=== PATIENT | male | born 1970 | race Caucasian/White ===

== ENCOUNTER 2022-12-15 10:51 | Outpatient (OUT) | payer MEDICAID, SELFPAY ==
[2022-12-15 11:23] LABS: Basophils Percent Auto 0.3 % (0.2-2.0); Eosinophils Absolute Auto 0.1 10^3/uL (0.0-0.7); Hematocrit 36.8 % (42.0-54.0); Hemoglobin 12.7 g/dL (14.0-18.0); Immature Granulocytes Abs Auto 0.02 10^3/uL (0.00-0.03); Immature Granulocytes Pct Auto 0.3 % (0.0-0.5); Lymphocytes Absolute Auto 1.2 10^3/uL (1.2-3.8); Mean Corpuscular HGB Conc 34.5 g/dL (29.9-35.2); Mean Corpuscular Hemoglobin 30.2 pg (25.9-34.0); Mean Corpuscular Volume 87.4 fL (80.0-94.0); Mean Platelet Volume 10.1 fL (9.5-13.5); Monocytes Absolute Auto 0.7 10^3/uL (0.3-0.8); Monocytes Percent Auto 10.2 % (1.7-12.0); Neutrophils Absolute Auto 4.4 10^3/uL (1.4-6.5); Neutrophils Percent Auto 69.2 % (43.0-75.0); Platelet Count 179 10^3/uL (150-450); Red Blood Count 4.21 10^6/uL (4.70-6.10); Red Cell Distribution Width 12.4 % (11.0-15.0); White Blood Count 6.4 10^3/uL (4.0-11.0)
== END 2022-12-15 10:52 | disposition home or self-care (01) ==
PROVIDERS: PCP Internal Medicine; Visit Provider Internal Medicine
DX: D64.9 Anemia, unspecified (principal)
CPT/HCPCS: 36415; 82607; 82728; 82746; 83550; 85025

== ENCOUNTER 2023-02-26 07:30 | Outpatient (OUT) | payer MEDICAID, SELFPAY ==
[2023-02-26 07:47] LABS: Basophils Percent Auto 0.8 % (0.2-2.0); Eosinophils Absolute Auto 0.1 10^3/uL (0.0-0.7); Eosinophils Percent Auto 1.6 % (0.9-7.0); Hematocrit 41.1 % (42.0-54.0); Hemoglobin 13.9 g/dL (14.0-18.0); Immature Granulocytes Abs Auto 0.01 10^3/uL (0.00-0.03); Immature Granulocytes Pct Auto 0.2 % (0.0-0.5); Lymphocytes Absolute Auto 1.2 10^3/uL (1.2-3.8); Mean Corpuscular HGB Conc 33.8 g/dL (29.9-35.2); Mean Corpuscular Hemoglobin 29.8 pg (25.9-34.0); Mean Corpuscular Volume 88.2 fL (80.0-94.0); Mean Platelet Volume 10.9 fL (9.5-13.5); Monocytes Absolute Auto 0.5 10^3/uL (0.3-0.8); Monocytes Percent Auto 9.6 % (1.7-12.0); Neutrophils Absolute Auto 3.1 10^3/uL (1.4-6.5); Neutrophils Percent Auto 62.8 % (43.0-75.0); Platelet Count 129 10^3/uL (150-450); Red Blood Count 4.66 10^6/uL (4.70-6.10); Red Cell Distribution Width 12.1 % (11.0-15.0); White Blood Count 4.9 10^3/uL (4.0-11.0)
== END 2023-02-26 07:31 | disposition home or self-care (01) ==
LOC: LAB 07:31
PROVIDERS: PCP Internal Medicine; Visit Provider Internal Medicine
DX: D64.9 Anemia, unspecified (principal)
CPT/HCPCS: 36415; 85025

== ENCOUNTER 2023-03-03 08:52 | Outpatient (OUT) | payer MEDICAID, SELFPAY ==
[2023-03-03 11:33] LABS: Bilirubin Urine NEGATIVE (NEGATIVE); Blood Urine TRACE-I (NEGATIVE); Clarity Urine CLEAR (CLEAR); Color Urine YELLOW (YELLOW); Glucose Urine UA NEGATIVE (NEGATIVE); Ketones Urine NEGATIVE (NEGATIVE); Leukocyte Esterase Urine NEGATIVE (NEGATIVE); Nitrite Urine NEGATIVE (NEGATIVE); Protein Urine NEGATIVE (NEG/TRACE); Specific Gravity Urine 1.025 (1.005-1.025); Urobilinogen Urine 0.2 EU/dL (0.2-1.0); pH Urine 5.5 (5.0-9.0)
[2023-03-03 11:56] LABS: Crystals Seen? Seen #/HPF (None Seen); Mucus Urine NONE SEEN (NONE SEEN); Squamous Epithelial Cell Urine RARE #/LPF (NONE/RARE); WBC Urine 0-2 #/HPF (NONE SEEN)
[2023-03-03 11:57] LABS: Calcium Oxalate Crystals Urine MODERATE; Cast Seen? SEEN #/LPF (NONE SEEN); Hyaline Casts Urine RARE
[2023-03-03 11:58] LABS: Bacteria Urine TRACE #/HPF (NONE SEEN)
== END 2023-03-03 08:53 | disposition home or self-care (01) ==
LOC: LAB 08:52
PROVIDERS: PCP Internal Medicine; Visit Provider Internal Medicine
DX: N28.1 Cyst of kidney, acquired (principal)
CPT/HCPCS: 81001

== ENCOUNTER 2023-08-27 06:59 | Outpatient (OUT) | payer MEDICAID, SELFPAY ==
--- OUTSIDE RECORDS SUMMARY | 2023-08-27 07:03 | XMS_ITS | CCD ---
Author Organization [facility] Care Team Providers Care Deputy Register Of Deeds Name Role Phone DO Yaya Olivo Primary Care Provider Al MD Kobe Lay Admit Provider MD Emma Allen Attending Provider [phone] MD Denis Jung Other Provider [phone] Doretha Valentino Unavailable Unavailable Unavailable DO Yaya Olivo Primary Care Provider CATHERINE Valentino Attending Provider [phone] Yaya Olivo E Unavailable DO Yaya Olivo Primary Care Provider CATHERINE Valentino Attending Provider [phone] Yaya Olivo Unavailable DO Yaya Olivo Primary Care Provider CATHERINE Valentino Attending Provider MD Josesito Timmons Attending Provider [phone] Lakesha Hatch Attending Unavailable YAYA OLIVO Referring Unavailable TOREY, DR JAVIER Primary Care Unavailable ES GAMA Admitting Unavailable ES GAMA Attending Unavailable NENA .ASAF Consulting UnavailLeland Torres Consulting Unavailable ES GAMA Consulting Unavailable TOREY, DR JAVIER Admitting Unavailable TOREY, DR JAVIER Attending Unavailable TOREY, DR JAVIER Primary Care Unavailable TOREY, DR JAVIER Consulting Unavailable TALBOT, DR ARNULFO Dale Admitting Unavailable TALBOT, DR ARNULFO Dale Attending Unavailable TOREY, DR JAVIER Primary Care Unavailable TALBOT, DR ARNULFO Dale Consulting Unavailable BALL, DR JAVIER Admitting Unavailable BALL, DR JAVIER Attending Unavailable BALL, DR JAVIER Referring Unavailable BALL, DR JAVIER Primary Care Unavailable BALL, DR JAVIER Consulting Unavailable BALL, DR JAVIER Admitting Unavailable BALL, DR JAVIER Attending Unavailable BALL, DR JAVIER Primary Care Unavailable BALL, DR JAVIER Consulting Unavailable BALL, DR JAVIER Admitting Unavailable BALL, DR JAVIER Attending Unavailable BALL, DR JAVIER Primary Care Unavailable BALL, DR JAVIER Consulting Unavailable Zieber, Abdirahman Consulting Unavailable VIKTOR, DR DENIS Acevedo Admitting Unavailabl e VIKTOR, DR DENIS Acevedo Attending Unavailabl e BALL, DR JAVIER Primary Care Unavailable VIKTOR, DR DENIS Acevedo Consulting Unavailabl e Viktor, Dr. Denis Nieto Referring Unava ilable Torey, Dr. Yaya Michelle Primary Care Jovany Fernandez, Dr. Denis Nieto Attending Unava ilable Viktor, Dr. Denis Nieto Referring Unava ilable Ball, Dr. Yaya Michelle Primary Care Jovany Fernandez, Dr. eDnis Nieto Attending Unava ilable Torey, DO Javier Primary Care Provider CATHERINE Valentino Attending Provider Gallo, CHIEF GROWTH OFFICER-C Joanne Fairchild Attending Provider [phone] Aleksandra Caal Unavailable DO Yaya Olivo Primary Care Provider CATHERINE Valentino Attending Provider Yaya Olivo DO Primary Care Provider Denis Fernandez DO Unavailable DENIS FERNANDEZ Attending Unavailable YAYA OLIVO Primary Care Unavailable Torey, DO Javier Primary Care Provider CATHERINE Valentino Attending Provider MD Gary East Attending Provider DO Garrett Fernandez Other Provider Doretha Valentino Attending Unavailable Doretha Valentino R Admitting Unavailable Torey, Yaya Primary Care Unavailable Gallo, Joanne A Attending Unavailable Gallo, Joanne A Admitting Unavailable Doretha Valentino R Attending Unavailable Doretha Valentino R Admitting Unavailable Torey, Yaya Primary Care Unavailable Doretha Valentino R Attending Unavailable Chicho, Doretha R Admitting Unavailable Ball, Yaya Primary Care Unavailable [facility] Primary Care Unavailable Gary East Attending Unavailable Gary East Admitting Unavailable Gary East Admitting Unavailable Torey, Yaya Primary Care Unavailable Garrett Fernandez Consulting Unavailable Gary East Attending Unavailable Allergies Allergy Classification Reported Allergen(s) Allergy Type Date of Onset Reaction(s) Facility (5 sources) patient allergy list reviewed by nurse or physicia Propensity to adverse reactions 6 Comment:Done [facility] Other (5 sources) Allergies Reconciled Propensity to adverse reactions Unknown [employer] [facility] Other Medications Current Medications Medication Drug Class(es) Dates Sig (Normalized) Sig (Original) aspirin 81 mg delayed release oral tablet (20 sources) Platelet Aggregation Inhibitor, Nonsteroidal Anti-inflammatory Drug Start: 10-13-2021 take 81 mg by mouth once daily Aspirin Active 81 MG PO Daily 90 October 13, 2021 12:00am aspirin 81 mg ch ewable tablet Chew 1 tablet (81 mg) 1 time. Active Aspirin 81 MG Or al Tablet Chewable TAKE 1 TABLET Quantity: 90 Refills: 3 Ordered: 22-Nov-2022 Denis Fernandez DO Active atorvastatin 40 mg oral tablet (20 sources) HMG-CoA Reductase Inhibitor Start: 10-13-2021 take 40 mg by mouth once daily in the evening Atorvastatin Active 40 MG PO Every evening 30 October 13, 2021 12:00am busPIRone hydrochloride 10 mg oral tablet (20 sources) Start: 11-11-2021 take 1 tablet by mouth twice daily as needed for anxiety busPIRone HCl 10 MG 1 tablet Orally Twice a day as needed for anxiety for 15 days Oct, Active Start: 11-11-2021 take 1 tablet by indy th twice daily as needed for anxiety busPIRone HCl 7.5 MG 1 tablet Orally Twice a day as needed for anxiety for 15 days Oct, Active take 2 tablets by mo [facility] twice daily busPIRone (Buspar) 7.5 mg tablet Take 2 tablets (15 mg) by mouth 2 times a day. Active take 1 tablet by indy th twice daily busPIRone HCl 15 MG TAKE 1 TABLET BY MOUTH TWICE A DAY for 90 Active take 1 tablet by mouth once odessa y busPIRone HCl - 15 MG Oral Tablet TAKE 1 TABLET EVERY 12 HOURS DAILY. Quantity: 0 Refills: 0 Ordered: 22-Nov-2022 DO Active fluocinolone acetonide 0.1 mg/ml topical oil (8 sources) Corticosteroid [place]-Smoothe/FS Body 0.01 % 1 application Externally PRN for 30 days Active [place]-Smoothe/FS Body 0.01 % External for 30 Days Active metoprolol tartrate 25 mg oral tablet (20 sources) beta-Adrenergic Amee Start: 04-04-2023 take 0.5 tablet by mouth twice daily metoprolol tartrate (Lopressor) 25 mg tablet Indications: Hypertension, benign Take 0.5 tablets (12.5 mg) by mouth 2 times a day. 180 tablet 3 04/04/2023 Active Start: 04-06-2022 End: 08-08-2023 take 0.5 tablet by mouth once daily metoprolol tartrate (Lopressor) 25 mg tablet Take 0.5 tablets (12.5 mg) by mouth once daily. 04/06/2022 08/08/2023 Discontinued (Duplicate order) Start: 10-13-2021 take 25 mg by mouth twice odessa y Metoprolol Tartrate Active 25 MG PO Twice daily 60 30 October 13, 2021 12:00am Metoprolol Tartr ate 25 MG one half Orally daily Active 24 hr nicotine 0.292 mg/hr transdermal system (11 sources) Cholinergic Nicotinic Agonist Start: 12-14-2021 apply 1 dose transdermal route once daily Nicotine 7 MG/24HR 1 patch to skin Transdermal Once a day for 14 days STARTS 12/29/21 Nov, Active Start: 12-14-2021 apply 1 dose transde rmal route once daily Nicotine 7 MG/24HR 1 patch to skin Transdermal Once a day for 14 days STARTS 12/29/21 Nov, Active Start: 12-14-2021 apply 1 dose transde rmal route once daily Nicotine 7 MG/24HR 1 patch to skin Transdermal Once a day for 14 days Nov, Active Nicotine Mini 2 MG as directed Mouth/Throat Active Nicotine Step 2 14 MG/24HR (3 sources) Start: 11-23-2021 Nicotine Step 2 14 MG/24HR 1 patch to skin Transdermal Once a day for 14 days Nov, Active nitroglycerin 0.4 mg sublingual tablet (20 sources) Nitrate Vasodilator Start: 10-13-2021 Nitroglyce rin Active 0.4 MG SUBLINGUAL Q5M 25 30 October 13, 2021 12:00am Nitroglycerin 0. [address] 1 TABLET UNDER TONGUE EVERY 5 MINS, UP TO 3 DOSES NEEDED FOR CHEST PAIN Active Nitroglycerin 0. 4 MG as directed Sublingual Once a day Active predniSONE 10 mg oral tablet (14 sources) Start: 03-02-2023 predniSONE 10 MG 1 tablet Orally tid w/ food x 5 days then bid w/ food x 5 days then qd w/ food x 5 days for 15 days Feb, Active Start: 10-12-2022 predniSONE 20 MG 1 tablet Orally tid w/ fooc x 3 days then bid w/ food x 3 days then qd w/ food x 3 days for 9 days Oct, Not-Taking ticagrelor 90 mg oral tablet (20 sources) Start: 10-13-2021 take 1 tablet by mouth twice daily Ticagrelor (Brilinta) 90 mg Tablet Active 90 MG PO Twice daily 180 90 October 13, 2021 12:00am Completed/Discontinued Medications Medication Drug Class(es) Dates Sig (Normalized) Sig (Original) wcias-[id number] e enzyme 150 unt oral tablet (1 source) Beano TABS USE DIRECTED. Quantity: 0 Refills: 0 Ordered: 22-Nov-2021 DO Active 12 hr buPROPion hydrochloride 150 mg extended release oral tablet (5 sources) Aminoketone take 1 tablet by mouth twice daily buPROPion HCl ER (SR) 150 MG one tablet Orally Twice a day for 30 day(s) Not-Taking cephalexin 500 mg oral tablet (9 sources) Cephalosporin Antibacterial Start: 10-12-2022 take 1 tablet by mouth three times daily Cephalexin 500 MG 1 tablet Orally three times daily for 14 days Sep, Not-Taking ciprofloxacin 3 mg/ml ophthalmic solution (2 sources) Quinolone Antimicrobial Start: 05-27-2023 take 1 drop(s) into the eye(s) every four hours as needed Ciloxan 0.3 % 1 drop each eye every 4 hrs for 5 day(s) May, Not-Taking/PRN Problems Active Problems Problem Classification Problem Date Documented Date Episodic/Chronic Acute and unspecified renal failure (9 sources) Injury of kidney; Translations: [Acute kidney failure, unspecified] 10-14-2021 Episodic Acute myocardial infarction (20 sources) Myocardial infarction; Translations: [Non-ST elevation (NSTEMI) myocardial infarction] Onset: 10-20-2021 Resolved: 11-23-2021 10-12-2021 Chronic Administrative/social admission (1 source) Persons encountering health services in other specified circumstances Episodic Anxiety disorders (20 sources) Anxiety; Translations: [Anxiety disorder, unspecified] Onset: 11-09-2021 Resolved: 11-23-2021 Chronic Coronary atherosclerosis and other heart disease (20 sources) Coronary arteriosclerosis; Translations: [Coronary atherosclerosis of unspecified type of vessel, rosebud or graft] Onset: 04-01-2022 Chronic Coronary atherosclerosis and other heart disease (2 sources) Coronary angioplasty status; Translations: [Coronary angioplasty status] Onset: 04-04-2023 Episodic Deficiency and other anemia (4 sources) Anemia of chronic disease; Translations: [Anemia in other chronic diseases classified elsewhere] Chronic Deficiency and other anemia (1 source) Anemia in other chronic diseases classified elsewhere Chronic Deficiency and other anemia (2 sources) Anemia, unspecified Episodic Disorders of lipid metabolism (20 sources) Hyperlipidemia; Translations: [Other and unspecified hyperlipidemia] Onset: 12-15-2021 Chronic Essential hypertension (20 sources) Hypertensive disorder; Translations: [Essential (primary) hypertension] Onset: 10-14-2021 10-12-2021 Chronic Inflammation; infection of eye (except that caused by tuberculosis or sexually transmitteddisease) (1 source) Unspecified conjunctivitis Episodic Nonspecific chest pain (3 sources) Atypical chest pain; Translations: [Other chest pain] Episodic Other diseases of kidney and ureters (20 sources) Renal mass; Translations: [Other specified disorders of kidney and ureter] Chronic Other diseases of kidney and ureters (7 sources) Other specified disorders of kidney and ureter; Translations: [OTHER SPEC DISORDERS KIDNEY URETER] Onset: 06-15-2022 Chronic Other diseases of kidney and ureters (4 sources) Cyst of kidney, acquired; Translations: [Cyst of kidney, acquired] Onset: 08-14-2023 Episodic Other liver diseases (9 sources) Elevated liver enzymes level; Translations: [Abnormal levels of other serum enzymes] 10-14-2021 Episodic Other lower respiratory disease (20 sources) Nodule of lung; Translations: [Solitary pulmonary nodule] Episodic Other lower respiratory disease (7 sources) Solitary pulmonary nodule; Translations: [Solitary pulmonary nodule] Onset: 06-11-2023 Episodic Other nutritional; endocrine; and metabolic disorders (1 source) Obesity; Translations: [Obesity, unspecified] Chronic Other nutritional; endocrine; and metabolic disorders (6 sources) Abnormal weight loss Episodic Other nutritional; endocrine; and metabolic disorders (2 sources) Overweight in adulthood with body mass index of 25 or more but less than 30; Translations: [Body mass index (BMI) 25.0-25.9, adult] Onset: 08-08-2023 08-08-2023 Episodic Other nutritional; endocrine; and metabolic disorders (2 sources) Body mass index (BMI) 25.0-25.9, adult; Translations: [Body mass index (BMI) 25.0-25.9, adult] Onset: 08-08-2023 Episodic Other screening for suspected conditions (not mental disorders or infectious disease) (3 sources) Encounter for screening for malignant neoplasm of colon; Translations: [Encounter for screening for malignant neoplasm of prostate] Onset: 09-03-2022 Episodic Residual codes; unclassified (3 sources) Body mass index 20-24 - normal; Translations: [Body Mass Index between 19-24, adult] Episodic Screening and history of mental health and substance abuse codes (8 sources) Ex-smoker; Translations: [Personal history of tobacco use] Onset: 08-08-2023 08-08-2023 Episodic Comment on above: Quit October 2021; Substance-related disorders (20 sources) Tobacco user; Translations: [Nicotine dependence, cigarettes, uncomplicated] Onset: 10-14-2021 Resolved: 12-28-2021 Chronic Unclassified (1 source) CONTACT W/AND (SUSP) EXPOS COVID-19; Translations: [CONTACT W/AND (SUSP) EXPOS COVID-19] Onset: 10-14-2021 Unclassified (1 source) Cyst of kidney, acquired; Translations: [Cyst of kidney, acquired] Onset: 02-07-2023 Past or Other Problems Problem Classification Problem Date Documented Da te Episodic/Chronic Allergic reactions (4 sources) Allergic contact dermatitis due to plants, except food; Translations: [Other specified dermatitis] Onset: 12-05-2022 Episodic Results Test Name Value Interpretation Reference Range Facility Cholesterol [Mass/volume] in Serum or PlasmaOrdered By: Garrett Fernandez on 08-14-2023 Cholesterol [Mass/Vol] 87 mg/dL 140-200 [facility] Comment on above: Chol less than 200 m g/dl low riskChol 201-239 mg/dl borderline riskChol 240 mg/dl and greater high risk Cholesterol in LDL Calc [Mas s/Vol]Ordered By: Garrett Fernandez on 08-14-2023 Cholesterol in LDL [Mass/Vol] 38 mg/dL 0-100 [facility] Comment on above: LDL ATP III CLASSIFI CATIONLDL less than 100 mg/dL OptimalLDL 100-129 mg/dL Near or above optimalLDL 130-159 mg/dL Borderline highLDL 160-189 mg/dL HighLDL greater than 189 mg/dL Very high Cholesterol in VLDL Calc [Ma ss/Vol]Ordered By: Garrett Fernandez on 08-14-2023 Cholesterol in VLDL [Mass/Vol] 8 mg/dL [facility] Lipid Panelon 08-14-2023 Cholesterol [Mass/Vol] 87 mg/dL Low 140-200 [facility] Comment on above: Result Comment: Chol less than 200 mg/dl low risk Chol 201-239 mg/dl borderline risk Chol 240 mg/dl and greater high risk Performed By: #### L IPID #### [facility] [address] Cholesterol in HDL [Mass/Vol] 41 mg/dL Normal 23-92 [facility] Comment on above: Result Comment: HDL CHOL ATP-III CLASSIFICATION Cardiovascular Risk HDL > or equal to 60 mg/dL LOW HDL < 40 mg/dL HIGH Performed By: #### L IPID #### [facility] [address] Cholesterol.total/Cho lesterol in HDL [Mass ratio] 2.1 {ratio} Normal <5.0 [facility] Comment on above: Result Comment: PERF ORMED BY: [place] [address] PATHOLOGIST CAGE SHIFT MANAGER JACK PATEL M.D. Performed By: #### L IPID #### [facility] [address] [place] [id number] [facility] LDL Cholesterol,Calculate d 38 mg/dL Normal 0-100 [facility] Comment on above: Result Comment: LDL ATP III CLASSIFICATION LDL less than 100 mg/dL Optimal LDL 100-129 mg/dL Near or above optimal LDL 130-159 mg/dL Borderline high LDL 160-189 mg/dL High LDL greater than 189 mg/dL Very high Performed By: #### L IPID #### [facility] [place] [address] Triglyceride w/Reflex 41 mg/dL Normal 0-149 [facility] Comment on above: Result Comment: TRIG ATP III CLASSIFICATION TRIG less than 150 mg/dL Normal TRIG 150-199 mg/dL Borderline high TRIG 200-500 mg/dL High TRIG greater than 500 mg/dL Very high Standard traceable to the Center for Disease Conrtrol and Prevention (CDC) test method. Performed By: #### L IPID #### [facility] [address] [place] [address] VLDL CHOLESTEROL 8 mg/dL Normal [facility] Comment on above: Performed By: #### L IPID #### [address] MR abdomen wo/w conon 2023 MR abdomen wo/w con [facility] [place] [address] MRI Report Signed Patient: Pj Sabillon MR#: [id number] 255 : 1970 Acct:[id number] Age/Sex: 53 / M ADM Date: 08/14/23 Loc: Room: Type: [facility] Attending Dr: Gary East MD Copies to: Gary East MD Ordering Provider: Gary East MD Date of Service: 08/14/23 MR/MR abdomen wo/w con: N28.1 MRI the abdomen with and without contrast Routine technique with 14 cc of ProHance administered. HISTORY: Annual monitoring of the left the kidney suggesting hemorrhagic/proteinac eous cyst. Comparison examination dated 02/08/2023 There is a continued involution of the round low signal lesion in the upper lateral portion of the left kidney. This measures up to 7 mm. The prior measurement 15 mm. No solid lesions identified. No hydronephrosis. No obvious stone. Potential small left inferior parapelvic renal cysts. Unremarkable liver, spleen pancreas and adrenal glands. Unremarkable gallbladder. No ascites. No adenopathy. MR/MR abdomen wo/w con IMPRESSION: Findings consistent with continued interval involution of left hemorrhagic cyst with residual hemosiderin ring. No solid lesions. No new findings. Impression dictated by: Jarrett Chauhan M.D.08/14/2023 3:49 PM Dictation Location: [id number]-14 Transcribed By: [facility] 08/14/23 154 Dictated By: Jarrett Chauhan DO 08/14/23 154 Signed By: 08/14/23 1549 Normal [facility] PSA Diagnostic (Total Free)o n 08-14-2023 Prostate Spec Ag, Free 0.190 ng/mL Normal [facility] Comment on above: Performed By: #### P SATF #### [address] PSA Total (Not a Screen) 0.370 ng/mL Normal 0.000-4.000 [facility] Comment on above: Result Comment: Seri al tumor marker results determined by assays using different manufacturers or methods may not be comparable. [facility] draw bench operator and method: Meetyl DXI, CHEMILUMINESCENT IMMUNOASSAY. Performed By: #### P SATF #### [address] PSA,FREE% 51.3 % Normal [facility] Comment on above: Result Comment: Base d on the work of Tito et al.CORIE. 279(19):1542:47.1998 the percent free PSA may be used to determine the relative risk of prostate cancer in individual men.The percent probability of prostate cancer by patient age for men with non-suspicious LAUREN results and total PSa between 4 and 10 ng/ml is as follows: % Free PSA 50 - 64 yrs. 65 - 75 yrs. 0 - 10 56% 55% 10 - 15 24% 35% 15 - 20 17% 23% 20 - 25 10% 20% >25 5% 9% PERFORMED BY: [place] [address] PATHOLOGIST CAGE SHIFT MANAGER JACK PATEL M.D. Performed By: #### P [facility] #### [facility] [address] Prostate Specific Ag Free [M ass/volume] in Serum or PlasmaOrdered By: Gary East on 08-14-2023 Free PSA [Mass/Vol] 0.190 ng/mL [facility] Prostate specific Ag [Mass/v olume] in Serum or PlasmaOrdered By: Gary East on 08-14-2023 Prostate specific Ag [Mass/Vol] 0.370 ng/mL 0.000-4.000 [facility] Comment on above: Serial tumor marker results determined by assays using different manufacturers or methods may not be comparable.[facility] draw bench operator and method:Pump AudioI, CHEMILUMINESCENT IMMUNOASSAY. Serum or plasma free prostat e specific antigen (PSA)/total PSA ratioOrdered By: Gary East on 08-14-2023 Free PSA/Total PSA [Mass fraction] 51.3 % [facility] Comment on above: Based on the work of Tito et al.CORIE. 279(19):1542:47.1998 the percent free PSA may be used to determine the relative risk of prostate cancer in individual men.The percent probability of prostate cancer by patient age for men with non-suspicious LAUREN results and total PSa between 4 and 10 ng/ml is as follows:% Free PSA 50 - 64 yrs. 65 - 75 yrs. 0 - 10 56% 55% 10 - 15 24% 35% 15 - 20 17% 23% 20 - 25 10% 20% >25 5% 9% Serum or plasma high density lipoprotein (HDL) cholesterol measurementOrdered By: Garrett Fernandez on 08-14-2023 Cholesterol in HDL [Mass/Vol] 41 mg/dL [facility] Comment on above: HDL CHOL ATP-III CLA SSIFICATION Cardiovascular RiskHDL > or equal to 60 mg/dL LOWHDL < 40 mg/dL HIGH Serum or plasma total choles terol/high density lipoprotein (HDL) cholesterol mass ratOrdered By: Garrett Fernandez on 08-14-2023 Cholesterol.total/Cho lesterol in HDL [Mass ratio] 2.1 {ratio} <5.0 [facility] Triglyceride [Mass/volume] i n Serum or PlasmaOrdered By: Garrett Fernandez on 08-14-2023 Triglyceride [Mass/Vol] 41 mg/dL 0-149 [facility] Comment on above: TRIG ATP III CLASSIF ICATIONTRIG less than 150 mg/dL NormalTRIG 150-199 mg/dL Borderline highTRIG 200-500 mg/dL High TRIG greater than 500 mg/dL Very highStandard traceable to the Center for Disease Conrtrol and Prevention (CDC) test method. CT chest w conon 06-12-2023 CT chest w con [facility] [place] [address] [place] [address] CT Scan Report Signed Patient: Pj Sabillon MR#: [id number] 255 : 1970 Acct:[id number] Age/Sex: 52 / M ADM Date: 06/11/23 Loc: CT Room: Type: [facility] Attending Dr: Doretha Valentino APRN Copies to: Doretha Valentino APRN Ordering Provider: Doretha Valentino APRN Date of Service: 06/11/23 CT/CT chest w con: Pulmonary nodule CT Chest with contrast TECHNIQUE: Axial imaging with 2-D reconstruction. 90 cc of Isovue-300The CT exam was performed using one or more the following dose reduction techniques: Automated exposure control, adjustment of the MA and/or Kv according to patient size, or use of the iterative reconstruction technique. History: Assessment for pulmonary nodule. Former smoker. COMPARISON: 05/31/2022 THYROID: Unremarkable TRACHEA AND BRONCHI: Patent ESOPHAGUS: Unremarkable. HEART: Within normal limits PERICARDIAL EFFUSION: None CORONARY ARTERY CALCIFICATION: None MEDIASTINUM: No adenopathy. No pneumoperitoneum. No mediastinal hematoma. PULMONARY JOAN: Right hilar calcified lymph nodes redemonstrated. THORACIC AORTA Unremarkable LUNG NODULE no noncalcified soft tissue nodule present. stable calcified right middle lobe granulomas present. LUNGS: Lungs are clear PLEURAL EFFUSION: None PNEUMOTHORAX: No pneumothorax seen. CHEST WALL: No abnormality AXILLA:Unremarkable BONY STRUCTURES Intact UPPER ABDOMEN: Images of the upper abdomen are noncontributory. CT/CT chest w con IMPRESSION: Stable chest. Remote granulomatous changes. No new lung nodule. Impression dictated by: Jarrett Chauhan M.D.06/12/2023 9:41 AM Dictation Location: [place] [address] Transcribed By: [facility] 06/12/2341 Dictated By: Jarrett Chauhan DO 06/12/2336 Signed By: 06/12/23940 Normal [facility] ISTAT XRay CREon 02-07-2023 Creatinine [Mass/Vol] 1.2 mg/dL Normal 0.6-1.3 [facility] Comment on above: Result Comment: ER/E SD physician is notified/shown all ISTAT results. Critical values may be confirmed by laboratory testing if deemed necessary by ER attending doctor. Performed By: #### I SCRE #### [address] ISTAT GFR > 60.0 Normal [facility] Comment on above: Result Comment: PERF ORMED BY: [place] [address] PATHOLOGIST CAGE SHIFT MANAGER JACK PATEL M.D. Performed By: #### I SCRE #### [address] MR abdomen wo/w conon 2022 MR abdomen wo/w con [facility] [place] [address] MRI Report Signed Patient: Pj Sabillon MR#: [id number] 255 : 1970 Acct:[id number] Age/Sex: 52 / M ADM Date: 02/07/23 Loc: Room: Type: [facility] Attending Dr: Gary East MD Copies to: Gary East MD Ordering Provider: Gary East MD Date of Service: 02/07/23 MR/MR abdomen wo/w con: N28.1 MRI the abdomen with and without contrast TECHNIQUE: 14 cc of ProHance. COMPARISON: 07/20/2022 HISTORY: Annual monitoring of left renal lesion. There is a 14.6 mm round predominantly low signal, lesion in the upper lateral portion of the left kidney with central region of increased signal. This likely represents an involuting hemorrhagic cyst with hemosiderin. There are no solid lesions identified. No hydronephrosis. No findings to suggest stone. Potential small left inferior parapelvic renal cyst. Unremarkable liver, spleen, pancreas and adrenal glands. Unremarkable gallbladder. No ascites. No adenopathy. MR/MR abdomen wo/w con IMPRESSION: Findings consistent with interval involution of left hemorrhagic cyst with residual cyst with a hemosiderin ring. No solid renal lesion. Impression dictated by: Jarrett Chauhan M.D.02/07/2023 12:38 PM Dictation Location: [place] [address] Transcribed By: [facility] 02/07/23 1238 Dictated By: Jarrett Chauhan DO 02/07/23 1229 Signed By: 02/07/23 1238 Normal [facility] Superficial Wound Cultureon 12-05-2022 Superficial Wound Culture ORGANISM: Staphylococcus aureus (O:STAAUR) Quantity of Growth Moderate Growth Aerobic OPHELIA Charge (PCMIC38) ---- SUSCEPTIBILITY --- ORGANISM: O:STAAUR ANTIBIOTIC INTERPRETATION OPHELIA Azithromycin R >4 Ceftaroline S <0.5 Ciprofloxacin S <1 Clindamycin S 0.5 Daptomycin S <0.5 Levofloxacin S <1 Linezolid S 4 Oxacillin S <0.25 Penicillin S <0.03 Tetracycline S <4 Trimethoprim/Sulfamet hoxazole S <0.5 Vancomycin S 1 S = SUSCEPTIBLE I = INTERMEDIATE R = RESISTANT BLANK = DATA NOT AVAILABLE, OR DRUG NOT ADVISABLE OR TESTED R* = RESISTANCE DUE TO EXTENDED SPECTRUM BETA-LACTAMASES ESBL = EXTENDED SPECTRUM BETA-LACTAMASE TFG = THYMIDINE-DEPENDENT STRAIN FRIDA = BETA-LACTAMASE POSITIVE IB = INDUCIBLE BETA-LACTAMASE. APPEARS IN PLACE OF 'S' WITH SPECIES KNOWN TO POSSESS INDUCIBLE BETA-LACTAMASES. POTENTIALLY THEY MAY BECOME RESISTANT TO ALL B-LACTAM DRUGS. PERFORMED BY: [place] [address] PATHOLOGIST [employer] SHIFT MANAGER JACK PATEL M.D. Normal [facility] Comment on above: Performed By: #### C USUP #### [address] Office Visit (Cardiology)on 11-22-2022 Follow-up visit Diagnoses/Problems Assessed CAD (coronary artery disease) (414.00) (I25.10) History of CO (myocardial infarction) (412) (I25.2) History of PTCA (V45.82) (Z98.61) Hyperlipidemia (272.4) (E78.5) Body mass index (BMI) of 23.0 to 23.9 in adult (V85.1) (Z68.23) HTN (hypertension) (401.9) (I10) Atypical chest pain (786.59) (R07.89) Orders CAD (coronary artery disease), History of PTCA, Hyperlipidemia Renew: Aspirin 81 MG Oral Tablet Chewable; TAKE 1 TABLET Hyperlipidemia Renew: Atorvastatin Calcium 40 MG Oral Tablet; TAKE 1 TABLET AT BEDTIME Patient Instructions Please bring all medicines, vitamins, and herbal supplements with you when you come to the office. Prescriptions will not be filled unless you are compliant with your follow up appointments or have a follow up appointment scheduled as per instruction of your physician. Refills should be requested at the time of your visit. Follow up in 8 months Chief Complaint PJ SABILLON is being seen for a 6 month follow-up of. Patient is a 52-year-old gentleman returns for follow-up and is doing extremely well. Last year in September 2021 he underwent PCI's in the circumflex obtuse marginal branch x3 drug-eluting stents with Dr. Velarde for an acute myocardial infarction. He does describe atypical right-sided musculoskeletal chest discomfort with work that is somewhat reproducible on today's exam. He has dropped a total of 85 pounds over the past 1 year impressively with dietary discretion. No longer smokes. Recommendations: Follow-up in 8 months on same therapy Surgical History Problems History of Cardiac catheterization with stent placement Denied: History of Complete colonoscopy History of Lithotripsy Current Meds Medication NameInstruction Aspirin 81 MG Oral Tablet ChewableTAKE 1 TABLET Atorvastatin Calcium 40 MG Oral TabletTAKE 1 TABLET AT BEDTIME. busPIRone HCl - 15 MG Oral TabletTAKE 1 TABLET EVERY 12 HOURS DAILY. Metoprolol Tartrate 25 MG Oral TabletTAKE 0.5 TABLET once daily Nitroglycerin 0.4 MG Sublingual Tablet SublingualPLACE 1 TABLET UNDER THE TONGUE EVERY 5 MINUTES UP TO 3 DOSES NEEDED FOR CHEST PAIN. Patient did not bring medication list or bottles. Updated verbally with patient Allergies NoKnown No Known Allergies Recorded By: Ramya Denis; 11/10/2021 3:28:18 PM Social History Problems Daily caffeine consumption 1-2 cans of pop daily Former smoker (V15.82) (Z87.891) Quit October 2021 No alcohol use No illicit drug use Review of Systems Constitutional: not feeling tired. Cardiovascular: no intermittent leg claudication and as noted in HPI. Respiratory: no cough and no shortness of breath. Gastrointestinal: no change in bowel habits and no blood in stools. Integumentary: no skin rashes. Neurological: no seizures and no frequent falls. All other systems have been reviewed and are negative for complaint. Vitals Vital Signs Recorded: 22Nov2022 10:27AM Heart Rate58, L Radial Rtyxfavh198, LUE, Sitting Wazcqnbyz34, LUE, Sitting Height5 ft 8 in Gfqxgg685 lb BMI Ujylsspdvi29.42 kg/m2 BSA Calculated1.83 Tobacco Useb) No Physical Exam Constitutional: alert and in no acute distress. Neck: neck is supple, symmetric, trachea midline, no masses and no thyromegaly . Pulmonary: no increased work of breathing or signs of respiratory distress and lungs clear to auscultation. Cardiovascular: carotid pulses 2+ bilaterally with no bruit , JVP was normal, no thrills , regular rhythm, normal S1 and S2, no murmurs , pedal pulses 2+ bilaterally and no edema . Abdomen: abdomen non-tender, no masses and no hepatomegaly . Skin: skin warm and dry, normal skin turgor . Psychiatric judgment and insight is normal and oriented to person, place and time . Signatures Electronically signed by : Denis Fernandez DO; Nov 23 2022 1:38PM EST (Author) Normal [facility] Tobacco Screening.on 023 Tobacco use status [facility] b) No -[facility] 250 DO Work Phone: CBC AUTO DIFFon 09-01-2022 BASO # 0.0 103/ul Normal 0.0-0.1 [facility] Comment on above: Performed By: #### C BC #### [facility] [address] [place] [address] [address] Kelly Jones Basophils/100 WBC (Bld) 0.8 % Normal 0.2-2.0 [facility] Comment on above: Performed By: #### C BC #### [facility] [address] [place] [address] Dr. Kelly Jones EO # 0.1 103/ul Normal 0.0-0.7 [facility] Comment on above: Performed By: #### C BC #### [facility] [address] [place] [address] Dr. Kelly Jones Eosinophils/100 WBC (Bld) 1.6 % Normal 0.9-7.0 [facility] Comment on above: Performed By: #### C BC #### [facility] [address] [place] [address] Dr. Kelly Jones Erythrocyte distribution width (RBC) [Ratio] 12.3 % Normal 11.0-15.0 [facility] Comment on above: Performed By: #### C BC #### [facility] [address] [place] [address] Dr. Kelly Jones Hematocrit (Bld) [Volume fraction] 38.5 % Critically low 42.0-54.0 [facility] Comment on above: Performed By: #### C BC #### [facility] [address] [place] [address] Dr. Kelly Jones Hemoglobin (Bld) [Mass/Vol] 13.5 g/dL Critically low 14.0-18.0 [facility] Comment on above: Performed By: #### C BC #### [facility] [address] [place] [address] Dr. Kelly Jones IG # 0.01 10e3/ul Normal 0.00-0.03 [facility] Comment on above: Performed By: #### C BC #### [facility] [address] [place] [address] Dr. Kelly Jones IG % 0.2 % Normal 0.0-0.5 [facility] Comment on above: Performed By: #### C BC #### [facility] [address] [place] [address] Dr. Kelly Jones LYMPH # 1.4 103/ul Normal 1.2-3.8 [facility] Comment on above: Performed By: #### C BC #### [facility] [address] [place] [address] Dr. Kelly Jones Lymphocytes/100 WBC (Bld) 28.1 % Normal 20.5-60.0 [facility] Comment on above: Performed By: #### C BC #### [facility] [address] [place] [address] Dr. Kelly Jones MANUAL DIFF REQ NO Normal [facility] Comment on above: Performed By: #### C BC #### [facility] [address] [place] [address] Dr. Kelly Jones MCH (RBC) [Entitic mass] 30.0 pg Normal 25.9-34.0 [facility] Comment on above: Performed By: #### C BC #### [facility] [address] [place] [address] Dr. Kelly Jones MCHC (RBC) [Mass/Vol] 35.1 g/dL Normal 29.9-35.2 [facility] Comment on above: Performed By: #### C BC #### [facility] [address] [place] [address] Dr. Kelly Jones MCV (RBC) [Entitic vol] 85.6 fL Normal 80.0-94.0 [facility] Comment on above: Performed By: #### C BC #### [facility] [address] [place] [address] Dr. Kelly Jones MONO # 0.5 103/ul Normal 0.3-0.8 [facility] Comment on above: Performed By: #### C BC #### [facility] [address] [place] [address] Dr. Kelly Jones Monocytes/100 WBC (Bld) 9.4 % Normal 1.7-12.0 [facility] Comment on above: Performed By: #### C BC #### [facility] [address] [place] [address] Dr. Kelly Jones NEUT # 3.0 103/ul Normal 1.4-6.5 [facility] Comment on above: Performed By: #### C BC #### [facility] [address] [place] [address] [address] Kelly Jones Neutrophils/100 WBC (Bld) 59.9 % Normal 43.0-75.0 [facility] Comment on above: Performed By: #### C BC #### [facility] [address] [place] [address] [address] Kelly Jones Platelet mean volume (Bld) [Entitic vol] 10.5 fL Normal 9.5-13.5 [facility] Comment on above: Performed By: #### C BC #### [facility] [address] [place] [address] [address] Kelly Jones PLT 131 103/ul Critically low 150-450 [facility] Comment on above: Performed By: #### C BC #### [facility] [address] [place] [address] [address] Kelly Jones RBC 4.50 106/ul Critically low 4.70-6.10 [facility] Comment on above: Performed By: #### C BC #### [facility] [address] [place] [address] [address] Kelly Jones WBC 5.1 103/ul Normal 4.0-11.0 [facility] Comment on above: Performed By: #### C BC #### [facility] [address] [place] [address] Dr. Kelly Jones LIPID PROFILEon 09-01-2022 CHOL-HDL RATIO NORM SEE BELOW Normal [facility] Comment on above: Result Comment: 3.3 - 4.4 LOW RISK 4.4 - 7.1 AVERAGE RISK 7.1 - 11.0 MODERATE RISK >11.0 HIGH RISK Performed By: #### L IPID, CMP #### [facility] [address] [place] [address] [address] Kelly Jones Cholesterol [Mass/Vol] 92 mg/dL Normal <=200 [facility] Comment on above: Performed By: #### L IPID, CMP #### [facility] [address] [place] [address] [address] Kelly Jones Cholesterol in HDL [Mass/Vol] 47 mg/dL Normal 40-60 [facility] Comment on above: Performed By: #### L IPID, CMP #### [facility] [address] [address] [address] Kelly Jones Cholesterol in LDL [Mass/Vol] 35.8 mg/dL Normal [facility] Comment on above: Performed By: #### L IPID, CMP #### [facility] [address] [place] [address] [address] Kelly Jones Cholesterol.total/Cho lesterol in HDL [Mass ratio] 2.0 {ratio} Normal [facility] Comment on above: Performed By: #### L IPID, CMP #### [facility] [address] [place] [address] [address] Kelly Jones HDL NORMAL > or = 60 mg/dl - LO W CARDIOVASCULAR RISK <40 mg/dl - HIGH CARDIOVASCULAR RISK Normal [facility] Comment on above: Performed By: #### L IPID, CMP #### [facility] [address] [place] [address] Dr. Kelly Jones LDL CALC NORMAL SEE BELOW Normal [facility] Comment on above: Result Comment: <100 mg/dl OPTIMAL 100 - 129 mg/dl NEAR OR ABOVE OPTIMAL 130 - 159 mg/dl BORDERLINE HIGH 160 - 189 mg/dl HIGH >190 mg/dl VERY HIGH Performed By: #### L IPID, CMP #### [facility] [address] [address] [address] Kelly Jones Triglyceride [Mass/Vol] 46 mg/dL Normal <=150 [facility] Comment on above: Performed By: #### L IPID, CMP #### [facility] [address] [place] [address] [address] Kelly Jones VLDL CALC 9.2 mg/dL Normal [facility] Comment on above: Performed By: #### L IPID, CMP #### [facility] [address] [address] [address] Kelly Jones PROF 14(COMP METB)on 023 Albumin [Mass/Vol] 3.6 g/dL Normal 3.4-5.0 [facility] Comment on above: Performed By: #### L IPID, CMP #### [facility] [address] [place] [address] [address] Kelly Jones Albumin/Globulin [Mass ratio] 1.2 {ratio} Normal [facility] Comment on above: Performed By: #### L IPID, CMP #### [facility] [address] [place] [address] [address] Kelly Jones ALP [Catalytic activity/Vol] 83 U/L Normal 46-116 [facility] Comment on above: Performed By: #### L IPID, CMP #### [facility] [address] [place] [address] [address] Kelly Jones ALT [Catalytic activity/Vol] 52 U/L Normal 16-63 [facility] Comment on above: Performed By: #### L IPID, CMP #### [facility] [address] [address] [address] Kelly Jones Anion gap [Moles/Vol] 11.5 mmol/L Normal [facility] Comment on above: Performed By: #### L IPID, CMP #### [facility] [address] [address] [address] Kelly Jones AST [Catalytic activity/Vol] 20 U/L Normal 15-37 [facility] Comment on above: Performed By: #### L IPID, CMP #### [facility] [address] [address] [address] Kelly Jones Bilirubin [Mass/Vol] 0.6 mg/dL Normal 0.2-1.0 [facility] Comment on above: Performed By: #### L IPID, CMP #### [facility] [address] [address] [address] Kelly Jones Calcium [Mass/Vol] 8.9 mg/dL Normal 8.5-10.1 [facility] Comment on above: Performed By: #### L IPID, CMP #### [facility] [address] [address] [address] Kelly Jones Chloride [Moles/Vol] 109 mmol/L Critically high 98-107 [facility] Comment on above: Performed By: #### L IPID, CMP #### [facility] [address] [address] [address] Kelly Jones CO2 [Moles/Vol] 28.7 mmol/L Normal 21.0-32.0 [facility] Comment on above: Performed By: #### L IPID, CMP #### [facility] [address] [address] [address] Kelly Jones Creatinine [Mass/Vol] 1.09 mg/dL Normal 0.70-1.30 [facility] Comment on above: Performed By: #### L IPID, CMP #### [facility] [address] [place] [address] Dr. Kelly Jones EGFR-AF TAIWANESE >60 Normal >=60 [facility] Comment on above: Performed By: #### L IPID, CMP #### [facility] [address] [place] [address] Dr. Kelly Jones EGFR-NON AF TAIWANESE >60 Normal >=60 [facility] Comment on above: Performed By: #### L IPID, CMP #### [facility] [address] [place] [address] Dr. Kelly Jones Globulin (S) [Mass/Vol] 3.1 g/dL Normal [facility] Comment on above: Performed By: #### L IPID, CMP #### [facility] [address] [address] [address] Kelly Jones Glucose [Mass/Vol] 86 mg/dL Normal 74-106 [facility] Comment on above: Performed By: #### L IPID, CMP #### [facility] [address] [address] [address] Kelly Jones Potassium [Moles/Vol] 4.2 mmol/L Normal 3.5-5.1 [facility] Comment on above: Performed By: #### L IPID, CMP #### [facility] [address] [place] [address] Dr. Kelly Jones Protein [Mass/Vol] 6.7 g/dL Normal 6.4-8.2 [facility] Comment on above: Performed By: #### L IPID, CMP #### [facility] [address] [address] [address] Kelly Jones Sodium [Moles/Vol] 145 mmol/L Normal 136-145 [facility] Comment on above: Performed By: #### L IPID, CMP #### [facility] [address] [place] [address] Dr. Kelly Jones Urea nitrogen [Mass/Vol] 15.0 mg/dL Normal 7.0-18.0 [facility] Comment on above: Performed By: #### L IPID, CMP #### [facility] [address] [place] [address] Dr. Kelly Jones Urea nitrogen/Creatinine [Mass ratio] 13.8 mg/mg Normal [facility] Comment on above: Performed By: #### L IPID, CMP #### [facility] [address] [place] [address] Dr. Kelly Jones Office Visit (Cardiology)on 06-20-2022 Follow-up visit Diagnoses/Problems Assessed CAD (coronary artery disease) (414.00) (I25.10) History of PTCA (V45.82) (Z98.61) History of CO (myocardial infarction) (412) (I25.2) Hyperlipidemia (272.4) (E78.5) Hypertension, benign (401.1) (I10) Overweight with body mass index (BMI) of 25 to 25.9 in adult (278.02,V85.21) (E66.3,Z68.25) Orders CAD (coronary artery disease), History of PTCA, Hyperlipidemia Renew: Aspirin 81 MG Oral Tablet Chewable; TAKE 1 TABLET Patient Instructions Please bring all medicines, vitamins, and herbal supplements with you when you come to the office. Prescriptions will not be filled unless you are compliant with your follow up appointments or have a follow up appointment scheduled as per instruction of your physician. Refills should be requested at the time of your visit. Stop Brilinta at end of September 2022 Follow up in 6 months Chief Complaint PJ SABILLON is being seen for a 6 month follow-up of. 51-year-old gentleman returns for follow-up and is doing well he has no cardiovascular complaints. 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 He remains on appropriate therapies including DAPT. He sustained non-ST elevation CO in September 2021 with revascularization of the circumflex and obtuse marginal branch x3 drug-eluting stents performed by Dr. Myles Betancur, with normal left ventricular function. Blood work from March 2022 is reviewed however does not include lipid panel. We will order a lipid panel, patient can follow-up in 6 months, will discontinue Brilinta at the end of September 2022 Current Meds Medication NameInstruction Aspirin 81 MG Oral Tablet ChewableTAKE 1 TABLET Atorvastatin Calcium 40 MG Oral TabletTAKE 1 TABLET AT BEDTIME. Brilinta 90 MG Oral TabletTAKE 1 TABLET TWICE DAILY. BuSpar 10 MG TABSTake 1 tablet twice daily Metoprolol Tartrate 25 MG Oral TabletTAKE 0.5 TABLET once daily Nitroglycerin 0.4 MG Sublingual Tablet SublingualPLACE 1 TABLET UNDER THE TONGUE EVERY 5 MINUTES UP TO 3 DOSES NEEDED FOR CHEST PAIN. Patient did not bring medication list or bottles. Updated verbally with patient Allergies NoKnown No Known Allergies Recorded By: Ramya Denis; 11/10/2021 3:28:18 PM Social History Problems Daily caffeine consumption 1-2 cans of pop daily Former smoker (V15.82) (Z87.891) Quit October 2021 No alcohol use No illicit drug use Review of Systems Constitutional: not feeling tired. Cardiovascular: no intermittent leg claudication and as noted in HPI. Respiratory: no cough and no shortness of breath. Gastrointestinal: no change in bowel habits and no blood in stools. Integumentary: no skin rashes. Neurological: no seizures and no frequent falls. All other systems have been reviewed and are negative for complaint. Vitals Vital Signs Recorded: [id number] 02:18PM Heart Rate60, L Radial Mcsoqwsz547, LUE, Sitting Oaehxxnpq50, LUE, Sitting Height5 ft 8 in Jlrkzo318 lb BMI Ymubcmrgkx72.09 kg/m2 BSA Calculated1.88 Tobacco Useb) No PHQ-2 #1. Over the last 2 weeks have you felt down, depressed or hopeless? (If yes, answer PHQ-9 below)No PHQ-2 #2. Over the last 2 weeks have you felt little interest or pleasure in doing things? (If yes, answer PHQ-9 below)No Physical Exam Constitutional: alert and in no acute distress. Neck: neck is supple, symmetric, trachea midline, no masses and no thyromegaly . Pulmonary: no increased work of breathing or signs of respiratory distress and lungs clear to auscultation. Cardiovascular: carotid pulses 2+ bilaterally with no bruit , JVP was normal, no thrills , regular rhythm, normal S1 and S2, no murmurs , pedal pulses 2+ bilaterally and no edema . Abdomen: abdomen non-tender, no masses and no hepatomegaly . Skin: skin warm and dry, normal skin turgor . Psychiatric judgment and insight is normal and oriented to person, place and time . Signatures Electronically signed by : Denis Fernandez DO; Jun 20 2022 5:18PM EST (Author) Normal [employer] CT ABD/PELV WO W CONon 06-15 CT ABD/PELV WO W CON EXAMINATION: CT ABD/PELV WO W CON HISTORY: Disorder of kidney and/or ureter ; left renal mass COMPARISON: No relevant comparison available. TECHNIQUE: Axial, Coronal, and Sagittal images were obtained without and/or with IV contrast as indicated by examination type. Dose reduction techniques were achieved by using automated exposure control and/or adjustment of mA and/or kV according to patient size and/or use of iterative reconstruction technique. FINDINGS: LUNG BASES: No visible pulmonary or pleural disease. LIVER: No enlargement, atrophy, suspicious density, or significant focal lesion. BILIARY: No dilatation or calcification. PANCREAS: No lesion, fluid collection, or abnormal duct dilatation. SPLEEN: No enlargement or focal lesion. ADRENALS: No mass or enlargement. KIDNEYS: 4.7 cm round fluid density thin-walled structure arising from anterior lateral inferior pole of left kidney with suspected soft tissue components along the renal margin with minimal enhancement. A few small cyst within left kidney. Several tiny nonobstructing stones within kidneys bilaterally. BOWEL/MESENTERY: No visible mass, obstruction, or bowel wall thickening. AORTA/VASCULAR: No aneurysm or dissection. RETROPERITONEUM: No mass or adenopathy. LYMPH NODES: No adenopathy. URINARY BLADDER: No visible focal wall thickening, lesion, or calculus. PELVIC ORGANS: No visible mass. Pelvic organs appropriate for patient age. ABDOMINAL WALL: No mass or hernia. BONES: No bony lesion or fracture. OTHER: Negative. IMPRESSION: 1.Partially cystic mass 4.7 cm in size and suspicious for neoplasm arising from left kidney. This could also represent a complex cyst, but neoplasm needs to be excluded. 2.Nonobstructing bilateral nephrolithiasis. Electronically authenticated by: ABDIRAHMAN YOU Date: 2022-06-15 17:[address] [facility] [address] chest w conon 05-31-2022 CT chest w con [facility] [employer] Other CT chest w con [facility] [employer] Other CT chest w con [address] [place] [address] [employer] [place] [address] No [facility] [employer] Other CT chest w con CT Scan Report [place] [employer] Other CT chest w con Signed [employer] Other CT chest w con Patient: Pj Sabillon MR#: [id number] [place] [employer] Other CT chest w con [address] [employer] [address] chest w con : 1970 Acct:[id number] [employer] Other CT chest w con Age/Sex: 51 / M ADM Date: 05/31/[address] [employer] [address] chest w con Loc: CT Room: Type: [facility] [employer] Other CT chest w con Attending Dr: Cathy Valentino [facility] [employer] Other CT chest w con Copies to: Doretha Valentino [facility] [employer] Other CT chest w con Ordering Provider: Doretha Valentino APRN [employer] Other CT chest w con Date of Service: 05/31/22 [employer] [employer] Other CT chest w con CT/CT chest w con: Lung nodule [employer] Other CT chest w con CT CHEST WITH INTRAVENOUS CONTRAST: [employer] Other CT chest w con CLINICAL HISTORY: Follow-up lung nodules. [employer] Other CT chest w con COMPARISON: 01/11/[address] [employer] [address] chest w con TECHNIQUE: Spiral images were obtained through the chest following intravenous administration of [address] [employer] [address] chest w con mL of Isovue-300. Images were reviewed using both narrow and wide window settings. This CT exam [employer] Other CT chest w con was performed using one or more following dose reduction techniques: Automated exposure control, [employer] Other CT chest w con adjustment of the mA and/or kV according to patient size, or use of iterative reconstruction [employer] Other CT chest w con technique. [employer] Other CT chest w con FINDINGS: The heart is not enlarged. There is no pericardial effusion. Coronary artery [employer] Other CT chest w con calcification and/or stents are present. No aortic aneurysm or dissection is seen. There are [employer] Other CT chest w con stable calcified and noncalcified mediastinal and hilar lymph nodes. There is subtle [employer] Other CT chest w con dextroscoliotic curvature and small endplate spurs. [employer] Other CT chest w con There is no consolidation, pleural effusion or pneumothorax. No soft tissue nodularity is seen. [employer] Other CT chest w con There are calcified right middle lobe granulomas measuring up to 7 - 8 mm in size. [employer] Other CT chest w con Limited cuts through the upper abdomen show a partially imaged, enlarging left renal hypodensity [employer] Other CT chest w con measuring at least 4.7 cm in size. This is not a simple cyst. [employer] Other CT chest w con CT/CT chest w con [employer] Other CT chest w con IMPRESSION: [employer] Other CT chest w con GRANULOMATOUS CHANGES. [employer] Other CT chest w con NO SOFT TISSUE PULMONARY NODULARITY. [employer] Other CT chest w con NO ACUTE INTRATHORACIC FINDINGS. [employer] Other CT chest w con PARTIALLY IMAGED LEF T RENAL NODULARITY. THIS IS NOT A DEFINITE SIMPLE CYST. FOLLOW-UP WITH [employer] Other CT chest w con Impression dictated by: Lyly Weiss M.D.05/31/2022 4:21 PM [employer] Other CT chest w con Dictation Location: [place] [id number] [employer] Other CT chest w con Transcribed By: [facility] 05/31/22 [facility] [employer] Other CT chest w con Dictated By: Lyly Weiss MD 05/31/22 [facility]2 [employer] Other CT chest w con Signed By: [employer] Other CT chest w con 05/31/22 [facility] [employer] Other CBC AUTO DIFFon 03-28-2022 BASO # 0.0 103/ul Normal 0.0-0.1 [facility] Comment on above: Performed By: #### C BC #### [facility] [address] [place] [address] Dr. Kelly Jones Basophils/100 WBC (Bld) 0.3 % Normal 0.2-2.0 [facility] Comment on above: Performed By: #### C BC #### [facility] [address] [place] [address] Dr. Kelly Jones EO # 0.1 103/ul Normal 0.0-0.7 [facility] Comment on above: Performed By: #### C BC #### [facility] [address] [place] [address] Dr. Kelly Jones Eosinophils/100 WBC (Bld) 1.5 % Normal 0.9-7.0 [facility] Comment on above: Performed By: #### C BC #### [facility] [address] [place] [address] Dr. Kelly Jones Erythrocyte distribution width (RBC) [Ratio] 13.2 % Normal 11.0-15.0 [facility] Comment on above: Performed By: #### C BC #### [facility] [address] [place] [address] Dr. Kelly Jones Hematocrit (Bld) [Volume fraction] 39.6 % Critically low 42.0-54.0 [facility] Comment on above: Performed By: #### C BC #### [facility] [address] [place] [address] Dr. Kelly Jones Hemoglobin (Bld) [Mass/Vol] 13.7 g/dL Critically low 14.0-18.0 [facility] Comment on above: Performed By: #### C BC #### [facility] [address] [place] [address] Dr. Kelly Jones IG # 0.02 10e3/ul Normal 0.00-0.03 [facility] Comment on above: Performed By: #### C BC #### [facility] [address] [place] [address] Dr. Kelly Jones IG % 0.3 % Normal 0.0-0.5 [facility] Comment on above: Performed By: #### C BC #### [facility] [address] [place] [address] Dr. Kelly Jones LYMPH # 1.4 103/ul Normal 1.2-3.8 [facility] Comment on above: Performed By: #### C BC #### [facility] [address] [place] [address] Dr. Kelly Jones Lymphocytes/100 WBC (Bld) 23.0 % Normal 20.5-60.0 [facility] Comment on above: Performed By: #### C BC #### [facility] [address] [place] [address] Dr. Kelly Jones MANUAL DIFF REQ NO Normal [facility] Comment on above: Performed By: #### C BC #### [facility] [address] [place] [address] Dr. Kelly Jones MCH (RBC) [Entitic mass] 29.9 pg Normal 25.9-34.0 [facility] Comment on above: Performed By: #### C BC #### [facility] [address] [place] [address] Dr. Kelly Jones MCHC (RBC) [Mass/Vol] 34.6 g/dL Normal 29.9-35.2 [facility] Comment on above: Performed By: #### C BC #### [facility] [address] [place] [address] Dr. Kelly Jones MCV (RBC) [Entitic vol] 86.5 fL Normal 80.0-94.0 [facility] Comment on above: Performed By: #### C BC #### [facility] [address] [place] [address] Dr. Kelly Jones MONO # 0.5 103/ul Normal 0.3-0.8 [facility] Comment on above: Performed By: #### C BC #### [facility] [address] [place] [address] Dr. Kelly Jones Monocytes/100 WBC (Bld) 8.8 % Normal 1.7-12.0 [facility] Comment on above: Performed By: #### C BC #### [facility] [address] [place] [address] Dr. Kelly Jones NEUT # 4.0 103/ul Normal 1.4-6.5 [facility] Comment on above: Performed By: #### C BC #### [facility] [address] [address] [address] Kelly Jones Neutrophils/100 WBC (Bld) 66.1 % Normal 43.0-75.0 [facility] Comment on above: Performed By: #### C BC #### [facility] [address] [address] [address] Kelly Jones Platelet mean volume (Bld) [Entitic vol] 10.7 fL Normal 9.5-13.5 [facility] Comment on above: Performed By: #### C BC #### [facility] [address] [place] [address] Dr. Kelly Jones PLT 145 103/ul Critically low 150-450 [facility] Comment on above: Performed By: #### C BC #### [facility] [address] [place] [address] Dr. Kelly Jones RBC 4.58 106/ul Critically low 4.70-6.10 [facility] Comment on above: Performed By: #### C BC #### [facility] [address] [place] [address] Dr. Kelly Jones WBC 6.1 103/ul Normal 4.0-11.0 [facility] Comment on above: Performed By: #### C BC #### [facility] [address] [place] [address] Dr. Kelly Jones PROF CHEM 8 (BAS METB)on Anion gap [Moles/Vol] 8.0 mmol/L Normal [facility] Comment on above: Performed By: #### B MP #### [facility] [address] [place] [address] Dr. Kelly Jones Calcium [Mass/Vol] 9.3 mg/dL Normal 8.5-10.1 [facility] Comment on above: Performed By: #### B MP #### [facility] [address] [place] [address] Dr. Kelly Jones Chloride [Moles/Vol] 105 mmol/L Normal 98-107 [facility] Comment on above: Performed By: #### B MP #### [facility] [address] [address] [address] Kelly Jones CO2 [Moles/Vol] 31.0 mmol/L Normal 21.0-32.0 [facility] Comment on above: Performed By: #### B MP #### [facility] [address] [address] [address] Kelly Jones Creatinine [Mass/Vol] 0.96 mg/dL Normal 0.70-1.30 [facility] Comment on above: Performed By: #### B MP #### [facility] [address] [address] [address] Kelly Jones EGFR-AF TAIWANESE >60 Normal >=60 [facility] Comment on above: Performed By: #### B MP #### [facility] [address] [address] [address] Kelly Jones EGFR-NON AF TAIWANESE >60 Normal >=60 [facility] Comment on above: Performed By: #### B MP #### [facility] [address] [address] [address] Kelly Jones Glucose [Mass/Vol] 95 mg/dL Normal 74-106 [facility] Comment on above: Performed By: #### B MP #### [facility] [address] [address] [address] Kelly Jones Potassium [Moles/Vol] 4.0 mmol/L Normal 3.5-5.1 [facility] Comment on above: Performed By: #### B MP #### [facility] [address] [address] [address] Kelly Jones Sodium [Moles/Vol] 140 mmol/L Normal 136-145 [facility] Comment on above: Performed By: #### B MP #### [facility] [address] [address] [address] Kelly Jones Urea nitrogen [Mass/Vol] 10.0 mg/dL Normal 7.0-18.0 [facility] Comment on above: Performed By: #### B MP #### [facility] [address] [address] [address] Kelly Jones Urea nitrogen/Creatinine [Mass ratio] 10.4 mg/mg Normal [facility] Comment on above: Performed By: #### B MP #### [facility] [address] [id number] Kelly Jones LIPID PROFILEon 12-15-2021 CHOL-HDL RATIO NORM SEE BELOW Normal [facility] Comment on above: Result Comment: 3.3 - 4.4 LOW RISK 4.4 - 7.1 AVERAGE RISK 7.1 - 11.0 MODERATE RISK >11.0 HIGH RISK Performed By: #### C BC #### [facility] [address] [address] [address] Kelly Jones Cholesterol [Mass/Vol] 83 mg/dL Normal <=200 [facility] Comment on above: Performed By: #### C BC #### [facility] [address] [address] [address] Kelly Jones Cholesterol in HDL [Mass/Vol] 29 mg/dL Critically low 40-60 [facility] Comment on above: Performed By: #### C BC #### [facility] [address] [address] [address] Kelly Jones Cholesterol in LDL [Mass/Vol] 39.2 mg/dL Normal [facility] Comment on above: Performed By: #### C BC #### [facility] [address] [address] [address] Kelly Jones Cholesterol.total/Cho lesterol in HDL [Mass ratio] 2.9 {ratio} Normal [facility] Comment on above: Performed By: #### C BC #### [facility] [id number] Kelly Jones HDL NORMAL > or = 60 mg/dl - LO W CARDIOVASCULAR RISK <40 mg/dl - HIGH CARDIOVASCULAR RISK Normal [facility] Comment on above: Performed By: #### C BC #### [facility] [address] [address] [address] Kelly Jones LDL CALC NORMAL SEE BELOW Normal [facility] Comment on above: Result Comment: <100 mg/dl OPTIMAL 100 - 129 mg/dl NEAR OR ABOVE OPTIMAL 130 - 159 mg/dl BORDERLINE HIGH 160 - 189 mg/dl HIGH >190 mg/dl VERY HIGH Performed By: #### C BC #### [facility] [address] [place] [address] Dr. Kelly Jones Triglyceride [Mass/Vol] 74 mg/dL Normal <=150 [facility] Comment on above: Performed By: #### C BC #### [facility] [address] [address] [address] Kelly Jones VLDL CALC 14.8 mg/dL Normal [facility] Comment on above: Performed By: #### C BC #### [facility] [address] [place] [address] Dr. Kelly Jones PROF CHEM 8 (BAS METB)on Anion gap [Moles/Vol] 15.3 mmol/L Normal [facility] Comment on above: Performed By: #### B MP #### [facility] [address] [place] [address] Dr. Kelly Jones Calcium [Mass/Vol] 8.8 mg/dL Normal 8.5-10.1 [facility] Comment on above: Performed By: #### B MP #### [facility] [address] [place] [address] Dr. Kelly Jones Chloride [Moles/Vol] 100 mmol/L Normal 98-107 [facility] Comment on above: Performed By: #### B MP #### [facility] [address] [place] [address] Dr. Kelly Jones CO2 [Moles/Vol] 22.6 mmol/L Normal 21.0-32.0 [facility] Comment on above: Performed By: #### B MP #### [facility] [address] [place] [address] Dr. Kelly Jones Creatinine [Mass/Vol] 1.30 mg/dL Normal 0.70-1.30 [facility] Comment on above: Performed By: #### B MP #### [facility] [address] [place] [address] Dr. Kelly Jones EGFR-AF TAIWANESE >60 Normal >=60 [facility] Comment on above: Performed By: #### B MP #### [facility] [address] [address] [address] Kelly Jones EGFR-NON AF TAIWANESE 58 mL/min/1.73m2 Critically low >=60 [facility] Comment on above: Performed By: #### B MP #### [facility] [address] [address] [address] Kelly Jones Glucose [Mass/Vol] 114 mg/dL Critically high 74-106 [facility] Comment on above: Performed By: #### B MP #### [facility] [address] [address] [address] Kelly Jones Potassium [Moles/Vol] 3.9 mmol/L Normal 3.5-5.1 [facility] Comment on above: Performed By: #### B MP #### [facility] [address] [address] [address] Kelly Jones Sodium [Moles/Vol] 134 mmol/L Critically low 136-145 [facility] Comment on above: Performed By: #### B MP #### [facility] [address] [address] [address] Kelly Jones Urea nitrogen [Mass/Vol] 13.0 mg/dL Normal 7.0-18.0 [facility] Comment on above: Performed By: #### B MP #### [facility] [address] [address] [address] Kelly Jones Urea nitrogen/Creatinine [Mass ratio] 10.0 mg/mg Normal [facility] Comment on above: Performed By: #### B MP #### [facility] [address] [address] [address] Kelly Jones Activated partial thrombopla stin time (aPTT) in platelet poor plasma by coagulation aOrdered By: Dewayne Pettit on 10-14-2021 aPTT Coag (PPP) [Time] 29.8 s 25.1-36.5 [facility] Albumin [Mass/volume] in Ser um or PlasmaOrdered By: Myles Velarde on 10-14-2021 Albumin [Mass/Vol] 3.1 g/dL 3.2-5.5 [facility] Basophils Auto (Bld) [#/Vol] Ordered By: Myles Velarde on 10-14-2021 Basophils (Bld) [#/Vol] 0.1 10*3/uL 0.0-0.2 [facility] Basophils/100 WBC Auto (Bld) Ordered By: Myles Velarde on 10-14-2021 Basophils/100 WBC (Bld) 0.5 % [facility] Blood hemoglobin measurement (mass/volume)Ordered By: Myles Velarde on 10-14-2021 Hemoglobin (Bld) [Mass/Vol] 15.1 g/dL 13.0-17.0 [facility] Blood leukocytes automated c ount (number/volume)Ordered By: Myles Velarde on 10-14-2021 WBC (Bld) [#/Vol] 17.9 10*3/uL 4.5-11.0 [facility] Creatinine and Glomerular fi ltration rate.predicted panel (S/P/Bld)Ordered By: Myles Velarde on 10-14-2021 Creatinine [Mass/Vol] 1.70 mg/dL 0.64-1.27 [facility] Comment on above: Delta: 1.18 on 10/13 Eosinophils Auto (Bld) [#/Vo l]Ordered By: Myles Velarde on 10-14-2021 Eosinophils (Bld) [#/Vol] 0.1 10*3/uL 0.0-0.45 [facility] Eosinophils/100 WBC Auto (Bl d)Ordered By: Myles Velarde on 10-14-2021 Eosinophils/100 WBC (Bld) 0.3 % [facility] Erythrocyte distribution wid th Auto (RBC) [Ratio]Ordered By: Myles Velarde on 10-14-2021 Erythrocyte distribution width (RBC) [Ratio] 12.8 % 12.0-14.8 [facility] Estimated glomerular filtrat ion rate (GFR) non- AmericanOrdered By: Myles Velarde on 10-14-2021 GFR/1.73 sq M.predicted among non-blacks MDRD (S/P/Bld) [Vol rate/Area] 43 mL/Min [facility] Globulin Calc (S) [Mass/Vol] Ordered By: Myles Velarde on 10-14-2021 Globulin (S) [Mass/Vol] 2.9 g/dL [facility] Hematocrit Auto (Bld) [Volum e fraction]Ordered By: Myles Velarde on 10-14-2021 Hematocrit (Bld) [Volume fraction] 44.1 % 38.8-50.0 [facility] - CoagulationOrde red By: Dewayne Pettit on 10-14-2021 PT Coag (PPP) [Time] 13.7 s 9.0-12.9 [facility] - Hematology and Cell countsOrdered By: Myles Velarde on 10-14-2021 Nucleated RBC/100 WBC (Bld) [Ratio] 0.0 % 0-0.5 [facility] Lymphocytes Auto (Bld) [#/Vo l]Ordered By: Myles Velarde on 10-14-2021 Lymphocytes (Bld) [#/Vol] 1.4 10*3/uL 1.00-4.8 [facility] Lymphocytes/100 WBC Auto (Bl d)Ordered By: Myles Velarde on 10-14-2021 Lymphocytes/100 WBC (Bld) 8.0 % [facility] MCH Auto (RBC) [Entitic mass ]Ordered By: Myles Velarde on 10-14-2021 MCH (RBC) [Entitic mass] 29.3 pg 27.5-35.2 [facility] MCHC Auto (RBC) [Mass/Vol]Or dered By: Myles Velarde on 10-14-2021 MCHC (RBC) [Mass/Vol] 34.3 g/dL 32.5-35.6 [facility] MCV Auto (RBC) [Entitic vol] Ordered By: Myles Velarde on 10-14-2021 MCV (RBC) [Entitic vol] 85.3 fL 83.5-101 [facility] Monocytes Auto (Bld) [#/Vol] Ordered By: Myles Velarde on 10-14-2021 Monocytes (Bld) [#/Vol] 2.1 10*3/uL 0.0-0.8 [facility] Monocytes/100 WBC Auto (Bld) Ordered By: Myles Velarde on 10-14-2021 Monocytes/100 WBC (Bld) 11.5 % [facility] Neutrophils Auto (Bld) [#/Vo l]Ordered By: Myles Velarde on 10-14-2021 Neutrophils (Bld) [#/Vol] 14.3 10*3/uL 1.8-7.7 [facility] Neutrophils/100 WBC Auto (Bl d)Ordered By: Myles Velarde on 10-14-2021 Neutrophils/100 WBC (Bld) 79.7 % [facility] No Panel InformationOrdered By: Myles Velarde on 10-14-2021 Estimated GFR () 52 mL/Min [facility] Comment on above: GFR estimated refere nce range: According to KDOQI guidelines, <60 ml/min/1.73m2 is sufficient to diagnose a patient with chronic kidney disease. Pharmacy Creatinine Clearance (Chem 62.13 [facility] Platelet mean volume Auto (B ld) [Entitic vol]Ordered By: Myles Velarde on 10-14-2021 Platelet mean volume (Bld) [Entitic vol] 9.1 fL 6.6-10.1 [facility] Platelet poor plasma interna tional normalized ratio (INR) by coagulation assay (relatOrdered By: Dewayne Pettit on 10-14-2021 INR Coag (PPP) [Relative time] 1.2 {INR} [facility] Comment on above: INR Therapeutic Rang e A) Pre- and Peroperative OAT started two weeks before surgery. NOT HIP SURGERY: 1.5 - 2.5 HIP SURGERY: 2 - 3 B) Primary and secondary prevention of venous THROMBOSIS: 2 - 3 C) Active venous thrombosis, pulmonary embolism and prevention of recurrent venous thrombosis: 2 - 3 D) Prevention of arterial thromboembolism including patients with mechanical heart valves: 3 - 4.5 Platelets Auto (Bld) [#/Vol] Ordered By: Myles Velarde on 10-14-2021 Platelets (Bld) [#/Vol] 175 10*3/uL 150-450 [facility] Comment on above: Delta: 230 on -0451 Protein [Mass/volume] in Ser um or PlasmaOrdered By: Myles Velarde on 10-14-2021 Protein [Mass/Vol] 6.0 g/dL 6.1-7.9 [facility] RBC Auto (Bld) [#/Vol]Ordere d By: Myles Velarde on 10-14-2021 RBC (Bld) [#/Vol] 5.17 10*6/uL 3.90-5.60 [facility] Serum or plasma alanine yeager otransferase measurement without P-5'-P (enzymatic activiOrdered By: Myles Velarde on 10-14-2021 ALT No additional P-5'-P [Catalytic activity/Vol] 61 U/L 10-60 [facility] Serum or plasma albumin/glob ulin mass ratioOrdered By: Myles Velarde on 10-14-2021 Albumin/Globulin [Mass ratio] 1.1 {ratio} [facility] Serum or plasma alkaline rdoger sphatase measurement (enzymatic activity/volume)Ordered By: Myles Velarde on 10-14-2021 ALP [Catalytic activity/Vol] 80 U/L 32-92 [facility] Serum or plasma aspartate am inotransferase measurement (enzymatic activity/volume)Ordered By: Myles Velarde on 10-14-2021 AST [Catalytic activity/Vol] 119 U/L 10-42 [facility] Serum or plasma calcium yuriy urement (mass/volume)Ordered By: Myles Velarde on 10-14-2021 Calcium [Mass/Vol] 8.8 mg/dL 8.2-10.2 [facility] Serum or plasma chloride barbara surement (moles/volume)Ordered By: Myles Velarde on 10-14-2021 Chloride [Moles/Vol] 99 mmol/L 95-114 [facility] Serum or plasma glucose yuriy urement (mass/volume)Ordered By: Myles Velarde on 10-14-2021 Glucose [Mass/Vol] 102 mg/dL 70-100 [facility] Comment on above: ADA recommended refe rence range Random Glucose Reference Range is dependent on time and content of last meal. Glucose of more than 200 mg/dL in a nonstressed, ambulatory subject supports the diagnosis of Diabetes Mellitus. Serum or plasma potassium me asurement (moles/volume)Ordered By: Myles Velarde on 10-14-2021 Potassium [Moles/Vol] 4.4 mmol/L 3.5-5.1 [facility] Serum or plasma sodium measu rement (moles/volume)Ordered By: Myles Velarde on 10-14-2021 Sodium [Moles/Vol] 135 mmol/L 136-146 [facility] Serum or plasma total biliru bin measurement (mass/volume)Ordered By: Myles Velarde on 10-14-2021 Bilirubin [Mass/Vol] 2.2 mg/dL 0.3-1.2 [facility] Comment on above: Samples from patient s who have taken Naproxen have shown spurious elevation in Total Bilirubin levels. A metabolite of Naproxen, O-desmethylnaproxen, has been shown to interfere with the Lesly method for measuring Total Bilirubin. Serum or plasma total carbon dioxide measurement (moles/volume)Ordered By: Myles Velarde on 10-14-2021 CO2 [Moles/Vol] 25.2 mmol/L 22.0-30.0 [facility] Serum or plasma urea nitroge n measurement (mass/volume)Ordered By: Myles Velarde on 10-14-2021 Urea nitrogen [Mass/Vol] 21 mg/dL 01-13 [facility] Cholesterol [Mass/volume] in Serum or PlasmaOrdered By: Dewayne Pettit on 10-13-2021 Cholesterol [Mass/Vol] 184 mg/dL 140-200 [facility] Comment on above: Chol less than 200 m g/dl low risk Chol 201-239 mg/dl borderline risk Chol 240 mg/dl and greater high risk Cholesterol in LDL Calc [Mas s/Vol]Ordered By: Dewayne Pettit on 10-13-2021 Cholesterol in LDL [Mass/Vol] 128 mg/dL 0-100 [facility] Comment on above: LDL ATP III CLASSIFI CATION LDL less than 100 mg/dL Optimal LDL 100-129 mg/dL Near or above optimal LDL 130-159 mg/dL Borderline high LDL 160-189 mg/dL High LDL greater than 189 mg/dL Very high Cholesterol in VLDL Calc [Ma ss/Vol]Ordered By: Dewayne Pettit on 10-13-2021 Cholesterol in VLDL [Mass/Vol] 19 mg/dL [facility] Glucose Glucometer (BldC) [M ass/Vol]Ordered By: Emma Allen on 10-13-2021 Glucose [Mass/Vol] 108 mg/dL [facility] Comment on above: Random Glucose Refer ence Range is dependent on time and content of last meal. Glucose of more than 200 mg/dL in a nonstressed, ambulatory subject supports the diagnosis of Diabetes Mellitus. Glucose mean value [Mass/vol ume] in Blood Estimated from glycated hemoglobinOrdered By: Dewayne Pettit on 10-13-2021 Average glucose Estimated from glycated hemoglobin (Bld) [Mass/Vol] 108 mg/dL [facility] Hemoglobin A1c percentageOrd ered By: Dewayne Pettit on 10-13-2021 HbA1c (Bld) [Mass fraction] 5.4 % 4.3-5.6 [facility] Comment on above: Increased risk for d iabetes: 5.7 - 6.4 diabetes: >6.4 glycemic control for adults with diabetes: <7.0 Laboratory - Chemistry and C hemistry - challengeOrdered By: Dewayne Pettit on 10-13-2021 Magnesium [Mass/Vol] 2.1 mg/dL 1.6-2.6 [facility] No Panel InformationOrdered By: Emma Allen on 10-13-2021 Bedside Glucose Comment Glu2: cleaned meter [facility] No Panel InformationOrdered By: Dewayne Pettit on 10-13-2021 Platelet Estimate Normal Normal [facility] Platelet Morphology Comment Normal Normal [facility] Phosphate [Mass/volume] in S prateek or PlasmaOrdered By: Dewayne Pettit on 10-13-2021 Phosphate [Mass/Vol] 4.1 mg/dL 2.5-4.6 [facility] RBC morphologyOrdered By: Lizz Pettit on 10-13-2021 RBC morphology finding Nom (Bld) Normal [facility] Serum or plasma high density lipoprotein (HDL) cholesterol measurementOrdered By: Dewayne Pettit on 10-13-2021 Cholesterol in HDL [Mass/Vol] 36 mg/dL 29-71 [facility] Comment on above: HDL CHOL ATP-III CLA SSIFICATION Cardiovascular Risk HDL > or equal to 60 mg/dL LOW HDL < 40 mg/dL HIGH Serum or plasma total choles terol/high density lipoprotein (HDL) cholesterol mass ratOrdered By: Dewayne Pettit on 10-13-2021 Cholesterol.total/Cho lesterol in HDL [Mass ratio] 5.1 {ratio} [facility] Triglyceride [Mass/volume] i n Serum or PlasmaOrdered By: Dewayne Pettit on 10-13-2021 Triglyceride [Mass/Vol] 99 mg/dL 35-149 [facility] Comment on above: TRIG ATP III CLASSIF ICATION TRIG less than 150 mg/dL Normal TRIG 150-199 mg/dL Borderline high TRIG 200-500 mg/dL High TRIG greater than 500 mg/dL Very high Standard traceable to the Center for Disease Conrtrol and Prevention (CDC) test method. Troponin I.cardiac [Mass/vol ume] in Serum or Plasma by High sensitivity methodOrdered By: Dewayne Pettit on 10-13-2021 Troponin I.cardiac High sensitivity method [Mass/Vol] 84797 pg/mL 0-20 [facility] Comment on above: Results called at 0930 on 10/13/21 BNPon 10-12-2021 Natriuretic peptide B (Bld) [Mass/Vol] 381.0 pg/mL Normal <=900.0 [facility] Comment on above: Performed By: #### C BC #### [facility] [address] [place] [address] Dr. Kelly Jones CARDIAC SOFY 3-6on 2 CK [Catalytic activity/Vol] 979 U/L Critically high 39-308 [facility] Comment on above: Result Comment: Test Repeated. Critical Value Verified Performed By: #### C BC #### [facility] [address] [address] [address] Kelly Jones CK.MB [Mass/Vol] 172.66 ng/mL Critically high <=3.60 [facility] Comment on above: Result Comment: Test Repeated. Critical Value Verified Performed By: #### C BC #### [facility] [address] [place] [address] Dr. Kelly Jones HSTROP 6728.0 pg/mL Critically high 4.0-76.1 [facility] Comment on above: Result Comment: CUT- OFF POINTS HAVE BEEN ESTABLISHED BASED ON THE FOURTH UNIVERSAL DEFINITIONS OF MYOCARDIAL INFARCTION. THE UPPER REFERENCE LIMIT (URL) OF TROPONIN, DEFINED THE 99TH PERCENTILE OF cTnI DISTRIBUTION IN A REFERENCE POPULATION, HAS BEEN CONFIRMED THE DECISION THRESHOLD FOR CO DIAGNOSIS. Test Repeated. Critical Value Verified Performed By: #### C BC #### [facility] [address] [place] [address] Dr. Kelly Jones CBC AUTO DIFFon 10-12-2021 BASO # 0.1 103/ul Normal 0.0-0.1 [facility] Comment on above: Performed By: #### C BC #### [facility] [address] [place] [address] Dr. Kelly Jones Basophils/100 WBC (Bld) 0.4 % Normal 0.2-2.0 [facility] Comment on above: Performed By: #### C BC #### [facility] [address] [place] [address] Dr. Kelly Jones EO # 0.1 103/ul Normal 0.0-0.7 [facility] Comment on above: Performed By: #### C BC #### [facility] [address] [place] [address] Dr. Kelly Jones Eosinophils/100 WBC (Bld) 0.4 % Critically low 0.9-7.0 [facility] Comment on above: Performed By: #### C BC #### [facility] [address] [place] [address] Dr. Kelly Jones Erythrocyte distribution width (RBC) [Ratio] 11.9 % Normal 11.0-15.0 [facility] Comment on above: Performed By: #### C BC #### [facility] [address] [place] [address] Dr. Kelly Jones Hematocrit (Bld) [Volume fraction] 49.7 % Normal 42.0-54.0 [facility] Comment on above: Performed By: #### C BC #### [facility] [address] [place] [address] Dr. Kelly Jones Hemoglobin (Bld) [Mass/Vol] 17.4 g/dL Normal 14.0-18.0 [facility] Comment on above: Performed By: #### C BC #### [facility] [address] [place] [address] Dr. Kelly Jones IG # 0.10 10e3/ul Critically high 0.00-0.03 [facility] Comment on above: Performed By: #### C BC #### [facility] [address] [place] [address] Dr. Kelly Jones IG % 0.7 % Critically high 0.0-0.5 [facility] Comment on above: Performed By: #### C BC #### [facility] [address] [place] [address] Dr. Kelly Jones LYMPH # 2.0 103/ul Normal 1.2-3.8 [facility] Comment on above: Performed By: #### C BC #### [facility] [address] [place] [address] Dr. Kelly Jones Lymphocytes/100 WBC (Bld) 13.4 % Critically low 20.5-60.0 [facility] Comment on above: Performed By: #### C BC #### [facility] [address] [place] [address] Dr. Kelly Jones MANUAL DIFF REQ NO Normal [facility] Comment on above: Performed By: #### C BC #### [facility] [address] [place] [address] Dr. Kelly Jones MCH (RBC) [Entitic mass] 29.1 pg Normal 25.9-34.0 [facility] Comment on above: Performed By: #### C BC #### [facility] [address] [place] [address] Dr. Kelly Jones MCHC (RBC) [Mass/Vol] 35.0 g/dL Normal 29.9-35.2 [facility] Comment on above: Performed By: #### C BC #### [facility] [address] [place] [address] Dr. Kelly Jones MCV (RBC) [Entitic vol] 83.1 fL Normal 80.0-94.0 [facility] Comment on above: Performed By: #### C BC #### [facility] [address] [address] [address] Kelly Jones MONO # 1.2 103/ul Critically high 0.3-0.8 [facility] Comment on above: Performed By: #### C BC #### [facility] [address] [address] [address] Kelly Jones Monocytes/100 WBC (Bld) 7.8 % Normal 1.7-12.0 [facility] Comment on above: Performed By: #### C BC #### [facility] [address] [place] [address] Dr. Kelly Jones NEUT # 11.5 103/ul Critically high 1.4-6.5 [facility] Comment on above: Performed By: #### C BC #### [facility] [address] [place] [address] Dr. Kelly Jones Neutrophils/100 WBC (Bld) 77.3 % Critically high 43.0-75.0 [facility] Comment on above: Performed By: #### C BC #### [facility] [address] [place] [address] Dr. Kelly Jones Platelet mean volume (Bld) [Entitic vol] 9.9 fL Normal 9.5-13.5 [facility] Comment on above: Performed By: #### C BC #### [facility] [address] [place] [address] Dr. Kelly Jones PLT 254 103/ul Normal 150-450 [facility] Comment on above: Performed By: #### C BC #### [facility] [address] [place] [address] Dr. Kelly Jones RBC 5.98 106/ul Normal 4.70-6.10 [facility] Comment on above: Performed By: #### C BC #### [facility] [address] [place] [address] Dr. Kelly Jones WBC 14.9 103/ul Critically high 4.0-11.0 [facility] Comment on above: Performed By: #### C BC #### [facility] [address] [place], [place] [address] Dr. Kelly Jones Covid-19 PCR ([facility])on 09-22 SARS-CoV-2 (COVID-19) RNA SON+probe Ql (Unsp spec) Not detected Normal NOT DETECTED [facility] Comment on above: Result Comment: When diagnostic testing is negative, the possibility of a false negative should be considered in the context of a patient's recent exposures and the presence of clinical signs and symptoms consistent with SARS-CoV-2. This test is not yet approved or cleared by the [place] FDA. When there are no FDA-approved or cleared tests available, and other criteria are met, FDA can make tests available under an emergency access mechanism called an Emergency Use Authorization (EUA). The EUA for this test is supported by the [employer] of Health and Human Service's declaration that circumstances exist to justify the emergency use of in vitro diagnostics for the detection and/or diagnosis of the virus that causes COVID-19. This EUA will remain in effect for the duration of the COVID-19 declaration justifying emergency of IVDs, unless it is terminated or revoked by the FDA (after which the test may no longer be used). Performed By: #### C VDTB #### [facility] [address] [place] [address] [id number] [address] Kelly Jones Laboratory - Chemistry and C hemistry - challengeOrdered By: Dewayne Pettit on 10-12-2021 Natriuretic peptide B (Bld) [Mass/Vol] 107.0 pg/mL 5-100 [facility] PROF 14(COMP METB)on 022 Albumin [Mass/Vol] 4.0 g/dL Normal 3.4-5.0 [facility] Comment on above: Performed By: #### C BC #### [facility] [address] [place] [address] [address] [address] Kelly Jones Albumin/Globulin [Mass ratio] 1.1 {ratio} Normal [facility] Comment on above: Performed By: #### C BC #### [facility] [address] [place] [address] Dr. Kelly Jones ALP [Catalytic activity/Vol] 144 U/L Critically high 46-116 [facility] Comment on above: Performed By: #### C BC #### [facility] [address] [place] [address] Dr. Kelly Jones ALT [Catalytic activity/Vol] 39 U/L Normal 16-63 [facility] Comment on above: Performed By: #### C BC #### [facility] [address] [place] [address] Dr. Kelly Jones Anion gap [Moles/Vol] 13.2 mmol/L Normal [facility] Comment on above: Performed By: #### C BC #### [facility] [address] [place] [address] Dr. Kelly Jones AST [Catalytic activity/Vol] 25 U/L Normal 15-37 [facility] Comment on above: Performed By: #### C BC #### [facility] [address] [place] [address] Dr. Kelly Jones Bilirubin [Mass/Vol] 0.4 mg/dL Normal 0.2-1.0 [facility] Comment on above: Performed By: #### C BC #### [facility] [address] [place] [address] Dr. Kelly Jones Calcium [Mass/Vol] 10.7 mg/dL Critically high 8.5-10.1 [facility] Comment on above: Performed By: #### C BC #### [facility] [address] [place] [address] Dr. Kelly Jones Chloride [Moles/Vol] 102 mmol/L Normal 98-107 [facility] Comment on above: Performed By: #### C BC #### [facility] [address] [place] [address] Dr. Kelly Jones CO2 [Moles/Vol] 27.5 mmol/L Normal 21.0-32.0 [facility] Comment on above: Performed By: #### C BC #### [facility] [address] [place] [address] Dr. Kelly Jones Creatinine [Mass/Vol] 1.34 mg/dL Critically high 0.70-1.30 [facility] Comment on above: Performed By: #### C BC #### [facility] [address] [address] [address] Kelly Jones EGFR-AF TAIWANESE >60 Normal >=60 [facility] Comment on above: Performed By: #### C BC #### [facility] [address] [address] [address] Kelly Jones EGFR-NON AF TAIWANESE 56 mL/min/1.73m2 Critically low >=60 [facility] Comment on above: Performed By: #### C BC #### [facility] [address] [place] [address] Dr. Kelly Jones Globulin (S) [Mass/Vol] 3.8 g/dL Normal [facility] Comment on above: Performed By: #### C BC #### [facility] [address] [place] [address] Dr. Kelly Jones Glucose [Mass/Vol] 110 mg/dL Critically high 74-106 [facility] Comment on above: Performed By: #### C BC #### [facility] [address] [place] [address] Dr. Kelly Jones Potassium [Moles/Vol] 3.7 mmol/L Normal 3.5-5.1 [facility] Comment on above: Performed By: #### C BC #### [facility] [address] [place] [address] Dr. Kelly Jones Protein [Mass/Vol] 7.8 g/dL Normal 6.4-8.2 [facility] Comment on above: Performed By: #### C BC #### [facility] [address] [address] [address] Kelly Jones Sodium [Moles/Vol] 139 mmol/L Normal 136-145 [facility] Comment on above: Performed By: #### C BC #### [facility] [address] [place] [address] Dr. Kelly Jones Urea nitrogen [Mass/Vol] 11.0 mg/dL Normal 7.0-18.0 [facility] Comment on above: Performed By: #### C BC #### [facility] [address] [place] [address] Dr. Kelly Jones Urea nitrogen/Creatinine [Mass ratio] 8.2 mg/mg Normal [facility] Comment on above: Performed By: #### C BC #### [facility] [address] [place] [address] Dr. Kelly Jones PROTIMEon 10-12-2021 INR Coag (PPP) [Relative time] 0.95 {INR} Normal [facility] Comment on above: Performed By: #### P T, PTT #### [facility] [address] [place] [address] Dr. Kelly Jones INR GUIDELINES SEE BELOW Normal [facility] Comment on above: Result Comment: CATHIE RED INR: 2.0 - 3.0 CONDITIONS NOT LISTED BELOW 2.5 - 3.5 FOR PROSTHETIC HEART VALVE REPLACEMENT 2.5 - 3.5 RECURRENT THROMBOSIS Performed By: #### P T, PTT #### [facility] [address] [place] [address] Dr. Kelly Jones PT Coag (PPP) [Time] 10.3 s Normal 9.0-11.6 [facility] Comment on above: Performed By: #### P T, PTT #### [facility] [address] [place] [address] Dr. Kelly Jones PTTon 10-12-2021 aPTT Coag (Bld) [Time] 27.9 s Normal 22.3-36.2 [facility] Comment on above: Performed By: #### P T, PTT #### [facility] [address] [place] [address] Dr. Kelly Jones TROPONIN, HIGH SENSITIVITYon 10-12-2021 HSTROP 1288.2 pg/mL Critically high 4.0-76.1 [facility] Comment on above: Result Comment: CUT- OFF POINTS HAVE BEEN ESTABLISHED BASED ON THE FOURTH UNIVERSAL DEFINITIONS OF MYOCARDIAL INFARCTION. THE UPPER REFERENCE LIMIT (URL) OF TROPONIN, DEFINED THE 99TH PERCENTILE OF cTnI DISTRIBUTION IN A REFERENCE POPULATION, HAS BEEN CONFIRMED THE DECISION THRESHOLD FOR CO DIAGNOSIS. Performed By: #### C BC #### [facility] [address] [address] [address] Kelly Jones TSH DL <= 0.005 mIU/L QnOrde red By: Dewayne Pettit on 10-12-2021 TSH Qn 2.35 m[IU]/L 0.45-5.33 [facility] XR CHEST 1 Von 10-12-2021 XR CHEST 1 V EXAM: XR CHEST 1 V COMPARISON: None available. CLINICAL INDICATION: Chest pain. FINDINGS: Evaluation limited by patient body habitus. Borderline enlarged cardiac silhouette. Questionable hazy prominence of the right greater than left perihilar lower lung interstitium, could suggest pulmonary vascular congestion or atelectasis, unlikely infiltrate. No dense focal consolidation, pleural effusion, or pneumothorax. No evidence of acute osseous abnormality. IMPRESSION: 1. No definite acute findings. 2. Borderline enlarged cardiac silhouette. 3. Questionable hazy prominence of the right greater than left perihilar lower lung interstitium, could suggest pulmonary vascular congestion or atelectasis, unlikely infiltrate. Electronically authenticated by: LELAND HARRIS Date: 2021-10-12 18:34 Normal [facility] Vital Signs Date Time Vital Sign Value Performing Clinician Facility 08-08-2023 10: Body height 172.7 cm Denis Fernandez DO Work Phone: [facility] 08-08-2023 10:040 Body mass index (BMI) [Ratio] 25.24 kg/m2 Denis Fernandez DO Work Phone: [facility] 08-08-2023 10: Body weight 75.3 kg Denis Fernandez DO Work Phone: [facility] 08-08-2023 10:040 Diastolic blood pressure 72 mm[Hg] Denis Fernandez DO Work Phone: [facility] 08-08-2023 10:040 Heart rate 74 /min Denis Fernandez DO Work Phone: [facility] 08-08-2023 10:0400 Systolic blood pressure 112 mm[Hg] Denis Fernandez DO Work Phone: [facility] 06-04-2023 08:30-0500 Body height 172.72 cm Doretha Missler Other [employer] Other 06-04-2023 08:30-0500 Body mass index (BMI) [Ratio] 23.9 kg/m2 Doretha Missler Other [facility] [employer] [facility] Other 06-04-2023 08:30-0500 Body weight 71.31 kg Doretha Missler Other [facility] [employer] [facility] Other 06-04-2023 08:30-0500 Diastolic blood pressure 69 mm[Hg] Doretha Missler Other [employer] [employer] [facility] Other 06-04-2023 08:30-0500 Respiratory rate 16 /min Doretha Missler Other [employer] Other 06-04-2023 08:30-0500 SaO2% (BldA) [Mass fraction] 100 % Doretha Missler Other [employer] Other 06-04-2023 08:30-0500 Systolic blood pressure 109 mm[Hg] Doretha Missler Other [employer] Other 05-27-2023 10:50-0500 Body height 172.72 cm Aleksandra Caal Other [facility] 05-27-2023 10:50-0500 Body mass index (BMI) [Ratio] 24.42 kg/m2 Aleksandra Caal Other [employer] Other 05-27-2023 10:50-0500 Body temperature 98 [degF] Aleksandra Caal Other [employer] Other 05-27-2023 10:50-0500 Body weight 72.85 kg Aleksandra Caal Other [employer] Other 05-27-2023 10:50-0500 Body weight 72.84 kg DO Yaya Ball Work Phone: [facility] 05-27-2023 10:50-0500 Diastolic blood pressure 87 mm[Hg] Aleksandra Caal Other [facility] 05-27-2023 10:50-0500 Respiratory rate 16 /min Aleksandra Orellanamond Other [facility] [employer] Other 05-27-2023 10:50-0500 SaO2% (BldA) [Mass fraction] 99 % Aleksandra Caal Other [facility] [employer] Other 05-27-2023 10:50-0500 Systolic blood pressure 136 mm[Hg] Aleksandra Caal Other [facility] 03-02-2023 14:30-0500 Body height 172.72 cm Yaya Ball Other [employer] Other 03-02-2023 14:30-0500 Body mass index (BMI) [Ratio] 22.9 kg/m2 Yaya Ball Other [employer] Other 03-02-2023 14:30-0500 Body weight 68.31 kg Yaya Ball Other [employer] Other 03-02-2023 14:30-0500 Diastolic blood pressure 68 mm[Hg] Yaya Ball Other [facility] [employer] [facility] Other 03-02-2023 14:30-0500 Respiratory rate 12 /min Yaya Ball Other [facility] [employer] [facility] Other 03-02-2023 14:30-0500 Systolic blood pressure 110 mm[Hg] Yaya Ball Other [employer] Other 02-19-2023 09:00-0400 Body height 172.72 cm Doretha Missler Other [employer] Other 02-19-2023 09:00-0400 Body mass index (BMI) [Ratio] 23.57 kg/m2 Doretha Missler Other [employer] Other 02-19-2023 09:00-0400 Body weight 70.31 kg Doretha Missler Other [employer] Other 02-19-2023 09:00-0400 Diastolic blood pressure 68 mm[Hg] Doretha Missler Other [employer] Other 02-19-2023 09:00-0400 Respiratory rate 16 /min Doretha Missler Other [employer] Other 02-19-2023 09:00-0400 SaO2% (BldA) [Mass fraction] 100 % Doretha Missler Other [employer] Other 02-19-2023 09:00-0400 Systolic blood pressure 108 mm[Hg] Doretha Missler Other [facility] Other 12-18-2022 09:00-0400 Body height 172.72 cm Doretha Missler Other [employer] Other 12-18-2022 09:00-0400 Body mass index (BMI) [Ratio] 23.38 kg/m2 Doretha Missler Other [employer] Other 12-18-2022 09:00-0400 Body weight 69.76 kg Doretha Missler Other [employer] Other 12-18-2022 09:00-0400 Diastolic blood pressure 65 mm[Hg] Doretha Missler Other [employer] Other 12-18-2022 09:00-0400 Respiratory rate 16 /min Doretha Missler Other [employer] Other 12-18-2022 09:00-0400 SaO2% (BldA) [Mass fraction] 99 % Doretha Missler Other [employer] Other 12-18-2022 09:00-0400 Systolic blood pressure 103 mm[Hg] Doretha Missler Other [employer] Other 11-22-2022 10:27-0400 Body height 172.72 cm Yaya [employer] Work Phone: [employer] DO Work Phone: 11-22-2022 10:27-0400 Body mass index (BMI) [Ratio] 23.42 kg/m2 Yaya [employer] Work Phone: [employer] Work Phone: 11-22-2022 10:27-0400 Body surface area Derived from formula 1.83 m2 Yaya [employer] Work Phone: [employer] Work Phone: 11-22-2022 10:27-0400 Body weight 69.85 kg Yaya [employer] Work Phone: [facility] [employer] DO Work Phone: 11-22-2022 10:27-0400 Diastolic blood pressure 64 mm[Hg] Yaya E Ball Work Phone: [facility] [employer] DO Work Phone: 11-22-2022 10:27-0400 Heart rate 58 /min Yaya E Ball Work Phone: [facility] [employer] DO Work Phone: 11-22-2022 10:27-0400 Systolic blood pressure 110 mm[Hg] Yaya E Ball Work Phone: [facility] [employer] DO Work Phone: 10-25-2022 11:00-0400 Body height 172.72 cm Dorethaher Diegoler Other [employer] Other 10-25-2022 11:00-0400 Body mass index (BMI) [Ratio] 23.14 kg/m2 Doretha Missler Other [employer] Other 10-25-2022 11:00-0400 Body weight 69.04 kg Doretha Missler Other [employer] Other 10-25-2022 11:00-0400 Diastolic blood pressure 69 mm[Hg] Doretha Missler Other [employer] Other 10-25-2022 11:00-0400 Respiratory rate 16 /min Doretha Missler Other [employer] Other 10-25-2022 11:00-0400 SaO2% (BldA) [Mass fraction] 100 % Doretha Missler Other [employer] Other 10-25-2022 11:00-0400 Systolic blood pressure 110 mm[Hg] Doretha Missler Other [employer] Other 10-12-2022 14:00-0400 Body height 172.72 cm Yaya Ball Other [employer] Other 10-12-2022 14:00-0400 Body mass index (BMI) [Ratio] 23.75 kg/m2 Yaya Ball Other [employer] Other 10-12-2022 14:00-0400 Body weight 70.85 kg Yaya Ball Other [employer] Other 10-12-2022 14:00-0400 Diastolic blood pressure 68 mm[Hg] Yaya Ball Other [employer] Other 10-12-2022 14:00-0400 Respiratory rate 12 /min Yaya Ball Other [employer] Other 10-12-2022 14:00-0400 Systolic blood pressure 106 mm[Hg] Yaya Ball Other [employer] Other 08-30-2022 16:00-0400 Body height 172.72 cm Yaya Ball Other [employer] Other 08-30-2022 16:00-0400 Body mass index (BMI) [Ratio] 23.99 kg/m2 Yaya Ball Other [employer] Other 08-30-2022 16:00-0400 Body weight 71.58 kg Yaya Ball Other [employer] Other 08-30-2022 16:00-0400 Diastolic blood pressure 65 mm[Hg] Yaya Ball Other [employer] Other 08-30-2022 16:00-0400 Respiratory rate 12 /min Yaya Ball Other [employer] Other 08-30-2022 16:00-0400 Systolic blood pressure 108 mm[Hg] Yaya Ball Other [employer] Other 06-14-2022 10:30-0500 Body height 172.72 cm Doretha Missler Other [employer] Other 06-14-2022 10:30-0500 Body mass index (BMI) [Ratio] 24.8 kg/m2 Doretha Missler Other [employer] Other 06-14-2022 10:30-0500 Body weight 73.98 kg Doretha Missler Other [employer] Other 06-14-2022 10:30-0500 Diastolic blood pressure 69 mm[Hg] Doretha Missler Other [employer] Other 06-14-2022 10:30-0500 Respiratory rate 16 /min Doretha Missler Other [employer] Other 06-14-2022 10:30-0500 SaO2% (BldA) [Mass fraction] 100 % Doretha Missler Other [employer] Other 06-14-2022 10:30-0500 Systolic blood pressure 118 mm[Hg] Doretha Missler Other [employer] Other 05-30-2022 16:00-0500 Body height 172.72 cm Yaya Ball Other [employer] Other 05-30-2022 16:00-0500 Body mass index (BMI) [Ratio] 25.33 kg/m2 Yaya Ball Other [employer] Other 05-30-2022 16:00-0500 Body weight 75.57 kg Yaya Ball Other [employer] Other 05-30-2022 16:00-0500 Diastolic blood pressure 78 mm[Hg] Yaya Ball Other [employer] Other 05-30-2022 16:00-0500 Respiratory rate 12 /min Yaya Ball Other [employer] Other 05-30-2022 16:00-0500 Systolic blood pressure 102 mm[Hg] Yaya Ball Other [employer] Other 05-03-2022 11:30-0500 Body height 172.72 cm Doretha Missler Other [employer] Other 05-03-2022 11:30-0500 Body mass index (BMI) [Ratio] 25.66 kg/m2 Doretha Missler Other [employer] Other 05-03-2022 11:30-0500 Body weight 76.57 kg Doretha Missler Other [employer] Other 05-03-2022 11:30-0500 Diastolic blood pressure 73 mm[Hg] Doretha Missler Other [employer] Other 05-03-2022 11:30-0500 Respiratory rate 18 /min Doretha Missler Other [employer] Other 05-03-2022 11:30-0500 SaO2% (BldA) [Mass fraction] 100 % Doretha Missler Other [employer] Other 05-03-2022 11:30-0500 Systolic blood pressure 120 mm[Hg] Doretha Missler Other [employer] Other 03-27-2022 12:30-0500 Body height 172.72 cm Doretha Missler Other [employer] Other 03-27-2022 12:30-0500 Body mass index (BMI) [Ratio] 26.51 kg/m2 Doretha Missler Other [employer] Other 03-27-2022 12:30-0500 Body weight 79.11 kg Doretha Missler Other [employer] Other 03-27-2022 12:30-0500 Diastolic blood pressure 74 mm[Hg] Doretha Missler Other [employer] Other 03-27-2022 12:30-0500 Respiratory rate 18 /min Doretha Missler Other [employer] Other 03-27-2022 12:30-0500 SaO2% (BldA) [Mass fraction] 100 % Doretha Missler Other [employer] Other 03-27-2022 12:30-0500 Systolic blood pressure 115 mm[Hg] Doretha Missler Other [employer] Other 02-15-2022 14:30-0400 Body height 172.72 cm Doretha Missler Other [employer] Other 02-15-2022 14:30-0400 Body mass index (BMI) [Ratio] 27.99 kg/m2 Doretha Missler Other [employer] Other 02-15-2022 14:30-0400 Body weight 83.51 kg Doretha Missler Other [employer] Other 02-15-2022 14:30-0400 Diastolic blood pressure 66 mm[Hg] Doretha Missler Other [employer] Other 02-15-2022 14:30-0400 Respiratory rate 18 /min Doretha Missler Other [employer] Other 02-15-2022 14:30-0400 SaO2% (BldA) [Mass fraction] 99 % Doretha Missler Other [employer] Other 02-15-2022 14:30-0400 Systolic blood pressure 112 mm[Hg] Doretha Missler Other [employer] Other 01-23-2022 13:45-0400 Body height 172.72 cm Doretha Missler Other [employer] Other 01-23-2022 13:45-0400 Body mass index (BMI) [Ratio] 30 kg/m2 Doretha Missler Other [employer] Other 01-23-2022 13:45-0400 Body weight 89.5 kg Doretha Missler Other [employer] Other 01-23-2022 13:45-0400 Diastolic blood pressure 74 mm[Hg] Doretha Missler Other [employer] Other 01-23-2022 13:45-0400 Respiratory rate 18 /min Doretha Missler Other [employer] Other 01-23-2022 13:45-0400 SaO2% (BldA) [Mass fraction] 100 % Doretha Missler Other [employer] Other 01-23-2022 13:45-0400 Systolic blood pressure 123 mm[Hg] Doretha Missler Other [employer] Other 12-28-2021 16:15-0400 Body height 172.72 cm Doretha Missler Other [employer] Other 12-28-2021 16:15-0400 Body mass index (BMI) [Ratio] 31.39 kg/m2 Doretha Missler Other [employer] Other 12-28-2021 16:15-0400 Body weight 93.67 kg Doretha Missler Other [employer] Other 12-28-2021 16:15-0400 Diastolic blood pressure 75 mm[Hg] Doretha Missler Other [employer] Other 12-28-2021 16:15-0400 Respiratory rate 18 /min Doretha Missler Other [employer] Other 12-28-2021 16:15-0400 SaO2% (BldA) [Mass fraction] 100 % Doretha Missler Other [employer] Other 12-28-2021 16:15-0400 Systolic blood pressure 123 mm[Hg] Doretha Missler Other [employer] Other 12-14-2021 16:15-0400 Body height 172.72 cm Doretha Missler Other [employer] Other 12-14-2021 16:15-0400 Body mass index (BMI) [Ratio] 33.05 kg/m2 Doretha Missler Other [employer] Other 12-14-2021 16:15-0400 Body weight 98.61 kg Doretha Missler Other [employer] Other 12-14-2021 16:15-0400 Diastolic blood pressure 63 mm[Hg] Doretha Missler Other [employer] Other 12-14-2021 16:15-0400 Respiratory rate 18 /min Doretha Missler Other [employer] Other 12-14-2021 16:15-0400 SaO2% (BldA) [Mass fraction] 98 % Doretha Missler Other [employer] Other 12-14-2021 16:15-0400 Systolic blood pressure 108 mm[Hg] Doretha Missler Other [employer] Other 11-23-2021 15:45-0400 Body height 172.72 cm Doretha Missler Other [employer] Other 11-23-2021 15:45-0400 Body mass index (BMI) [Ratio] 34.59 kg/m2 Doretha Missler Other [employer] Other 11-23-2021 15:45-0400 Body weight 103.19 kg Doretha Missler Other [employer] Other 11-23-2021 15:45-0400 Diastolic blood pressure 76 mm[Hg] Doretha Missler Other [employer] Other 11-23-2021 15:45-0400 Respiratory rate 18 /min Doretha Missler Other [employer] Other 11-23-2021 15:45-0400 SaO2% (BldA) [Mass fraction] 99 % Doretha Missler Other [employer] Other 11-23-2021 15:45-0400 Systolic blood pressure 125 mm[Hg] Doretha Missler Other [employer] Other 11-09-2021 11:00-0400 Body height 172.72 cm Doretha Missler Other [employer] Other 11-09-2021 11:00-0400 Body mass index (BMI) [Ratio] 35.17 kg/m2 Doretha Missler Other [employer] Other 11-09-2021 11:00-0400 Body weight 104.92 kg Doretha Missler Other [employer] Other 11-09-2021 11:00-0400 Diastolic blood pressure 86 mm[Hg] Doretha Missler Other [employer] Other 11-09-2021 11:00-0400 Respiratory rate 18 /min Doretha Missler Other [employer] Other 11-09-2021 11:00-0400 SaO2% (BldA) [Mass fraction] 98 % Doretha Missler Other [employer] Other 11-09-2021 11:00-0400 Systolic blood pressure 143 mm[Hg] Doretha Missler Other [employer] Other 10-19-2021 12:00-0400 Body height 172.72 cm Doretha Missler Other [employer] Other 10-19-2021 12:00-0400 Body mass index (BMI) [Ratio] 36.34 kg/m2 Doretha Missler Other [employer] Other 10-19-2021 12:00-0400 Body temperature 99.1 [degF] Doretha Missler Other [employer] Other 10-19-2021 12:00-0400 Body weight 108.41 kg Doretha Missler Other [employer] Other 10-19-2021 12:00-0400 Diastolic blood pressure 79 mm[Hg] Doretha Missler Other [employer] Other 10-19-2021 12:00-0400 Respiratory rate 24 /min Doretha Missler Other [employer] Other 10-19-2021 12:00-0400 SaO2% (BldA) [Mass fraction] 99 % Doretha Missler Other [employer] Other 10-19-2021 12:00-0400 Systolic blood pressure 116 mm[Hg] Doretha Missler Other [employer] Other 10-14-2021 06:36-0400 Body temperature 98.9 [degF] DO Yaya Ball Work Phone: [facility] 10-14-2021 06:36-0400 Diastolic blood pressure 51 mm[Hg] DO Yaya Ball Work Phone: [facility] 10-14-2021 06:36-0400 Heart rate 88 /min DO Yaya Ball Work Phone: [facility] 10-14-2021 06:36-0400 Respiratory rate 18 /min DO Yaya Ball Work Phone: [facility] 10-14-2021 06:36-0400 SaO2% (BldA) [Mass fraction] 95 % DO Yaya Ball Work Phone: [facility] 10-14-2021 06:36-0400 Systolic blood pressure 103 mm[Hg] DO Yaya Ball Work Phone: [facility] 10-14-2021 06:00-0400 Body weight 110 kg DO Yaya Ball Work Phone: [facility] 10-14-2021 00:00-0400 Inhaled oxygen flow rate 3 L/min DO Yaya Ball Work Phone: [facility] 10-13-2021 16:16-0400 65 1 Denis Fernandez DO Work Phone: [facility] 250 DO Work Phone: Comment on above: [id number] 10-13-2021 14:18-0400 Body height 172.72 cm DO Yaya Ball Work Phone: [facility] 10-13-2021 00:00-0400 Inhaled oxygen concentration 98 % DO Yaya Ball Work Phone: [facility] 10-12-2021 22:43-0400 Body mass index (BMI) [Ratio] 37.2 kg/m2 DO Yaya Ball Work Phone: [facility] Encounters Encounter Date Encounter Type Care Provider Facility Start: 08-14-2023 End: 08-14-2023 ambulatory Gary Cruzito Facility:[facility] Start: 08-14-2023 End: 08-14-2023 ambulatory DO Yaya Ball Work Phone: [facility] Work Phone: Start: 08-14-2023 End: 08-14-2023 Patient encounter procedure DO Yaya Olivo Work Phone: [facility] Work Phone: Start: 08-08-2023 End: 08-08-2023 ambulatory [facility] Start: 08-08-2023 End: 08-08-2023 Office outpatient visit 15 minutes Denis Roydon DO Work Phone: [facility] Comment on above: 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; History of PTCA; Mixed hyperlipidemia; Hypertension, benign; Subsequent non-ST elevation (NSTEMI) myocardial infarction (Multi); BMI 25.0-25.9,adult; Former smoker Start: 06-11-2023 End: 06-11-2023 ambulatory Doretha Valentino Facility:[facility] Start: 06-11-2023 End: 06-11-2023 ambulatory DO Yaya Olivo Work Phone: [facility] Work Phone: Start: 06-11-2023 End: 06-11-2023 Patient encounter procedure DO Yaya Olivo Work Phone: [facility] Work Phone: Start: 06-04-2023 (Smoking fu) Smoking cess fu [facility]ly [facility] Start: 06-04-2023 End: 06-05-2023 ambulatory DO Yaya Olivo Work Phone: [employer] Other Start: 06-04-2023 End: 06-04-2023 Discharged Recurring DO Yaya Ball Work Phone: [facility] Work Phone: Start: 06-04-2023 Registered Recurring DO Roman in [place] Work Phone: [facility] Work Phone: Start: 06-04-2023 End: 06-04-2023 Patient encounter procedure DO Yaya Olivo Work Phone: [facility]- Start: 05-27-2023 End: 05-27-2023 ambulatory Aleksandra Caal Other [employer] Other Start: 05-27-2023 Office outpatient vi sit 15 minutes Aleksandra Caal [facility] Start: 05-27-2023 End: 05-27-2023 Patient encounter procedure DO Yaya Olivo Work Phone: [facility]- Start: 03-06-2023 End: 03-06-2023 ambulatory Yaya Olivo Other [employer] Other Start: 03-06-2023 Telephone encounter Yaya Olivo [facility] Start: 03-02-2023 End: 03-02-2023 ambulatory Yaya Olivo Other [employer] Other Start: 03-02-2023 Office outpatient vi sit 25 minutes Yaya Olivo [facility] Start: 03-02-2023 End: 03-02-2023 Patient encounter procedure [facility] Work Phone: Start: 02-22-2023 End: 02-22-2023 ambulatory Yaya Olivo Other [employer] Other Start: 02-22-2023 Telephone encounter Yaya [facility]ivo [facility] Start: 02-19-2023 (Smoking fu) Smoking cess fu [facility] Start: 02-19-2023 End: 02-20-2023 ambulatory [facility] Other Start: 02-07-2023 End: 02-07-2023 ambulatory Yaya Olivo Facility:[facility] Start: 12-18-2022 (Smoking fu) Smoking cess fu [facility]ly [facility] Start: 12-18-2022 End: 12-18-2022 ambulatory Doretha Valentino Other [employer] Other Start: 12-18-2022 Telephone encounter Yaya LAY [facility] Start: 12-13-2022 End: 12-13-2022 ambulatory Yaya Olivo Other [employer] Other Start: 12-13-2022 Telephone encounter Yaya LAY [facility] Start: 12-05-2022 End: 12-05-2022 ambulatory Joanne Holder Facility:[facility] Start: 12-05-2022 End: 12-05-2022 ambulatory DO Yaya Olivo Work Phone: [facility] Work Phone: Start: 12-05-2022 End: 12-05-2022 Departed Referred DO Yaya Olivo Work Phone: [facility] Work Phone: Start: 11-22-2022 Office outpatient vi sit 15 minutes Yaya Chito Ball Work Phone: [facility] 250 DO Work Phone: Start: 11-22-2022 Patient encounter procedure Yaya Dale Ball Work Phone: [facility] 250 DO Work Phone: Start: 11-22-[address] Denis Fernandez Facility: Start: 11-06-2022 End: 11-06-2022 ambulatory Yaya Olivo Other [employer] Other Start: 11-06-2022 Telephone encounter Yaya LAY [facility] Start: 10-30-2022 End: 10-30-2022 ambulatory Yaya Olivo Other [employer] Other Start: 10-30-2022 Telephone encounter Yaya LAY [facility] Start: 10-25-2022 (Smoking fu) Smoking cess fu Doretha Valentino [facility] Start: 10-25-2022 End: 10-25-2022 ambulatory Doretha Valentino Other [employer] Other Start: 10-25-2022 Registered Recurring DO Jaffe in [employer] Work Phone: [facility] Work Phone: Start: 10-16-2022 End: 10-16-2022 ambulatory Yaya Olivo Other [employer] Other Start: 10-16-2022 Telephone encounter Yaya LAY [facility] Start: 10-12-2022 End: 10-12-2022 ambulatory Yaya Olivo Other [employer] Other Start: 10-12-2022 Office outpatient vi sit 15 minutes Yaya Olivo [facility] Start: 10-12-2022 Telephone encounter Yaya LAY [facility] Start: 09-03-2022 Encounter for genera l adult medical examination without abnormal findings [facility] Start: 09-01-2022 Telephone encounter Yaya LAY [facility] Start: 09-01-2022 End: 09-02-[address] YAYA OLIVO [facility] Other Start: 09-01-2022 End: 09-02-2022 Encounter for general adult medical examination without abnormal findings DR YAYA OLIVO Facility:[facility] Start: 08-30-2022 End: 08-30-2022 ambulatory Yaya Olivo Other [employer] Other Start: 08-30-2022 Encounter for genera l adult medical examination without abnormal findings Yaya Olivo [facility] Start: 08-30-2022 Periodic preventive med est patient 40-64yrs Yaya Olivo [facility] Start: 08-09-2022 ambulatory Lakesha Hatch Facility:[facility] Start: 07-31-2022 End: 07-31-2022 ambulatory Yaya Olivo Other [employer] Other Start: 07-31-2022 Telephone encounter Yaya LAY [facility] Start: 07-20-2022 End: 07-20-2022 ambulatory DO Yaya [place] Work Phone: [facility] Work Phone: Start: 07-20-2022 End: 07-20-2022 Patient encounter procedure DO Yaya Olivo Work Phone: [facility] Work Phone: Start: 06-21-2022 End: 06-21-2022 ambulatory Yaya Olivo Other [employer] Other Start: 06-21-2022 Telephone encounter Yaya LAY [facility] Start: 06-20-2022 End: 06-20-[address] Denis Fernandez [employer] Other Start: 06-20-2022 Telephone encounter Yaya LAY [facility] Start: 06-16-2022 End: 06-16-2022 ambulatory Yaya Olivo Other [employer] Other Start: 06-16-2022 Telephone encounter Yaya LAY [facility] Start: 06-15-2022 End: 06-16-[address] YAYA OLIVO Facility:[facility] Start: 06-14-2022 (Smoking fu) Smoking cess fu [facility] Start: 06-14-2022 End: 06-14-2022 ambulatory Doretha Valentino Other [employer] Other Start: 06-14-2022 Registered Recurring DO Roman in [place] Work Phone: [facility] Work Phone: Start: 06-05-2022 End: 06-05-2022 ambulatory Yaya Olivo Other [employer] Other Start: 06-05-2022 Telephone encounter Yaya LAY [facility] Start: 05-31-2022 End: 05-31-2022 ambulatory DO Yaya Olivo Work Phone: [facility] Work Phone: Start: 05-31-2022 End: 05-31-2022 Patient encounter procedure DO Yaya Olivo Work Phone: [facility] Work Phone: Start: 05-30-2022 End: 05-30-2022 ambulatory Yaya Olivo Other [employer] Other Start: 05-30-2022 Office outpatient vi sit 25 minutes Yaya Olivo JUNE [facility] Start: 05-17-2022 End: 05-17-2022 ambulatory Doretha Valentino Other [employer] Other Start: 05-17-2022 Telephone encounter [facility] Start: 05-15-2022 End: 05-15-2022 [facility] Other [employer] Other Start: 05-15-2022 Telephone encounter [facility] Start: 05-11-2022 End: 05-11-2022 ambulatory Yaya Olivo Other [employer] Other Start: 05-11-2022 Telephone encounter Yaya Olivo [facility] Start: 05-03-2022 Registered Recurring DO Roman in [place] Work Phone: [facility] Work Phone: Start: 05-03-2022 (Smoking fu) Smoking cess fu [facility] Start: 05-03-2022 End: 05-03-2022 ambulatory [facility] Other [employer] Other Start: 04-27-2022 End: 04-27-2022 ambulatory Yaya Olivo Other [employer] Other Start: 04-27-2022 Telephone encounter Yaya Olivo [facility] Start: 04-06-2022 Patient encounter procedure Yaya Dale [place] Work Phone: [facility] 250 DO Work Phone: Start: 03-30-2022 End: 03-30-2022 ambulatory Doretha Valentino Other [employer] Other Start: 03-30-2022 Telephone encounter [facility] Start: 03-28-2022 End: 03-29-[address] YAYA OLIVO Facility: Start: 03-27-2022 (Smoking fu) Smoking cess fu [facility] Start: 03-27-2022 End: 03-27-2022 ambulatory [facility] Other [employer] Other Start: 02-15-2022 (Smoking fu) Smoking cess fu [facility] Start: 02-15-2022 End: 02-15-2022 ambulatory [facility]oretha [facility] Other [employer] Other Start: 02-15-2022 Registered Recurring DO Jaffe in [place] [facility] Start: 01-23-2022 (Smoking fu) Smoking cess fu [facility] Start: 01-23-2022 End: 01-23-2022 ambulatory [facility] Other [employer] Other Start: 12-28-2021 (Smoking fu) Smoking cess fu [facility] Start: 12-28-2021 End: 12-28-2021 ambulatory [facility] Other [employer] Other Start: 12-19-2021 End: 03-07-[address] DENIS FERNANDEZ Facility:[facility] Start: 12-15-2021 End: 12-16-[address] YAYA OLIVO Facility:[facility] Start: 12-14-2021 (Smoking fu) Smoking cess fu [facility] Start: 12-14-2021 End: 12-14-2021 ambulatory Doretha Missler Other [employer] Other Start: 11-24-2021 End: 11-24-2021 ambulatory Doretha Missler Other [employer] Other Start: 11-24-2021 Telephone encounter [facility] Start: 11-23-2021 (Smoking fu) Smoking cess fu [facility] Start: 11-23-2021 End: 11-23-2021 ambulatory Doretha Missler Other [employer] Other Start: 11-09-2021 (Smoking fu) Smoking cess fu [facility] Start: 11-09-2021 End: 11-09-2021 ambulatory Doretha Missler Other [employer] Other Start: 11-07-2021 Rx Renewal Denis Escudero n DO Work Phone: [facility] 250 DO Work Phone: Start: 11-02-2021 End: 11-02-2021 ambulatory Doretha Missler Other [employer] Other Start: 11-02-2021 Telephone encounter [facility] Start: 10-25-2021 End: 10-25-2021 ambulatory Doretha Missler Other [employer] Other Start: 10-25-2021 Telephone encounter [facility] Start: 10-20-2021 End: 10-21-[address] ARNULFO TALBOT Facility:[facility] Start: 10-19-2021 (Smoke Cess) Smoking Cessation Doretha Valentino [facility] Start: 10-19-2021 End: 10-19-2021 ambulatory Doretha Valentino Other [facility] [employer] Other Start: 10-12-2021 End: 10-14-2021 Evaluation and management of inpatient DO Yaya Olivo Work Phone: [facility] Start: 10-12-2021 End: 10-12-[address] YAYA OLIVO Facility:[facility] Procedures Date Procedure Procedure Detail Performing Clinician Start: 08-14-2023 MRI of abdomen with contrast DO Yaya Olivo Work Phone: Start: 06-11-2023 CT of thorax with contrast DO Yaya Olivo Work Phone: Start: 04-04-2023 History of percutane ous transluminal coronary angioplasty History of PTCA Denis Fernandez DO Work Phone: Start: 09-01-[address] JAFFE IN [employer] Comment on above: Performed By: #### P [facility] #### [facility] [address] [place] [address] Dr. Kelly Jones Start: 05-31-2022 CT of thorax with contrast DO Yaya Olivo Work Phone: Start: 10-14-2021 Ultrasonography of liver DO Yaya Olivo Work Phone: Start: 10-13-2021 CL Coronary Thrombol ysis IC DO Yaya Olivo Work Phone: Start: 10-13-2021 CL LHC & COR Angio DO B enjamin [employer] Work Phone: Start: 10-13-2021 CL Stent 1st Vessel CX VENICE DO Yaya Olivo Work Phone: Start: 10-13-2021 CL Stent Ea Add CX VENICE DO Yaya Olivo Work Phone: Start: 10-13-2021 DO Benjami n [place] Work Phone: Start: 10-12-2021 Plain chest X-ray DO Be njamin [place] Work Phone: Cardiac catheterization Benj shobha Olivo Work Phone: History of percutane ous transluminal coronary angioplasty History of PTCA Yaya Olivo Work Phone: History of percutane ous transluminal coronary angioplasty History of PTCA Denis Fernandez DO Work Phone: Lithotripsy Yaya Olivo Work Phone: NEGATED: Highlighted row has not occurred! Total colonoscopy Yaya Olivo Work Phone: Plan of Treatment Date Care Activity Detail Author Start: 2030 RSV patient s and/or patients aged 60+ years (1 - 1-dose 60+ series) RSV patients and/or patients aged 60+ years (1 - 1-dose 60+ series) [facility] Start: 08-05-2024 End: 08-05-2024 Patient encounter procedure 08/05/2024 9:10 AM EDT Office Visit [facility] [address] [place] [address] Denis Fernandez, [address] [place] [address] [facility] [facility] Start: 12-23-2023 Influenza vaccination Influenz a Vaccine (Season Ended) [facility] Start: 08-08-2023 End: 08-07-2024 Lipid 1996 panel - Serum or Plasma Lipid Panel Lab Routine Mixed hyperlipidemia Expected: 08/08/2023 (Approximate), Expires: 08/07/2024 [facility] Service Area Work Phone: Comment on above: Expected: 08/08/2023 (Approximate), Expires: 08/07/2024 Start: 08-08-2023 FUV, Provider: Denis Fernandez, Status: Pen, Time: 10:10 AM FUV, Provider: Denis Fernandez, Status: Pen, Time: 10:10 AM [facility] DO Work Phone: Start: 06-11-2023 CT of thorax with contrast CT chest w con [facility] Start: 12-22-2022 COVID-19 Vaccine ( season) COVID-19 Vaccine ( season) [facility] Start: 12-05-2022 Superficial Wound Culture Superficial Wound Culture [facility] Start: 07-20-2022 MR Abdomen WO and W contrast IV [facility] Start: 07-20-2022 MRI of abdomen with contrast MR abdomen wo/w con [facility] Start: 05-31-2022 FUV, Provider: Denis Fernandez, Status: Pen, Time: 9:40 AM FUV, Provider: Denis Fernandez, Status: Pen, Time: 9:40 AM [facility] DO Work Phone: Start: 11-22-2021 FUVHOSP, Provider: Denis Fernandez, Status: Pen, Time: 10:20 AM [facility], Provider: Denis Fernandez, Status: Pen, Time: 10:20 AM [facility] DO Work Phone: Start: 2020 Zoster Vaccines (1 o f 2) Zoster Vaccines (1 of 2) [facility] Start: 1992 DTaP/Tdap/Td Vaccine s (1 - Tdap) DTaP/Tdap/Td Vaccines (1 - Tdap) [facility] Start: 1989 Hepatitis B Vaccines (1 of 3 - 19+ 3-dose series) Hepatitis B Vaccines (1 of 3 - 19+ 3-dose series) [facility] Start: 1988 Diabetes mellitus screening Diabetes Screening [facility] Start: 1988 Hepatitis C screening Hepatitis C [facility] Start: 1976 Pneumococcal Vaccine : Pediatrics (0 to 5 Years) and At-Risk Patients (6 to 64 Years) (1 of 2 - PCV) Pneumococcal Vaccine: Pediatrics (0 to 5 Years) and At-Risk Patients (6 to 64 Years) (1 of 2 - PCV) [facility] Start: 08-13-1971 MMR Vaccines (1 of 1 - Standard series) MMR Vaccines (1 of 1 - Standard series) [facility] Start: 1970 HIV screening HIV Screening [facility] Start: 1970 Lipid panel Lipid Panel [facility] Start: 1970 Screening for malign ant neoplasm of colon [facility] Start: 1970 Yearly Adult Physical Yearly Adult P hysical [facility] Patient Education Coronary Angio plasty (DC) Coronary Stenting (DC) Angina (DC) Chest Pain (DC) Drug Eluting Stents [facility] Work Phone: Patient referral [facility] Work Phone: Immunizations Immunization Date Immunization Notes Care Provider Fa [facility] 08-18-2021 COVID-19 mRNA, Comir david (Pfizer) DO [employer] Work Phone: [facility] 08-18-2020 Pfizer-BioNTech COVI D-19 Vacc 30 MCG/0.3ML Intramuscular Suspension Yaya Olivo Work Phone: [facility] 07-28-2020 COVID-19 mRNA, Comir david (Pfizer) DO [employer] Work Phone: [facility] Payers Date Payer Category Payer Medicaid [employer] [id number] 2022-Present [address] [address] [place] [address] [id number] 2021 Self-pay [id number] 1970 Unknown [id number] 1970 Unknown [id number] 2..[id number] 1970 Unknown [id number] 2..840.1.641344.3.579.2.5 93 1970 Unknown [id number] 2.16.840.1.978758.3.579.2.5 93 1970 Unknown [id number] 2.16.840.1.862290.3.579.2.5 93 1970 Unknown [id number] 2.16.840.1.640597.3.579.2.5 93 1970 Unknown [id number] 2.16.840.1.921280.3.579.2.5 93 1970 Unknown [id number] 2.840.1.433929.3.579.2.5 93 1970 Unknown [id number] 2.840.1.325644.3.579.2.5 93 1970 Unknown [id number] 2.840.1.176734.3.579.2.3 56 1970 Unknown [id number] 2.840.1.583882.3.579.2.3 56 1970 Unknown [id number] 2.840.1.549655.3.579.2.1 244 1959 Medicaid [id number] [id number] Private Health Insurance [facility] 87c [id number] Unknown Unknown [id number] [id number] 31 Unknown [id number] 2.16840.1.133386.3.579.2.5 31 Unknown [id number] 2.16.840.1.890014.3.579.2.5 31 Unknown [id number] 2.16840.1.374455.3.579.2.5 31 Unknown [id number] [id number] 31 Unknown [id number] 2.840.1.162651.3.579.2.5 31 Social History Date Type Detail Facility Start: 10-13-2021 End: 10-13-2021 Tobacco smoking status NHIS Smoker (finding) [facility] Start: 1970 Sex Assigned At Male F [facility] Start: 04-04-2023 Sex Assigned At N [facility] Other Start: 04-04-2023 Daily caffeine consumption Daily caffeine consumption [facility] 250 DO Work Phone: Comment on above: 1-2 cans of pop odessa y; Quit October 2021; Start: 08-08-2023 Tobacco smoking stat us VAIS Ex-smoker [facility] End: 04-23-2021 History of tobacco use Cigarette Smoker [facility] Work Phone: Start: 08-08-2023 Alcoholic beverage intake Lifetime non-drinker (finding) [facility] Work Phone: Start: 1970 Sex assigned at Not on file [facility] Work Phone: Start: 07-29-2023 End: 08-08-2023 Exposure to SARS-CoV-2 (event) Not sure [facility] Medical Equipment Procedure Code Equipment Code Equipment Origin al Text Equipment Identifier Dates CL STENT AUGUSTO 2. 25 X 18 FDA Start: 10-13-2021 Drug-eluting coronary artery stent, [id number] lymer-coated ()[id number] FDA Start: 10-13-2021 Drug-eluting coronary artery stent, [id number] lymer-coated ()[id number] FDA Start: 10-13-2021 CL STENT AUGUSTO 2. 25 X 18 FDA Start: 10-13-2021 CL STENT AUGUSTO 2. 25 X 18 FDA Start: 10-13-2021 CL STENT AUGUSTO 2. 25 X 18 FDA Start: 10-13-2021 CL STENT AUGUSTO 2. 25 X 18 FDA Start: 10-13-2021 CL STENT AUGUSTO 2. 25 X 18 FDA Start: 10-13-2021 CL STENT AUGUSTO 2. 25 X 18 FDA Start: 10-13-2021 CL STENT AUGUSTO 2. 25 X 18 FDA Start: 10-13-2021 CL STENT AUGUSTO 2. 25 X 18 FDA Start: 10-13-2021 Goals Date Patient Goal Desired Activity /State Functional Status Date Assessment Result Facility 10-14-2021 Functional status Patient at [facility] Work Phone: Mental Status Date Assessment Result Facility 10-14-2021 Cognitive function Cognitive Sta tus Patient at Baseline [facility] Work Phone: Clinical Notes 10-13-2021 to 08-08-2023 Denis Fernandez, DO - 08/08/2023 10:10 AM EDTPatient Instructions Note Date & Type Note Facility 08-08-2023 History of Present illness Narrative Subjective Pj Sabillon is a 52 y.o. male Chief Complaint Follow-up 52-year-old gentleman returns for 8-month follow-up he is doing well he denies any events, chest pain or nitrate usage or hospitalizations. 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 He is no longer smoking. He is hemodynamically stable, no longer obese at 166 pounds having lost nearly 100 pounds last year September 2021 he underwent PCI's in the circumflex obtuse marginal branch x3 drug-eluting stents with Dr. Velarde for an acute myocardial infarction. He is due for his annual wellness visit with labs, will obtain lipid panel from his primary care physician, continue excellent lifestyle and choices and follow-up in 1 year Review of Systems All other systems reviewed and are negative. Vitals: 08/08/23 1026 BP: 112/72 BP Location: Right arm Patient Position: Sitting Pulse: 74 Weight: 75.3 kg (166 lb) Height: 1.727 m (5' 8 ) Objective Physical Exam Constitutional: Appearance: Normal appearance. HENT: Nose: Nose normal. Neck: Vascular: No carotid bruit. Cardiovascular: Rate and Rhythm: Normal rate. Pulses: Normal pulses. Heart sounds: Normal heart sounds. Pulmonary: Effort: Pulmonary effort is normal. Abdominal: General: Bowel sounds are normal. Palpations: Abdomen is soft. Musculoskeletal: General: Normal range of motion. Cervical back: Normal range of motion. Right lower leg: No edema. Left lower leg: No edema. Skin: General: Skin is warm and dry. Neurological: General: No focal deficit present. Mental Status: He is alert. Psychiatric: Mood and Affect: Mood normal. Behavior: Behavior normal. Thought Content: Thought content normal. Judgment: Judgment normal. Allergies Patient has no known allergies. Current Medications Current Outpatient Medications: aspirin 81 mg chewable tablet, Chew 1 tablet (81 mg) 1 time., Disp: , Rfl: atorvastatin (Lipitor) 40 mg tablet, Take 1 tablet (40 mg) by mouth once daily at bedtime., Disp: , Rfl: busPIRone (Buspar) 7.5 mg tablet, Take 2 tablets (15 mg) by mouth 2 times a day., Disp: , Rfl: metoprolol tartrate (Lopressor) 25 mg tablet, Take 0.5 tablets (12.5 mg) by mouth 2 times a day., Disp: 180 tablet, Rfl: 3 nitroglycerin (Nitrostat) 0.4 mg SL tablet, Place 1 tablet (0.4 mg) under the tongue every 5 minutes if needed., Disp: , Rfl: Assessment/Plan 1. Coronary artery disease involving rosebud coronary artery of rosebud heart without angina pectoris 2. History of PTCA 3. Mixed hyperlipidemia 4. Hypertension, benign 5. Subsequent non-ST elevation (NSTEMI) myocardial infarction (Multi) 6. BMI 25.0-25.9,adult Scribe Attestation By signing my name below, I, Rich Escobar LPN attest that this documentation has been prepared under the direction and in the presence of Denis Fernandez DO. Provider Attestation - Scribe documentation All medical record entries made by the Scribe were at my direction and personally dictated by me. I have reviewed the chart and agree that the record accurately reflects my personal performance of the history, physical exam, discussion and plan. documented in this encounter [facility] Work Phone: 08-08-2023 Instructions Calista Saavedra LPN - 08/08/2023 10:10 AM EDT Please bring all medicines, vitamins, and herbal supplements with you when you come to the office. Prescriptions will not be filled unless you are compliant with your follow up appointments or have a follow up appointment scheduled as per instruction of your physician. Refills should be requested at the time of your visit. BMI was above normal measurement. Current weight: 75.3 kg (166 lb) Weight change since last visit (-) denotes wt loss 12 lbs Weight loss needed to achieve BMI 25: 1.9 Lbs Weight loss needed to achieve BMI 30: -30.9 Lbs Provided instructions on dietary changes Provided instructions on exercise Advised to Increase physical activity. documented in this encounter [facility] Work Phone: 06-04-2023 Evaluation note Encounter Date Diagnosis Assessment Notes May, Nicotine dependence (ICD-10 - F17.200) Patient continues to do very well overall being free of cigarette dependence since October 2021. Today was a 4-month check-in to assess his nicotine lozenge usage and motivation to change. Unfortunately he is still using 6-8 2 mg lozenges daily and does not seem motivated to change this. We have been talking about switching to mints or gum that taste better and does not have nicotine in it but are also constantly reassessing risk and benefit. With his recent coworker also stopping smoking and switching to minutes maybe this will be helpful and motivating for him. Strongly encouraged him to try several different mints at substitutes and he may be surprised that the other nonnicotine mints taste better and do not have the potential addictive effects of nicotine. Gave patient the option of calling office as needed if additional assistance is preferred or he could schedule a follow-up in 4 to 6 months. He desires to follow-up in 4 months May, CO (myocardial infarction) (ICD-10 - I21.3) May, Weight loss (ICD-10 - R63.4) His weight seems to have stabilized over the last several visits without significant increase or decrease in weight. He had a significant weight loss last year and his smoking cessation attempts and overall health shift after his CO. Reinforced healthy lifestyle with good quality calories, adequate exercise and good protein all to help support overall health and wellness and increase his activity tolerance to feel he lost some muscle mass in this weight loss. May, Kidney cyst, acquired (ICD-10 - N28.1) May, Encounter for weight management (ICD-10 - Z76.89) May, Lung nodule (ICD-10 - R91.1) May, Pulmonary nodule (ICD-10 - R91.1) Patient has history of pulmonary nodule identified in 2017. He did have a CT of the chest with contrast in May 2022 and recommendations of yearly follow-up to monitor. We discussed that I will go ahead and order the CT scan with contrast to [facility], instructed him that central scheduling would call to schedule as they did in the past and would call with results. He is to call if he has not heard from us in a week after he has the scan. Further scans and follow-up will be deferred to his PCP. He denies is any signs or symptoms of lung cancer at this time [employer] Other 02-04-2024 Evaluation note* Encounter Date Diagnosis Assessment Notes Treatment Notes Treatment Clinical Notes May, Conjunctivitis of both eyes, unspecified conjunctivitis type (ICD-10 - H10.9) Conjunctivitis home care material was printed Drink plenty fluids, get plenty of rest. Use the eyedrops as prescribed. Continue your home medications as prescribed. 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 Off work tomorrow. Wash your pillowcase every day for the next few days [employer] Other 11-10-2023 Evaluation note* Encounter Date Diagnosis Assessment Notes Treatment Notes Treatment Clinical Notes Feb, Elevated cholesterol (ICD-10 - E78.00) Instructed on diet and exercise with continued statin therapy.Discussed the beneficial effects of lowering cholesterol in reducing the risk for cerebrovascular and cardiovascular disease. Feb, ASHD (arteriosclerotic heart disease) (ICD-10 - I25.10) This patient is stable without activity related CP, dyspnea or lightheadedness. They are instructed to continue exercise and AHA diet plan. Continue secondary prevention measures. Feb, LEONID (generalized anxiety disorder) (ICD-10 - F41.1) Healthy diet and keep active. No change in medical treatment Feb, Pulmonary nodule (ICD-10 - R91.1) Former smoker. Continue LDCT every year x 15 years. Feb, Cigarette nicotine dependence in remission (ICD-10 - F17.211) Continue abstinence They are aware of the hazards associated with tobacco use, including but not limited to respiratory infections, vascular disease and cancers. Feb, Renal cyst, left (ICD-10 - N28.1) Decreased in size from 4 to 1.5cm. Hemorrhagic cyst. repeating MRI/CT in 6mo. Feb, Pruritic dermatitis (ICD-10 - L30.8) Unknown dermatitis, evaluated by Derm and treated w/ Steroids and Antibiotics. Prednisone Rx sent to pharmacy but accidentally under ASHD Feb, Anemia in other chronic diseases classified elsewhere (ICD-10 - D63.8) Healthy diet No s/s GIB Questionable bleed, checking UA Fe, FA, B12 normal [facility] Other 11-02-2023 Evaluation note* Encounter Date Diagnosis Assessment Notes Treatment Notes Treatment Clinical Notes Feb, Anemia, unspecified type (ICD-10 - D64.9) [employer] Other 10-30-2023 Evaluation note* Encounter Date Diagnosis Assessment Notes Treatment Notes Treatment Clinical Notes Jan, Nicotine dependence (ICD-10 - F17.200) Patient continues to use six 2 mg nicotine lozenges daily. He has attempted to cut down in a few different ways as discussed in office by switching to TicTac's or mints or gum as well as trialing nicotine pouches but it was not the same. He did not use the nicotine patches feeling that it would be helpful since he is not really addicted to the nicotine itself. He recognizes it would be best to be off of these but also makes comments such as each person has their vice. We did reinforce all the positive benefits of being free of cigarettes for over a year, in addition to the weight loss which has substantially decrease his overall cardiovascular risk and stroke and heart attack. Low-dose CT for lung cancer screening due at the end of April 2023 Can call to schedule follow-up or follow-up shortly after low-dose CT screening to review. If he decides encouraged to try the 7 mg patch for 2 weeks and to remove the lozenges from the home. Encouraged no sugar replacement such as sugar-free candies gums or mints Jan, Anxiety (ICD-10 - F41.9) Jan, CO (myocardial infarction) (ICD-10 - I21.3) Jan, Weight loss (ICD-10 - R63.4) His weight has finally stabilized and or he is 1 pound greater today than our last visit 2 months ago. Reinforced healthy meals with a forward focus of protein. Jan, Kidney cyst, acquired (ICD-10 - N28.1) Kidney cyst identified on low-dose CT scan of the lungs which is undergoing further evaluation by his PCP. We will follow [employer] [facility] Other 08-28-2023 Evaluation note* Encounter Date Diagnosis Assessment Notes Treatment Notes Treatment Clinical Notes Nov, Nicotine dependence (ICD-10 - F17.200) Patient continues to be dependent upon nicotine lozenges currently consuming six 2 mg lozenges daily. We had previously discussed repeating patches with another quit date for the nicotine lozenges itself however he states that the patches did not really help previously. This further reinforces that he is more addicted to the habitual nature of putting a lozenge in his mouth versus actually being addicted to the nicotine itself. We again revisited and reinforced the positive behavior change he has made and surpassing the 1 year anniversary without cigarette smoking itself. He is avoiding all of the other chemicals and carcinogens associated with burning tobacco and a cigarette. Right now the patient's biggest barrier to eliminating nicotine lozenges is lack of motivation to stop. Encouraged to different options 1 to either dive deep into his motivating factors and attempt another quit date with or without patches. Option 2 would be to follow-up in 3 to 6 months and reevaluate at that time. He does have the patches available to him at home although I agree it is more of a habitual habit than a actual addiction to any substance. Patient desires to follow-up in 2 months Low-dose CT scan will be due in April 2023. Nov, Anxiety (ICD-10 - F41.9) Nov, CO (myocardial infarction) (ICD-10 - I21.3) Nov, Weight loss (ICD-10 - R63.4) Patient's weight is finally stable for the first visit. Reinforced the need to increase protein in his diet to avoid or halt further muscle wasting with his significant weight loss. Encouraged meat products which would help in both iron supplementation and protein. Reinforced well-balanced healthy diet to build health [employer] [facility] Other 08-23-2023 Evaluation note* Encounter Date Diagnosis Assessment Notes Treatment Notes Treatment Clinical Notes Nov, Anemia, unspecified type (ICD-10 - D64.9) [employer] [facility] Other 07-10-2023 Evaluation note* Encounter Date Diagnosis Assessment Notes Treatment Notes Treatment Clinical Notes Oct, Allergic contact dermatitis due to plants, except food (ICD-10 - L23.7) [employer] [facility] Other 07-05-2023 Evaluation note* Encounter Date Diagnosis Assessment Notes Treatment Notes Treatment Clinical Notes Oct, Nicotine dependence (ICD-10 - F17.200) Praised patient for his 1 year anniversary being without cigarettes. We did discuss the health benefits including the significant decreased risk of cardiovascular disease elevated Hiti 1 year anniversary. He is also omitted thousands of different chemicals that he has been inhaling for the last 30 years previous. He is however still reliant on the nicotine lozenges. As discussed previously he does recognize that it is more of a habit than the addition of nicotine itself. His motivation to quit the lozenges is only at a 5 out of 10 at this time. He recognizes he does need to take action to wean off of these as well. Gave patient choice of either weaning off or even setting another quit date in the next couple weeks utilizing the patches again in a different way. He was resent to pharmacy and was instructed to start these the day of his quit day and get all of the lozenges out of the house. He recognizes this has worked for him in the past and is willing to give another attempt. Oct, Anxiety (ICD-10 - F41.9) Oct, CO (myocardial infarction) (ICD-10 - I21.3) Oct, Weight loss (ICD-10 - R63.4) Patient continues to lose some weight although not as much as previous visits. Advised that with his comment regarding feeling weaker at work it is likely related to some muscle wasting due to excessive weight loss. Encouraged to incorporate more protein into his diet for meals and snacks. Continue to work on well-rounded meals [employer] [facility] Other 06-22-2023 Evaluation note* Encounter Date Diagnosis Assessment Notes Treatment Notes Treatment Clinical Notes Sep, Allergic contact dermatitis due to plants, except food (ICD-10 - L23.7) Cool compresses, avoid harsh soaps. No improvement, refer to Dermatology [employer] [facility] Other 05-10-2023 Evaluation note* Encounter Date Diagnosis Assessment Notes Treatment Notes Treatment Clinical Notes August, Wellness examination (ICD-10 - Z00.00) Healthy diet and exercise. Reviewed age-appropriate preventive testing recommended. August, ASHD (arteriosclerotic heart disease) (ICD-10 - I25.10) This patient is stable without activity related CP, dyspnea or lightheadedness. They are instructed to continue exercise and AHA diet plan. August, Elevated cholesterol (ICD-10 - E78.00) Instructed on diet and exercise with continued statin therapy.Discussed the beneficial effects of lowering cholesterol in reducing the risk for cerebrovascular and cardiovascular disease. August, Pulmonary nodule (ICD-10 - R91.1) Continue surveillance scans w/ [facility] Denies cough, wheezing or sputum. Continues w/ smoking cessation. August, Left kidney mass (ICD-10 - N28.89) MRI: benign cyst - 06/2022 Benign cyst but scheduled to f/u w/ MRI in Jan, 2023 August, Screening for colon cancer (ICD-10 - Z12.11) Denies change in appetite, bowel habits or weight. He denies N/V,heartburn, dysphagia, melena or hematochezia August, LEONID (generalized anxiety disorder) (ICD-10 - F41.1) Healthy diet, exercise and keep active [employer] [facility] Other 04-10-2023 Evaluation note* Encounter Date Diagnosis Assessment Notes Treatment Notes Treatment Clinical Notes Jul, Left kidney mass (ICD-10 - N28.89) MRI: benign cyst - 06/2022 [employer] Other 02-22-2023 Evaluation note* Encounter Date Diagnosis Assessment Notes Treatment Notes Treatment Clinical Notes May, Nicotine dependence (ICD-10 - F17.200) Praised patient for his continued success of remaining tobacco free. We discussed the nicotine lozenges at length today. He is to continue to work on incorporating alternatives such as sugar-free candy, mints, gum etc. in place of the nicotine lozenges themselves. Not only for cost but also I do not feel again strongly that he is addicted to the nicotine itself but rather the habit of using the lozenges. He has expressed previously that he is afraid of candy due to increased weight gain. Reinforced again that in the big scheme of things being tobacco free from the 1 and half packs of cigarettes daily he was smoking down to 8 mg of nicotine a day is still a huge improvement. There are still some health effects from nicotine being in his system. Patient verbalizes understanding. May, Anxiety (ICD-10 - F41.9) May, CO (myocardial infarction) (ICD-10 - I21.3) May, Weight loss (ICD-10 - R63.4) Patient continues to lose weight with a total weight loss of 76 pounds over the last 7 months. He now has a BMI that is technically underweight and a body fat analysis showed a body fat of 20.1% in office today. Did this to reinforce that if he is truly not eating due to concern of weight gain and health reasons he is now on the extreme end of an unhealthy habit of not eating enough. Encouraged to have open discussion with his PCP consider visiting with dietitian again. Information regarding our dietitians guidance via [employer] was given in office today as a second option as well. This will help guide him on some healthy tips as well as recipes. [employer] Other 02-13-2023 Evaluation note* Encounter Date Diagnosis Assessment Notes Treatment Notes Treatment Clinical Notes May, Left kidney mass (ICD-10 - N28.89) [employer] Other 02-08-2023 NoteULTRASOUND IS SUGGESTED FOR MORE COMPLETE EVALUATION.[employer] Other 02-07-2023 Evaluation note* Encounter Date Diagnosis Assessment Notes Treatment Notes Treatment Clinical Notes May, ASHD (arteriosclerotic heart disease) (ICD-10 - I25.10) This patient is stable without activity related CP, dyspnea or lightheadedness. They are instructed to continue exercise and AHA diet plan. May, Elevated cholesterol (ICD-10 - E78.00) Diet and exercise with continued statin therapy. May, Pulmonary nodule (ICD-10 - R91.1) Chronic nodules w/o exchange consultant the past 5 years May, Cigarette nicotine dependence in remission (ICD-10 - F17.211) Encouraged to continue abstinence. Weaning off nicotine replacement [employer] Other 01-23-2023 Evaluation note* Encounter Date Diagnosis Assessment Notes Treatment Notes Treatment Clinical Notes Apr, Lung nodule (ICD-10 - R91.1) Low-dose CT scanning for lung cancer screening was denied as patient had positive nodule found on a previous CT scan in 2017. After speaking with Nicole King with the screening program and conferring with Dr. Silverman radiologist it was recommended that this test to be followed up with a contrast CT of chest. We will follow/inform PCP of results. [employer] Other 01-19-2023 Evaluation note* Encounter Date Diagnosis Assessment Notes Treatment Notes Treatment Clinical Notes Apr, Nicotine dependence (ICD-10 - F17.200) Apr, LEONID (generalized anxiety disorder) (ICD-10 - F41.1) [employer] Other 01-11-2023 Evaluation note* Encounter Date Diagnosis Assessment Notes Treatment Notes Treatment Clinical Notes Apr, Nicotine dependence (ICD-10 - F17.200) Patient has reached 6-month milestone of being nicotine free. Praised patient for his willpower and strength to accomplish this task. Praised him for his removal of the situation when tempted by a cigarette. We discussed how this is going to be a lifelong acknowledgment and effort to remain free of cigarettes and nicotine dependence. He needs to prepare himself for situations and have resolutions available to him. As far as the nicotine lozenges while we discussed in the big scheme of things a couple of 2 mg nicotine lozenges are not bad compared to his pack and a half or more of cigarettes a daily. Would be ideal to stop these completely and I informed him that there is no studies on long-term use of nicotine lozenge use that I could support him with. Encourage patient to continue trying other mints, gums, hard candy. Patient is open to low-dose lung cancer screening CT. Paperwork was filled out today and will be faxed. Patient was informed that they will contact him after his approved by insurance and will be set up. Apr, Anxiety (ICD-10 - F41.9) Apr, CO (myocardial infarction) (ICD-10 - I21.3) Patient denied any changes in his overall cardiac health. His blood pressure had to be decreased due to weight loss and low blood pressure in addition to lower heart rate. Apr, Weight loss (ICD-10 - R63.4) While weight loss has been intentional with omission of his pop habit and trying to eat healthier there is concern for can much weight loss over short period of time. Patient is down over 71 pounds since starting with us in October. He is working with his PCP and dietitian on this. Reinforced healthy habits and regular meals with healthy snacks. [employer] Other 12-05-2022 Evaluation note* Encounter Date Diagnosis Assessment Notes Treatment Notes Treatment Clinical Notes Mar, Nicotine dependence (ICD-10 - F17.200) Patient is continuing to do wonderful and completely abstinent of cigarette smoking for several months. He is still using 5 mg total of the lozenges nicotine replacement however I do not feel strongly that these are abating any withdrawal symptoms at this point. Encouraged patient to decrease lozenges and incorporate gum or mints as needed without nicotine. Continue to reinforce healthy habits and focus on healthy lifestyle. Advised that smoking abstinence is going to be a lifelong commitment and he will have temptations here and there. He is open to backing up his follow-up appointment to a month or so out at this point. Strongly encouraged pt to take advantage of low dose CT screening for lung cancer as he is a candidate. Educated on program. Mar, Anxiety (ICD-10 - F41.9) Anxiety is now being managed by PCP and patient is taking buspirone twice daily. He does still seem a little nervous in office today however he denies any significant changes in his anxiety. Mar, CO (myocardial infarction) (ICD-10 - I21.3) He has since graduated from cardiac rehab last month. We reinforced cardiovascular benefits of stopping smoking and congratulated him on his success. [employer] Other 10-26-2022 Evaluation note* Encounter Date Diagnosis Assessment Notes Treatment Notes Treatment Clinical Notes Jan, Nicotine dependence (ICD-10 - F17.200) Patient continues doing amazing job of remaining free of cigarettes. Praised patient for his success over the last couple months. We reinforced the health effects of quitting smoking and the benefits over time. Advised that while being on couple lozenges per day of nicotine it would be ideal to get him completely off of this. We discussed plan of decreasing by 1 lozenge a day each week and trial replacing with either gum or mints etc. Jan, Anxiety (ICD-10 - F41.9) Patient mildly anxious in office today with frequent poor eye contact and fidgeting of the hands. He does continue to take buspirone as prescribed by his PCP. He has admitted anxiousness about being overweight and leaving an unhealthy lifestyle only started this program for smoking cessation. There has been concerns about his significant amount of weight loss in a short amount of time. He is meeting with a dietitian to work through this. He denies any food insecurities or complete omission of meals. Jan, CO (myocardial infarction) (ICD-10 - I21.3) Patient is doing well and his cardiac rehab and is feeling better than he has in a long time. He is returning to his normal activities including getting back to work. Encourage patient to reinforce his positive behavior by reminding himself of the cardiovascular benefits of remaining smoke-free. [employer] Other 10-03-2022 Evaluation note* Encounter Date Diagnosis Assessment Notes Treatment Notes Treatment Clinical Notes Jan, Nicotine dependence (ICD-10 - F17.200) Patient remains free of cigarette or tobacco products for several months now. He is at the end of the 7 mg patch prescription and after discussion with patient he feels he may be ready to wean off the patches. He does express some anxiety and doing this. He can continue with the lozenges and slowly wean those down over the next several days to weeks. If patient truly does struggle we may be able to extend the patches for another couple weeks but patient decides to try without. Encouraged to keep up the good work and praised patient for the significant progress he has made. Follow-up in 2 to 4 weeks Jan, Anxiety (ICD-10 - F41.9) Patient still struggles with some anxiety although buspirone twice daily from PCP help significantly. He initially noticed increased anxiety when he first went down to 7 mg patches several weeks ago however this is leveled off. He was appropriate in office today although he had some nervous movements such as rubbing palms or scratching palms throughout the visit. Jan, CO (myocardial infarction) (ICD-10 - I21.3) Patient is recovering nicely from his CO likely related to previous tobacco use. Reinforced the positive effects and cardiovascular benefits of not smoking. [employer] Other 09-07-2022 Evaluation note* Encounter Date Diagnosis Assessment Notes Treatment Notes Treatment Clinical Notes Dec, Nicotine dependence (ICD-10 - F17.200) Patient continues to do exceedingly well with complete abstinence from nicotine since October 31, 2021. He has finally removed all cigarettes and ashtrays out of the house. He is to finish out his 14 mg patch today and start 7 mg patches tomorrow. Advised to continue with his current lozenges and after a few days decrease down to half. If patient experiences significant withdrawal symptoms which is not anticipated he is to call provider and we will extend the 14 mg patch for an additional 2 weeks. Patient has 7 mg patches at home. Praised patient again for all of his progress and he does feel that it is getting easier although it still difficult. Follow-up 2 weeks [employer] Other 08-24-2022 Evaluation note* Encounter Date Diagnosis Assessment Notes Treatment Notes Treatment Clinical Notes Nov, Nicotine dependence (ICD-10 - F17.200) Patient is doing an amazing job remaining abstinent from tobacco for nearly 6 weeks now. He continues to use nicotine patch on a daily basis and anticipate weaning down to 14 mg in the next week or 2. He does have these at his disposal but request that the 7 mg patches to be sent in so that he has those available. His insurance seems to knock off some of the cost at the pharmacy versus paying for it [id number]. Patient asks about amount of lozenges he is okay using per day gave guidance that he can continue to use them as needed every 1-2 hours especially as he transitions to the 7 mg patch and then try to slowly wean them down over the days following that. He has lost weight over the last couple months since we have been working with him. He states he is doing it in a healthy fashion and he is just making better choices for himself. He overall looks very good and states that he feels well overall. His mood seems to be in good spirits and he appreciates speaking with the provider as it seemed to help him get through the smoking cessation journey.He denies any adverse effects of nicotine. He has sleeping well now that he removes the patch at night and puts a new 1 on in the morning. Patient to call with any issues in the interim otherwise follow-up in 2 to 4 weeks. 15 minutes was spent with the patient/ review of documentation pertaining to the visit today. Surinder Valentino [facility] [employer] Other 08-03-2022 Evaluation note* Encounter Date Diagnosis Assessment Notes Treatment Notes Treatment Clinical Notes Nov, Nicotine dependence (ICD-10 - F17.200) Praised patient for continued success. He has been able to remain free of cigarettes since 10/29/2021. He is still struggling with agitation especially in the morning. Advised to keep distracting self and continue to do something first thing in the morning to curtail this craving. Patient has about 2 weeks left of the 21 mg patches and is using them appropriately. He has switched to his chest versus his arm due to some irritation and has been wiping his skin with alcohol for better adhesion. We will send in 14 mg patches to [facility] pharmacy to see if his newly awarded Medicaid insurance will cover. If not he may have to get from the quit line versus [id number]. Reinforced that this is still cheaper than a pack of cigarettes per day. Patient verbalizes understanding. 30 minutes was spent with the patient/ review of documentation pertaining to the visit today. JERO Fraser Nov, CO (myocardial infarction) (ICD-10 - I21.3) Patient continues to be motivated by smoking cessation due to recent CO. Patient was recently seen by cardiology and released back to work when he is ready from a cardiology standpoint. He is taking his blood thinners as prescribed and his blood pressure has been well controlled. His weight has decreased by over 10 pounds and patient seems motivated to adopt a healthier lifestyle.Encourag ed exercise as directed by batch mixer and has tolerated to not only improve cardiac function but to also serve as a healthy distraction from smoking. Nov, Anxiety (ICD-10 - F41.9) His anxiety continues to be a barrier to his smoking cessation efforts however this is much improved with the newly started buspirone. Advised that patient is welcome to take 2 tabs daily as needed for anxiety as he gets over the hump of smoking cessation in the early days. Advised that if he feels this benefits him on a longer-term basis he could follow with his PCP in the future. [employer] Other 07-20-2022 Evaluation note* Encounter Date Diagnosis Assessment Notes Treatment Notes Treatment Clinical Notes Oct, Nicotine dependence (ICD-10 - F17.200) Praised patient for his huge success and remaining free of cigarettes for the last 9 days. Discussed that he is going through the most difficult time and that things will get easier as time passes. Encouraged to continue with the quit line support as well as leaning on friends and family. Continue nicotine patches 21 mg for a total of 6 weeks and work with the quit line to back down to 40 mg patches then. Continue use lozenges as needed up to 10 to 20/day. Discussed possibly adding clonidine to help with jitters and anxiety during the acute phase of withdrawal. After discussion patient and provider agreed to run this by his batch mixer due to his recent CO and cardiac stenting. (On a side note encourage patient to be proactive in getting refill of Brilinta as he is at high risk in the first couple months after stent placement. Encouraged to call pharmacy in addition to calling back physicians office as he should not run out of this medication.) Awaiting callback for further instruction. May consider buspirone for anxiety if clonidine is not appropriate per batch mixer. [employer] Other 07-20-2022 Evaluation note* Encounter Date Diagnosis Assessment Notes Treatment Notes Treatment Clinical Notes Oct, Nicotine dependence (ICD-10 - F17.200) Praised patient for his huge success and remaining free of cigarettes for the last 9 days. Discussed that he is going through the most difficult time and that things will get easier as time passes. Encouraged to continue with the quit line support as well as leaning on friends and family. Continue nicotine patches 21 mg for a total of 6 weeks and work with the quit line to back down to 40 mg patches then. Continue use lozenges as needed up to 10 to 20/day. Discussed possibly adding clonidine to help with jitters and anxiety during the acute phase of withdrawal. After discussion patient and provider agreed to run this by his batch mixer due to his recent CO and cardiac stenting. (On a side note encourage patient to be proactive in getting refill of Brilinta as he is at high risk in the first couple months after stent placement. Encouraged to call pharmacy in addition to calling back physicians office as he should not run out of this medication.) Awaiting callback for further instruction. May consider buspirone for anxiety if clonidine is not appropriate per batch mixer. Oct, Anxiety (ICD-10 - F41.9) Call was returned from cardiology office stating that smoking cessation medications are not contraindicated in this patient. Did not directly discuss clonidine. After further consideration will trial buspirone as needed and small doses to help with withdrawal symptoms. Sent to pharmacy [employer] Other 06-29-2022 Evaluation note* Encounter Date Diagnosis Assessment Notes Treatment Notes Treatment Clinical Notes Sep, Nicotine dependence (ICD-10 - F17.200) Sep, Cigarette nicotine dependence (ICD-10 - F17.210) Sep, Other Discussed the physical, mental, and social aspects of nicotine addiction. Discussed the health risks of smoking as well as the short-term and long-term benefits of cessation. Patient is aware that success is dependent upon motivation and effort put forth in making lifestyle changes in addition to counseling and NRT/pharmaceutical intervention. Encouraged to inform family and friends that they desire to stop smoking and ask for their support. Smoking cessation packet given to patient and appropriate pages reviewed today. Patient is currently in the Preparation (has set a date and is making preparations) phase. He is motivated by recent health event. Plan1. Quit-Now ( ) placed via fax. Patient informed that this is a free service for counseling and they will also provide NRT in the form of patches at no cost to the patient every 2 weeks via [facility]2. Patient is to use smoking log to help identify when and where they smoke in addition to their mood to help identify patterns and bring with them for their follow-up visit.3. Patient is to prepare for a quit day by delaying urge to smoke, shower in the morning instead of in the evening, decrease 1 or 2 cigarettes/day. Patient has already decreased cigarette use significantly but this is likely contributing to his current symptoms. Patient is also to prepare by having a plan in place for distractions. Patient is also to start gathering items to help deal with cravings including water bottle with a straw, mint, gum, toothpicks, cinnamon sticks, suckers. 4. Discussed signs and symptoms of nicotine withdrawal including insomnia, irritability, headaches, cough, dry mouth, hunger, etc. 5. After discussion of smoking cessation aids patient desires to use patches, gum, open to trial of Wellbutrin. Informed of the mechanism of action and how to correctly use. Reinforced the need for counseling in addition to help improve outcome. Patient verbalizes understanding and agrees with plan of care. Follow-up in 2 weeks. Patient is self-pay without insurance. 6. Pt is currently a candidate for low-dose CT scan for lung malignancy at this time. Will discuss at future visit. This note was completed with the assistance of voice recognition software for dictation purposes. Please excuse any grammatical errors that were not corrected during the review process. 45 minutes was spent with the patient today and greater than 50% of counseling and education was performed by myself JERO Fraser [employer] Other 06-24-2022 Hospital Discharge instructions Additional Instructions DISCHARGE INSTRUCTIONS FOR ANGIOPLASTY/CORONARY/PERIPHERAL/STENT IMPLANT FOR ADULT ANTICOAGULATION -Since the greatest risk of a blood clot forming with the stent occurs in the first 2-3 weeks after implantation, you will need to take anticoagulants for at least 12-18 months. ANTICOAGULATION MEDICATION Aspirin 81mg once a day, Ticagrelor (Brilinta) 90mg twice a day STATIN MEDICATION Atorvastatin (Lipitor) 40 mg Drug-Eluting Stent (VENICE) DO NOT discontinue Brilinta/Aspirin during the first few months regardless of what you are advised by your family doctor or pharmacist, without first calling the batch mixer who implanted the stent. If you require pain relief during this time, please take only ACETAMINOPHEN (TYLENOL)- NO additional aspirin or ibuprofen. DISCHARGE ACTIVITIES ARE FOLLOWS: First week after discharge: -Take it easy at home, no strenuous activity. -Do not lift or pull objects over 10-15 pounds, including children, and groceries for four weeks. If puncture site is at wrist do NOT lift more than three pounds for three days. - May walk up stairs. -May shower. -No excessive scrubbing of the affected site (groin). -May ride in car. -May resume sexual intercourse after 1-2 weeks. -No MRI for 12 days. -May drive in 4-7 days. -If puncture site is at the wrist do not manipulate the wrist for 24 hours, and no soaking wrist for three days. Second Week: -May take a bath -May start walking 3 times a week for 15-20 minutes at a leisurely pace. You should be able to carry on a conversation comfortably without feeling winded. -No strenuous activity as in jogging, running, weight lifting, stair steppers, etc. until the batch mixer approves these activities. Check with the batch mixer on your first follow-up visit. CALL YOUR PHYSICIAN at [phone]: -If bleeding should occur from the catheter insertion site- apply pressure to the site then immediately call us. -Report any fever, redness, drainage, increased swelling, or firmness at the catheter insertion site. Some bruising or slight swelling may be present at the time of discharge. -Should arm or leg become cold, numb, white, or blue, contact the batch mixer immediately. -IF you should experience episodes of angina, e.g. chest discomfort, heaviness, tightness, pressure burning with or without radiation to the neck, jaw, arms or back- use 1 Nitrostat tablet under your tongue every 5-10 minutes and up to three tablets. IF NO RELIEF, CALL 911 or GO TO THE NEAREST EMERGENCY ROOM. -Please notify our office if you have recurrent angina. -[Cardiac Rehab Education Provided. Participation in the Cardiopulmonary Rehabilitation program is recommended. Please call Central Scheduling at [phone] to schedule your appointment.] The attending batch mixer or [facility] nurse clinician should provide you with specific instructions regarding activity, diet, medications, and further follow up for you. Follow the medication instructions provided on your discharge. If the dosages and instructions on this sheet differ from the dosage and instructions on the bottle, follow the instructions on the bottle. [facility] is not responsible for incorrect prescription information provided by the patient during their visit. Do not stop your medications without consulting your health care provider. Please take the list with you to your next doctor's appointment. Diovan on hold until renal function improves.[facility] Work Phone: [phone] Progress note Author Myles Velarde [facility] October 14, 2021 9:52am Note Date/Time October 14, 2021 9:[address] [facility] [address] [place] [address] Cardiology Progress Note Signed Patient: Pj Sabillon MR#: [id number] : 1970 Acct:[id number] Age/Sex: 51 / M Adm Date: 2 Loc: Room: [address] [place] [address] Type : ADM IN Attending Dr: Emma Allen MD Copies to: ~ Date of Service: 10/14/2021 Subjective Principal diagnosis: NSTEMI status post primary PCI to left circumflex/OM Interval history: Pj is doing well this morning. He has had no recurrent chest pain or other anginal symptoms overnight since primary PCI done yesterday. He is having no problems at his right radial access site. His breathing feels good. He is ambulated without angina. Vital signs are stable with blood pressure actually onthe low side. No clinical orthostasis. Laboratory evaluation this morning doesshow a bump in serum creatinine from a baseline of 1.18 to 1.7, indicative of mild contrast-induced nephropathy. No other active complaints or issues. Exam Physical Exam Vital Signs: Temp Pulse Resp BP Pulse Ox 98.9 F 88 18 103/51 L 95 10/14/21 06:36 10/14/21 06:36 10/14/21 06:36 10/14/21 06:36 10/14/21 06:36 Const General: cooperative, comfortable and no acute distress Nutritional Appearance: obese Orientation: alert, awake and oriented x3 HEENT Head: normocephalic and atraumatic Mouth: oral mucosae normal and moist mucous membranes Teeth and gingiva: fair dentition Eyes Conjunctivae: conjunctivae normal Sclera: sclerae normal Pupils: PERRL and normal by confrontation EOM: EOM intact bilaterally Neck Neck: no lymphadenopathy and supple Neck mass: No Thyroid: thyroid normal Carotids: normal carotid upstroke Lymphatic: no lymphadenopathy noted Chest Chest palpation & inspection: normal inspection of the chest Resp Effort & Inspection: normal respiratory effort, able to speak in complete sentences and symmetric chest movement Auscultation: clear to auscultation bilaterally Cardio Jugular venous pressure: no JVD Palpation: normal PMI Rate: regular rate Rhythm: regular rhythm Heart Sounds: S1 normal, S2 normal and gallop S4 gallop Pulses: radial pulses present, popliteal pulses present and posterior tibial pulses present Other: Right radial access site without bleeding or hematoma. 2+ right radial pulse. GI Inspection: normal to inspection and obesity Palpation: soft and no hepatosplenomegaly Auscultation: normal bowel sounds Skin General: no rashes or lesions noted Trauma: no lacerations or abrasions Wounds: no wounds Neuro General: patient alert, patient awake, patient oriented x3, moves all extremities and no focal motor deficits Cranial Nerves: CN's II-XII intact bilaterally Motor: muscle tone normal throughout Sensory Exam: no sensory deficits noted Extrem General: full ROM and no clubbing, cyanosis or edema Psych Mood: anxious mood Affect: normal affect Attitude: cooperative Thought Process: normal Thought Content: normal Insight: insight good Judgment: judgment good Objective Labs CBC & Chem 7: 10/14/21 05:01 10/14/21 05:01 Labs: Laboratory Results - last 24 hr 10/13/21 10/13/21 10/14/21 15:02 23:20 05:01 Corrected WBC 17.9 H Uncorrected WBC Count 17.9 H RBC 5.17 Hgb 15.1 Hct 44.1 MCV 85.3 MCH 29.3 MCHC 34.3 RDW 12.8 Plt Count 175 D MPV 9.1 Neut % (Auto) 79.7 Lymph % (Auto) 8.0 [place] % (Auto) 11.5 Eos % (Auto) 0.3 Baso % (Auto) 0.5 Neut # (Auto) 14.3 H Lymph # (Auto) 1.4 [place] # (Auto) 2.1 H Eos # (Auto) 0.1 Baso # (Auto) 0.1 Nucleated RBC % (auto) 0.0 PT INR APTT 57.5 H PHA Creatinine Clear Sodium Potassium Chloride Carbon Dioxide BUN Creatinine Est GFR ( Amer) Est GFR (Non-Af Amer) Glucose POC Glucose 108 POC Glucose Comment Glu2: cleaned meter Calcium Total Bilirubin AST ALT Alkaline Phosphatase Total Protein Albumin Globulin Albumin/Globulin Ratio 10/14/21 10/14/21 05:01 05:01 Corrected WBC Uncorrected WBC Count RBC Hgb Hct MCV MCH MCHC RDW Plt Count MPV Neut % (Auto) Lymph % (Auto) [place] % (Auto) Eos % (Auto) Baso % (Auto) Neut # (Auto) Lymph # (Auto) [place] # (Auto) Eos # (Auto) Baso # (Auto) Nucleated RBC % (auto) PT 13.7 H INR 1.2 APTT 29.8 PHA Creatinine Clear 62.13 Sodium 135 L Potassium 4.4 Chloride 99 Carbon Dioxide 25.2 BUN 21 Creatinine 1.70 H D Est GFR ( Amer) 52 Est GFR (Non-Af Amer) 43 Glucose 102 H POC Glucose POC Glucose Comment Calcium 8.8 Total Bilirubin 2.2 H AST 119 H ALT 61 H Alkaline Phosphatase 80 Total Protein 6.0 L Albumin 3.1 L Globulin 2.9 Albumin/Globulin Ratio 1.1 A&P - Cardiology (1) NSTEMI (non-ST elevated myocardial infarction): Assessment/Problem Details: Doing well on postprocedure day 1 status post primary PCI to the left circumflex/OM with implantation of 3 resolute Augusto drug-eluting stent in a bifurcation configuration. Serum troponins have peaked and are now decreasing. The patient is angina free. Laboratory evaluation consistent with subclinical mild contrast- induced nephropathy. Code(s): I21.4 - Non-ST elevation (NSTEMI) myocardial infarction Status: Acute Plan: Patient is ready for discharge to home today. Plan Recommend the following at time of discharge: 1. Dual antiplatelet therapy with aspirin 81 mg daily and Brilinta 90 mg p.o. twice daily 2. Atorvastatin 40 mg daily 3. Metoprolol succinate 50 mg nightly 4. We will hold off on ARB for now given evidence of subclinical contrast- induced nephropathy. We will plan on starting ARB in the clinic setting at outpatient follow-up. 5. Recommend checking basic metabolic panel in 1 week to monitor renal function. 6. Complete smoking cessation is strongly recommended. 7. Please make sure the patient is scheduled to be [facility] 10 days of discharge. From the first clinic visit enrollment in phase 2 monitored cardiac rehabilitation in [place] is strongly recommended. Time spent with patient Time Spent With Patient (min): 30 Documented By: Myles Velarde MD 10/14/21 0945 Signed By: <Electronically signed by Myles Velarde MD> 10/14/21 0952 [facility] Work Phone: [phone]) 685-865706-23-2022 Progress note Author Emma Allen [facility] October 13, 2021 2:25pm Note Date/Time October 13, 2021 2:[address] [facility] [address] [place] [address] Hospitalist Progress Note Signed Patient: Pj Sabillon MR#: [id number] : 1970 Acct:[id number] Age/Sex: 51 / M Adm Date: 2 Loc: Room: [address] [place] [address] Type : ADM IN Attending Dr: Emma Allen MD Copies to: ~ Date of Service: 10/13/2021 Subjective Subjective Narrative: Patient examined in the ICU after cardiac catheterization which showed 100% thrombotic occlusion of nondominant distal left circumflex artery for which she underwent PCI. Also noted to have EF of 40-45 per. Patient denies prior history of coronary artery disease or family history of heart disease. Exam Physical Exam Vital Signs: Temp Pulse Resp BP Pulse Ox 98.6 F 58 L 14 118/56 L 93 L 10/13/21 13:00 10/13/21 13:30 10/13/21 13:30 10/13/21 13:30 10/13/21 13:30 Const General: cooperative Orientation: alert, awake and oriented x3 Resp Effort & Inspection: normal respiratory effort and able to speak in complete sentences Auscultation: no rales, no rhonchi and no wheezes Cardio Rate: regular rate Rhythm: regular rhythm Heart Sounds: S1 normal and S2 normal GI Palpation: soft, not firm, no guarding and nontender Auscultation: normal bowel sounds Neuro General: patient alert, patient awake, patient oriented x3, moves all extremities and no focal motor deficits Extrem General: no clubbing, cyanosis or edema and no calf tenderness Objective Lab Results CBC & Chem 7: 10/13/21 04:51 10/13/21 04:51 Meds Allergies and Active Meds Allergies No Known Allergies Allergy (Verified 01/11/17 11:02) Active Meds: Active Medications Generic Name Dose Route Start Last Admin Trade Name Freq PRN Reason Stop Dose Admin Acetaminophen 1,000 mg 10/12/21 22:44 Acetaminophen 500 Mg Tablet PO 10/12/22 22:43 Q6H PRN Mild Pain Al Hydrox/Mg Hydrox/Simethicone 30 ml 10/12/21 22:44 10/12/21 23:57 Mag Hydrox/Al Hydrox/Simeth 30 Ml Udc PO 10/12/22 22:43 30 ml Q4H PRN Administration Epigastric distress (Non-Card) Aspirin 81 mg 10/13/21 09:00 10/13/21 09:17 Aspirin 81 Mg Tablet. PO 10/13/22 08:59 81 mg DAILY FREIDA Administration Atorvastatin Calcium 40 mg 10/13/21 21:00 Atorvastatin 40 Mg Tablet PO 10/13/22 20:59 QPM FREIDA Atropine Sulfate 1 mg 10/13/21 11:55 Atropine Sulfate 1 Mg/10 Ml Syringe IV-PUSH ONCE PRN Symptomatic Bradycardia Docusate Sodium 100 mg 10/12/21 22:44 Docusate 100 Mg Capsule PO 10/12/22 22:43 QHS PRN Constipation Nitroglycerin/Dextrose 50 mg in 250 mls @ 1.5 mls/hr 10/12/21 23:15 10/12/21 23:45 Nitroglycerin 50 Mg-*D5w* IV 10/12/22 23:14 5 mcg/min .Q24H FREIDA 1.5 mls/hr Administration Protocol 5 MCG/MIN Dextrose/Sodium Chloride 1,000 mls @ 100 mls/hr 10/13/21 09:15 10/13/21 09:47 5 % Dextrose-0.45 % Nacl IV 10/13/22 09:14 100 mls/hr .Q10H FREIDA Administration Sodium Chloride 250 mls @ 999 mls/hr 10/13/21 11:55 0.9% Sodium Chloride 250 Ml IV 10/13/22 11:54 PRN PRN Hypotension Bivalirudin 250 mg/ Sodium 50 mls @ 5.55 mls/hr 10/13/21 12:00 10/13/21 14:07 Chloride IV 10/13/21 15:59 0.25 mg/kg/hr .Q9H1M FREIDA 5.6 mls/hr Administration 0.25 MG/KG/HR Sodium Chloride 1,000 mls @ 80 mls/hr 10/13/21 12:00 0.9% Sodium Chloride 1,000 Ml IV 10/13/21 23:59 .[id number] FREIDA Lidocaine HCl 10 ml 10/13/21 11:55 Lidocaine 2% Mdv 50 Ml Vial SUBCUT 10/13/21 23:55 ONCE PRN Sheath Removal Meperidine HCl 25 mg 10/13/21 11:55 Meperidine Pf 25 Mg/Ml Vial IV-PUSH 10/13/21 23:55 ONCE PRN Sheath Removal Metoprolol Tartrate 25 mg 10/13/21 09:00 10/13/21 09:17 Metoprolol Tartrate 25 Mg Tablet PO 10/13/22 08:59 25 mg BID FREIDA Administration Morphine Sulfate 4 mg 10/12/21 22:44 10/13/21 00:30 Morphine Sulfate 4 Mg/Ml Cartridge IV-PUSH 4 mg Q20M PRN Administration Chest Pain Nitroglycerin 0.4 mg 10/12/21 22:44 Nitroglycerin 0.4 Mg Tab.Subl SUBLINGUAL 10/12/22 22:43 Q5M PRN Chest Pain Ondansetron HCl 4 mg 10/12/21 22:44 10/13/21 00:29 Ondansetron 4 Mg/2 Ml Vial IV-PUSH 10/12/22 22:43 4 mg Q6H PRN Administration Nausea And Vomiting Potassium Chloride 40 meq 10/13/21 09:07 Potassium Chloride Er 20 Meq Tab.Er.Prt PO STAT PRN Hypokalemia Promethazine HCl 12.5 mg 10/13/21 11:55 Promethazine 25 Mg/Ml Vial IV-PUSH 10/13/21 23:55 ONCE PRN Sheath Removal Sodium Chloride 0 ml 10/13/21 09:07 Sodium Chloride 0.9 % 10 Ml Syringe IV-PUSH 10/13/22 09:06 PRN PRN Flush Ticagrelor 90 mg 10/13/21 21:00 Ticagrelor 90 Mg Tablet PO 10/13/22 20:59 BID FREIDA Tramadol HCl 50 mg 10/12/21 22:44 Tramadol 50 Mg Tablet PO 04/10/22 22:43 Q6H PRN Moderate Pain Triamcinolone Acetonide 1 applic 10/12/21 22:44 Triamcinolone 0.1% Cream 15 Gm Tube TOPICAL 10/12/22 22:43 QID PRN Irritation Valsartan 80 mg 10/13/21 21:00 Valsartan 80 Mg Tablet PO 10/13/22 20:59 BID [facility] A&P - Hospitalist Assessment/Plan (1) NSTEMI (non-ST elevated myocardial infarction): (2) Hypertension: Plan Patient underwent cardiac catheterization and found to have 100% thrombotic occlusion of distal left circumflex artery which was stented and thought to be the culprit lesion. Also noted to have ischemic cardiomyopathy with EF 40 to 45%. On examination patient denies having chest pain. He has been started on dual antiplatelets with statin, beta-amee and valsartan. He is off heparin drip and will add Lovenox for DVT prophylaxis. Documented By: Emma Allen MD 10/13/21 1419 Signed By: <Electronically signed by Emma Allen MD> 10/13/21 1425 [facility] Work Phone: [phone] 711-243206-23-2022 Consult note Author Myles Velarde [facility] October 13, 2021 1:20pm Note Date/Time October 13, 2021 1:[address] [facility] [address] [place] [address] Cardiology Consult Note Signed Patient: Pj Sabillon MR#: [id number] : 1970 Acct:[id number] Age/Sex: 51 / M Adm Date: 2 Loc: Room: 0E5895-3 Type : ADM IN Attending Dr: Emma Allen MD Copies to: DO Emma Kaba MD Stephen M Tann, MD~ Cardiology HPI History of Present Illness Consult Date: 10/13/21 Reason for Consult: Chest pain, abnormal ECG, elevated TpI HPI: Mr. Sabillon is a 51 year old male with no known prior coronary heart disease but multiple cardiac risk factors including longstanding untreated hypertension and longstanding smoking/tobacco abuse who presented to the [place] emergency department yesterday evening complaining of heartburn. The patient states that his symptoms started 3 to 4 hours prior to presenting to [place] emergency[facility]artment. He describes his symptoms as a burning type sensation in the mid chest with associated nausea. There was no associated dyspnea, diaphoresis, norradiation of the pain. In the emergency department at [place] and ECG was taken which showed mild ST segment elevation in the inferior leads II and III. There was ST depression noted anteriorly. I was sent the ECG by text message. At the time the patient was hemodynamically stable with stable vital signs. His ECG changes were subtleand did not meet strict STEMI criteria. Per our direction the patient was treated with medical therapy including anticoagulation with IV unfractionated heparin, administration of antiplatelet agent Brilinta 180 mg, as well as the use of IV nitrates and beta-blockers for angina control. This brought the patient to a pain-free state within approximately 20 minutes. Repeat EKG at that time showed resolution of ST segment abnormalities. Initial troponin was drawn and found to be mildly elevated at 1200. At this point given the time course of the patient's coronary syndrome (greater than 4 hours) and the fact that he was pain-free with resolved ST segment abnormalities on surface electrocardiogram, the patient per my recommendation was brought from [place] to [facility] and admitted to the ICU. He was maintained on full medical therapy including anticoagulation with IV heparin. This morning EKG showed recurrent ST segment elevation only inlead III. Patient had been clinically remaining chest pain-free and hemodynamically stable. His troponins did trend upward. I am now consulted forfurther cardiac evaluation and management as we are making plans for trip to thecardiac catheterization suite for urgent diagnostic left heart catheterization and possible primary percutaneous coronary intervention. Review of Systems Review of Systems All other systems reviewed & are negative unless noted below or in HPI PMFSH Vaccinated for COVID-19?: Unknown Medical History Hypertension Family History Mother Hypertension Mother Uterine cancer Social History Smoking Status: Current every day smoker Tobacco Type: cigarettes Substance Use Type: None Meds Medications and Allergies Allergies No Known Allergies Allergy (Verified 01/11/17 11:02) Exam Physical Exam Vital Signs: Temp Pulse Resp BP Pulse Ox 98.6 F 63 22 118/56 L 93 L 10/13/21 12:45 10/13/21 12:45 10/13/21 12:45 10/13/21 12:45 10/13/21 12:45 Const General: cooperative, comfortable and no acute distress Nutritional Appearance: obese Orientation: alert, awake and oriented x3 HEENT Head: normocephalic and atraumatic Mouth: oral mucosae normal and moist mucous membranes Teeth and gingiva: fair dentition Eyes Conjunctivae: conjunctivae normal Sclera: sclerae normal Pupils: PERRL and normal by confrontation EOM: EOM intact bilaterally Neck Neck: no lymphadenopathy and supple Neck mass: No Thyroid: thyroid normal Carotids: normal carotid upstroke Lymphatic: no lymphadenopathy noted Chest Chest palpation & inspection: normal inspection of the chest Resp Effort & Inspection: normal respiratory effort, able to speak in complete sentences and symmetric chest movement Auscultation: clear to auscultation bilaterally Cardio Jugular venous pressure: no JVD Palpation: normal PMI Rate: regular rate Rhythm: regular rhythm Heart Sounds: S1 normal, S2 normal and gallop S4 gallop Pulses: radial pulses present, popliteal pulses present and posterior tibial pulses present GI Inspection: normal to inspection and obesity Palpation: soft and no hepatosplenomegaly Auscultation: normal bowel sounds Skin General: no rashes or lesions noted Trauma: no lacerations or abrasions Wounds: no wounds Neuro General: patient alert, patient awake, patient oriented x3, moves all extremities and no focal motor deficits Cranial Nerves: CN's II-XII intact bilaterally Motor: muscle tone normal throughout Sensory Exam: no sensory deficits noted Extrem General: full ROM and no clubbing, cyanosis or edema Psych Mood: anxious mood Affect: normal affect Attitude: cooperative Thought Process: normal Thought Content: normal Insight: insight good Judgment: judgment good TIFFANY Risk Score TIFFANY Risk Score Predictor Historical: 3 or more Risk Factors: FHx,HTN,elevated cholesterol,DM,active smoker and ASA use in Past 7 Days Presentation: Recent (>/=24hr) Angina, Increased Cardiac Marker and ST Deviation>/=0.05mV Score Risk Score (0-7): 5 Results Labs CBC & CMP: 10/13/21 04:51 10/13/21 04:51 Lab results: Cardiac Enzymes 10/12/21 10/12/21 10/13/21 Range/Units 23:04 23:04 04:51 AST 99 H 150 H (10-42) U/L B-Natriuretic Peptide 107.0 H (5-100) pg/mL Lipids 10/13/21 Range/Units 04:51 Triglycerides 99 (35-149) mg/dL Cholesterol 184 (140-200) mg/dL HDL Cholesterol 36 (29-71) mg/dL Cholesterol/HDL Ratio 5.1 (<5.0) CBC 10/12/21 10/13/21 Range/Units 23:04 04:51 RBC 5.88 H 5.55 (3.90-5.60) x10E6/uL Hgb 17.0 16.2 (13.0-17.0) g/dL Hct 49.6 47.0 (38.8-50.0) % Plt Count 225 230 (150-450) x10E3/uL Neut # (Auto) 15.4 H 13.0 H (1.8-7.7) x10E3/uL Lymph # (Auto) 1.5 1.6 (1.00-4.8) x10E3/uL [place] # (Auto) 1.3 H 1.6 H (0.0-0.8) x10E3/uL Eos # (Auto) 0.1 0.0 (0.0-0.45) x10E3/uL Baso # (Auto) 0.1 0.1 (0.0-0.2) x10E3/uL Comprehensive Metabolic Panel 10/12/21 10/13/21 Range/Units 23:04 04:51 Sodium 139 137 (136-146) mmol/L Potassium 4.2 4.5 (3.5-5.1) mmol/L Chloride 101 104 (95-114) mmol/L Carbon Dioxide 26.4 24.7 (22.0-30.0) mmol/L BUN 9 11 (9-23) mg/dL Creatinine 1.23 1.18 (0.64-1.27) mg/dL Glucose 117 H 139 H (70-100) mg/dL Calcium 10.2 9.5 (8.2-10.2) mg/dL AST 99 H 150 H (10-42) U/L ALT 44 55 (10-60) U/L Alkaline Phosphatase 109 H 99 H (32-92) U/L Total Protein 6.8 6.5 (6.1-7.9) gm/dL Albumin 3.9 3.5 (3.2-5.5) gm/dL Intake and Output 10/12/21 10/13/21 10/13/21 23:59 07:59 15:59 Output Total 675 / 675 Balance -675 / -675 Output: Urine 675 / 675 Other: # Unmeasured Voids 2 Weight 111 kg 111 kg Patient Weight 10/13/21 23:59 Weight 111 kg Lab 10/13/21 04:51 PT 12.2 INR 1.1 APTT 31.6 EKG Interpretations EKG Attestation EKG: I reviewed this ECG and interpreted as documented below: Dysrhythmias Sinus rhythms and dysrhythmias: sinus rhythm Blocks, axis, hypertrophy, ST abn Chamber hypertrophy or enlargement: left ventricular hypertrophy or enlargement (LVE) Repolarization changes or abnormalities: nonspecific abnormality, ST segment, and/or T wave and ST suggestive of injury A&P - Cardiology (1) NSTEMI (non-ST elevated myocardial infarction): Assessment/Problem Details: Subacute presentation, high risk non-STEMI. Chest pain resolved with full medical therapy. ECG changes initially improved with medical therapy but now recurrent, without meeting strict criteria for STEMI. Upward troponin trend. No clinical evidence of cardiogenic shock. TIFFANY risk score of 5. Plan: We will proceed with urgent diagnostic left heart catheterization and possible primary percutaneous coronary mention in the treatment of a high risk non-STEMI. Further diagnostic and therapeutic maneuvers will be forthcoming based on the results of the patient's urgent cardiac catheterization. Code(s): I21.4 - Non-ST elevation (NSTEMI) myocardial infarction Plan Plan as above. Documented By: Myles Velarde MD 10/13/21 1310 Signed By: <Electronically signed by Myles Velarde MD> 10/13/21 1320 [facility] Work Phone: [phone]) [phone] [facility] History and physical note Author Kobe Mandujano [facility] October 13, 2021 4:08am Note Date/Time October 12, 2021 11:[address] [facility] [address] [place] [address] Hospitalist H&P Signed Patient: Pj Sabillon MR#: [id number] : 1970 Acct:[id number] Age/Sex: 51 / M Adm Date: 2 Loc: Room: [address] [place] [address] Type : ADM IN Attending Dr: Emma Allen MD Copies to: DO Kobe Kaba MD Mazhar Rahman, MD Sohail Merchant, MD, RES~ HPI DATE OF EXAMINATION: 10/12/21 CHIEF COMPLAINT: NSTEMI HISTORY OF PRESENT ILLNESS: 51-year-old male PMHx of HTN (medication noncompliance for approximately 2 years), with chief complaint of atypical chest pain and generalized malaise after leaving work earlier specifically endorsing dizziness,nausea, diaphoresis, and 7/10, constant, epigastric and substernal chest pain that worsened with exertion (that he suspected was heartburn), and that had somemild radiation down proximal left arm. States he took his blood pressure at homeshortly after feeling this way and noted 190/130 bp. Upon coming home, he was convinced by his sister to go to [facility]. Of note, he states he had previoushistory of rib fractures in associated area that have caused him chronic soreness in the left upper chest and states that the soreness he felt today was significantly more than usual. Upon arrival at [facility] his initial vitals were blood pressure of 176/125, temperature of 98.3 ?F, pulse 122 bpm, respiratory respirations 22, oxygen saturation 98% on room air. EKG was done that showed sinus tachycardia and ST depression. Patient was given nitro and lisinopril and was found to have a troponin of 1288. In addition he was given aspirin, put on heparin drip, given 0.5 mg of Ativan, metoprolol IV, nitro tab, Zofran, Phenergan, Brilinta, and wastolerating a nitro drip of 1.5 mL. EKG was then repeated and was in sinus rhythm. Chest x-ray was negative. Vitals done at 2030 were blood pressure 145/92, heart rate of 95, 97% oxygen saturation on 2 L nasal cannula. Of note, COVID PCR was negative. CBC showed an elevated white count at 14.9, neutrophil percentage is 77.3, but no anemia or thrombocytopenia CMP was significant for anelevated glucose at 110, creatinine 1.34 with a BUN of 11.0 (mild AUNG), GFR of 56, calcium elevated at 10.7, alkaline phosphatase of 144. Blood coags were within normal limits for PT of 10.3, INR 0.95, PTT of 27.9. Patient was then transferred to [facility], after discussing case with Dr. Velarde (triage registered nurse) who requested patient to be placed on heparin dripand nitro drip, with plans for cardiac cath on 10/13/21. At my encounter, patient states that he has stopped his blood pressure medication approximately 2 years ago. Smokes 1 pack/day, but does not drink often. He states that earlier today he was working in the sun and could have been very dehydrated at the same time. ROS is negative for vomiting, fever, night sweats, chills, shortness of breath, dysuria, constipation. ROS is positive for chest pain, anxiousness, dizziness, nausea. PHYSICAL EXAM General: AAO x 3 (person, place, time), well appearing, no acute distress, laying in bed HEENT: normocephalic, atraumatic, PERRLA, moist mucosa Neck: Trachea midline Respiratory: normal chest wall expansion, CTA B/L, no r/r/w Cardiovascular: RRR, no m/r/g, Normal S1 and S2 Abdomen: Soft, non-tender, non-distended, normal bowel sounds in all quadrants +TTP in epigastric area Musculoskeletal: normal ROM in upper and lower extremities Integumentary: warm, dry, and pink, with no rash, purpura, or petechia Neurological: Cranial Nerves II-XII grossly intact, normal sensation to pressureand light touch; Strength is 5/5 throughout. Muscle tone and bulk are normal Biceps, Brachialis, and knee reflexes are brisk on both sides. Psychiatric: cooperative with normal mood, affect, and cognition NSTEMI Consult cardiology, awaiting recommendation N.p.o. after midnight, sips of water with meds Telemetry Trend troponin Chest x-ray EKG Transthoracic echo TSH, BNP, CBC, CMP, magnesium, Phos, lipid panel, PT/PTT/INR Aspirin 81 mg p.o. daily (start 10/13/2021) Cardiac PRNs Heparin drip Nitro drip Lopressor 50 mg p.o. twice daily (started 10/13/2021) Received Lopressor 5 mg IV on 10/12/21 evening Morphine sulfate 4 mg IV push q. 20 minutes as needed for chest pain Zofran for nausea Atorvastatin 80 mg daily (start 10/12/2021) DVT prophylaxis-SCDs Review of Systems Review of Systems All other systems reviewed & are negative unless noted below or in HPI PMFSH Vaccinated for COVID-19?: Unknown Medical History (Updated 10/12/21 @ 23:24 by Dewayne Pettit MD, RES) Hypertension Family History (Updated 10/12/21 @ 22:40 by Mari Jacobson RN) Mother Hypertension Mother Uterine cancer Social History Smoking Status: Current every day smoker Tobacco Type: cigarettes Substance Use Type: None Meds Medications and Allergies Allergies No Known Allergies Allergy (Verified 01/11/17 11:02) Exam Physical Exam Vital Signs: Temp Pulse Resp BP Pulse Ox 98.8 F 92 H 18 150/89 H 98 10/12/21 22:43 10/12/21 22:43 10/12/21 22:43 10/12/21 22:43 10/12/21 22:43 TIFFANY Risk Score TIFFANY Risk Score Predictor Historical: 3 or more Risk Factors: FHx,HTN,elevated cholesterol,DM,active smoker Presentation: Recent (>/=24hr) Angina and Increased Cardiac Marker Score Risk Score (0-7): 3 Results Lab Results Labs: Laboratory Last Values Corrected WBC 18.4 X10E3/uL (4.1-10.5) H 10/12/21 23:04 Uncorrected WBC Count 18.4 x10E3/uL (4.5-11.0) H 10/12/21 23:04 RBC 5.88 x10E6/uL (3.90-5.60) H 10/12/21 23:04 Hgb 17.0 g/dL (13.0-17.0) 10/12/21 23:04 Hct 49.6 % (38.8-50.0) 10/12/21 23:04 MCV 84.4 fl (83.5-101) 10/12/21 23:04 MCH 28.9 pg (27.5-35.2) 10/12/21 23:04 MCHC 34.2 g/dL (32.5-35.6) 10/12/21 23:04 RDW 13.1 % (12.0-14.8) 10/12/21 23:04 Plt Count 225 x10E3/uL (150-450) 10/12/21 23:04 MPV 8.4 fl (6.6-10.1) 10/12/21 23:04 Neut % (Auto) 83.6 % (.) 10/12/21 23:04 Lymph % (Auto) 8.2 % (.) 10/12/21 23:04 [place] % (Auto) 7.1 % (.) 10/12/21 23:04 Eos % (Auto) 0.4 % (.) 10/12/21 23:04 Baso % (Auto) 0.7 % (.) 10/12/21 23:04 Neut # (Auto) 15.4 x10E3/uL (1.8-7.7) H 10/12/21 23:04 Lymph # (Auto) 1.5 x10E3/uL (1.00-4.8) 10/12/21 23:04 [place] # (Auto) 1.3 x10E3/uL (0.0-0.8) H 10/12/21 23:04 Eos # (Auto) 0.1 x10E3/uL (0.0-0.45) 10/12/21 23:04 Baso # (Auto) 0.1 x10E3/uL (0.0-0.2) 10/12/21 23:04 Nucleated RBC % (auto) 0.1 % (0-0.5) 10/12/21 23:04 A&P - Hospitalist Assessment/Plan (1) NSTEMI (non-ST elevated myocardial infarction): (2) Hypertension: Attending Provider Attestation Attending Physician Attestation: I personally saw this patient on the day of the encounter, reviewed the history,performed the otto elements of the exam, formulated the plan of care and confirmed the resident's/employee communications intern/medical student's dictation/written note. Patient is a 51-year-old male with history of obesity/tobacco abuse/hypertensionhyperlipidemia as well as noncompliance with medications who presented to an outside facility due to nausea/vomiting and exertional epigastric/midsternal chest pain that started today, over the other hospital the patient had a an EKG that was concerning for an inferior leads abnormalities and his troponin came back severely elevated and the patient was found to be in NSTEMI for which her batch mixer was contacted and they recommended for the patient to be on heparindrip/nitro drip and to transfer him here for a left heart catheterization in themorning, on my encounter the patient was in bed seems to be in moderate distressdue to continuous abdominal discomfort, the patient was on nitro drip however hewas given morphine for better control of the pain, troponins continue to trend up. Will check his A1c/lipid panel, will start patient on aspirin/metoprolol/atorvastatin and will continue with heparin and nitro drip, will get an echo in the morning, cardiology was consulted for left heart cath inthe morning. Documented By: Dewayne Pettit MD, RES 10/12/21 2321 Signed By: <Electronically signed by MD UZLAY Pettit> 10/12/21 2343 <Electronically signed by Kobe Sanchez MD> 10/13/21 0408 [facility] Work Phone: Evaluation note* Diagnosis Onset Date Resolution Status Hypertension acute NSTEMI (non-ST elevated myocardial infarction) acute [facility] Work Phone: Evaluation noteNo InformationNort Med[employer] Other Evaluation noteNo assessment information available [facility] [place] Work Phone: Evaluation note* Diagnosis Coronary artery disease involving rosebud coronary artery of rosebud heart without angina pectoris History of PTCA Postsurgical percutaneous transluminal coronary angioplasty status Mixed hyperlipidemia Hypertension, benign Essential hypertension, benign Subsequent non-ST elevation (NSTEMI) myocardial infarction (Multi) BMI 25.0-25.9,adult Former smoker Personal history of tobacco use, presenting hazards to health documented in this encounter [facility] Work Phone: Hisdpev general Narrative - Reported* Type Description Date Medical History H/O CO WITH CARDIAC STENTING X3 Medical History HYPERLIPIDEMIA Medical History CAD Medical History HYPERTENSION Surgical History CARDIAC STENTING X3 2021 Surgical History LITHOTRIPSY KIDNEY STONES 1989 Surgical History RIGHT FOREARM TENDON REPAIR 199 3 Hospitalization History 1) CO WITH CARDIAC STENT ING 09/2021 [employer] Other Hiswqvx general Narrative - Reported* Type Description Date Medical History H/O CO WITH CARDIAC STENTING X3 Medical History HYPERLIPIDEMIA Medical History CAD Medical History HYPERTENSION Medical History Cyst on kidney Surgical History CARDIAC STENTING X3 2021 Surgical History LITHOTRIPSY KIDNEY STONES 1989 Surgical History RIGHT FOREARM TENDON REPAIR 199 3 Hospitalization History 1) CO WITH CARDIAC STENT ING 09/2021 [employer] Other Hiskimn general Narrative - Reported* Type Description Date Medical History H/O CO WITH CARDIAC STENTING X3 Medical History HYPERLIPIDEMIA Medical History CAD Medical History HYPERTENSION Medical History Cyst on kidney Medical History psoriasis Surgical History CARDIAC STENTING X2021 Surgical History LITHOTRIPSY KIDNEY STONES 1989 Surgical History RIGHT FOREARM TENDON REPAIR 199 3 Hospitalization History 1) CO WITH CARDIAC STENT ING 09/2021 [employer] Other Hisptep general Narrative - Reported* Type Description Date Medical History H/O CO WITH CARDIAC STENTING X3 Medical History HYPERLIPIDEMIA Medical History CAD Medical History HYPERTENSION Medical History Cyst on kidney, (hemorrhagic cys t) Medical History psoriasis Surgical History CARDIAC STENTING X2021 Surgical History LITHOTRIPSY KIDNEY STONES 1989 Surgical History RIGHT FOREARM TENDON REPAIR 199 3 Hospitalization History 1) CO WITH CARDIAC STENT ING 09/2021 [employer] Other Hisjkam general Narrative - Reported* Type Description Date Medical History H/O CO WITH CARDIAC STENTING X3 Medical History HYPERLIPIDEMIA Medical History CAD Medical History HYPERTENSION Medical History Cyst on kidney, (hemorrhagic cys t) Medical History psoriasis Medical History [facility] Surgical History CARDIAC STENTING X3 2021 Surgical History LITHOTRIPSY KIDNEY STONES 1989 Surgical History RIGHT FOREARM TENDON REPAIR 199 3 Hospitalization History 1) CO WITH CARDIAC STENT ING 09/2021 [employer] Other Reason for referral (narrative)* Consultation (Routine) - Authorized Specialty Diagnoses / Procedures Referred By Contac tiki Referred To Contact Cardiology Diagnoses Coronary artery disease involving rosebud coronary artery of rosebud heart without angina pectoris Procedures Follow Up In Cardiology Denis Fernandez DO [address] [facility] [address], [address] [place] [id number] Denis Fernandez DO [address] [place] [address] 2, [facility] [address] [place] [address] Referral ID Status Reason Start Date Expiration Date V isits Requested Visits Authorized [id number] Authorized 08/08/2023 08/07/2024 1 1 T [facility] Work Phone: Chief Complaint and Reason for Visit Chief Complaint Non Stemi Reason for Visit Hypertension NSTEMI (non-ST elevated myocardial infarction) Chief Complaint smoking cessation Chief Complaint smoking cessation r91.1 Chief Complaint r91.1 smoking cessation n28.89 Chief Complaint 6 Month Follow Up Chief Complaint Poss [facility] Smoking F/U Nicotine Abuse R91.1 Chief Complaint Poss [facility] Smoking F/U Nicotine Abuse R91.1 n28.1 Family History No Family History Records Found Relationship Condition Age at Onset Recorded Date/T bianca Not Specified Hypertension Unknown Not Specified Malignant neoplasm of uterus Unknown Unknown Family Member Name Dates Details Family history of malignant neoplasm of uterus: Mother(V16.49, Z80.49) Status:Active Unknown Family Member Name Dates Details Family history of malignant neoplasm of uterus: Mother(V16.49, Z80.49) Status:Active Unknown Family Member Name Dates Details Family history of malignant neoplasm of uterus: Mother(V16.49, Z80.49) Status:Active Unknown Family Member Name Dates Details Family history of malignant neoplasm of uterus: Mother(V16.49, Z80.49) Status:Active Relationship Condition Age at Onset Recorded Date/T bianca Not Specified Hypertension Unknown Not Specified Malignant neoplasm of uterus Unknown Malignant neoplasm Unknown sister Schizophrenia Unknown Family history of mental disorder Unknown Advance Directives No Advanced Directives Records Found Advance Directive Response Recorded Date/ Time Advance Directives No December 9:48am Advance Directive Response Recorded Date/ Time Advance Directives No December 8:48am Reason for Referral Reason 07/03/22 Patient b eing referred for a left renal mass Diagnosis 1 Left kidney mass (N2 8.89) Referral Organization [facility] Referring Provider First Name Yaya Referring Provider Last Name Torey Referring Provider Specialty Internal Me dicine Referred Organization Unknown Facility Referred Provider Josesito Timmons Referred Provider Specialty Urology Referral Priority Routine Referral Appointment Date 2022-07-03 General Notes Patient being referr ed for a left renal mass. This was discovered incidentally while imaging the chest for lung cancer screening. Referral for further testing for definitive diagnosis Amy Parra 06/20/2022 11:32:23 AM >received today, attachments made, referral faxed Amy Parra 06/21/2022 04:00:37 PM >referral now faxed to Amy Hermosillo 06/26/2022 12:58:50 PM >faxed first attempt letter to Dr. Juarez office to see when patient can be scheduled. Left another vm with [facility] Amy Parra 06/27/2022 10:14:29 AM >received letter back that pt is scheduled with Dr. Juarez office Amy Parra 07/05/2022 02:46:05 PM >FAXED FIRST REQUEST FOR NOTES Clinical Notes He denies back pain, polyuria, dysuria or hematuria. Summary Purpose Chief Complaint PJ SABILLON is being seen for a 6 month follow-up of.* PJ SABILLON is being seen for a 6 month follow-up of. * Patient is a 52-year-old gentleman returns for follow-up and is doing extremely well. Last year in September 2021 he underwent PCI's in the circumflex obtuse marginal branch x3 drug-eluting stents with Dr. Velarde for an acute myocardial infarction. He does describe atypical right-sided musculoskeletal chest discomfort with work that is somewhat reproducible on today's exam. * He has dropped a total of 85 pounds over the past 1 year impressively with dietary discretion. No longer smokes. * Recommendations: Follow-up in 8 months on same therapy * PJ SABILLON is being seen for a 6 month follow-up of. * Patient is a 52-year-old gentleman returns for follow-up and is doing extremely well. Last year in September 2021 he underwent PCI's in the circumflex obtuse marginal branch x3 drug-eluting stents with Dr. Velarde for an acute myocardial infarction. He does describe atypical right-sided musculoskeletal chest discomfort with work that is somewhat reproducible on today's exam. * He has dropped a total of 85 pounds over the past 1 year impressively with dietary discretion. No longer smokes. * Recommendations: Follow-up in 8 months on same therapy Additional Source Comments Care Teams (unrecognized sec tion and content) Team Status: Active Member Role Status Adonay Olivo DO Primary Care Provider Active Team Status: Inactive Member Role Status Adonay Olivo DO Primary Care Provider Active Doretha Valentino APRN Attending Provider Active Team Status: Inactive Member Role Status Adonay Olivo DO Primary Care Provider Active Josesito Timmons MD Attending Provider Active Team Status: Active Member Role Status Adonay Olivo DO Primary Care Provider Active Doretha Valentino APRN Attending Provider Active Team Status: Inactive Member Role Status Adonay Olivo DO Primary Care Provider Active Kobe Sanchez MD Admit Provider Active Emma Allen MD Attending Provider Active Denis Jung MD Other Provider Active Team Status: Inactive Member Role Status Dates NORMA Miller Attending Provider Active Team Status: Inactive Member Role Status Adonay Olivo DO Attending Provider Active Sta rt: March 02, 2023 End: March 02, 2023 Team Status: Inactive Member Role Status Dates NORMA Lantigua Attending Provider Active S tart: May 27, 2023 End: May 27, 2023 Team Status: Inactive Member Role Status Dates Doretha Valentino APRN Attending Provider Active Start: June 04, 2023 End: June 04, 2023 Team Status: Active Member Role Status Adonay Olivo DO Primary Care Provider Active Start: June 04, 2023 Doretha Valentino APRN Attending Provider Active Start: June 04, 2023 Team Status: Inactive Member Role Status Adonay Olivo DO Primary Care Provider Active Start: June 11, 2023 End: June 11, 2023 Doretha Valentino APRN Attending Provider Active Start: June 11, 2023 End: June 11, 2023 Team Status: Inactive Member Role Status Dates Yaya Olivo DO Primary Care Provider Active Start: June 04, 2023 End: June 04, 2023 Doretha Valentino APRN Attending Provider Active Start: June 04, 2023 End: June 04, 2023 Deputy Register Of Deeds Relationship Specialty Start Date End Date Yaya Olivo DO [address] [place] [address] [address] [place] [address] PCP - General Internal Medicine 08/08/23 Denis Fernandez DO [address] [facility] [address], [address] [place] [address] Consulting Physician Cardiology 08/08/23 Team Status: Inactive Member Role Status Dates Yaya Olivo DO Primary Care Provider Active Start: August 14, 2023 End: August 14, 2023 Gary East MD Attending Provider Active Start: August 14, 2023 End: August 14, 2023 Garrett Fernandez DO Other Provider Active Start : August 14, 2023 End: August 14, 2023 REASON FOR VISIT (unrecogniz ed section and content) Reason Comments Follow-up 8 month Goals (unrecognized section and content) Goals may be documented in a n alternate section (unrecognized sect ion and content) No Status Records FoundNo Status Records FoundNo Status Records FoundNo Status Records FoundNo Status Records FoundNo Status Records Found INFORMATION SOURCE (unrecogn ized section and content) DATE CREATED AUTHOR 08/07/2022 [facility] DATE CREATED AUTHOR AUTHOR'S ORGANIZ ATION 09/04/2022 [facility] DATE CREATED AUTHOR AUTHOR'S ORGANIZ ATION 11/23/2022 [facility] DATE CREATED AUTHOR AUTHOR'S ORGANIZ ATION 11/24/2022 [employer] DATE CREATED AUTHOR AUTHOR'S ORGANIZ ATION 08/09/2023 [facility] DATE CREATED AUTHOR AUTHOR'S ORGANIZ ATION 08/21/2023 [facility] FOR RECORDS PERTAINING TO PATIENTS WHO ARE OR HAVE BEEN ENROLLED IN A CHEMICAL DEPENDENCY/SUBSTANCEABUSE PROGRAM, SOME INFORMATION MAY BE OMITTED. This clinical summary was aggregated from multiple sources. Caution should be exercised in using it in the provision of clinical care. This summary normalizes information from multiple sources, and as a consequence, information in this document may materially change the coding, format and clinical context of patient data. In addition, data may be omitted in some cases. CLINICAL DECISIONS SHOULD BE BASED ON THE PRIMARY CLINICAL RECORDS. [facility] [employer] [facility]. provides no warranty or guarantee of the accuracy or completeness of information in this document.
[2023-08-27 07:46] LABS: Basophils Percent Auto 0.5 % (0.2-2.0); Eosinophils Absolute Auto 0.1 10^3/uL (0.0-0.7); Eosinophils Percent Auto 1.6 % (0.9-7.0); Hematocrit 41.5 % (42.0-54.0); Hemoglobin 14.2 g/dL (14.0-18.0); Immature Granulocytes Abs Auto 0.02 10^3/uL (0.00-0.03); Immature Granulocytes Pct Auto 0.4 % (0.0-0.5); Lymphocytes Absolute Auto 1.2 10^3/uL (1.2-3.8); Mean Corpuscular HGB Conc 34.2 g/dL (29.9-35.2); Mean Corpuscular Hemoglobin 29.6 pg (25.9-34.0); Mean Corpuscular Volume 86.5 fL (80.0-94.0); Mean Platelet Volume 10.1 fL (9.5-13.5); Monocytes Absolute Auto 0.5 10^3/uL (0.3-0.8); Monocytes Percent Auto 9.3 % (1.7-12.0); Neutrophils Absolute Auto 3.7 10^3/uL (1.4-6.5); Neutrophils Percent Auto 67.2 % (43.0-75.0); Platelet Count 140 10^3/uL (150-450); Red Cell Distribution Width 11.5 % (11.0-15.0); White Blood Count 5.5 10^3/uL (4.0-11.0)
[2023-08-27 09:45] LABS: Alanine Aminotransferase 45 U/L (16-63); Albumin Globulin Ratio 1.2; Albumin Level 3.5 g/dL (3.4-5.0); Alkaline Phosphatase 105 U/L (46-116); Anion Gap 11.9; Aspartate Amino Transferase 21 U/L (15-37); BUN Creatinine Ratio 22.9; Bilirubin Total 0.8 mg/dL (0.2-1.0); Carbon Dioxide 27.2 mmol/L (21.0-32.0); Chloride 107 mmol/L (98-107); Chol HDL Ratio 2.1; Cholesterol 99 mg/dL (<=200); Estimated GFR (African America >60 (>=60); Estimated GFR (Non-African Ame >60 (>=60); Glucose 86 mg/dL (74-106); HDL Cholesterol 48 mg/dL (40-60); LDL Cholesterol Calculated 42.4 mg/dL; Potassium 4.1 mmol/L (3.5-5.1); Sodium 142 mmol/L (136-145); Total Protein 6.5 g/dL (6.4-8.2); Triglycerides 43 mg/dL (<=150); VLDL CHOLESTEROL 8.6 mg/dL
== END 2023-08-27 07:00 | disposition home or self-care (01) ==
LOC: LAB 07:00
PROVIDERS: PCP Internal Medicine; Visit Provider Internal Medicine
DX: Z00.00 Encounter for general adult medical examination without abnormal findings (principal)
CPT/HCPCS: 36415; 80053; 80061; 85025

== ENCOUNTER 2023-09-29 09:41 | Outpatient (OUT) | payer MEDICAID, SELFPAY ==
--- OUTSIDE RECORDS SUMMARY | 2023-09-29 09:44 | XMS_ITS ---
Patient Summarization (C-CDA 2.1 CCD) Created on: September 29, 2023 Pj Sabillon : 1970 Sex: Male Author Organization Sample organization Care Team Providers Care Battery Test Engineer Name Role Phone DO Yaya Olivo Primary Care Provider Al Jazmyne Sanchez MD Hani Admit Provider MD Emma Allen Attending Provider MD Denis Jung Other Provider Doretha Valentino Unavailable Unavailable Unavailable DO Yaya Olivo Primary Care Provider CATHERINE Valentino Attending Provider Yaya Olivo E Unavailable DO Yaya Olivo Primary Care Provider CATHERINE Valentino Attending Provider Yaya Olivo Unavailable DO Yaya Olivo Primary Care Provider CATHERINE Valentino Attending Provider MD Josesito Timmons Attending Provider [phone] Lakesha Hatch Attending Unavailable YAYA OLIVO Referring Unavailable BALL, DR JAVIER Primary Care Unavailable IAN ., ES Admitting Unavailable IAN ., ES Attending Unavailable NENA .ASAF Consulting UnavailLeland Torres Consulting Unavailable IAN ., ES Consulting Unavailable TOREY, DR JAVIER Admitting Unavailable BALL, DR JAVIER Attending Unavailable BALL, DR JAVIER Primary Care Unavailable BALL, DR JAVIER Consulting Unavailable TALBOT, DR ARNULFO Dale Admitting Unavailable TALBOT, DR ARNULFO Dale Attending Unavailable BALL, DR JAVIER Primary Care Unavailable TALBOT, DR ARNULFO Dale Consulting Unavailable TOREY, DR JAVIER Admitting Unavailable BALL, DR JAVIER [...] VIKTOR, DR DENIS Acevedo Consulting Unavailabl e Ivktor, Dr. Denis Nieto Referring Unava ilable Ball, Dr. Yaya Michelle Primary Care Sarinai destin Fernandez, Dr. Denis Nieto Attending Unava ilable Viktor, Dr. Denis Nieto Referring Unava ilable Ball, Dr. Yaya Michelle Primary [facility] Sarinai destin Fernandez, Dr. Denis Nieto Attending Unava ilable Torey, DO Javier Primary Care Provider CATHERINE Valentino Attending Provider [phone] NORMA Holder Attending Provider [phone] Aleksandra Caal Unavailable Torey, DO Javier Primary Care Provider [phone] CATHERINE Valentino Attending Provider [phone] Yaya Olivo DO Primary Care Provider Denis Fernandez DO Unavailable DENIS FERNANDEZ Attending Unavailable YAYA OLIVO E Primary Care Unavailable Torey, DO Javier Primary Care Provider [phone] CATHERINE Valentino Attending Provider [phone] MD Gary East Attending Provider DO Garrett Fernandez Other Provider Doretha Valentino R Attending Unavailable Doretha Valentino R Admitting Unavailable Torey, Yaya Primary Care Unavailable Joanne Holder Attending Unavailable Gallo, Joanne Fairchild Admitting Unavailable Doretha Valentino R Attending Unavailable Doretha Valentino R Admitting Unavailable Torey, Yaya Primary Care Unavailable Doretha Valentino R Attending Unavailable Doretha Valentino R Admitting Unavailable Torey, Yaya Primary Care Unavailable Ball, Yaya Primary Care Unavailable Cruzito, Gary Attending Unavailable Cruzito, Gary Admitting Unavailable Cruzito, Gary Admitting Unavailable Yaya Olivo Primary Care Unavailable Garrett Fernandez Consulting Unavailable Cruzito, Gary Attending Unavailable DO Yaya Olivo Primary Care Provider [phone] CATHERINE Valentino Attending Provider DO Yaya Olivo Primary Care Provider Allergies Allergy Classification Reported Allergen(s) Allergy Type Date of Onset Reaction(s) Facility (5 sources) patient allergy list reviewed by nurse or physicia Propensity to adverse reactions Comment:Done [facility] Other (5 sources) Allergies Reconciled Propensity to adverse reactions Unknown [facility] Other Encounters Encounter Date Encounter Type Care Provider Facility Start: 09-28-2023 End: 09-28-2023 ambulatory DO Yaya Olivo Work Phone: [facility] Work Phone: Start: 09-28-2023 End: 09-28-2023 Patient encounter procedure DO Yaya Olivo Work Phone: [facility] Work Phone: Start: 09-03-2023 End: 09-03-2023 ambulatory DO Yaya Olivo Work Phone: [facility] Work Phone: Start: 09-03-2023 End: 09-03-2023 Encounter for general adult medical examination without abnormal findings DO Yaya Olivo Work Phone: [facility] Start: 09-03-2023 End: 09-03-2023 Patient encounter procedure DO Yaya Olivo Work Phone: [facility] Work Phone: Start: 08-27-2023 Non-patient / Non-visit DO Dimitri Olivo Work Phone: [facility] [employer] Work Phone: Start: 08-14-2023 End: 08-14-2023 ambulatory Gary Cruzito Facility:[facility] Start: 08-14-2023 End: 08-14-2023 ambulatory DO Yaya Olivo Work Phone: [facility] Work Phone: Start: 08-14-2023 End: 08-14-2023 Patient encounter procedure DO Yaya Ball Work Phone: [facility] [place] Work Phone: Start: 08-08-2023 End: 08-08-2023 ambulatory [facility] Ambulatory Start: 08-08-2023 End: 08-08-2023 Office outpatient visit 15 minutes Denis Roydon DO Work Phone: [facility] Comment on above: Coronary artery dise ase involving [place] coronary artery of [place] heart without angina pectoris; History of PTCA; Mixed hyperlipidemia; Hypertension, benign; Subsequent non-ST elevation (NSTEMI) myocardial infarction (Multi); BMI 25.0-25.9,adult; Former smoker Start: 06-11-2023 End: 06-11-2023 ambulatory Doretha Valentino Facility:[facility] Start: 06-11-2023 End: 06-11-2023 ambulatory DO Yaya Olivo Work Phone: [facility] Work Phone: Start: 06-11-2023 End: 06-11-2023 Patient encounter procedure DO Yaya Olivo Work Phone: [facility]CT [facility] [place] Work Phone: Start: 06-04-2023 (Smoking fu) Smoking cess fu [facility] Start: 06-04-2023 End: 06-05-2023 ambulatory DO Yaya Ball Work Phone: [facility] Other Start: 06-04-2023 End: 06-04-2023 Discharged Recurring DO Yaya Ball Work Phone: [facility] Work Phone: Start: 06-04-2023 Registered Recurring DO Roman in [employer] Work Phone: [facility] Work Phone: Start: 06-04-2023 End: 06-04-2023 Patient encounter procedure DO Yaya Olivo Work Phone: [facility]- Start: 05-27-2023 End: 05-27-2023 ambulatory Aleksandra Caal Other [facility] Other Start: 05-27-2023 Office outpatient vi sit 15 minutes Aleksandra Afua [facility] Start: 05-27-2023 End: 05-27-2023 Patient encounter procedure DO Yaya Olivo Work Phone: [facility] Start: 03-06-2023 End: 03-06-2023 ambulatory Yaya Olivo Other [facility] Other Start: 03-06-2023 Telephone encounter Yaya Olivo ROSANNE [facility] Start: 03-02-2023 End: 03-02-2023 ambulatory Yaya Olivo Other [facility] Other Start: 03-02-2023 Office outpatient vi sit 25 minutes Yaya Olivo [facility] Start: 03-02-2023 End: 03-02-2023 Patient encounter procedure [facility] Work Phone: Start: 02-22-2023 End: 02-22-2023 ambulatory Yaya Olivo Other [facility] Other Start: 02-22-2023 Telephone encounter Yaya Olivo [facility] Start: 02-19-2023 (Smoking fu) Smoking cess fu [facility] Start: 02-19-2023 End: 02-20-2023 ambulatory [facility] [employer] Other Start: 02-07-2023 End: 02-07-2023 ambulatory Yaya Olivo Facility:[facility] Start: 12-18-2022 (Smoking fu) Smoking cess fu Doretha Valentino [facility] Start: 12-18-2022 End: 12-18-2022 ambulatory Doretha Valentino Other [facility] Other Start: 12-18-2022 Telephone encounter Yaya Mcfarland [facility] Start: 12-13-2022 End: 12-13-2022 ambulatory Yaya Olivo Other [facility] Other Start: 12-13-2022 Telephone encounter Yaya Mcfarland [facility] Start: 12-05-2022 End: 12-05-2022 ambulatory Joanne Holder Facility:[facility] Start: 12-05-2022 End: 12-05-2022 ambulatory DO Yaya Olivo Work Phone: [facility] Work Phone: Start: 12-05-2022 End: 12-05-2022 Departed Referred DO Yaya Olivo Work Phone: [facility] [place] Work Phone: Start: 11-22-2022 Office outpatient vi sit 15 minutes Yaya Olivo Work Phone: [facility] [facility] DO Work Phone: Start: 11-22-2022 Patient encounter procedure Yaya Dale Ball Work Phone: [facility] [facility] DO Work Phone: Start: 11-22-[address] eDnis Fernandez Facility: Start: 11-06-2022 End: 11-06-2022 ambulatory Yaya Olivo Other [facility] Other Start: 11-06-2022 Telephone encounter [facility] Start: 10-30-2022 End: 10-30-2022 ambulatory Yaya Olivo Other [facility] Other Start: 10-30-2022 Telephone encounter Yaya Olivo [facility] Start: 10-25-2022 (Smoking fu) Smoking cess fu Doretha Valentino [facility] Start: 10-25-2022 End: 10-25-2022 ambulatory Doretha Valentino Other [facility] Other Start: 10-25-2022 Registered Recurring DO Roman in [employer] Work Phone: [facility] Work Phone: Start: 10-16-2022 End: 10-16-2022 ambulatory Yaya Olivo Other [facility] Other Start: 10-16-2022 Telephone encounter Yaya [facility]ivo [facility] Start: 10-12-2022 End: 10-12-2022 ambulatory Yaya Olivo Other [facility] Other Start: 10-12-2022 Office outpatient vi sit 15 minutes Yaya Olivo [facility] Start: 10-12-2022 Telephone encounter Yaya LAY [facility] Start: 09-03-2022 Encounter for genera l adult medical examination without abnormal findings DR YAYA OLIVO [facility] Start: 09-01-2022 Telephone encounter Yaya LAY [facility] Start: 09-01-2022 End: 09-02-[address] YAYA OLIVO [facility] [employer] Other Start: 09-01-2022 End: 09-02-2022 Encounter for general adult medical examination without abnormal findings DR YAYA OLIVO Facility:[facility] Start: 08-30-2022 End: 08-30-2022 ambulatory Yaya Olivo Other [facility] Other Start: 08-30-2022 Encounter for genera l adult medical examination without abnormal findings Yaya Olivo [facility] Start: 08-30-2022 Periodic preventive med est patient 40-64yrs Yaya Olivo [facility] Start: 08-09-2022 ambulatory Lakesha Hatch Facility:[facility] Start: 07-31-2022 End: 07-31-2022 ambulatory Yaya Olivo Other [facility] Other Start: 07-31-2022 Telephone encounter Yaya LAY [facility] Start: 07-20-2022 End: 07-20-2022 ambulatory DO Yaya Torey Work Phone: [facility] Work Phone: Start: 07-20-2022 End: 07-20-2022 Patient encounter procedure DO Yaya Olivo Work Phone: [facility] [place] Work Phone: Start: 06-21-2022 End: 06-21-2022 ambulatory Yaya Olivo Other [facility] Other Start: 06-21-2022 Telephone encounter Yaya LAY [facility] Start: 06-20-2022 End: 06-20-[address] Denis Fernandez [facility] Other Start: 06-20-2022 Telephone encounter Yaya LAY [facility] Start: 06-16-2022 End: 06-16-2022 ambulatory Yaya Olivo Other [facility] Other Start: 06-16-2022 Telephone encounter Yaya LAY [facility] Start: 06-15-2022 End: 06-16-[address] YAYA OLIVO Facility:[facility] Start: 06-14-2022 (Smoking fu) Smoking cess fu [facility] Start: 06-14-2022 End: 06-14-2022 ambulatory [facility] Other [facility] Other Start: 06-14-2022 Registered Recurring DO Roman in [place] Work Phone: [facility] Work Phone: Start: 06-05-2022 End: 06-05-2022 ambulatory Yaya Olivo Other [facility] Other Start: 06-05-2022 Telephone encounter Yaya LAY [facility] Start: 05-31-2022 End: 05-31-2022 ambulatory DO Yaya Olivo Work Phone: [facility] Work Phone: Start: 05-31-2022 End: 05-31-2022 Patient encounter procedure DO Yaya Olivo Work Phone: [facility] [place] Work Phone: Start: 05-30-2022 End: 05-30-2022 ambulatory Yaya Olivo Other [facility] Other Start: 05-30-2022 Office outpatient vi sit 25 minutes Yaya Torey [facility] Start: 05-17-2022 End: 05-17-2022 ambulatory Dorethaher Valentino Other [facility] Other Start: 05-17-2022 Telephone encounter [facility] Start: 05-15-2022 End: 05-15-2022 ambulatory Dorethaher Diegoler Other [facility] Other Start: 05-15-2022 Telephone encounter [facility]thaher Valentino [facility] Start: 05-11-2022 End: 05-11-2022 ambulatory Yaya Olivo Other [facility] Other Start: 05-11-2022 Telephone encounter Yaya LAY [facility] Start: 05-03-2022 Registered Recurring DO Roman in [place] Work Phone: [facility] Work Phone: Start: 05-03-2022 (Smoking fu) Smoking cess fu [facility] Start: 05-03-2022 End: 05-03-2022 ambulatory Dorethaher Diegoler Other [facility] Other Start: 04-27-2022 End: 04-27-2022 ambulatory Yaya Olivo Other [facility] Other Start: 04-27-2022 Telephone encounter [facility] Start: 04-06-2022 Patient encounter procedure Yaya Olivo Work Phone: [facility] [facility] DO Work Phone: Start: 03-30-2022 End: 03-30-2022 ambulatory [facility] Other [facility] Other Start: 03-30-2022 Telephone encounter [facility] Start: 03-28-2022 End: 03-29-[address] YAYA OLIVO Facility: Start: 03-27-2022 (Smoking fu) Smoking cess fu [facility] Start: 03-27-2022 End: 03-27-2022 [facility] Other [facility] Other Start: 02-15-2022 (Smoking fu) Smoking cess fu [facility] Start: 02-15-2022 End: 02-15-2022 [facility] Other [facility] Other Start: 02-15-2022 Registered Recurring DO Roman in [place] Work Phone: [facility] Start: 01-23-2022 (Smoking fu) Smoking cess fu [facility] Start: 01-23-2022 End: 01-23-2022 ambulatory [facility] Other [facility] Other Start: 12-28-2021 (Smoking fu) Smoking cess fu [facility] Start: 12-28-2021 End: 12-28-2021 ambulatory Doretha Missler Other [facility] Other Start: 12-19-2021 End: 03-07-[address] DENIS FERNANDEZ Facility:[facility] Start: 12-15-2021 End: 12-16-[address] YAYA OLIVO Facility:[facility] Start: 12-14-2021 (Smoking fu) Smoking cess fu [facility] Start: 12-14-2021 End: 12-14-2021 ambulatory Doretha Missler Other [facility] Other Start: 11-24-2021 End: 11-24-2021 ambulatory Doretha Missler Other [facility] Other Start: 11-24-2021 Telephone encounter [facility] Start: 11-23-2021 (Smoking fu) Smoking cess fu [facility] Start: 11-23-2021 End: 11-23-2021 ambulatory Doretha Missler Other [facility] Other Start: 11-09-2021 (Smoking fu) Smoking cess fu [facility] Start: 11-09-2021 End: 11-09-2021 ambulatory Doretha Missler Other [facility] Other Start: 11-07-2021 Rx Renewal Dneis Escudero n DO Work Phone: [facility] [facility] DO Work Phone: Start: 11-02-2021 End: 11-02-2021 ambulatory Doretha Missler Other [facility] Other Start: 11-02-2021 Telephone encounter [facility] Start: 10-25-2021 End: 10-25-2021 ambulatory Doretha Missler Other [facility] Other Start: 10-25-2021 [facility] Start: 10-20-2021 End: 10-21-[address] ARNULFO TLABOT Facility:[facility] Start: 10-19-2021 (Smoke Cess) Smoking Cessation [facility] Start: 10-19-2021 End: 10-19-2021 ambulatory Doretha Valentino Other [facility] Other Start: 10-12-2021 End: 10-14-2021 Evaluation and management of inpatient DO Yaya Olivo Work Phone: [facility] Start: 10-12-2021 End: 10-12-[address] YAYA OLIVO Facility:[facility] Medical Equipment Procedure Code Equipment Code Equipment Origin al Text Equipment Identifier Dates CL STENT ANGLE 2. 25 X 18 FDA Start: 10-13-2021 Drug-eluting coronary artery stent, [id number] lymer-coated [id number] FDA Start: 10-13-2021 Drug-eluting coronary artery stent, [id number] lymer-coated ()[id number] [id number] FDA Start: 10-13-2021 CL STENT ANGLE 2. 25 X 18 FDA Start: 10-13-2021 CL STENT ANGLE 2. 25 X 18 FDA Start: 10-13-2021 CL STENT ANGLE 2. 25 X 18 FDA Start: 10-13-2021 CL STENT ANGLE 2. 25 X 18 FDA Start: 10-13-2021 CL STENT ANGLE 2. 25 X 18 FDA Start: 10-13-2021 CL STENT ANGLE 2. 25 X 18 FDA Start: 10-13-2021 CL STENT ANGLE 2. 25 X 18 FDA Start: 10-13-2021 CL STENT ANLGE 2. 25 X 18 FDA Start: 10-13-2021 CL STENT ANGLE 2. 25 X 18 FDA Start: 10-13-2021 CL STENT ANGLE 2. 25 X 18 FDA Start: 10-13-2021 Goals Date Patient Goal Desired Activity /State Immunizations Immunization Date Immunization Notes Care Provider Nilson yang 08-18-2021 COVID-19 mRNA Comir david (Pfizer) DO Yaya Olivo Work Phone: [facility] 08-18-2020 Pfizer-BioNTech COVI D-19 Vacc 30 MCG/0.3ML Intramuscular Suspension Yaya Olivo Work Phone: [facility] 07-28-2020 COVID-19 mRNA Comir david (Pfizer) DO Yaya Olivo Work Phone: [facility] Medications Current Medications Medication Drug Class(es) Dates Sig (Normalized) Sig (Original) aspirin 81 mg delayed release oral tablet (20 sources) Platelet Aggregation Inhibitor, Nonsteroidal Anti-inflammatory Drug Start: 10-13-2021 take 81 mg by mouth once daily Aspirin Active 81 MG PO Daily 90 90 October 13, 2021 12:00am aspirin 81 [...] 30 October 13, 2021 12:00am busPIRone hydrochloride 15 mg oral tablet (20 sources) Start: 09-03-2023 take 15 mg by mouth twice daily Buspirone Active 15 MG PO Twice daily September 03, 2023 12:00am Start: 11-11-2021 take 1 tablet by indy twice daily as needed for anxiety busPIRone HCl 10 MG 1 tablet Orally Twice a day as needed for anxiety for 15 days Oct, Active Start: 11-11-2021 take 1 tablet by indy twice daily as needed for anxiety busPIRone HCl 7.5 MG 1 tablet Orally Twice a day as needed for anxiety for 15 days Oct, Active take 2 tablets by mo [facility] twice daily busPIRone (Buspar) 7.5 mg tablet Take 2 tablets (15 mg) by mouth 2 times a day. Active take 1 tablet by indy twice daily busPIRone HCl 15 MG TAKE 1 TABLET BY MOUTH TWICE A DAY for 90 Active take 1 tablet by mouth once odessa y busPIRone HCl - 15 MG Oral Tablet TAKE 1 TABLET EVERY 12 HOURS DAILY. Quantity: 0 Refills: 0 Ordered: 22-Nov-2022 DO Active fluocinolone acetonide 0.1 mg/ml topical oil (8 sources) Corticosteroid Mcpherson-Smoothe/FS Body 0.01 % 1 application Externally PRN for 30 days Active Mcpherson-Smoothe/FS Body 0.01 % External for 30 Days [...] Active 25 MG PO Twice daily 60 October 13, 2021 12:00am Metoprolol Tartr ate [...] Nitroglyce rin Active 0.4 MG SUBLINGUAL Q5M October 13, 2021 12:00am Nitroglycerin 0. 4 [...] 3 days for 9 days Oct, Not-Taking tamsulosin hydrochloride 0.4 mg oral capsule (1 source) alpha-Adrenergic Amee Start: 09-28-2023 take 0.4 mg by mouth once daily at bedtime Tamsulosin Active 0.4 MG PO Daily at bedtime September 28, 2023 12:00am Completed/Discontinued Medications Medication Drug Class(es) Dates Sig (Normalized) Sig (Original) maslv-c-jjrhqheeevm se enzyme 150 unt oral tablet (1 source) Beano TABS USE A S DIRECTED. Quantity: 0 Refills: 0 Ordered: 22-Nov-2021 [...] 4 hrs for 5 day(s) May, Not-Taking/PRN ticagrelor 90 mg oral tablet (20 sources) Start: 10-13-2021 End: 09-03-2023 take 1 tablet by mouth twice daily Ticagrelor (Brilinta) 90 mg Tablet Discontinued 90 MG PO Twice daily 180 90 October 13, 2021 12:00am September 03, 2023 3:53pm Payers Date Payer Category Payer Medicaid [employer] [id number] 2022-Present [address] [address] [place] [address] [id number] 2021 Self-pay [id number] 1970 Unknown [id number] [id number] 1970 Unknown [id number] 2.16.840.1.585795.3.579.2.7 1970 Unknown [id number] 2.16.840.1.748532.3.579.2.5 1970 Unknown [id number] 2.16.840.1.073714.3.579.2.5 1970 Unknown [id number] 2.16.840.1.885357.3.579.2.5 1970 Unknown [id number] 2.16.840.1.770605.3.579.2.5 1970 Unknown [id number] 2.16.840.1.255229.3.579.2.5 1970 Unknown [id number] 2.16.840.1.707832.3.579.2.5 1970 Unknown [id number] 2.16.840.1.196733.3.579.2.5 1970 Unknown [id number] 2.16.840.1.590438.3.579.2.3 56 1970 Unknown [id number] 2.16.840.1.404006.3.579.2.3 56 1970 Unknown [id number] 2.16.840.1.104134.3.579.2.1 244 1959 Medicaid [id number] [id number] Private Health Insurance [address] [id number] Unknown Unknown [id number] 2.16.840.1.698192.3.579.2.5 31 Unknown [id number] 2.16.840.1.990823.3.579.2.5 31 Unknown [id number] 2.16.840.1.606929.3.579.2.5 31 Unknown [id number] 2.16.840.1.421304.3.579.2.5 31 Unknown [id number] 2.16.840.1.307884.3.579.2.5 31 Unknown [id number] 2.16.840.1.251580.3.579.2.5 31 Plan of Treatment Date Care Activity Detail Author Start: 2030 RSV patient s and/or patients aged 60+ years (1 - 1-dose 60+ series) RSV patients and/or patients aged 60+ years (1 - 1-dose 60+ series) [facility] Start: 08-05-2024 End: 08-05-2024 Patient encounter procedure 08/05/2024 9:10 AM EDT Office Visit [facility] [address] [facility] [address] [place] [address] Denis Fernandez DO [address] [facility] [address] [place] [address] [facility] Start: 12-23-2023 Influenza vaccination Influenz a Vaccine (Season Ended) [facility] Start: 08-08-2023 End: 08-07-2024 Lipid 1996 panel - Serum or Plasma Lipid Panel Lab Routine Mixed hyperlipidemia Expected: 08/08/2023 (Approximate), Expires: 08/07/2024 [facility] Service Area Work Phone: Comment on above: Expected: 08/08/2023 (Approximate), Expires: 08/07/2024 Start: 08-08-2023 FUV, Provider: Denis Fernandez, Status: Pen, Time: 10:10 AM FUV, Provider: Denis Fernandez, Status: Pen, Time: 10:10 AM [facility] [facility] DO Work Phone: Start: 06-11-2023 CT of thorax with contrast CT chest w [facility] Start: 12-22-2022 COVID-19 Vaccine ( season) COVID-19 Vaccine ( season) [facility] Start: 12-05-2022 Superficial Wound Culture Superficial Wound Culture [facility] Start: 07-20-2022 MR Abdomen WO and W contrast IV [facility] Start: 07-20-2022 MRI of abdomen with contrast MR abdomen wo/w con [facility] Start: 05-31-2022 FUV, Provider: Denis Fernandez, Status: Pen, Time: 9:40 AM FUV, Provider: Denis Fernandez, Status: Pen, Time: 9:40 AM [facility] [facility] DO Work Phone: Start: 11-22-2021 FUVHOSP, Provider: Denis Fernandez, Status: Pen, Time: 10:20 AM FUVHOSP, Provider: Denis Fernandez, Status: Pen, Time: 10:20 AM [facility] [facility] DO Work Phone: Start: 2020 Zoster Vaccines (1 o f 2) Zoster Vaccines (1 of 2) [facility] Start: 1992 DTaP/Tdap/Td Vaccine s (1 - Tdap) DTaP/Tdap/Td Vaccines (1 - Tdap) [facility] Start: 1989 Hepatitis B Vaccines (1 of 3 - 19+ 3-dose series) Hepatitis B Vaccines (1 of 3 - 19+ 3-dose series) [facility] Start: 1988 Diabetes mellitus screening Diabetes Screening [facility] Start: 1988 Hepatitis C screening Hepatitis C Sc patricia [facility] Start: 1976 Pneumococcal Vaccine : Pediatrics (0 to 5 Years) and At-Risk Patients (6 to 64 Years) (1 of 2 - PCV) Pneumococcal Vaccine: Pediatrics (0 to 5 Years) and At-Risk Patients (6 to 64 Years) (1 of 2 - PCV) [facility] Start: 08-13-1971 MMR Vaccines (1 of 1 - Standard series) MMR Vaccines (1 of 1 - Standard series) [facility] Start: 1970 HIV screening HIV Screening [facility] Start: 1970 Lipid panel Lipid Panel [facility] Start: 1970 Screening for malign ant neoplasm of colon [facility] Start: 1970 Yearly Adult Physical Yearly Adult P hysical [facility] Patient Education Coronary Angio plasty (DC) Coronary Stenting (DC) Angina (DC) Chest Pain (DC) Drug Eluting Stents [facility] Work Phone: Patient referral [facility] Work Phone: Problems Active Problems Problem Classification Problem Date Documented Date Episodic/Chronic Acute and unspecified renal failure (11 sources) Injury of kidney; Translations: [Acute kidney [...] [Coronary atherosclerosis of unspecified type of vessel, [place] or graft] Onset: 04-01-2022 Chronic Coronary atherosclerosis [...] Chronic Other diseases of kidney and ureters (6 sources) Cyst of kidney, acquired; Translations: [Cyst of kidney, acquired] Onset: 08-14-2023 Episodic Other diseases of kidney and ureters (2 sources) Acquired renal cystic disease; Translations: [Cyst of kidney, acquired] 09-01-2023 Episodic Other liver diseases (11 sources) Elevated liver enzymes level; Translations: [Abnormal levels of other serum enzymes] 10-14-2021 Episodic Other lower respiratory disease (20 sources) Nodule of lung; Translations: [Solitary pulmonary nodule] 09-01-2023 Episodic Other lower respiratory disease (8 sources) Solitary pulmonary nodule; Translations: [Solitary pulmonary [...] (BMI) 25.0-25.9, adult] Onset: 08-08-2023 Episodic Other nutritional; endocrine; and metabolic disorders (1 source) Weight loss; Translations: [Abnormal weight loss] 09-14-2023 Episodic Other screening for suspected conditions (not [...] Translations: [Other specified dermatitis] Onset: 12-05-2022 Episodic Procedures Date Procedure Procedure Detail Performing Clinician Start: 08-14-2023 MRI of abdomen with contrast DO [employer] Work Phone: Start: 06-11-2023 CT of thorax with contrast DO [employer] Phone: Start: 04-04-2023 History of percutane ous transluminal coronary angioplasty History of PTCA Denis Fernandez DO Work Phone: Start: 09-01-[address] JAFFE IN [employer] Comment on above: Performed By: #### P [facility] #### [facility] [address] [place] [address] Dr. Kelly Jones Start: 05-31-2022 CT of thorax with contrast DO [employer] Work Phone: Start: 10-14-2021 Ultrasonography of liver DO Yaya [employer] Work Phone: Start: 10-13-2021 CL Coronary Thrombol ysis IC DO Yaya [employer] Work Phone: Start: 10-13-2021 CL LHC & COR Angio DO B enjamin [employer] Work Phone: Start: 10-13-2021 CL Stent 1st Vessel CX VENICE DO Yaya [employer] Work Phone: Start: 10-13-2021 CL Stent Ea Add CX VENICE DO Yaya [employer] Work Phone: Start: 10-13-2021 DO Benjami n [employer] Work Phone: Start: 10-12-2021 Plain chest X-ray DO Be njamin [employer] Work Phone: Cardiac catheterization Benj shobha Dale [employer] Work Phone: History of percutane ous transluminal coronary angioplasty History of PTCA Yaya E [employer] Work Phone: History of percutane ous transluminal coronary angioplasty History of PTCA Denis Fernandez DO Work Phone: Lithotripsy Yaya E [employer] Work Phone: NEGATED: Highlighted row has not occurred! Total colonoscopy Yaya E [employer] Work Phone: Results Test Name Value Interpretation Reference Range Facility Basophils Auto (Bld) [#/Vol] on 08-27-2023 Basophils (Bld) [#/Vol] 0.0 10 3/uL 0.0-0.1 [facility] Basophils/100 WBC Auto (Bld) on 08-27-2023 Basophils/100 WBC (Bld) 0.5 % 0.2-2.0 [facility] Cholesterol in LDL Calc [Mas s/Vol]on 08-27-2023 Cholesterol in LDL [Mass/Vol] 42.4 mg/dL [facility] Comment on above: <100 mg/dl [id number] 0-129 mg/dl NEAR OR ABOVE [id number] mg/dl BORDERLINE [id number] mg/dl HIGH>190 mg/dl VERY HIGH Cholesterol in VLDL Calc [Ma ss/Vol]on 08-27-2023 Cholesterol in VLDL [Mass/Vol] 8.6 mg/dL [facility] Eosinophils/100 WBC Auto (Bl d)on 08-27-2023 Eosinophils/100 WBC (Bld) 1.6 % 0.9-7.0 [facility] Erythrocyte distribution wid th Auto (RBC) [Ratio]on 08-27-2023 Erythrocyte distribution width (RBC) [Ratio] 11.5 % 11.0-15.0 [facility] Estimated glomerular filtrat ion rate (GFR) non- Americanon 08-27-2023 GFR/1.73 sq M.predicted among non-blacks MDRD (S/P/Bld) [Vol rate/Area] mL/min/{1.73_m2} >=60 [facility] Globulin Calc (S) [Mass/Vol] on 08-27-2023 Globulin (S) [Mass/Vol] 3.0 g/dL [facility] Hematocrit Auto (Bld) [Volum e fraction]on 08-27-2023 Hematocrit (Bld) [Volume fraction] 41.5 % 42.0-54.0 [facility] Hemoglobin [Mass/volume] in Bloodon 08-27-2023 Hemoglobin (Bld) [Mass/Vol] 14.2 g/dL 14.0-18.0 [facility] Laboratory - Chemistry and C hemistry - challengeon 08-27-2023 Albumin [Mass/Vol] 3.5 g/dL 3.4-5.0 [facility] ALP [Catalytic activity/Vol] 105 U/L 46-116 [facility] ALT [Catalytic activity/Vol] 45 U/L 16-63 [facility] AST [Catalytic activity/Vol] 21 U/L 15-37 [facility] Bilirubin [Mass/Vol] 0.8 mg/dL 0.2-1.0 [facility] Calcium [Mass/Vol] 9.0 mg/dL 8.5-10.1 [facility] Chloride [Moles/Vol] 107 mmol/L 98-107 [facility] Cholesterol [Mass/Vol] 99 mg/dL <=200 [facility] Cholesterol in HDL [Mass/Vol] 48 mg/dL 40-60 [facility] Comment on above: > or =60 mg/dl - LOW CARDIOVASCULAR RISK<40 mg/dl - HIGH CARDIOVASCULAR RISK CO2 [Moles/Vol] 27.2 mmol/L 21.0-32.0 [facility] Creatinine [Mass/Vol] 1.05 mg/dL 0.70-1.30 [facility] [place] GFR/1.73 sq M.predicted MDRD (S/P/Bld) [Vol rate/Area] mL/min/{1.73_m2} >=60 [facility] Glucose [Mass/Vol] 86 mg/dL 74-106 [facility] Potassium [Moles/Vol] 4.1 mmol/L 3.5-5.1 [facility] [place] Protein [Mass/Vol] 6.5 g/dL 6.4-8.2 [facility] Sodium [Moles/Vol] 142 mmol/L 136-145 [facility] Triglyceride [Mass/Vol] 43 mg/dL <=150 [facility] Urea nitrogen [Mass/Vol] 24.0 mg/dL 7.0-18.0 [facility] Urea nitrogen/Creatinine [Mass ratio] 22.9 mg/mg [facility] Laboratory - Hematology and Cell countson 08-27-2023 Immature granulocytes/100 WBC (Bld) 0.4 % 0.0-0.5 [facility] Leukocytes [#/volume] correc grazyna for nucleated erythrocytes in Blood by Automated counon 08-27-2023 WBC corrected for nucl RBC Auto (Bld) [#/Vol] 5.5 10 3/uL 4.0-11.0 [facility] Lymphocytes Auto (Bld) [#/Vo l]on 08-27-2023 Lymphocytes (Bld) [#/Vol] 1.2 10 3/uL 1.2-3.8 [facility] Lymphocytes/100 WBC Auto (Bl d)on 08-27-2023 Lymphocytes/100 WBC (Bld) 21.0 % 20.5-60.0 [facility] MCH Auto (RBC) [Entitic mass ]on 08-27-2023 MCH (RBC) [Entitic mass] 29.6 pg 25.9-34.0 [facility] MCHC Auto (RBC) [Mass/Vol]on 08-27-2023 MCHC (RBC) [Mass/Vol] 34.2 g/dL 29.9-35.2 [facility] [place] MCV Auto (RBC) [Entitic vol] on 08-27-2023 MCV (RBC) [Entitic vol] 86.5 fL 80.0-94.0 [facility] Monocytes Auto (Bld) [#/Vol] on 08-27-2023 Monocytes (Bld) [#/Vol] 0.5 10 3/uL 0.3-0.8 [facility] Monocytes/100 WBC Auto (Bld) on 08-27-2023 Monocytes/100 WBC (Bld) 9.3 % 1.7-12.0 [facility] Neutrophils Auto (Bld) [#/Vo l]on 08-27-2023 Neutrophils (Bld) [#/Vol] 3.7 10 3/uL 1.4-6.5 [facility] Neutrophils/100 WBC Auto (Bl d)on 08-27-2023 Neutrophils/100 WBC (Bld) 67.2 % 43.0-75.0 [facility] No Panel Informationon 08-26 Eosinophils # (Auto) 0.1 10 3/uL 0.0-0.7 [facility] [place] Immature Granulocyte # (Auto) 0.02 10 3/uL 0.00-0.03 [facility] Platelet mean volume Auto (B ld) [Entitic vol]on 08-27-2023 Platelet mean volume (Bld) [Entitic vol] 10.1 fL 9.5-13.5 [facility] Platelets Auto (Bld) [#/Vol] on 08-27-2023 Platelets (Bld) [#/Vol] 140 10 3/uL 150-450 [facility] RBC Auto (Bld) [#/Vol]on RBC (Bld) [#/Vol] 4.80 10 6/uL 4.70-6.10 [facility] Serum or plasma albumin/glob ulin mass ratioon 08-27-2023 Albumin/Globulin [Mass ratio] 1.2 {ratio} [facility] Serum or plasma anion gap de terminationon 08-27-2023 Anion gap [Moles/Vol] 11.9 mmol/[facility] Serum or plasma total choles terol/high density lipoprotein (HDL) cholesterol mass norma 08-27-2023 Cholesterol.total/Cho lesterol in HDL [Mass ratio] 2.1 {ratio} [facility] Comment on above: 3.3 - 4.4 LOW RISK4. 4 - 7.1 AVERAGE RISK7.1 - 11.0 MODERATE RISK>11.0 HIGH RISK Cholesterol [Mass/volume] in Serum or PlasmaOrdered By: Garrett Fernandez on 08-14-2023 Cholesterol [Mass/Vol] 87 mg/dL 140-200 [facility] Comment on above: Chol less than 200 m g/dl low riskChol 201-239 mg/dl borderline riskChol 240 mg/dl and greater high risk Cholesterol in LDL Calc [Mas s/Vol]Ordered By: Garrett Fernandez on 08-14-2023 Cholesterol in LDL [Mass/Vol] 38 mg/dL 0-100 [facility] Comment on above: LDL ATP III CLASSIFI CATIONLDL less than 100 mg/dL OptimalLDL 100-129 mg/dL Near or above optimalLDL 130-159 mg/dL Borderline highLDL 160-189 mg/dL HighLDL greater than 189 mg/dL Very high Cholesterol in VLDL Calc [Ma ss/Vol]Ordered By: Garrett Fernandez on 08-14-2023 Cholesterol in VLDL [Mass/Vol] 8 mg/dL [facility] Lipid Panelon 08-14-2023 Cholesterol [Mass/Vol] 87 mg/dL Low 140-200 [facility] Comment on above: Result Comment: Chol less than 200 mg/dl low risk Chol 201-239 mg/dl borderline risk Chol 240 mg/dl and greater high risk Performed By: #### L IPID #### [facility] [address] Cholesterol in HDL [Mass/Vol] 41 mg/dL Normal 23-92 [facility] Comment on above: Result Comment: HDL CHOL ATP-III CLASSIFICATION Cardiovascular Risk HDL > or equal to 60 mg/dL LOW HDL < 40 mg/dL HIGH Performed By: #### L IPID #### [facility] [address] Cholesterol.total/Cho lesterol in HDL [Mass ratio] 2.1 {ratio} Normal <5.0 [facility] Comment on above: Result Comment: PERF ORMED BY: [place] [address] PATHOLOGIST [employer]CHANIC JACK PATEL M.D. Performed By: #### L IPID #### [address] LDL Cholesterol,Calculate d 38 mg/dL Normal 0-100 [facility] Comment on above: Result Comment: LDL ATP III CLASSIFICATION LDL less than 100 mg/dL Optimal LDL 100-129 mg/dL Near or above optimal LDL 130-159 mg/dL Borderline high LDL 160-189 mg/dL High LDL greater than 189 mg/dL Very high Performed By: #### L IPID #### [address] Triglyceride w/Reflex 41 mg/dL Normal 0-149 [facility] Comment on above: Result Comment: TRIG ATP III CLASSIFICATION TRIG less than 150 mg/dL Normal TRIG 150-199 mg/dL Borderline high TRIG 200-500 mg/dL High TRIG greater than 500 mg/dL Very high Standard traceable to the Center for Disease Conrtrol and Prevention (CDC) test method. Performed By: #### L IPID #### [address] VLDL CHOLESTEROL 8 mg/dL Normal [facility] Comment on above: Performed By: #### L IPID #### [address] MR abdomen wo/w conon 2023 MR abdomen wo/w con [facility] [place] [address] MRI Report Signed Patient: Pj Sabillon MR#: [id number] 255 : 1970 Acct:[id number] Age/Sex: 53 / M ADM Date: 08/14/23 Loc: MR Room: Type: [facility] Attending Dr: Gary East MD Copies to: [...] Jarrett Chauhan M.D.08/14/2023 3:49 PM Dictation Location: [place] [address] Transcribed By: [facility] 08/14/23 1549 Dictated By: Jarrett Chauhan DO 08/14/23 1544 Signed By: 08/14/23 1549 Normal [facility] PSA Diagnostic (Total Free)o n 08-14-2023 Prostate Spec Ag, Free 0.190 ng/mL Normal [facility] Comment on above: Performed By: #### P SATF #### [address] PSA Total (Not a Screen) 0.370 ng/mL Normal 0.000-4.000 [facility] Comment on above: Result Comment: Seri al tumor marker results determined by assays using different manufacturers or methods may not be comparable. [facility] barrel polisher inside and method: [place] DXI, CHEMILUMINESCENT IMMUNOASSAY. Performed By: #### P SATF #### [facility] [address] PSA,FREE% 51.3 % Normal [facility] Comment on above: Result Comment: Base d on the work of Tito aguirre al.CORIE. 279(19):1542:47.1998 the percent free PSA may [...] 10% 20% >25 5% 9% PERFORMED BY: [place] [address] PATHOLOGIST [employer] MECHANIC JACK PATEL M.D. Performed By: #### P SATF #### [address] Prostate Specific Ag Free [M ass/volume] in Serum or PlasmaOrdered By: Gary East on 08-14-2023 Free PSA [Mass/Vol] 0.190 ng/mL [facility] Prostate specific Ag [Mass/v olume] in Serum or PlasmaOrdered By: Gary East on 08-14-2023 Prostate specific Ag [Mass/Vol] 0.370 ng/mL 0.000-4.000 [facility] Comment on above: Serial tumor marker results determined by assays using different manufacturers or methods may not be comparable.[facility] barrel polisher inside and method:CHARY [employer] DXI, CHEMILUMINESCENT IMMUNOASSAY. Serum or plasma free prostat e specific antigen (PSA)/total PSA ratioOrdered By: Gary East on 08-14-2023 Free PSA/Total PSA [Mass fraction] 51.3 % [facility] Comment on above: Based on the work of Tito aguirre al.CORIE. 279(19):1542:47.1998 the percent free PSA may [...] 08-14-2023 Cholesterol in HDL [Mass/Vol] 41 mg/dL 23-92 [facility] Comment on above: HDL CHOL ATP-III CLA SSIFICATION Cardiovascular RiskHDL > or equal to 60 mg/dL LOWHDL < 40 mg/dL HIGH Serum or plasma total choles terol/high density lipoprotein (HDL) cholesterol mass ratOrdered By: Garrett Fernandez on 08-14-2023 Cholesterol.total/Cho lesterol in HDL [Mass ratio] 2.1 {ratio} <5.0 [facility] Triglyceride [Mass/volume] i n Serum or PlasmaOrdered By: Garrett Fernandez on 08-14-2023 Triglyceride [Mass/Vol] 41 mg/dL 0-149 [facility] Comment on above: TRIG ATP III CLASSIF ICATIONTRIG less than 150 mg/dL NormalTRIG 150-199 mg/dL Borderline highTRIG 200-500 mg/dL High TRIG greater than 500 mg/dL Very highStandard traceable to the Center for Disease Conrtrol and Prevention (CDC) test method. CT chest w conon 06-12-2023 CT chest w [facility] [place] [address] CT Scan Report Signed Patient: Pj Sabillon MR#: [id number] 255 : 1970 Acct:[id number] Age/Sex: 52 / M ADM Date: 06/11/23 Loc: CT Room: Type: [facility] Attending Dr: Doretha Valentino APRN Copies to: [...] Jarrett Chauhan M.D.06/12/2023 9:41 AM Dictation Location: [place] [address] Transcribed By: [facility] 06/12/23 0941 Dictated By: Jarrett Chauhan DO 06/12/23 0936 Signed By: 06/12/23 0941 Normal [facility] ISTAT XRay CREon 02-07-2023 Creatinine [Mass/Vol] 1.2 mg/dL Normal 0.6-1.3 [facility] Comment on above: Result Comment: ER/E SD physician is notified/shown all ISTAT results. Critical values may be confirmed by laboratory testing if deemed necessary by ER attending doctor. Performed By: #### I SCRE #### [address] ISTAT GFR > 60.0 Normal [facility] Comment on above: Result Comment: PERF ORMED BY: [place] [address] PATHOLOGIST [employer]MENT MECHANIC JACK PATEL M.D. Performed By: #### I SCRE #### [address] MR abdomen wo/w conon 2022 MR abdomen wo/w con [facility] [place] [address] [place] [address] MRI Report Signed Patient: Pj Sabillon MR#: [id number] 255 : 1970 Acct:[id number] Age/Sex: 52 / M ADM Date: 02/07/23 Loc: Room: Type: [facility] Attending Dr: Gary East MD Copies to: [...] Jarrett Chauhan M.D.02/07/2023 12:38 PM Dictation Location: [place] [address] Transcribed By: [facility] 02/07/23 1238 Dictated By: Jarrett Chauhan DO 02/07/23 1229 Signed By: 02/07/23 1238 [place] [facility] Superficial Wound Cultureon 12-05-2022 [...] RESISTANT TO ALL B-LACTAM DRUGS. PERFORMED BY: [place] [address] PATHOLOGIST [employer] EQUIPMENT MECHANIC JACK PATEL M.D. Normal [facility] Comment on above: Performed By: #### C USUP #### [address] Office Visit (Cardiology)on 11-22-2022 Follow-up visit Diagnoses/Problems Assessed CAD (coronary artery disease) (414.00) (I25.10) History of VA (myocardial infarction) (412) (I25.2) History of PTCA [...] up in 8 months Chief Complaint PJ SABILLNO is being seen for a 6 month [...] Recorded: 22Nov2022 10:27AM Heart Rate58, L Radial Dabxtpdu720, LUE, Sitting Tacdvyuoz35, LUE, Sitting Height5 ft 8 in Jqjjnn193 lb BMI Rrxpoqfivt35.42 kg/m2 BSA Calculated1.83 Tobacco Useb) No Physical [...] Nov 23 2022 1:38PM EST (Author) Normal [employer] Tobacco Screening.on 023 Tobacco use status CPHS b) No -[facility] 250 DO Work Phone: CBC AUTO DIFFon 09-01-2022 BASO # 0.0 103/ul Normal 0.0-0.1 [facility] Comment on above: Performed By: #### C BC #### [facility] [address] [place] [address] Dr. Kelly Jones Basophils/100 WBC (Bld) 0.8 % Normal 0.2-2.0 [facility] Comment on above: Performed By: #### C BC #### [facility] [address] [place] [address] Dr. Kelly Jones EO # 0.1 103/ul Normal 0.0-0.7 [facility] Comment on above: Performed By: #### C BC #### [facility] [address] [place] [address] Dr. Kelly Jones Eosinophils/100 WBC (Bld) 1.6 % Normal 0.9-7.0 [facility] Comment on above: Performed By: #### C BC #### [facility] [address] [place] [address] Dr. Kelly Jones Erythrocyte distribution width (RBC) [Ratio] 12.3 % Normal 11.0-15.0 [facility] Comment on above: Performed By: #### C BC #### [facility] [address] [place] [address] Dr. Kelly Jones Hematocrit (Bld) [Volume fraction] 38.5 % Critically low 42.0-54.0 [facility] Comment on above: Performed By: #### C BC #### [facility] [address] [place] [address] Dr. Kelly Jones Hemoglobin (Bld) [Mass/Vol] 13.5 g/dL Critically low 14.0-18.0 [facility] Comment on above: Performed By: #### C BC #### [facility] [address] [place] [address] Dr. Kelly Jones IG # 0.01 10e3/ul Normal 0.00-0.03 [facility] Comment on above: Performed By: #### C BC #### [facility] [address] [place] [address] Dr. Kelly Jones IG % 0.2 % Normal 0.0-0.5 [facility] Comment on above: Performed By: #### C BC #### [facility] [address] [place] [address] Dr. Kelly Jones LYMPH # 1.4 103/ul Normal 1.2-3.8 [facility] Comment on above: Performed By: #### C BC #### [facility] [address] [place] [address] Dr. Kelly Jones Lymphocytes/100 WBC (Bld) 28.1 % Normal 20.5-60.0 [facility] Comment on above: Performed By: #### C BC #### [facility] [address] [place] [address] Dr. Kelly Jones MANUAL DIFF REQ NO Normal [facility] Comment on above: Performed By: #### C BC #### [facility] [address] [place] [address] Dr. Kelly Jones MCH (RBC) [Entitic mass] 30.0 pg Normal 25.9-34.0 [facility] Comment on above: Performed By: #### C BC #### [facility] [address] [place] [address] Dr. Kelly Jones MCHC (RBC) [Mass/Vol] 35.1 g/dL Normal 29.9-35.2 [facility] Comment on above: Performed By: #### C BC #### [facility] [address] [place] [address] Dr. Kelly Jones MCV (RBC) [Entitic vol] 85.6 fL Normal 80.0-94.0 [facility] Comment on above: Performed By: #### C BC #### [facility] [address] [place] [address] [address] Kelly Jones MONO # 0.5 103/ul Normal 0.3-0.8 [facility] Comment on above: Performed By: #### C BC #### [facility] [address] [place] [address] [address] Kelly Jones Monocytes/100 WBC (Bld) 9.4 % Normal 1.7-12.0 [facility] Comment on above: Performed By: #### C BC #### [facility] [address] [place] [address] Dr. Kelly Jones NEUT # 3.0 103/ul Normal 1.4-6.5 [facility] Comment on above: Performed By: #### C BC #### [facility] [address] [place] [address] Dr. Kelly Jones Neutrophils/100 WBC (Bld) 59.9 % Normal 43.0-75.0 [facility] Comment on above: Performed By: #### C BC #### [facility] [address] [place] [address] Dr. Kelly Jones Platelet mean volume (Bld) [Entitic vol] 10.5 fL Normal 9.5-13.5 [facility] Comment on above: Performed By: #### C BC #### [facility] [address] [place] [address] Dr. Kelly Jones PLT 131 103/ul Critically low 150-450 [facility] Comment on above: Performed By: #### C BC #### [facility] [address] [place] [address] Dr. Kelly Jones RBC 4.50 106/ul Critically low 4.70-6.10 [facility] Comment on above: Performed By: #### C BC #### [facility] [address] [place] [address] Dr. Kelly Jones WBC 5.1 103/ul Normal 4.0-11.0 [facility] Comment on above: Performed By: #### C BC #### [facility] [address] [place], [place] [address] Dr. Kelly Jones LIPID PROFILEon 09-01-2022 CHOL-HDL RATIO NORM SEE BELOW Normal [facility] [place] [facility] Comment on above: Result Comment: 3.3 - 4.4 LOW RISK 4.4 - 7.1 AVERAGE RISK 7.1 - 11.0 MODERATE RISK >11.0 HIGH RISK Performed By: #### L IPID, CMP #### [facility] [address] [place], [place] [address] Dr. Kelly Jones Cholesterol [Mass/Vol] 92 mg/dL Normal <=200 [facility] Comment on above: Performed By: #### L IPID, CMP #### [facility] [address] [place] [address] [address] Kelly Jones Cholesterol in HDL [Mass/Vol] 47 mg/dL Normal 40-60 [facility] Comment on above: Performed By: #### L IPID, CMP #### [facility] [address] [place] [address] [address] Kelly Jones Cholesterol in LDL [Mass/Vol] 35.8 mg/dL Normal [facility] Comment on above: Performed By: #### L IPID, CMP #### [facility] [address] [place] [address] [address] Kelly Jones Cholesterol.total/Cho lesterol in HDL [Mass ratio] 2.0 {ratio} Normal [facility] Comment on above: Performed By: #### L IPID, CMP #### [facility] [address] [place] [id number] Kelly Jones HDL NORMAL > or = 60 mg/dl - LO W CARDIOVASCULAR RISK <40 mg/dl - HIGH CARDIOVASCULAR RISK Normal [facility] [facility] Comment on above: Performed By: #### L IPID, CMP #### [facility] [address] [address] [address] Kelly Jones LDL CALC NORMAL SEE BELOW Normal [facility] Comment on above: Result Comment: <100 mg/dl OPTIMAL 100 - 129 mg/dl NEAR OR ABOVE OPTIMAL 130 - 159 mg/dl BORDERLINE HIGH 160 - 189 mg/dl HIGH >190 mg/dl VERY HIGH Performed By: #### L IPID, CMP #### [facility] [address] [place] [address] Dr. Kelly Jones Triglyceride [Mass/Vol] 46 mg/dL Normal <=150 [facility] Comment on above: Performed By: #### L IPID, CMP #### [facility] [address] [place] [address] Dr. Kelly Jones VLDL CALC 9.2 mg/dL Normal [facility] Comment on above: Performed By: #### L IPID, CMP #### [facility] [address] [place] [address] Dr. Kelly Jones PROF 14(COMP METB)on 023 Albumin [Mass/Vol] 3.6 g/dL Normal 3.4-5.0 [facility] Comment on above: Performed By: #### L IPID, CMP #### [facility] [address] [place] [address] Dr. Kelly oJnes Albumin/Globulin [Mass ratio] 1.2 {ratio} Normal [facility] Comment on above: Performed By: #### L IPID, CMP #### [facility] [address] [place] [address] Dr. Kelly Jones ALP [Catalytic activity/Vol] 83 U/L Normal 46-116 [facility] Comment on above: Performed By: #### L IPID, CMP #### [facility] [address] [place] [address] Dr. Kelly Jones ALT [Catalytic activity/Vol] 52 U/L Normal 16-63 [facility] Comment on above: Performed By: #### L IPID, CMP #### [facility] [address] [place] [address] Dr. Kelly Jones Anion gap [Moles/Vol] 11.5 mmol/L Normal [facility] Comment on above: Performed By: #### L IPID, CMP #### [facility] [address] [place] [address] Dr. Kelly Jones AST [Catalytic activity/Vol] 20 U/L Normal 15-37 [facility] Comment on above: Performed By: #### L IPID, CMP #### [facility] [address] [place] [address] Dr. Kelly Jones Bilirubin [Mass/Vol] 0.6 mg/dL Normal 0.2-1.0 [facility] Comment on above: Performed By: #### L IPID, CMP #### [facility] [address] [place] [address] Dr. Kelly Jones Calcium [Mass/Vol] 8.9 mg/dL Normal 8.5-10.1 [facility] Comment on above: Performed By: #### L IPID, CMP #### [facility] [address] [place] [address] Dr. Kelly Jones Chloride [Moles/Vol] 109 mmol/L Critically high 98-107 [facility] Comment on above: Performed By: #### L IPID, CMP #### [facility] [address] [place] [address] Dr. Kelly Jones CO2 [Moles/Vol] 28.7 mmol/L Normal 21.0-32.[address] [facility] Comment on above: Performed By: #### L IPID, CMP #### [facility] [address] [place] [address] Dr. Kelly Jones Creatinine [Mass/Vol] 1.09 mg/dL Normal 0.70-1.30 [facility] Comment on above: Performed By: #### L IPID, CMP #### [facility] [address] [place] [address] Dr. Kelly Jones EGFR-AF IRANIAN >60 Normal >=60 [facility] Comment on above: Performed By: #### L IPID, CMP #### [facility] [address] [place] [address] Dr. Kelly Jones EGFR-NON AF IRANIAN >60 Normal >=60 [facility] Comment on above: Performed By: #### L IPID, CMP #### [facility] [address] [place] [address] Dr. Kelly Jones Globulin (S) [Mass/Vol] 3.1 g/dL Normal [facility] Comment on above: Performed By: #### L IPID, CMP #### [facility] [address] [place] [address] Dr. Kelly Jones Glucose [Mass/Vol] 86 mg/dL Normal 74-106 [facility] Comment on above: Performed By: #### L IPID, CMP #### [facility] [address] [place] [address] Dr. Kelly Jones Potassium [Moles/Vol] 4.2 mmol/L Normal 3.5-5.1 [facility] Comment on above: Performed By: #### L IPID, CMP #### [facility] [address] [place] [address] Dr. Kelly Jones Protein [Mass/Vol] 6.7 g/dL Normal 6.4-8.2 [facility] Comment on above: Performed By: #### L IPID, CMP #### [facility] [address] [place] [address] Dr. Kelly Jones Sodium [Moles/Vol] 145 mmol/L Normal 136-145 [facility] Comment on above: Performed By: #### L IPID, CMP #### [facility] [address] [place] [address] Dr. Kelly Jones Urea nitrogen [Mass/Vol] 15.0 mg/dL Normal 7.0-18.0 [facility] Comment on above: Performed By: #### L IPID, CMP #### [facility] [address] [place] [address] Dr. Kelly Jones Urea nitrogen/Creatinine [Mass ratio] 13.8 mg/mg Normal [facility] Comment on above: Performed By: #### L IPID, CMP #### [facility] [address] [place] [address] Dr. Kelly Jones Office Visit (Cardiology)on 06-20-2022 Follow-up visit Diagnoses/Problems Assessed CAD (coronary artery disease) (414.00) (I25.10) History of PTCA (V45.82) (Z98.61) History of VA (myocardial infarction) (412) (I25.2) Hyperlipidemia (272.4) (E78.5) [...] therapies including DAPT. He sustained non-ST elevation VA in September 2021 with revascularization of the [...] negative for complaint. Vitals Vital Signs Recorded: [id number] 02:18PM Heart Rate60, L Radial Hzmcqxvo016, LUE, Sitting Wcrurnrpi61, LUE, Sitting Height5 ft 8 in Kyyvpr848 lb BMI Knfntsevuh22.09 kg/m2 BSA Calculated1.88 Tobacco Useb) No PHQ-2 [...] by: ABDIRAHMAN YOU Date: 2022-06-15 17:35 Normal [facility] CT chest w conon 05-31-2022 CT chest w con [facility] [employer] Other CT chest w con [facility] [employer] Other CT chest w con [address] [place] [address] [place] [address] [facility] chest w con CT Scan Report [place] [employer] Other CT chest w con Signed [employer] Other CT chest w con Patient: Pj Sabillon MR#: [id number] [place] [employer] Other CT chest w con [address] [employer] [address] chest w con : 1970 Acct:[id number] [employer] Other CT chest w con Age/Sex: 51 / M ADM Date: 05/31/[address] chest w con Loc: CT Room: Type: [facility] [employer] Other CT chest w con Attending Dr: Cathy Valentino [facility] [employer] Other CT chest w con Copies to: Doretha Valentino [facility] [employer] Other CT chest w con Ordering Provider: Doretha Valentino [employer] Other CT chest w con Date of Service: 05/31/[address] chest w con CT/CT chest w con: Lung nodule [employer] Other CT chest w con CT CHEST WITH INTRAVENOUS CONTRAST: [employer] Other CT chest w con CLINICAL HISTORY: Follow-up lung nodules. [facility] Other CT chest w con COMPARISON: 01/11/[address] [address] chest w con TECHNIQUE: Spiral images were obtained through the chest following intravenous administration of [address] chest w con mL of Isovue-300. Images were reviewed using both narrow and wide window settings. This CT exam [employer] Other CT chest w con was performed using one or more following dose reduction techniques: Automated exposure control, [employer] Other CT chest w con adjustment of the mA and/or kV according to patient size, or use of iterative reconstruction [employer] Other CT chest w con technique. [employer] Other CT chest w con FINDINGS: The heart is not enlarged. There is no pericardial effusion. Coronary artery [employer] Other CT chest w con calcification and/or stents are present. No aortic aneurysm or dissection is seen. There are [employer] Other CT chest w con stable calcified and noncalcified mediastinal and hilar lymph nodes. There is subtle [employer] Other CT chest w con dextroscoliotic curvature and small endplate spurs. [employer] Other CT chest w con There is no consolidation, pleural effusion or pneumothorax. No soft tissue nodularity is seen. [employer] Other CT chest w con There are calcified right middle lobe granulomas measuring up to 7 - 8 mm in size. [employer] Other CT chest w con Limited cuts through the upper abdomen show a partially imaged, enlarging left renal hypodensity [employer] Other CT chest w con measuring at least 4.7 cm in size. This is not a simple cyst. [employer] Other CT chest w con CT/CT chest w con [facility] Other CT chest w con IMPRESSION: [employer] [facility] [employer] Other CT chest w con GRANULOMATOUS CHANGES. [employer] Other CT chest w con NO SOFT TISSUE PULMONARY NODULARITY. [employer] Other CT chest w con NO ACUTE INTRATHORACIC FINDINGS. [employer] Other CT chest w con PARTIALLY IMAGED LEF T RENAL NODULARITY. THIS IS NOT A DEFINITE SIMPLE CYST. FOLLOW-UP WITH [employer] Other CT chest w con Impression dictated by: Lyly Weiss M.D.05/31/2022 4:[address] [address] chest w con Dictation Location: RADIO-PC-[address] [address] chest w con Transcribed By: PWS 05/31/[address] chest w con Dictated By: Lyly Weiss MD 05/31/[address] [address] chest w con Signed By: [employer] Other CT chest w con 05/31/22 1621 [employer] Other CBC AUTO DIFFon 03-28-2022 BASO # 0.0 103/ul Normal 0.0-0.1 [facility] Comment on above: Performed By: #### C BC #### [facility] [address] [place] [address] Dr. Kelly Jones Basophils/100 WBC (Bld) 0.3 % Normal 0.2-2.0 [facility] Comment on above: Performed By: #### C BC #### [facility] [address] [place] [address] Dr. Kelly Jones EO # 0.1 103/ul Normal 0.0-0.7 [facility] Comment on above: Performed By: #### C BC #### [facility] [address] [place] [address] Dr. Kelly Jones Eosinophils/100 WBC (Bld) 1.5 % Normal 0.9-7.0 [facility] Comment on above: Performed By: #### C BC #### [facility] [address] [place] [address] Dr. Kelly Jones Erythrocyte distribution width (RBC) [Ratio] 13.2 % Normal 11.0-15.0 [facility] Comment on above: Performed By: #### C BC #### [facility] [address] [place] [address] Dr. Kelly Jones Hematocrit (Bld) [Volume fraction] 39.6 % Critically low 42.0-54.0 [facility] Comment on above: Performed By: #### C BC #### [facility] [address] [place] [address] Dr. Kelly Jones Hemoglobin (Bld) [Mass/Vol] 13.7 g/dL Critically low 14.0-18.0 [facility] Comment on above: Performed By: #### C BC #### [facility] [address] [place] [address] Dr. Kelly Jones IG # 0.02 10e3/ul Normal 0.00-0.03 [facility] Comment on above: Performed By: #### C BC #### [facility] [address] [place] [address] Dr. Kelly Jones IG % 0.3 % Normal 0.0-0.5 [facility] Comment on above: Performed By: #### C BC #### [facility] [address] [place] [address] Dr. Kelly Jones LYMPH # 1.4 103/ul Normal 1.2-3.8 [facility] Comment on above: Performed By: #### C BC #### [facility] [address] [place] [address] Dr. Kelly Jones Lymphocytes/100 WBC (Bld) 23.0 % Normal 20.5-60.0 [facility] Comment on above: Performed By: #### C BC #### [facility] [address] [place] [address] Dr. Kelly Jones MANUAL DIFF REQ NO Normal [facility] Comment on above: Performed By: #### C BC #### [facility] [address] [place] [address] Dr. Kelly Jones MCH (RBC) [Entitic mass] 29.9 pg Normal 25.9-34.0 [facility] Comment on above: Performed By: #### C BC #### [facility] [address] [place] [address] Dr. Kelly Jones MCHC (RBC) [Mass/Vol] 34.6 g/dL Normal 29.9-35.2 [facility] Comment on above: Performed By: #### C BC #### [facility] [address] [address] [address] Kelly Jones MCV (RBC) [Entitic vol] 86.5 fL Normal 80.0-94.0 [facility] Comment on above: Performed By: #### C BC #### [facility] [address] [place] [address] Dr. Kelly Jones MONO # 0.5 103/ul Normal 0.3-0.8 [facility] Comment on above: Performed By: #### C BC #### [facility] [address] [place] [address] Dr. Kelly Jones Monocytes/100 WBC (Bld) 8.8 % Normal 1.7-12.0 [facility] Comment on above: Performed By: #### C BC #### [facility] [address] [place] [address] Dr. Kelly Jones NEUT # 4.0 103/ul Normal 1.4-6.5 [facility] Comment on above: Performed By: #### C BC #### [facility] [address] [place] [address] Dr. Kelly Jones Neutrophils/100 WBC (Bld) 66.1 % Normal 43.0-75.0 [facility] Comment on above: Performed By: #### C BC #### [facility] [address] [place] [address] Dr. Kelly Jones Platelet mean volume (Bld) [Entitic vol] 10.7 fL Normal 9.5-13.5 [facility] Comment on above: Performed By: #### C BC #### [facility] [address] [place] [address] Dr. Kelly Jones PLT 145 103/ul Critically low 150-450 [facility] Comment on above: Performed By: #### C BC #### [facility] [address] [place], [place] [id number] Dr. Kelly Jones RBC 4.58 106/ul Critically low 4.70-6.10 [facility] Comment on above: Performed By: #### C BC #### [facility] [address] [place] [address] Dr. Kelly Jones WBC 6.1 103/ul Normal 4.0-11.0 [facility] Comment on above: Performed By: #### C BC #### [facility] [address] [place] [address] Dr. Kelly Jones PROF CHEM 8 (BAS METB)on Anion gap [Moles/Vol] 8.0 mmol/L Normal [facility] Comment on above: Performed By: #### B MP #### [facility] [address] [place] [address] Dr. Kelly Jones Calcium [Mass/Vol] 9.3 mg/dL Normal 8.5-10.1 [facility] Comment on above: Performed By: #### B MP #### [facility] [address] [place] [address] Dr. Kelly Jones Chloride [Moles/Vol] 105 mmol/L Normal 98-107 [facility] Comment on above: Performed By: #### B MP #### [facility] [address] [place] [address] Dr. Kelly Jones CO2 [Moles/Vol] 31.0 mmol/L Normal 21.0-32.0 [facility] Comment on above: Performed By: #### B MP #### [facility] [address] [place] [address] Dr. Klely Jones Creatinine [Mass/Vol] 0.96 mg/dL Normal 0.70-1.30 [facility] Comment on above: Performed By: #### B MP #### [facility] [address] [place] [address] Dr. Kelly Jones EGFR-AF IRANIAN >60 Normal >=60 [facility] Comment on above: Performed By: #### B MP #### [facility] [address] [place] [address] Dr. Kelly Jones EGFR-NON AF IRANIAN >60 Normal >=60 [facility] Comment on above: Performed By: #### B MP #### [facility] [address] [place] [address] Dr. Kelly Jones Glucose [Mass/Vol] 95 mg/dL Normal 74-106 [facility] Comment on above: Performed By: #### B MP #### [facility] [address] [address] [address] Kelly Jones Potassium [Moles/Vol] 4.0 mmol/L Normal 3.5-5.1 [facility] Comment on above: Performed By: #### B MP #### [facility] [address] [address] [address] Kelly Jones Sodium [Moles/Vol] 140 mmol/L Normal 136-145 [facility] Comment on above: Performed By: #### B MP #### [facility] [address] [address] [address] Kelly Jones Urea nitrogen [Mass/Vol] 10.0 mg/dL Normal 7.0-18.0 [facility] Comment on above: Performed By: #### B MP #### [facility] [address] [place] [address] Dr. Kelly Jones Urea nitrogen/Creatinine [Mass ratio] 10.4 mg/mg Normal [facility] Comment on above: Performed By: #### B MP #### [facility] [address] [address] [address] Kelly Jones LIPID PROFILEon 12-15-2021 CHOL-HDL RATIO NORM SEE BELOW Normal [facility] Comment on above: Result Comment: 3.3 - 4.4 LOW RISK 4.4 - 7.1 AVERAGE RISK 7.1 - 11.0 MODERATE RISK >11.0 HIGH RISK Performed By: #### C BC #### [facility] [address] [place] [address] Dr. Kelly Jones Cholesterol [Mass/Vol] 83 mg/dL Normal <=200 [facility] Comment on above: Performed By: #### C BC #### [facility] [address] [address] [address] Kelly Jones Cholesterol in HDL [Mass/Vol] 29 mg/dL Critically low 40-60 [facility] Comment on above: Performed By: #### C BC #### [facility] [address] [address] [address] Kelly Jones Cholesterol in LDL [Mass/Vol] 39.2 mg/dL Normal [facility] Comment on above: Performed By: #### C BC #### [facility] [address] [address] [address] Kelly Jones Cholesterol.total/Cho lesterol in HDL [Mass ratio] 2.9 {ratio} Normal [facility] Comment on above: Performed By: #### C BC #### [facility] [address] [address] [address] Kelly Jones HDL NORMAL > or = 60 mg/dl - LO W CARDIOVASCULAR RISK <40 mg/dl - HIGH CARDIOVASCULAR RISK Normal [facility] Comment on above: Performed By: #### C BC #### [facility] [address] [place] [address] Dr. Kelly Jones LDL CALC NORMAL SEE BELOW Normal [facility] Comment on above: Result Comment: <100 mg/dl OPTIMAL 100 - 129 mg/dl NEAR OR ABOVE OPTIMAL 130 - 159 mg/dl BORDERLINE HIGH 160 - 189 mg/dl HIGH >190 mg/dl VERY HIGH Performed By: #### C BC #### [facility] [address] [address] [address] Kelly Jones Triglyceride [Mass/Vol] 74 mg/dL Normal <=150 [facility] Comment on above: Performed By: #### C BC #### [facility] [address] [place] [address] Dr. Kelly Jones VLDL CALC 14.8 mg/dL Normal [facility] Comment on above: Performed By: #### C BC #### [facility] [address] [place] [address] Dr. Kelly Jones PROF CHEM 8 (BAS METB)on Anion gap [Moles/Vol] 15.3 mmol/L Normal [facility] Comment on above: Performed By: #### B MP #### [facility] [address] [address] [address] Kelly Jones Calcium [Mass/Vol] 8.8 mg/dL Normal 8.5-10.1 [facility] Comment on above: Performed By: #### B MP #### [facility] [address] [address] [address] Kelly Jones Chloride [Moles/Vol] 100 mmol/L Normal 98-107 [facility] Comment on above: Performed By: #### B MP #### [facility] [address] [address] [address] Kelly Jones CO2 [Moles/Vol] 22.6 mmol/L Normal 21.0-32.[address] [facility] Comment on above: Performed By: #### B MP #### [facility] [address] [address] [address] Kelly Jones Creatinine [Mass/Vol] 1.30 mg/dL Normal 0.70-1.30 [facility] Comment on above: Performed By: #### B MP #### [facility] [address] [place] [address] Dr. Kelly Jones EGFR-AF IRANIAN >60 Normal >=[address] [facility] Comment on above: Performed By: #### B MP #### [facility] [address] [address] [address] Kelly Jones EGFR-NON AF IRANIAN 58 mL/min/1.73m2 Critically low >=60 [facility] Comment on above: Performed By: #### B MP #### [facility] [address] [address] [address] Kelly Jones Glucose [Mass/Vol] 114 mg/dL Critically high 74-[address] [facility] Comment on above: Performed By: #### B MP #### [facility] [address] [address] [address] Kelly Jones Potassium [Moles/Vol] 3.9 mmol/L Normal 3.5-5.1 [facility] Comment on above: Performed By: #### B MP #### [facility] [address] [place] [address] Dr. Kelly Jones Sodium [Moles/Vol] 134 mmol/L Critically low 136-145 [facility] Comment on above: Performed By: #### B MP #### [facility] [address] [address] [address] Kelly Jones Urea nitrogen [Mass/Vol] 13.0 mg/dL Normal 7.0-18.0 [facility] Comment on above: Performed By: #### B MP #### [facility] [address] [address] [address] Kelly Jones Urea nitrogen/Creatinine [Mass ratio] 10.0 mg/mg Normal [facility] Comment on above: Performed By: #### B MP #### [facility] [address] [address] [address] Kelly Jones Activated partial thrombopla stin time (aPTT) in platelet poor plasma by coagulation aOrdered By: Dewayne Pettit on 10-14-2021 aPTT Coag (PPP) [Time] 29.8 s 25.1-36.5 [facility] Albumin [Mass/volume] in Ser um or PlasmaOrdered By: Myles Velarde on 10-14-2021 Albumin [Mass/Vol] 3.1 g/dL 3.2-5.5 [facility] Basophils Auto (Bld) [#/Vol] Ordered By: Myles Velarde on 10-14-2021 Basophils (Bld) [#/Vol] 0.1 10*3/uL 0.0-0.2 [facility] Basophils/100 WBC Auto (Bld) Ordered By: Myles Velarde on 10-14-2021 Basophils/100 WBC (Bld) 0.5 % [facility] Blood hemoglobin measurement (mass/volume)Ordered By: Myles Velarde on 10-14-2021 Hemoglobin (Bld) [Mass/Vol] 15.1 g/dL 13.0-17.0 [facility] Blood leukocytes automated c ount (number/volume)Ordered By: Myles Velarde on 10-14-2021 WBC (Bld) [#/Vol] 17.9 10*3/uL 4.5-11.0 [facility] Creatinine and Glomerular fi ltration rate.predicted panel (S/P/Bld)Ordered By: Myles Velarde on 10-14-2021 Creatinine [Mass/Vol] 1.70 mg/dL 0.64-1.27 [facility] Comment on above: [place]: 1.18 on 10/13 Eosinophils Auto (Bld) [#/Vo l]Ordered By: Myles Velarde on 10-14-2021 Eosinophils (Bld) [#/Vol] 0.1 10*3/uL 0.0-0.45 [facility] Eosinophils/100 WBC Auto (Bl d)Ordered By: Myles Velarde on 10-14-2021 Eosinophils/100 WBC (Bld) 0.3 % [facility] Erythrocyte distribution wid th Auto (RBC) [Ratio]Ordered By: Myles Velarde on 10-14-2021 Erythrocyte distribution width (RBC) [Ratio] 12.8 % 12.0-14.8 [facility] Estimated glomerular filtrat ion rate (GFR) non- AmericanOrdered By: Myles Velarde on 10-14-2021 GFR/1.73 sq M.predicted among non-blacks MDRD (S/P/Bld) [Vol rate/Area] 43 mL/Min [facility] Globulin Calc (S) [Mass/Vol] Ordered By: Myles Velarde on 10-14-2021 Globulin (S) [Mass/Vol] 2.9 g/dL [facility] Hematocrit Auto (Bld) [Volum e fraction]Ordered By: Myles Velarde on 10-14-2021 Hematocrit (Bld) [Volume fraction] 44.1 % 38.8-50.0 [facility] - CoagulationOrde red By: Dewayne Pettit on 10-14-2021 PT Coag (PPP) [Time] 13.7 s 9.0-12.9 [facility] [facility] Hematology and Cell countsOrdered By: Myles Velarde on 10-14-2021 Nucleated RBC/100 WBC (Bld) [Ratio] 0.0 % 0-0.5 [facility] Lymphocytes Auto (Bld) [#/Vo l]Ordered By: Myles Velarde on 10-14-2021 Lymphocytes (Bld) [#/Vol] 1.4 10*3/uL 1.00-4.8 [facility] Lymphocytes/100 WBC Auto (Bl d)Ordered By: Myles Velarde on 10-14-2021 Lymphocytes/100 WBC (Bld) 8.0 % [facility] MCH Auto (RBC) [Entitic mass ]Ordered By: Myles Velarde on 10-14-2021 MCH (RBC) [Entitic mass] 29.3 pg 27.5-35.2 [facility] MCHC Auto (RBC) [Mass/Vol]Or dered By: Myles Velarde on 10-14-2021 MCHC (RBC) [Mass/Vol] 34.3 g/dL 32.5-35.6 [facility] MCV Auto (RBC) [Entitic vol] Ordered By: Myles Velarde on 10-14-2021 MCV (RBC) [Entitic vol] 85.3 fL 83.5-101 [facility] Monocytes Auto (Bld) [#/Vol] Ordered By: Myles Velarde on 10-14-2021 Monocytes (Bld) [#/Vol] 2.1 10*3/uL 0.0-0.8 [facility] Monocytes/100 WBC Auto (Bld) Ordered By: Myles Velarde on 10-14-2021 Monocytes/100 WBC (Bld) 11.5 % [facility] Neutrophils Auto (Bld) [#/Vo l]Ordered By: Myles Velarde on 10-14-2021 Neutrophils (Bld) [#/Vol] 14.3 10*3/uL 1.8-7.7 [facility] Neutrophils/100 WBC Auto (Bl d)Ordered By: Myles Velarde on 10-14-2021 Neutrophils/100 WBC (Bld) 79.7 % [facility] No Panel InformationOrdered By: Myles Velarde on 10-14-2021 Estimated GFR () 52 mL/Min [facility] Comment on above: GFR estimated refere nce range: According to KDOQI guidelines, <60 ml/min/1.73m2 is sufficient to diagnose a patient with chronic kidney disease. Pharmacy Creatinine Clearance (Chem 62.13 [facility] Platelet mean volume Auto (B ld) [Entitic vol]Ordered By: Myles Velarde on 10-14-2021 Platelet mean volume (Bld) [Entitic vol] 9.1 fL 6.6-10.1 [facility] Platelet poor plasma interna tional normalized ratio (INR) by coagulation assay (relatOrdered By: Dewayne Pettit on 10-14-2021 INR Coag (PPP) [Relative time] 1.2 {INR} [facility] Comment on above: INR Therapeutic Rang e [...] 10-14-2021 Platelets (Bld) [#/Vol] 175 10*3/uL 150-450 [facility] Comment on above: Delta: 230 on Protein [Mass/volume] in Ser um or PlasmaOrdered By: Myles Velarde on 10-14-2021 Protein [Mass/Vol] 6.0 g/dL 6.1-7.9 [facility] RBC Auto (Bld) [#/Vol]Ordere d By: Myles Velarde on 10-14-2021 RBC (Bld) [#/Vol] 5.17 10*6/uL 3.90-5.60 [facility] Serum or plasma alanine yeager otransferase measurement without P-5'-P (enzymatic activiOrdered By: Myles Velarde on 10-14-2021 ALT No additional P-5'-P [Catalytic activity/Vol] 61 U/L 10-60 [facility] Serum or plasma albumin/glob ulin mass ratioOrdered By: Myles Velarde on 10-14-2021 Albumin/Globulin [Mass ratio] 1.1 {ratio} [facility] Serum or plasma alkaline rodger sphatase measurement (enzymatic activity/volume)Ordered By: Myles Velarde on 10-14-2021 ALP [Catalytic activity/Vol] 80 U/L 32-92 [facility] Serum or plasma aspartate am inotransferase measurement (enzymatic activity/volume)Ordered By: Myles Velarde on 10-14-2021 AST [Catalytic activity/Vol] 119 U/L 10-42 [facility] Serum or plasma calcium yuriy urement (mass/volume)Ordered By: Myles Velarde on 10-14-2021 Calcium [Mass/Vol] 8.8 mg/dL 8.2-10.2 [facility] Serum or plasma chloride barbara surement (moles/volume)Ordered By: Myles Velarde on 10-14-2021 Chloride [Moles/Vol] 99 mmol/L 95-114 [facility] Serum or plasma glucose yuriy urement (mass/volume)Ordered By: Myles Velarde on 10-14-2021 Glucose [Mass/Vol] 102 mg/dL 70-100 [facility] Comment on above: ADA recommended refe rence range Random Glucose Reference Range is dependent on time and content of last meal. Glucose of more than 200 mg/dL in a nonstressed, ambulatory subject supports the diagnosis of Diabetes Mellitus. Serum or plasma potassium me asurement (moles/volume)Ordered By: Myles Velarde on 10-14-2021 Potassium [Moles/Vol] 4.4 mmol/L 3.5-5.1 [facility] [place] Serum or plasma sodium measu rement (moles/volume)Ordered By: Myles Velarde on 10-14-2021 Sodium [Moles/Vol] 135 mmol/L 136-146 [facility] Serum or plasma total biliru bin measurement (mass/volume)Ordered By: Myles Velarde on 10-14-2021 Bilirubin [Mass/Vol] 2.2 mg/dL 0.3-1.2 [facility] Comment on above: Samples from patient s who have taken Naproxen have shown spurious elevation in Total Bilirubin levels. A metabolite of Naproxen, O-desmethylnaproxen, has been shown to interfere with the Joy-Cherry method for measuring Total Bilirubin. Serum or plasma total carbon dioxide measurement (moles/volume)Ordered By: Myles Velarde on 10-14-2021 CO2 [Moles/Vol] 25.2 mmol/L 22.0-30.0 [facility] Serum or plasma urea nitroge n measurement (mass/volume)Ordered By: Myles Velarde on 10-14-2021 Urea nitrogen [Mass/Vol] 21 mg/dL 9-23 [facility] Cholesterol [Mass/volume] in Serum or PlasmaOrdered By: Dewayne Pettit on 10-13-2021 Cholesterol [Mass/Vol] 184 mg/dL 140-200 [facility] Comment on above: Chol less than 200 m g/dl low risk Chol 201-239 mg/dl borderline risk Chol 240 mg/dl and greater high risk Cholesterol in LDL Calc [Mas s/Vol]Ordered By: Dewayne Pettit on 10-13-2021 Cholesterol in LDL [Mass/Vol] 128 mg/dL 0-100 [facility] Comment on above: LDL ATP III CLASSIFI CATION LDL less than 100 mg/dL Optimal LDL 100-129 mg/dL Near or above optimal LDL 130-159 mg/dL Borderline high LDL 160-189 mg/dL High LDL greater than 189 mg/dL Very high Cholesterol in VLDL Calc [Ma ss/Vol]Ordered By: Dewayne Pettit on 10-13-2021 Cholesterol in VLDL [Mass/Vol] 19 mg/dL [facility] Glucose Glucometer (BldC) [M ass/Vol]Ordered By: Emma Allen on 10-13-2021 Glucose [Mass/Vol] 108 mg/dL [facility] Comment on above: Random Glucose Refer ence Range is dependent on time and content of last meal. Glucose of more than 200 mg/dL in a nonstressed, ambulatory subject supports the diagnosis of Diabetes Mellitus. Glucose mean value [Mass/vol ume] in Blood Estimated from glycated hemoglobinOrdered By: Dewayne Pettit on 10-13-2021 Average glucose Estimated from glycated hemoglobin (Bld) [Mass/Vol] 108 mg/dL [facility] Hemoglobin A1c percentageOrd ered By: Dewayne Pettit on 10-13-2021 HbA1c (Bld) [Mass fraction] 5.4 % 4.3-5.6 [facility] Comment on above: Increased risk for d iabetes: 5.7 - 6.4 diabetes: >6.4 glycemic control for adults with diabetes: <7.0 Laboratory - Chemistry and C hemistry - challengeOrdered By: Dewayne Pettit on 10-13-2021 Magnesium [Mass/Vol] 2.1 mg/dL 1.6-2.6 [facility] No Panel InformationOrdered By: Emma Allen on 10-13-2021 Bedside Glucose Comment Glu2: cleaned meter [facility] No Panel InformationOrdered By: Dewayne Pettit on 10-13-2021 Platelet Estimate Normal Normal [facility] Platelet Morphology Comment Normal Normal [facility] Phosphate [Mass/volume] in S prateek or PlasmaOrdered By: Dewayne Pettit on 10-13-2021 Phosphate [Mass/Vol] 4.1 mg/dL 2.5-4.6 [facility] RBC morphologyOrdered By: Lizz Pettit on 10-13-2021 RBC morphology finding Nom (Bld) Normal [facility] Serum or plasma high density lipoprotein (HDL) cholesterol measurementOrdered By: Dewayne Pettit on 10-13-2021 Cholesterol in HDL [Mass/Vol] 36 mg/dL 29-71 [facility] Comment on above: HDL CHOL ATP-III CLA SSIFICATION Cardiovascular Risk HDL > or equal to 60 mg/dL LOW HDL < 40 mg/dL HIGH Serum or plasma total choles terol/high density lipoprotein (HDL) cholesterol mass ratOrdered By: Dewayne Pettit on 10-13-2021 Cholesterol.total/Cho lesterol in HDL [Mass ratio] 5.1 {ratio} [facility] Triglyceride [Mass/volume] i n Serum or PlasmaOrdered By: Dewayne Pettit on 10-13-2021 Triglyceride [Mass/Vol] 99 mg/dL 35-149 [facility] Comment on above: TRIG ATP III CLASSIF [...] 10-13-2021 Troponin I.cardiac High sensitivity method [Mass/Vol] 12689 pg/mL 0-20 [facility] Comment on above: Results called at 0930 on 10/13/21 BNPon 10-12-2021 Natriuretic peptide B (Bld) [Mass/Vol] 381.0 pg/mL Normal <=900.0 [facility] Comment on above: Performed By: #### C BC #### [facility] [address] [place] [address] Dr. Kelly Jones CARDIAC SOFY 3-6on 2 CK [Catalytic activity/Vol] 979 U/L Critically high 39-308 [facility] Comment on above: Result Comment: Test Repeated. Critical Value Verified Performed By: #### C BC #### [facility] [address] [place] [address] Dr. Kelly Jones CK.MB [Mass/Vol] 172.66 ng/mL Critically high <=3.[address] [facility] Comment on above: Result Comment: Test Repeated. Critical Value Verified Performed By: #### C BC #### [facility] [address] [place] [address] Dr. Kelly Jones HSTROP 6728.0 pg/mL Critically high 4.0-76.1 [facility] Comment on above: Result Comment: CUT- OFF POINTS HAVE BEEN ESTABLISHED BASED ON THE FOURTH UNIVERSAL DEFINITIONS OF MYOCARDIAL INFARCTION. THE UPPER REFERENCE LIMIT (URL) OF TROPONIN, DEFINED THE 99TH PERCENTILE OF cTnI DISTRIBUTION IN A REFERENCE POPULATION, HAS BEEN CONFIRMED THE DECISION THRESHOLD FOR VA DIAGNOSIS. Test Repeated. Critical Value Verified Performed By: #### C BC #### [facility] [address] [place] [address] Dr. Kelly Jones CBC AUTO DIFFon 10-12-2021 BASO # 0.1 103/ul Normal 0.0-0.1 [facility] Comment on above: Performed By: #### C BC #### [facility] [address] [place] [address] Dr. Kelly Jones Basophils/100 WBC (Bld) 0.4 % Normal 0.2-2.0 [facility] Comment on above: Performed By: #### C BC #### [facility] [address] [place] [address] Dr. Kelly Jones EO # 0.1 103/ul Normal 0.0-0.7 [facility] Comment on above: Performed By: #### C BC #### [facility] [address] [place] [address] Dr. Kelly Jones Eosinophils/100 WBC (Bld) 0.4 % Critically low 0.9-7.0 [facility] Comment on above: Performed By: #### C BC #### [facility] [address] [place] [address] Dr. Kelly Jones Erythrocyte distribution width (RBC) [Ratio] 11.9 % Normal 11.0-15.0 [facility] Comment on above: Performed By: #### C BC #### [facility] [address] [place] [address] Dr. Kelly Jones Hematocrit (Bld) [Volume fraction] 49.7 % Normal 42.0-54.0 [facility] Comment on above: Performed By: #### C BC #### [facility] [address] [place] [address] Dr. Kelly Jones Hemoglobin (Bld) [Mass/Vol] 17.4 g/dL Normal 14.0-18.0 [facility] Comment on above: Performed By: #### C BC #### [facility] [address] [place] [address] Dr. Kelly Jones IG # 0.10 10e3/ul Critically high 0.00-0.03 [facility] Comment on above: Performed By: #### C BC #### [facility] [address] [place] [address] Dr. Kelly Jones IG % 0.7 % Critically high 0.0-0.5 [facility] Comment on above: Performed By: #### C BC #### [facility] [address] [place] [address] Dr. Kelly Jones LYMPH # 2.0 103/ul Normal 1.2-3.8 [facility] Comment on above: Performed By: #### C BC #### [facility] [address] [place] [address] Dr. Kelly Jones Lymphocytes/100 WBC (Bld) 13.4 % Critically low 20.5-60.0 [facility] Comment on above: Performed By: #### C BC #### [facility] [address] [place] [address] Dr. Kelly Jones MANUAL DIFF REQ NO Normal [facility] Comment on above: Performed By: #### C BC #### [facility] [address] [place] [address] Dr. Kelly Jones MCH (RBC) [Entitic mass] 29.1 pg Normal 25.9-34.0 [facility] Comment on above: Performed By: #### C BC #### [facility] [address] [place] [address] Dr. Kelly Jones MCHC (RBC) [Mass/Vol] 35.0 g/dL Normal 29.9-35.2 [facility] Comment on above: Performed By: #### C BC #### [facility] [address] [place] [address] Dr. Kelly Jones MCV (RBC) [Entitic vol] 83.1 fL Normal 80.0-94.0 [facility] Comment on above: Performed By: #### C BC #### [facility] [address] [place] [address] Dr. Kelly Jones MONO # 1.2 103/ul Critically high 0.3-0.8 [facility] Comment on above: Performed By: #### C BC #### [facility] [address] [place] [address] Dr. Kelly Jones Monocytes/100 WBC (Bld) 7.8 % Normal 1.7-12.0 [facility] Comment on above: Performed By: #### C BC #### [facility] [address] [place] [address] Dr. Kelly Jones NEUT # 11.5 103/ul Critically high 1.4-6.5 [facility] Comment on above: Performed By: #### C BC #### [facility] [address] [place] [address] Dr. Kelly Jones Neutrophils/100 WBC (Bld) 77.3 % Critically high 43.0-75.0 [facility] Comment on above: Performed By: #### C BC #### [facility] [address] [address] [address] Kelly Jones Platelet mean volume (Bld) [Entitic vol] 9.9 fL Normal 9.5-13.5 [facility] Comment on above: Performed By: #### C BC #### [facility] [address] [address] [address] Kelly Jones PLT 254 103/ul Normal 150-450 [facility] Comment on above: Performed By: #### C BC #### [facility] [address] [address] [address] Kelly Jones RBC 5.98 106/ul Normal 4.70-6.10 [facility] Comment on above: Performed By: #### C BC #### [facility] [address] [place] [address] Dr. Kelly Jones WBC 14.9 103/ul Critically high 4.0-11.0 [facility] Comment on above: Performed By: #### C BC #### [facility] [address] [place] [address] Dr. Kelly Jones [facility] SARS-CoV-2 (COVID-19) RNA SON+probe Ql (Unsp spec) Not detected Normal NOT DETECTED [facility] Comment on above: Result Comment: When [...] for this test is supported by the [employer] of [employer] and Human Service's declaration that [...] longer be used). Performed By: #### C VDTBH #### [facility] [address] [address] [address] Kelly Jones Laboratory - Chemistry and C hemistry - challengeOrdered By: Dewayne Pettit on 10-12-2021 Natriuretic peptide B (Bld) [Mass/Vol] 107.0 pg/mL 5-100 [facility] PROF 14(COMP METB)on 022 Albumin [Mass/Vol] 4.0 g/dL Normal 3.4-5.0 [facility] Comment on above: Performed By: #### C BC #### [facility] [address] [address] [address] Kelly Jones Albumin/Globulin [Mass ratio] 1.1 {ratio} Normal [facility] Comment on above: Performed By: #### C BC #### [facility] [address] [place] [address] Dr. Kelly Jones ALP [Catalytic activity/Vol] 144 U/L Critically high 46-116 [facility] Comment on above: Performed By: #### C BC #### [facility] [address] [place] [address] Dr. Kelly Jones ALT [Catalytic activity/Vol] 39 U/L Normal 16-63 [facility] Comment on above: Performed By: #### C BC #### [facility] [address] [place] [address] Dr. Kelly Jones Anion gap [Moles/Vol] 13.2 mmol/L Normal [facility] Comment on above: Performed By: #### C BC #### [facility] [address] [place] [address] Dr. Kelly Jones AST [Catalytic activity/Vol] 25 U/L Normal 15-37 [facility] Comment on above: Performed By: #### C BC #### [facility] [address] [place] [address] Dr. Kelly Jones Bilirubin [Mass/Vol] 0.4 mg/dL Normal 0.2-1.0 [facility] Comment on above: Performed By: #### C BC #### [facility] [address] [address] [address] Kelly Jones Calcium [Mass/Vol] 10.7 mg/dL Critically high 8.5-10.[address] [facility] Comment on above: Performed By: #### C BC #### [facility] [address] [address] [address] Kelly Jones Chloride [Moles/Vol] 102 mmol/L Normal 98-107 [facility] Comment on above: Performed By: #### C BC #### [facility] [address] [address] [address] Kelly Jones CO2 [Moles/Vol] 27.5 mmol/L Normal 21.0-32.[address] [facility] Comment on above: Performed By: #### C BC #### [facility] [address] [place] [address] Dr. Kelly Jones Creatinine [Mass/Vol] 1.34 mg/dL Critically high 0.70-1.30 [facility] Comment on above: Performed By: #### C BC #### [facility] [address] [place] [address] Dr. Kelly Jones EGFR-AF IRANIAN >60 Normal >=[address] [facility] Comment on above: Performed By: #### C BC #### [facility] [address] [place] [address] Dr. Kelly Jones EGFR-NON AF IRANIAN 56 mL/min/1.73m2 Critically low >=60 [facility] Comment on above: Performed By: #### C BC #### [facility] [address] [place] [address] Dr. Kelly Jones Globulin (S) [Mass/Vol] 3.8 g/dL Normal [facility] Comment on above: Performed By: #### C BC #### [facility] [address] [place] [address] Dr. Kelly Jones Glucose [Mass/Vol] 110 mg/dL Critically high 74-[address] [facility] Comment on above: Performed By: #### C BC #### [facility] [address] [place] [address] Dr. Kelly Jones Potassium [Moles/Vol] 3.7 mmol/L Normal 3.5-5.1 [facility] Comment on above: Performed By: #### C BC #### [facility] [address] [address] [address] Kelly Jones Protein [Mass/Vol] 7.8 g/dL Normal 6.4-8.2 [facility] Comment on above: Performed By: #### C BC #### [facility] [address] [address] [address] Kelly Jones Sodium [Moles/Vol] 139 mmol/L Normal 136-145 [facility] Comment on above: Performed By: #### C BC #### [facility] [address] [place] [address] Dr. Kelly Jones Urea nitrogen [Mass/Vol] 11.0 mg/dL Normal 7.0-18.0 [facility] Comment on above: Performed By: #### C BC #### [facility] [address] [place] [address] Dr. Kelly Jones Urea nitrogen/Creatinine [Mass ratio] 8.2 mg/mg Normal [facility] Comment on above: Performed By: #### C BC #### [facility] [address] [place] [address] Dr. Kelly Jones PROTIMEon 10-12-2021 INR Coag (PPP) [Relative time] 0.95 {INR} Normal [facility] Comment on above: Performed By: #### P T, PTT #### [facility] [address] [place] [address] Dr. Kelly Jones INR GUIDELINES SEE BELOW Normal [facility] Comment on above: Result Comment: CATHIE RED INR: 2.0 - 3.0 CONDITIONS NOT LISTED BELOW 2.5 - 3.5 FOR PROSTHETIC HEART VALVE REPLACEMENT 2.5 - 3.5 RECURRENT THROMBOSIS Performed By: #### P T, PTT #### [facility] [address] [place] [address] Dr. Kelly Jones PT Coag (PPP) [Time] 10.3 s Normal 9.0-11.6 [facility] Comment on above: Performed By: #### P T, PTT #### [facility] [address] [place], [place] [address] Dr. Kelly Jones PTTon 10-12-2021 aPTT Coag (Bld) [Time] 27.9 s Normal 22.3-36.2 [facility] Comment on above: Performed By: #### P T, PTT #### [facility] [address] [address] [address] Kelly Jones TROPONIN, HIGH SENSITIVITYon 10-12-2021 HSTROP 1288.2 pg/mL Critically high 4.0-76.1 [facility] Comment on above: Result Comment: CUT- OFF POINTS HAVE BEEN ESTABLISHED BASED ON THE FOURTH UNIVERSAL DEFINITIONS OF MYOCARDIAL INFARCTION. THE UPPER REFERENCE LIMIT (URL) OF TROPONIN, DEFINED THE 99TH PERCENTILE OF cTnI DISTRIBUTION IN A REFERENCE POPULATION, HAS BEEN CONFIRMED THE DECISION THRESHOLD FOR VA DIAGNOSIS. Performed By: #### C BC #### [facility] [address] [address] [address] Kelly Jones TSH DL <= 0.005 mIU/L QnOrde red By: Dewayne Pettit on 10-12-2021 TSH Qn 2.35 m[IU]/L 0.45-5.33 [facility] XR CHEST 1 Von 10-12-2021 XR CHEST [...] by: LELAND HARRIS Date: 2021-10-12 18:34 Normal [facility] Social History Date Type Detail Facility Start: 08-08-2023 Tobacco smoking stat us NHIS Ex-smoker [facility] Start: 08-08-2023 Alcoholic beverage intake Lifetime non-drinker (finding) [facility] Work Phone: Start: 07-29-2023 End: 08-08-2023 Exposure to SARS-CoV-2 (event) Not sure [facility] Start: 04-04-2023 Sex Assigned At N [facility] [employer] Other Start: 04-04-2023 Daily caffeine consumption Daily caffeine consumption -[facility] DO Work Phone: Comment on above: 1-2 cans of pop odessa y; Quit October 2021; Start: 10-13-2021 End: 10-13-2021 Tobacco smoking status IDIS Smoker (finding) [facility] Start: 1970 Sex Assigned At Male F [facility] Start: 1970 Sex assigned at Not on file [facility] Work Phone: End: 04-23-2021 History of tobacco use Cigarette Smoker [facility] Work Phone: Vital Signs Date Time Vital Sign Value Performing Clinician Facility 09-28-2023 10:03-0400 Body height 172.72 cm DO Yaya Ball Work Phone: [facility] 09-28-2023 10:03-0400 Body mass index (BMI) [Ratio] 24.9 kg/m2 DO Yaya Ball Work Phone: [facility] 09-28-2023 10:03-0400 Body weight 74.38 kg DO Yaya Ball Work Phone: [facility] 09-28-2023 10:03-0400 Diastolic blood pressure 82 mm[Hg] DO Yaya Ball Work Phone: [facility] 09-28-2023 10:03-0400 Heart rate 48 /min DO Yaya Ball Work Phone: [facility] 09-28-2023 10:03-0400 Respiratory rate 20 /min DO Yaya Ball Work Phone: [facility] 09-28-2023 10:03-0400 Systolic blood pressure 161 mm[Hg] DO Yaya Ball Work Phone: [facility] 09-03-2023 15:34-0400 Body height 172.72 cm DO Yaya Ball Work Phone: [facility] 09-03-2023 15:34-0400 Body mass index (BMI) [Ratio] 25.7 kg/m2 DO Yaya Ball Work Phone: [facility] 09-03-2023 15:34-0400 Body weight 76.88 kg DO Yaya Ball Work Phone: [facility] 09-03-2023 15:34-0400 Diastolic blood pressure 68 mm[Hg] DO Yaya Ball Work Phone: [facility] 09-03-2023 15:34-0400 Heart rate 66 /min DO Yaya Ball Work Phone: [facility] 09-03-2023 15:34-0400 Respiratory rate 16 /min DO Yaya Ball Work Phone: [facility] 09-03-2023 15:34-0400 Systolic blood pressure 119 mm[Hg] DO Yaya Ball Work Phone: [facility] 08-08-2023 [id number] Body height 172.7 cm Denis Fernandez DO Work Phone: [facility] 08-08-2023 [id number] Body mass index (BMI) [Ratio] 25.24 kg/m2 Denis Fernandez DO Work Phone: [facility] 08-08-2023 10:040 Body weight 75.3 kg Denis Fernandez DO Work Phone: [facility] 08-08-2023 10:26-040 Diastolic blood pressure 72 mm[Hg] Denis Fernandez DO Work Phone: [facility] 08-08-2023 10:26-0400 Heart rate 74 /min Denis Fernandez DO Work Phone: [facility] 08-08-2023 10:26-0400 Systolic blood pressure 112 mm[Hg] Denis Fernandez DO Work Phone: [facility] 06-04-2023 08:30-0500 Body height 172.72 cm Doretha Missler Other [facility] 06-04-2023 08:30-0500 Body mass index (BMI) [Ratio] 23.9 kg/m2 Doretha Missler Other [facility] 06-04-2023 08:30-0500 Body weight 71.31 kg Doretha Missler Other [facility] 06-04-2023 08:30-0500 Diastolic blood pressure 69 mm[Hg] Doretha Missler Other [facility] 06-04-2023 08:30-0500 Respiratory rate 16 /min Doretha Missler Other [facility] 06-04-2023 08:30-0500 SaO2% (BldA) [Mass fraction] 100 % Doretha Missler Other [facility] 06-04-2023 08:30-0500 Systolic blood pressure 109 mm[Hg] Doretha Missler Other [facility] Other 05-27-2023 10:50-0500 Body height 172.72 cm Aleksandra Caal Other [facility] 05-27-2023 10:50-0500 Body mass index (BMI) [Ratio] 24.42 kg/m2 Aleksandra Caal Other [facility] Other 05-27-2023 10:50-0500 Body temperature 98 [degF] Aleksandra Caal Other [facility] 05-27-2023 10:50-0500 Body weight 72.85 kg Aleksandra Orellanamond Other [facility] Other 05-27-2023 10:50-0500 Body weight 72.84 kg DO Yaya Ball Work Phone: [facility] 05-27-2023 10:50-0500 Diastolic blood pressure 87 mm[Hg] Aleksandra Orellanamond Other [facility] 05-27-2023 10:50-0500 Respiratory rate 16 /min Aleksandra Caal Other [facility] Other 05-27-2023 10:50-0500 SaO2% (BldA) [Mass fraction] 99 % Aleksandra Caal Other [facility] Other 05-27-2023 10:50-0500 Systolic blood pressure 136 mm[Hg] Aleksandra Orellanamond Other [facility] 03-02-2023 14:30-0500 Body height 172.72 cm Yaya Ball Other [facility] Other 03-02-2023 14:30-0500 Body mass index (BMI) [Ratio] 22.9 kg/m2 Yaya Ball Other [facility] Other 03-02-2023 14:30-0500 Body weight 68.31 kg Yaya Ball Other [facility] Other 03-02-2023 14:30-0500 Diastolic blood pressure 68 mm[Hg] Yaya Ball Other [facility] Other 03-02-2023 14:30-0500 Respiratory rate 12 /min Yaya Ball Other [facility] Other 03-02-2023 14:30-0500 Systolic blood pressure 110 mm[Hg] Yaya Ball Other [facility] Other 02-19-2023 09:00-0400 Body height 172.72 cm Doretha Missler Other [facility] Other 02-19-2023 09:00-0400 Body mass index (BMI) [Ratio] 23.57 kg/m2 Doretha Missler Other [facility] 02-19-2023 09:00-0400 Body weight 70.31 kg Dorteha Missler Other [facility] Other 02-19-2023 09:00-0400 Diastolic blood pressure 68 mm[Hg] Doretha Missler Other [facility] 02-19-2023 09:00-0400 Respiratory rate 16 /min Doretha Missler Other [facility] 02-19-2023 09:00-0400 SaO2% (BldA) [Mass fraction] 100 % Doretha Missler Other [facility] 02-19-2023 09:00-0400 Systolic blood pressure 108 mm[Hg] Doretha Missler Other [facility] 12-18-2022 09:00-0400 Body height 172.72 cm Doretha Missler Other [facility] 12-18-2022 09:00-0400 Body mass index (BMI) [Ratio] 23.38 kg/m2 Doretha Missler Other [facility] 12-18-2022 09:00-0400 Body weight 69.76 kg Doretha Missler Other [facility] 12-18-2022 09:00-0400 Diastolic blood pressure 65 mm[Hg] Doretha Missler Other [facility] 12-18-2022 09:00-0400 Respiratory rate 16 /min Doretha Missler Other [facility] 12-18-2022 09:00-0400 SaO2% (BldA) [Mass fraction] 99 % Doretha Missler Other [facility] 12-18-2022 09:00-0400 Systolic blood pressure 103 mm[Hg] Doretha Missler Other [facility] 11-22-2022 10:27-0400 Body height 172.72 cm Yaya Dale [employer] Phone: [facility] [employer] DO Work Phone: 11-22-2022 10:27-0400 Body mass index (BMI) [Ratio] 23.42 kg/m2 Yaya Dale [employer] Work Phone: [facility] [employer] DO Work Phone: 11-22-2022 10:27-0400 Body surface area Derived from formula 1.83 m2 Yaya Dale Ball Work Phone: [facility] [employer] [facility] DO Work Phone: 11-22-2022 10:27-0400 Body weight 69.85 kg Yaya E Ball Work Phone: [facility] [employer] 250 DO Work Phone: 11-22-2022 10:27-0400 Diastolic blood pressure 64 mm[Hg] Yaya E Ball Work Phone: [facility] [employer] 250 DO Work Phone: 11-22-2022 10:27-0400 Heart rate 58 /min Yaya E Ball Work Phone: [facility] [employer] 250 DO Work Phone: 11-22-2022 10:27-0400 Systolic blood pressure 110 mm[Hg] Yaya E Ball Work Phone: [facility] [employer] 250 DO Work Phone: 10-25-2022 11:00-0400 Body height 172.72 cm Doretha Missler Other [facility] Other 10-25-2022 11:00-0400 Body mass index (BMI) [Ratio] 23.14 kg/m2 Doretha Missler Other [facility] 10-25-2022 11:00-0400 Body weight 69.04 kg Doretha Missler Other [facility] 10-25-2022 11:00-0400 Diastolic blood pressure 69 mm[Hg] Doretha Missler Other [facility] 10-25-2022 11:00-0400 Respiratory rate 16 /min Doretha Missler Other [facility] 10-25-2022 11:00-0400 SaO2% (BldA) [Mass fraction] 100 % Doretha Missler Other [facility] Other 10-25-2022 11:00-0400 Systolic blood pressure 110 mm[Hg] Doretha Valentino Other [facility] Other 10-12-2022 14:00-0400 Body height 172.72 cm Yaya Ball Other [facility] Other 10-12-2022 14:00-0400 Body mass index (BMI) [Ratio] 23.75 kg/m2 Yaya Ball Other [facility] 10-12-2022 14:00-0400 Body weight 70.85 kg Yaya Ball Other [facility] 10-12-2022 14:00-0400 Diastolic blood pressure 68 mm[Hg] Yaya Ball Other [facility] 10-12-2022 14:00-0400 Respiratory rate 12 /min Yaya Ball Other [facility] 10-12-2022 14:00-0400 Systolic blood pressure 106 mm[Hg] Yaya Ball Other [facility] Other 08-30-2022 16:00-0400 Body height 172.72 cm Yaya Ball Other [facility] 08-30-2022 16:00-0400 Body mass index (BMI) [Ratio] 23.99 kg/m2 Yaya Ball Other [facility] 08-30-2022 16:00-0400 Body weight 71.58 kg Yaya Ball Other [facility] 08-30-2022 16:00-0400 Diastolic blood pressure 65 mm[Hg] Yaya Ball Other [facility] 08-30-2022 16:00-0400 Respiratory rate 12 /min Yaya Ball Other [facility] Other 08-30-2022 16:00-0400 Systolic blood pressure 108 mm[Hg] Yaya Ball Other [facility] Other 06-14-2022 10:30-0500 Body height 172.72 cm Doretha Missler Other [facility] Other 06-14-2022 10:30-0500 Body mass index (BMI) [Ratio] 24.8 kg/m2 Doretha Missler Other [facility] Other 06-14-2022 10:30-0500 Body weight 73.98 kg Doretha Missler Other [facility] Other 06-14-2022 10:30-0500 Diastolic blood pressure 69 mm[Hg] Doretha Missler Other [facility] Other 06-14-2022 10:30-0500 Respiratory rate 16 /min Doretha Missler Other [facility] Other 06-14-2022 10:30-0500 SaO2% (BldA) [Mass fraction] 100 % Doretha Missler Other [facility] Other 06-14-2022 10:30-0500 Systolic blood pressure 118 mm[Hg] Doretha Missler Other [facility] Other 05-30-2022 16:00-0500 Body height 172.72 cm Yaya Ball Other [facility] Other 05-30-2022 16:00-0500 Body mass index (BMI) [Ratio] 25.33 kg/m2 Yaya Ball Other [facility] Other 05-30-2022 16:00-0500 Body weight 75.57 kg Yaya Ball Other [facility] Other 05-30-2022 16:00-0500 Diastolic blood pressure 78 mm[Hg] Yaya Ball Other [facility] Other 05-30-2022 16:00-0500 Respiratory rate 12 /min Yaya Ball Other [facility] Other 05-30-2022 16:00-0500 Systolic blood pressure 102 mm[Hg] Yaya Ball Other [facility] Other 05-03-2022 11:30-0500 Body height 172.72 cm Doretha Missler Other [facility] Other 05-03-2022 11:30-0500 Body mass index (BMI) [Ratio] 25.66 kg/m2 Doretha Missler Other [facility] Other 05-03-2022 11:30-0500 Body weight 76.57 kg Doretha Missler Other [facility] Other 05-03-2022 11:30-0500 Diastolic blood pressure 73 mm[Hg] Doretha Missler Other [facility] 05-03-2022 11:30-0500 Respiratory rate 18 /min Doretha Missler Other [facility] 05-03-2022 11:30-0500 SaO2% (BldA) [Mass fraction] 100 % Doretha Missler Other [facility] 05-03-2022 11:30-0500 Systolic blood pressure 120 mm[Hg] Doretha Missler Other [facility] Other 03-27-2022 12:30-0500 Body height 172.72 cm Doretha Missler Other [facility] 03-27-2022 12:30-0500 Body mass index (BMI) [Ratio] 26.51 kg/m2 Doretha Missler Other [facility] 03-27-2022 12:30-0500 Body weight 79.11 kg Doretha Missler Other [facility] Other 03-27-2022 12:30-0500 Diastolic blood pressure 74 mm[Hg] Doretha Missler Other [facility] Other 03-27-2022 12:30-0500 Respiratory rate 18 /min Doretha Missler Other [facility] 03-27-2022 12:30-0500 SaO2% (BldA) [Mass fraction] 100 % Doretha Missler Other [facility] Other 03-27-2022 12:30-0500 Systolic blood pressure 115 mm[Hg] Doretha Missler Other [facility] Other 02-15-2022 14:30-0400 Body height 172.72 cm Doretha Missler Other [facility] Other 02-15-2022 14:30-0400 Body mass index (BMI) [Ratio] 27.99 kg/m2 Doretha Missler Other [facility] Other 02-15-2022 14:30-0400 Body weight 83.51 kg Doretha Missler Other [facility] Other 02-15-2022 14:30-0400 Diastolic blood pressure 66 mm[Hg] Doretha Missler Other [facility] Other 02-15-2022 14:30-0400 Respiratory rate 18 /min Doretha Missler Other [facility] 02-15-2022 14:30-0400 SaO2% (BldA) [Mass fraction] 99 % Doretha Missler Other [facility] 02-15-2022 14:30-0400 Systolic blood pressure 112 mm[Hg] Doretha Missler Other [facility] Other 01-23-2022 13:45-0400 Body height 172.72 cm Doretha Missler Other [facility] 01-23-2022 13:45-0400 Body mass index (BMI) [Ratio] 30 kg/m2 Doretha Missler Other [facility] 01-23-2022 13:45-0400 Body weight 89.5 kg Doretha Missler Other [facility] 01-23-2022 13:45-0400 Diastolic blood pressure 74 mm[Hg] Doretha Missler Other [facility] 01-23-2022 13:45-0400 Respiratory rate 18 /min Doretha Missler Other [facility] 01-23-2022 13:45-0400 SaO2% (BldA) [Mass fraction] 100 % Doretha Missler Other [facility] Other 01-23-2022 13:45-0400 Systolic blood pressure 123 mm[Hg] Doretha Missler Other [facility] Other 12-28-2021 16:15-0400 Body height 172.72 cm Doretha Missler Other [facility] Other 12-28-2021 16:15-0400 Body mass index (BMI) [Ratio] 31.39 kg/m2 Doretha Missler Other [facility] Other 12-28-2021 16:15-0400 Body weight 93.67 kg Doretha Missler Other [facility] Other 12-28-2021 16:15-0400 Diastolic blood pressure 75 mm[Hg] Doretha Missler Other [facility] Other 12-28-2021 16:15-0400 Respiratory rate 18 /min Doretha Missler Other [facility] 12-28-2021 16:15-0400 SaO2% (BldA) [Mass fraction] 100 % Doretha Missler Other [facility] Other 12-28-2021 16:15-0400 Systolic blood pressure 123 mm[Hg] Doretha Missler Other [facility] Other 12-14-2021 16:15-0400 Body height 172.72 cm Doretha Missler Other [facility] Other 12-14-2021 16:15-0400 Body mass index (BMI) [Ratio] 33.05 kg/m2 Doretha Missler Other [facility] 12-14-2021 16:15-0400 Body weight 98.61 kg Doretha Missler Other [facility] Other 12-14-2021 16:15-0400 Diastolic blood pressure 63 mm[Hg] Doretha Missler Other [facility] Other 12-14-2021 16:15-0400 Respiratory rate 18 /min Doretha Missler Other [facility] Other 12-14-2021 16:15-0400 SaO2% (BldA) [Mass fraction] 98 % Doretha Missler Other [facility] Other 12-14-2021 16:15-0400 Systolic blood pressure 108 mm[Hg] Doretha Missler Other [facility] 11-23-2021 15:45-0400 Body height 172.72 cm Doretha Missler Other [facility] Other 11-23-2021 15:45-0400 Body mass index (BMI) [Ratio] 34.59 kg/m2 Doretha Missler Other [facility] Other 11-23-2021 15:45-0400 Body weight 103.19 kg Doretha Missler Other [facility] Other 11-23-2021 15:45-0400 Diastolic blood pressure 76 mm[Hg] Doretha Missler Other [facility] Other 11-23-2021 15:45-0400 Respiratory rate 18 /min Doretha Missler Other [facility] Other 11-23-2021 15:45-0400 SaO2% (BldA) [Mass fraction] 99 % Doretha Missler Other [facility] 11-23-2021 15:45-0400 Systolic blood pressure 125 mm[Hg] Doretha Missler Other [facility] Other 11-09-2021 11:00-0400 Body height 172.72 cm Doretha Missler Other [facility] 11-09-2021 11:00-0400 Body mass index (BMI) [Ratio] 35.17 kg/m2 Doretha Missler Other [facility] Other 11-09-2021 11:00-0400 Body weight 104.92 kg Doretha Missler Other [facility] Other 11-09-2021 11:00-0400 Diastolic blood pressure 86 mm[Hg] Doretha Missler Other [facility] 11-09-2021 11:00-0400 Respiratory rate 18 /min Doretha Missler Other [facility] 11-09-2021 11:00-0400 SaO2% (BldA) [Mass fraction] 98 % Doretha Missler Other [facility] Other 11-09-2021 11:00-0400 Systolic blood pressure 143 mm[Hg] Doretha Missler Other [facility] Other 10-19-2021 12:00-0400 Body height 172.72 cm Doretha Missler Other [facility] Other 10-19-2021 12:00-0400 Body mass index (BMI) [Ratio] 36.34 kg/m2 Doretha Missler Other [facility] Other 10-19-2021 12:00-0400 Body temperature 99.1 [degF] Doretha Missler Other [facility] Other 10-19-2021 12:00-0400 Body weight 108.41 kg Doretha Missler Other [facility] Other 10-19-2021 12:00-0400 Diastolic blood pressure 79 mm[Hg] Doretha Missler Other [facility] 10-19-2021 12:00-0400 Respiratory rate 24 /min Doretha Missler Other [facility] Other 10-19-2021 12:00-0400 SaO2% (BldA) [Mass fraction] 99 % Doretha Missler Other [facility] Other 10-19-2021 12:00-0400 Systolic blood pressure 116 mm[Hg] Doretha Missler Other [facility] Other 10-14-2021 06:36-0400 Body temperature 98.9 [degF] DO Yaya Ball Work Phone: [facility] 10-14-2021 06:36-0400 Diastolic blood pressure 51 mm[Hg] DO Yaya Ball Work Phone: [facility] 10-14-2021 06:36-0400 Heart rate 88 /min DO Yaya Ball Work Phone: [facility] 10-14-2021 06:36-0400 Respiratory rate 18 /min DO Yaya Ball Work Phone: [facility] 10-14-2021 06:36-0400 SaO2% (BldA) [Mass fraction] 95 % DO Yaya Ball Work Phone: [facility] 10-14-2021 06:36-0400 Systolic blood pressure 103 mm[Hg] DO Yaya Ball Work Phone: [facility] 10-14-2021 06:00-0400 Body weight 110 kg DO Yaya Ball Work Phone: [facility] 10-14-2021 00:00-0400 Inhaled oxygen flow rate 3 L/min DO Yaya Ball Work Phone: [facility] 10-13-2021 16:16-0400 65 1 Denis Fernandez DO Work Phone: [facility] 250 DO Work Phone: Comment on above: [id number] 10-13-2021 14:18-0400 Body height 172.72 cm DO Yaya Ball Work Phone: [facility] 10-13-2021 00:00-0400 Inhaled oxygen concentration 98 % DO Yaya Ball Work Phone: [facility] 10-12-2021 22:43-0400 Body mass index (BMI) [Ratio] 37.2 kg/m2 DO Yaya Ball Work Phone: [facility] Functional Status Date Assessment Result Facility 10-14-2021 Functional status Patient at Baseline [facility] Work Phone: Mental Status Date Assessment Result Facility 10-14-2021 Cognitive function Cognitive Sta tus Patient at Baseline [facility] Work Phone: Clinical Notes 10-13-2021 [...] usage or hospitalizations. 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 He is no longer smoking. He is [...] Rfl: Assessment/Plan 1. Coronary artery disease involving [place] coronary artery of [place] heart without angina pectoris 2. History of [...] discussion and plan. documented in this encounter [facility] Work Phone: 08-08-2023 Instructions Calista Saavedra LPN [...] Increase physical activity. documented in this encounter [facility] Work Phone: 06-04-2023 Evaluation note Encounter Date [...] desires to follow-up in 4 months May, VA (myocardial infarction) (ICD-10 - I21.3) May, Weight loss (ICD-10 - R63.4) His weight seems to have stabilized over the last several visits without significant increase or decrease in weight. He had a significant weight loss last year and his smoking cessation attempts and overall health shift after his VA. Reinforced healthy lifestyle with good quality calories, [...] [facility] the [facility], instructed him that central scheduling would call to schedule as they did in the past and would call with results. He is to call if he has not heard from us in a week after he has the scan. Further scans and follow-up will be deferred to his PCP. He denies is any signs or symptoms of lung cancer at this time [facility] Other 02-04-2024 Evaluation note* Encounter Date Diagnosis Assessment Notes Treatment Notes Treatment Clinical Notes May, Conjunctivitis of both eyes, unspecified conjunctivitis type (ICD-10 - H10.9) Conjunctivitis home care material was printed Drink plenty fluids, get plenty of rest. Use the eyedrops as prescribed. Continue your home medications as prescribed. Follow-up with your boiler room operator if no improvement in 2 to 3 days. Off work tomorrow. Wash your pillowcase every day for the next few days [facility] Other 11-10-2023 Evaluation note* Encounter Date Diagnosis [...] Fe, FA, B12 normal REcheck CBC at wellness [facility] Other 11-02-2023 Evaluation note* Encounter Date Diagnosis Assessment Notes Treatment Notes Treatment Clinical Notes Feb, Anemia, unspecified type (ICD-10 - D64.9) [facility] Other 10-30-2023 Evaluation note* Encounter Date Diagnosis [...] mints Jan, Anxiety (ICD-10 - F41.9) Jan, VA (myocardial infarction) (ICD-10 - I21.3) Jan, Weight [...] evaluation by his PCP. We will follow [facility] Other 08-28-2023 Evaluation note* Encounter Date Diagnosis [...] 2023. Nov, Anxiety (ICD-10 - F41.9) Nov, VA (myocardial infarction) (ICD-10 - I21.3) Nov, Weight loss (ICD-10 - R63.4) Patient's weight is finally stable for the first visit. Reinforced the need to increase protein in his diet to avoid or halt further muscle wasting with his significant weight loss. Encouraged meat products which would help in both iron supplementation and protein. Reinforced well-balanced healthy diet to build health [facility] Other 08-23-2023 Evaluation note* Encounter Date Diagnosis Assessment Notes Treatment Notes Treatment Clinical Notes Nov, Anemia, unspecified type (ICD-10 - D64.9) [facility] Other 07-10-2023 Evaluation note* Encounter Date Diagnosis Assessment Notes Treatment Notes Treatment Clinical Notes Oct, Allergic contact dermatitis due to plants, except food (ICD-10 - L23.7) [facility] Other 07-05-2023 Evaluation note* Encounter Date Diagnosis [...] attempt. Oct, Anxiety (ICD-10 - F41.9) Oct, VA (myocardial infarction) (ICD-10 - I21.3) Oct, Weight [...] snacks. Continue to work on well-rounded meals [facility] Other 06-22-2023 Evaluation note* Encounter Date Diagnosis Assessment Notes Treatment Notes Treatment Clinical Notes Sep, Allergic contact dermatitis due to plants, except food (ICD-10 - L23.7) Cool compresses, avoid harsh soaps. No improvement, refer to Dermatology [facility] Other 05-10-2023 Evaluation note* Encounter Date Diagnosis [...] (ICD-10 - R91.1) Continue surveillance scans w/ [facility] Denies cough, wheezing or sputum. Continues w/ [...] F41.1) Healthy diet, exercise and keep active [facility] Other 04-10-2023 Evaluation note* Encounter Date Diagnosis Assessment Notes Treatment Notes Treatment Clinical Notes Jul, Left kidney mass (ICD-10 - N28.89) MRI: benign cyst - 06/2022 [facility] Other 02-22-2023 Evaluation note* Encounter Date Diagnosis [...] understanding. May, Anxiety (ICD-10 - F41.9) May, VA (myocardial infarction) (ICD-10 - I21.3) May, Weight [...] again. Information regarding our dietitians guidance via remind shanti was given in office today as a second option as well. This will help guide him on some healthy tips as well as recipes. [facility] Other 02-13-2023 Evaluation note* Encounter Date Diagnosis Assessment Notes Treatment Notes Treatment Clinical Notes May, Left kidney mass (ICD-10 - N28.89) [facility] Other 02-08-2023 NoteULTRASOUND IS SUGGESTED FOR MORE COMPLETE EVALUATION.[facility] Other 02-07-2023 Evaluation note* Encounter Date Diagnosis [...] nodule (ICD-10 - R91.1) Chronic nodules w/o mold insert changer the past 5 years May, Cigarette nicotine dependence in remission (ICD-10 - F17.211) Encouraged to continue abstinence. Weaning off nicotine replacement [facility] Other 01-23-2023 Evaluation note* Encounter Date Diagnosis [...] chest. We will follow/inform PCP of results. [facility] Other 01-19-2023 Evaluation note* Encounter Date Diagnosis Assessment Notes Treatment Notes Treatment Clinical Notes Apr, Nicotine dependence (ICD-10 - F17.200) Apr, LEONID (generalized anxiety disorder) (ICD-10 - F41.1) [facility] Other 01-11-2023 Evaluation note* Encounter Date Diagnosis [...] up. Apr, Anxiety (ICD-10 - F41.9) Apr, VA (myocardial infarction) (ICD-10 - I21.3) Patient denied [...] habits and regular meals with healthy snacks. [facility] Other 12-05-2022 Evaluation note* Encounter Date Diagnosis [...] any significant changes in his anxiety. Mar, VA (myocardial infarction) (ICD-10 - I21.3) He has since graduated from cardiac rehab last month. We reinforced cardiovascular benefits of stopping smoking and congratulated him on his success. [facility] Other 10-26-2022 Evaluation note* Encounter Date Diagnosis [...] insecurities or complete omission of meals. Jan, VA (myocardial infarction) (ICD-10 - I21.3) Patient is doing well and his cardiac rehab and is feeling better than he has in a long time. He is returning to his normal activities including getting back to work. Encourage patient to reinforce his positive behavior by reminding himself of the cardiovascular benefits of remaining smoke-free. [facility] Other 10-03-2022 Evaluation note* Encounter Date Diagnosis [...] or scratching palms throughout the visit. Jan, VA (myocardial infarction) (ICD-10 - I21.3) Patient is recovering nicely from his VA likely related to previous tobacco use. Reinforced the positive effects and cardiovascular benefits of not smoking. [facility] Other 09-07-2022 Evaluation note* Encounter Date Diagnosis [...] although it still difficult. Follow-up 2 weeks [facility] Other 08-24-2022 Evaluation note* Encounter Date Diagnosis [...] at the pharmacy versus paying for it [id number]. Patient asks about amount of lozenges he [...] pertaining to the visit today. JERO Fraser [facility] Other 08-03-2022 Evaluation note* Encounter Date Diagnosis [...] will send in 14 mg patches to [facility] pharmacy to see if his newly awarded Medicaid insurance will cover. If not he may have to get from the quit line versus [id number]. Reinforced that this is still cheaper than a pack of cigarettes per day. Patient verbalizes understanding. 30 minutes was spent with the patient/ review of documentation pertaining to the visit today. JERO Fraser Nov, VA (myocardial infarction) (ICD-10 - I21.3) Patient continues to be motivated by smoking cessation due to recent VA. Patient was recently seen by cardiology and released back to work when he is ready from a cardiology standpoint. He is taking his blood thinners as prescribed and his blood pressure has been well controlled. His weight has decreased by over 10 pounds and patient seems motivated to adopt a healthier lifestyle.Encourag ed exercise as directed by greenhouse transplanter and has tolerated to not only improve [...] follow with his PCP in the future. [facility] Other 07-20-2022 Evaluation note* Encounter Date Diagnosis [...] provider agreed to run this by his greenhouse transplanter due to his recent VA and cardiac stenting. (On a side note [...] anxiety if clonidine is not appropriate per greenhouse transplanter. [facility] Other 07-20-2022 Evaluation note* Encounter Date Diagnosis [...] provider agreed to run this by his greenhouse transplanter due to his recent VA and cardiac stenting. (On a side note [...] anxiety if clonidine is not appropriate per greenhouse transplanter. Oct, Anxiety (ICD-10 - F41.9) Call was returned from cardiology office stating that smoking cessation medications are not contraindicated in this patient. Did not directly discuss clonidine. After further consideration will trial buspirone as needed and small doses to help with withdrawal symptoms. Sent to pharmacy [facility] Other 06-29-2022 Evaluation note* Encounter Date Diagnosis [...] to the patient every 2 weeks via [email or web address]. Patient is to use smoking log to [...] education was performed by myself JERO Fraser [facility] Other 06-24-2022 Hospital Discharge instructions Additional Instructions [...] doctor or pharmacist, without first calling the greenhouse transplanter who implanted the stent. If you require [...] weight lifting, stair steppers, etc. until the greenhouse transplanter approves these activities. Check with the greenhouse transplanter on your first follow-up visit. CALL YOUR PHYSICIAN at [phone]: -If bleeding should occur from the catheter insertion site- apply pressure to the site then immediately call us. -Report any fever, redness, drainage, increased swelling, or firmness at the catheter insertion site. Some bruising or slight swelling may be present at the time of discharge. -Should arm or leg become cold, numb, white, or blue, contact the greenhouse transplanter immediately. -IF you should experience episodes of [...] is recommended. Please call Central Scheduling at [phone] to schedule your appointment.] The attending greenhouse transplanter or [facility] nurse clinician should provide you with specific instructions regarding activity, diet, medications, and further follow up for you. Follow the medication instructions provided on your discharge. If the dosages and instructions on this sheet differ from the dosage and instructions on the bottle, follow the instructions on the bottle. [facility] is not responsible for incorrect prescription information provided by the patient during their visit. Do not stop your medications without consulting your health care provider. Please take the list with you to your next doctor's appointment. Diovan on hold until renal function improves.[facility] Work Phone: 1(695) 707-220706-24-2022 Progress note Author Myles Velarde [facility] October 14, 2021 9:52am Note Date/Time October 14, 2021 9:52 am [facility] [address] [place] [address] Cardiology Progress Note Signed Patient: Pj Sabillon MR#: [id number] : 1970 Acct:[id number] Age/Sex: 51 / M Adm Date: 2 Loc: Room: [address] [place] [address] Type : ADM IN Attending Dr: Emma [...] % (Auto) 79.7 Lymph % (Auto) 8.0 [place] % (Auto) 11.5 Eos % (Auto) 0.3 Baso % (Auto) 0.5 Neut # (Auto) 14.3 H Lymph # (Auto) 1.4 [place] # (Auto) 2.1 H Eos # (Auto) [...] MPV Neut % (Auto) Lymph % (Auto) [place] % (Auto) Eos % (Auto) Baso % (Auto) Neut # (Auto) Lymph # (Auto) [place] # (Auto) Eos # (Auto) Baso # [...] left circumflex/OM with implantation of 3 resolute [place] drug-eluting stent in a bifurcation configuration. Serum [...] patient is scheduled to be seen in [facility] heart clinic within 10 days of discharge. From the first clinic visit enrollment in phase 2 monitored cardiac rehabilitation in [place] is strongly recommended. Time spent with patient Time Spent With Patient (min): 30 Documented By: Myles Velarde MD 10/14/21 0945 Signed By: <Electronically signed by Myles Velarde MD> 10/14/21 0952 [facility] Work Phone: 1(579) 671-741106-23-2022 Progress note Author Emma Allen [facility] October 13, 2021 2:25pm Note Date/Time October 13, 2021 2:21 pm [facility] [address] [place] [address] Hospitalist Progress Note Signed Patient: Pj Sabillon MR#: [id number] : 1970 Acct:[id number] Age/Sex: 51 / M Adm Date: 2 Loc: Room: [address] [place] [address] Type : ADM IN Attending Dr: Emma [...] Sodium Chloride 1,000 Ml IV 10/13/21 23:59 .[id number] FREIDA Lidocaine HCl 10 ml 10/13/21 11:55 [...] 90 Mg Tablet PO 10/13/22 20:59 BID [facility] Tramadol HCl 50 mg 10/12/21 22:44 Tramadol 50 Mg Tablet PO 04/10/22 22:43 Q6H PRN Moderate Pain Triamcinolone Acetonide 1 applic 10/12/21 22:44 Triamcinolone 0.1% Cream 15 Gm Tube TOPICAL 10/12/22 22:43 QID PRN Irritation Valsartan 80 mg 10/13/21 21:00 Valsartan 80 Mg Tablet PO 10/13/22 20:59 BID FREIDA A&P - Hospitalist Assessment/Plan (1) NSTEMI (non-ST [...] <Electronically signed by Emma Allen MD> 10/13/21 1423 [facility] Work Phone: 1(106) 985-326406-23-2022 Consult note Author Myles Velarde [facility] October 13, 2021 1:20pm Note Date/Time October 13, 2021 1:20 pm [facility] [address] [place] [address] Cardiology Consult Note Signed Patient: Pj Sabillon MR#: [id number] : 1970 Acct:[id number] Age/Sex: 51 / M Adm Date: 2 Loc: Room: [address] [place] [address] Type : ADM IN Attending Dr: Emma [...] longstanding smoking/tobacco abuse who presented to the [place] emergency department yesterday evening complaining of heartburn. The patient states that his symptoms started 3 to 4 hours prior to presenting to [place] emergencydepartment. He describes his symptoms as a burning type sensation in the mid chest with associated nausea. There was no associated dyspnea, diaphoresis, norradiation of the pain. In the emergency department at [place] and ECG was taken which showed mild [...] patient per my recommendation was brought from [place] to [facility] and admitted to the ICU. He was [...] Lymph # (Auto) 1.5 1.6 (1.00-4.8) x10E3/uL [place] # (Auto) 1.3 H 1.6 H (0.0-0.8) [...] By: <Electronically signed by Myles Velarde MD> 10/13/210 [facility] Work Phone: 1([phone]) 288-282406-23-2022 [facility] History and physical note Author Kobe Mandujano [facility] October 13, 2021 4:08am Note Date/Time October 12, 2021 11:2 5pm [facility] [address] [place] [address] Hospitalist H&P Signed Patient: jP Sabillon MR#: [id number] : 1970 Acct:[id number] Age/Sex: 51 / M Adm Date: 2 Loc: Room: [address] [place] [address] Type : ADM IN Attending Dr: Emma [...] convinced by his sister to go to [facility]. Of note, he states he had previoushistory of rib fractures in associated area that have caused him chronic soreness in the left upper chest and states that the soreness he felt today was significantly more than usual. Upon arrival at [facility] his initial vitals were blood pressure [...] of 27.9. Patient was then transferred to [facility], after discussing case with Dr. Velarde (yarn preparation supervisor) who requested patient to be placed on [...] % (Auto) 8.2 % (.) 10/12/21 23:04 [place] % (Auto) 7.1 % (.) 10/12/21 23:04 Eos % (Auto) 0.4 % (.) 10/12/21 23:04 Baso % (Auto) 0.7 % (.) 10/12/21 23:04 Neut # (Auto) 15.4 x10E3/uL (1.8-7.7) H 10/12/21 23:04 Lymph # (Auto) 1.5 x10E3/uL (1.00-4.8) 10/12/21 23:04 [place] # (Auto) 1.3 x10E3/uL (0.0-0.8) H 10/12/21 [...] the plan of care and confirmed the resident's/internal audit consultant/medical student's dictation/written note. Patient is a 51-year-old [...] to be in NSTEMI for which her greenhouse transplanter was contacted and they recommended for the patient to be on heparindrip/nitro drip and to transfer [facility], on my encounter the patient was in [...] 10/12/21 2321 Signed By: <Electronically signed by RES Dewayne Pettit> 10/12/21 2343 <Electronically signed by Kobe Sanchez MD> 10/13/21 0408 [facility] Work Phone: Evaluation note* Diagnosis Onset Date Resolution Status Hypertension acute NSTEMI (non-ST elevated myocardial infarction) acute [facility] Work Phone: Evaluation noteNo InformationNort J[employer] Other Evaluation noteNo assessment information available [facility] Work Phone: Evaluation note* Diagnosis Coronary artery disease involving [place] coronary artery of [place] heart without angina pectoris History of PTCA Postsurgical percutaneous transluminal coronary angioplasty status Mixed hyperlipidemia Hypertension, benign Essential hypertension, benign Subsequent non-ST elevation (NSTEMI) myocardial infarction (Multi) BMI 25.0-25.9,adult Former smoker Personal history of tobacco use, presenting hazards to health documented in this encounter [facility] Work Phone: Evaluation note* Diagnosis Onset Date Resolution Status ASHD (arteriosclerotic heart disease) acute LEONID (generalized anxiety disorder) acute Hypercholesterolemia acute Hypertension acute Nicotine addiction acute Pulmonary nodule acute Renal cyst, acquired, left a cute Wellness examination noneact [facility] Work Phone: Evaluation note* Diagnosis Onset Date Resolution Status ASHD (arteriosclerotic heart disease) acute LEONID (generalized anxiety disorder) acute Hypercholesterolemia acute Hypertension acute Nicotine addiction acute Renal cyst, acquired, left a cute Wellness examination noneact [facility] Work Phone: History general Narrative - Reported* Type Description Date Medical History H/O [facility] WITH CARDIAC STENTING X3 Medical History HYPERLIPIDEMIA Medical History CAD Medical History HYPERTENSION Surgical History CARDIAC STENTING X3 2021 Surgical History LITHOTRIPSY KIDNEY STONES 1989 Surgical History RIGHT FOREARM TENDON REPAIR 199 3 Hospitalization History 1) [facility] WITH CARDIAC STENT ING 09/2021 [facility] Other [facility] general Narrative - Reported* Type Description Date Medical History H/O VA WITH CARDIAC STENTING X3 Medical History HYPERLIPIDEMIA Medical History CAD Medical History HYPERTENSION Medical History Cyst on kidney Surgical History CARDIAC STENTING X2021 Surgical History LITHOTRIPSY KIDNEY STONES 1989 Surgical History RIGHT FOREARM TENDON REPAIR 199 3 Hospitalization History 1) [facility] WITH CARDIAC STENT ING 09/2021 [facility] Other [facility] Narrative - Reported* Type Description Date Medical History H/O VA WITH CARDIAC STENTING X3 Medical History HYPERLIPIDEMIA Medical History CAD Medical History HYPERTENSION Medical History Cyst on kidney Medical History psoriasis Surgical History CARDIAC STENTING X3 2021 Surgical History LITHOTRIPSY KIDNEY STONES 1989 Surgical History RIGHT FOREARM TENDON REPAIR 199 3 Hospitalization History 1) [facility] WITH CARDIAC STENT ING 09/2021 [facility] Other [facility] general Narrative - Reported* Type Description Date Medical History H/O VA WITH CARDIAC STENTING X3 Medical History HYPERLIPIDEMIA Medical History CAD Medical History HYPERTENSION Medical History Cyst on kidney, (hemorrhagic cys t) Medical History psoriasis Surgical History CARDIAC STENTING X2021 Surgical History LITHOTRIPSY KIDNEY STONES 1989 Surgical History RIGHT FOREARM TENDON REPAIR 199 3 Hospitalization History 1) [facility] WITH CARDIAC STENT ING 09/2021 [facility] Other History general Narrative - Reported* Type Description Date Medical History H/O VA WITH CARDIAC STENTING X3 Medical History HYPERLIPIDEMIA Medical History CAD Medical History HYPERTENSION Medical History Cyst on kidney, (hemorrhagic cys t) Medical History psoriasis Medical History [facility] Surgical History CARDIAC STENTING X3 2021 Surgical History LITHOTRIPSY KIDNEY STONES 1989 Surgical History RIGHT FOREARM TENDON REPAIR 199 3 Hospitalization History 1) [facility] WITH CARDIAC STENT ING 09/2021 [facility] Other Reason for referral (narrative)* Consultation (Routine) - Authorized Specialty Diagnoses / Procedures Referred By Deborah fairbanks Referred To Contact Cardiology Diagnoses Coronary artery disease involving [place] coronary artery of [place] heart without angina pectoris Procedures Follow Up In Cardiology Denis Fernandez DO [address] [facility] 2, [address] [address] Denis Fernandez DO [address] [facility], [address] [place] [address] Referral ID Status Reason Start Date Expiration Date V isits Requested Visits Authorized [id number] Authorized 08/08/2023 08/07/2024 1 1 [facility] Work Phone: Chief Complaint and Reason for Visit Chief Complaint Non Stemi Reason for Visit Hypertension NSTEMI (non-ST elevated myocardial infarction) Chief Complaint smoking cessation Chief Complaint smoking cessation r91.1 Chief Complaint r91.1 smoking cessation n28.89 Chief Complaint 6 Month Follow Up Chief Complaint Poss [facility] Smoking F/U Nicotine Abuse R91.1 Chief Complaint Poss [facility] Smoking F/U Nicotine Abuse R91.1 n28.1 Chief Complaint R91.1 n28.1 Wellness Reason for Visit ASHD (arteriosclerot ic heart disease) LEONID (generalized anxiety disorder) Hypercholesterolemia Hypertension Nicotine addiction Pulmonary nodule Renal cyst, acquired, left Wellness examination Chief Complaint n28.1 Wellness back pain, nausea Reason for Visit ASHD (arteriosclerot ic heart disease) LEONID (generalized anxiety disorder) Hypercholesterolemia Hypertension Nicotine addiction Renal cyst, acquired, left Wellness examination Family History Relationship Condition Age at Onset Recorded Date/T [...] Unknown Family history of mental disorder Unknown Relationship Condition Age at Onset Recorded Date/T bianca Not Specified Hypertension Unknown Malignant neoplasm Unknown Malignant neoplasm of uterus Unknown sister Schizophrenia Unknown Family history of mental disorder Unknown Not Specified Heart disease Unknown Hypertension Unknown sister Chronic mental illness Unknown Relationship Condition Age at Onset Recorded Date/T bianca Not Specified Hypertension Unknown Malignant neoplasm Unknown Malignant neoplasm of uterus Unknown Heart disease Unknown sister Schizophrenia Unknown Family history of mental disorder Unknown Advance Directives Advance Directive Response Recorded Date/ Time Advance Directives No December 9:48am Advance Directive Response Recorded Date/ Time Advance Directives No December 8:48am Reason for Referral Reason 07/03/22 Patient b maday referred for a left renal mass Diagnosis 1 Left kidney mass (N2 8.89) Referral Organization [facility] Referring Provider First Name Yaya Referring Provider Last Name Torey Referring Provider Specialty Internal Fl dicine Referred Organization Unknown Facility Referred Provider [...] pt is scheduled with Dr. Juarez office Pipe Parraya 07/05/2022 02:46:05 PM >FAXED FIRST REQUEST FOR [...] content) Team Status: Active Member Role Status Dates Yaya Olivo , DO Primary Care Provider Active Team Status: Inactive Member Role Status Dates Yaya Olivo , DO Primary Care Provider Active Doretha Valentino APRN Attending Provider Active Team Status: Inactive Member Role Status Dates Yaya Olivo , DO Primary Care Provider Active Josesito Timmons MD Attending Provider Active Team Status: Active Member Role Status Dates Yaya Olivo , DO Primary Care Provider Active Doretha Valentino APRN Attending Provider Active Team Status: Inactive Member Role Status Dates Yaya Olivo , DO Primary Care Provider Active Kobe Sanchez MD Admit Provider Active Emma Allen MD Attending Provider Active Denis Jung MD Other Provider Active Team Status: Inactive Member Role Status Dates Joanne Holder NP-C Attending Provider Active Team Status: Inactive Member Role Status Dates Yaya Olivo DO Attending Provider Active Sta rt: March 02, 2023 End: March 02, 2023 Team Status: Inactive Member Role Status Dates NORMA Lantigua Attending Provider Active S tart: May 27, 2023 End: May 27, 2023 Team Status: Inactive Member Role Status Dates Doretha Valentino APRN Attending Provider Active Start: June 04, 2023 End: June 04, 2023 Team Status: Active Member Role Status Dates Yaya Olivo DO [...] June 04, 2023 End: June 04, 2023 Battery Test Engineer Relationship Specialty Start Date End Date Yaya Olivo DO [address] [facility] [address] [place] [address] PCP - General Internal Medicine 08/08/23 Denis Fernandez DO [address] [place] [address] [address], [address] [place] [address] Consulting Physician Cardiology 08/08/23 Team Status: Inactive Member Role Status Dates Yaya Olivo DO Primary Care Provider Active Start: August 14, 2023 End: August 14, 2023 Gary East MD Attending Provider Active Start: August 14, 2023 End: August 14, 2023 Garrett Fernandez DO Other Provider Active Start : August 14, 2023 End: August 14, 2023 Team Status: Active Member Role Status Dates Yaya Olivo , Primary Care Provide r, Attending Provider Active Start: August 27, 2023 Team Status: Inactive Member Role Status Dates Yaya Olivo , DO Primary Care Provide r, Attending Provider Active Start: September 03, 2023 End: September 03, 2023 Team Status: Inactive Member Role Status Dates Yaya Olivo , DO Primary Care Provide r, Attending Provider Active Start: September 28, 2023 End: September 28, 2023 REASON FOR VISIT (unrecogniz ed section [...] and content) DATE CREATED AUTHOR 08/07/2022 [employer] [facility] DATE CREATED AUTHOR AUTHOR'S ORGANIZ ATION 09/04/2022 [facility] DATE CREATED AUTHOR AUTHOR'S ORGANIZ ATION 11/23/2022 [facility] DATE CREATED AUTHOR AUTHOR'S ORGANIZ ATION 11/24/2022 [employer] DATE CREATED AUTHOR AUTHOR'S ORGANIZ ATION 08/09/2023 [facility] tals Ambulatory DATE CREATED AUTHOR AUTHOR'S ORGANIZ ATION 08/21/2023 [facility] FOR RECORDS PERTAINING TO PATIENTS WHO [...] BE BASED ON THE PRIMARY CLINICAL RECORDS. [facility] [employer] provides no warranty or guarantee of the accuracy or completeness of information in this document.
--- NOTE | 2023-09-29 09:48 | CT_ITS ---
[address] [address] Patient Name: ART SABILLON MRN: [id number] date: 1970 Sex: M Assigned Patient Location: CT Current Patient Location: Accession/Order Number: [id number] Exam Date: 09/29/2023 09:45 Report Date: 09/30/2023 10:05 At the request of: BENI LEMA Procedure: CT abdomen pelvis wo con EXAMINATION: CT abdomen pelvis wo con, 09/29/2023 9:45 AM EDT HISTORY: Gross hematuria COMPARISON: None. TECHNIQUE: CT scan of the abdomen and pelvis was performed without IV contrast. CT dose reduction technique was used, including Automated Exposure Control. FINDINGS: LOWER CHEST: The visualized lungs are clear. LIVER: Unremarkable. GALLBLADDER AND BILIARY SYSTEM: There is cholelithiasis. No intra or extrahepatic biliary ductal dilatation. SPLEEN: The spleen is enlarged measuring 14.9 cm in anterior posterior dimension. PANCREAS: Unremarkable. ADRENAL GLANDS: Unremarkable. KIDNEYS AND URETERS: There is a 5 mm nonobstructing calculus in the lower pole the right kidney. Punctate nonobstructing calculus in the lower pole the right kidney. 2 mm nonobstructing calculus in the lower pole the left kidney. There is a hyperdense lesion in the anterior midpole the left kidney measuring 8 mm. This may represent a hemorrhagic cyst. BLADDER: Unremarkable. GASTROINTESTINAL TRACT: Fluid-filled nondilated small bowel loops noted which may represent enteritis. No evidence of bowel obstruction. Mild to moderate amount of stool in the colon. Normal appendix. VASCULATURE: The abdominal aorta is normal in caliber. RETROPERITONEUM: No lymphadenopathy. PERITONEUM/MESENTERY: No abdominal ascites. No free air. PELVIS: The prostate is mildly enlarged and contains a large calcification centrally. No pelvic ascites or lymphadenopathy. BODY WALL: Unremarkable. BONES: No acute abnormality. CT/CT abdomen pelvis wo con IMPRESSION: 1. Bilateral nephrolithiasis. No hydronephrosis. 2. Fluid-filled nondilated loops of small bowel which may represent enteritis. No evidence of bowel obstruction. 3. Splenomegaly. 4. Mildly enlarged prostate. Electronically authenticated by: IRINA SAUCEDO Date: 09/30/2023 10:05
== END 2023-09-29 09:42 | disposition home or self-care (01) ==
LOC: CT 09:42
PROVIDERS: PCP Internal Medicine; Visit Provider Internal Medicine
DX: R31.0 Gross hematuria (principal); N28.1 Cyst of kidney, acquired; Z87.442 Personal history of urinary calculi; N20.0 Calculus of kidney; R16.1 Splenomegaly, not elsewhere classified; N40.1 Benign prostatic hyperplasia with lower urinary tract symptoms
CPT/HCPCS: 74176

== ENCOUNTER 2024-07-22 08:16 | Outpatient (OUT) | payer MEDICAID, SELFPAY ==
--- OUTSIDE RECORDS SUMMARY | 2024-07-22 08:22 | XMS_ITS | CCD ---
Author Organization [facility] Care Team Providers Care Compliance Review Officer Name Role Phone DO Yaya Lema Primary Care Provider Stas Sanchez MD Hani Admit Provider MD Emma Allen Attending Provider MD Denis Jung Other Provider Doretha Valentino Unavailable Unavailable Unavailable DO Yaya Lema Primary Care Provider CATHERINE Valentino Attending Provider [phone] Yaya Lema E Unavailable DO Yaya Lema Primary Care Provider CATHERINE Valentino Attending Provider Yaya Lema Unavailable DO Yaya Lema Primary Care Provider CATHERINE Valentino Attending Provider [phone] MD Josesito Timmons Attending Provider Lakesha Hatch Attending Unavailable YAYA LEMA Referring Unavailable BALL, DR BAZAN Primary Care Unavailable IAN .ES Admitting Unavailable IAN ., ES Attending Unavailable NENA .ASAF Consulting UnavailLeland Torres Consulting Unavailable IAN .ES Consulting Unavailable TOREY, DR BAZAN Admitting Unavailable BALL, DR BAZAN Attending Unavailable BALL, DR BAZAN Primary Care Unavailable BALL, DR BAZAN Consulting Unavailable TALBOT, DR ARNULFO Dale Admitting Unavailable TALBOT, DR ARNULFO Dale Attending Unavailable BALL, DR BAZAN Primary Care Unavailable TALBOT, DR ARNULFO Dale Consulting Unavailable BALL, DR BAZAN Admitting Unavailable BALL, DR BAZAN Attending Unavailable BALL, DR BAZAN Referring Unavailable BALL, DR BAZAN Primary Care Unavailable BALL, DR BAZAN Consulting Unavailable BALL, DR BAZAN Admitting Unavailable BALL, DR BAZAN Attending Unavailable BALL, DR BAZAN Primary Care Unavailable BALL, DR BAZAN Consulting Unavailable BALL, DR BAZAN Admitting Unavailable BALL, DR BAZAN Attending Unavailable BALL, DR BAZAN Primary Care Unavailable BALL, DR BAZAN Consulting Unavailable Zieber, Abdirahman Consulting Unavailable VIKTOR, DR DENIS Acevedo Admitting Unavailabl e VIKTOR, DR DENIS Acevedo Attending Unavailabl e BALL, DR BAZAN Primary Care Unavailable VIKTOR, DR DENIS Acevedo Consulting Unavailabl e Viktor, Dr. Denis Nieto Referring Unava ilable Torey, Dr. Yaya Michelle Primary Care Sarinai destin Hoang, Dr. Denis Nieto Attending Unava ilable Viktor, Dr. Denis Nieto Referring Unava ilable Torey, Dr. Yaya Michelle Primary Care Sarinai destin oHang, Dr. Denis Nieto Attending Unava ilable DO Yaya Lema Primary Care Provider CATHERINE Valentino Attending Provider NORMA Holder Attending Provider Aleksandra Caal Unavailable DO Yaya Lema Primary Care Provider CATHERINE Valentino Attending Provider Yaya Lema DO Primary Care Provider Denis Hoang DO Unavailable DENIS HOANG Attending Unavailable YAYA LEMA Primary Care Unavailable DO Yaya Lema Primary Care Provider CATHERINE Valentino Attending Provider MD Gary East Attending Provider DO Garrett Hoang Other Provider DO Yaya Lema Primary Care Provider CATHERINE Valentino Attending Provider DO Yaya Lema Primary Care Provider Gary East Attending Provider Yaya Lema Primary Care Unavailable Doretha Valentino Admitting Unavailable Doretha Valentino Attending Unavailable Ball, Yaya Primary Care Unavailable Missler, Doretha R Admitting Unavailable Missler, Doretha R Attending Unavailable Garrett Hoang Consulting Unavailable Cruzito, Gary Admitting Unavailable Cruzito, Gary Attending Unavailable Ball, Yaya Primary Care Unavailable Ball, Yaya Primary Care Unavailable Cruzito, Gary Admitting Unavailable Cruzito, Gary Attending Unavailable Gallo, Joanne A Admitting Unavailable Gallo, Joanne A Attending Unavailable Ball, Yaya Primary Care Unavailable Missler, Doretha R Admitting Unavailable Missler, Doretha R Attending Unavailable Cruzito, Gary Attending Unavailable Ball, Yaya Primary Care Unavailable Cruzito, Gary Admitting Unavailable BALL, YAYA Primary Care Unavailable BALL, YAYA Primary Care Unavailable CRUZITO, GARY M Attending Unavailable CRUZITO, GARY M Admitting Unavailable Ball Yaya MACHADO Primary Care Provider BALL, YAYA Primary Care Unavailable CRUZITO, GARY M Referring Unavailable CRUZITO, GARY M Referring Unavailable BALL, YAYA Primary Care Unavailable CRUZITO, GARY M Referring Unavailable BALL, YAYA Primary Care Unavailable CRUZITO, GARY M Referring Unavailable BALL, YAYA Primary Care Unavailable DURIVAGE, RAMYA Referring Unavailable BALL, YAYA Primary Care Unavailable CRUZITO, GARY M Referring Unavailable BALL, YAYA Primary Care Unavailable CRUZITO, GARY M Referring Unavailable BALL, YAYA Primary Care Unavailable DURIVAGE, RAMYA Referring Unavailable BALL, YAYA Primary Care Unavailable DURIVAGE, RAMYA Referring Unavailable BALL, YAYA Primary Care Unavailable DURIVAGE, RAMYA Referring Unavailable BALL, YAYA Primary Care Unavailable DURIVAGE, RAMYA Referring Unavailable BALL, YAYA Primary Care Unavailable CRUZITO, GARY M Referring Unavailable BALL, YAYA Primary Care Unavailable CRUZITO, GARY M Referring Unavailable BALL, YAYA Primary Care Unavailable CRUZITO, GARY M Referring Unavailable BALL, YAYA Primary Care Unavailable Allergies Allergy Classification Reported Allergen(s) Allergy Type Date of Onset Reaction(s) Facility (5 sources) patient allergy list reviewed by nurse or physicia Propensity to adverse reactions 6 Comment:Done [employer] Other (5 sources) Allergies Reconciled Propensity to adverse reactions Unknown [employer] Other Medications Current Medications Medication Drug Class(es) Dates Sig (Normalized) Sig (Original) acetaminophen 325 mg oral tablet (1 source) Start: 11-13-2023 End: 11-14-2023 acetaminophen (TYLENOL) tablet 650 mg acetaminophen 325 mg / HYDROcodone bitartrate 5 mg oral tablet (1 source) Opioid Agonist Start: 11-13-2023 End: 11-20-2023 HYDROcodone-acetami nophen (NORCO) 5-325 MG per tablet Indications: Ureteral stone Take 1 tablet by mouth every 6 hours as needed for Pain for up to 7 days. Intended supply: 7 days. Take lowest dose possible to manage pain Max Daily Amount: 4 tablets 28 tablet 0 11/13/2023 11/20/2023 Active aspirin 81 mg chewable tablet (20 sources) Platelet Aggregation Inhibitor, Nonsteroidal Anti-inflammatory Drug Start: 10-18-2021 take 1 tablet by mouth once aspirin 81 MG chewable tablet Take 1 tablet by mouth once 10/18/2021 Active Start: 10-13-2021 take 81 mg by mouth once daily Aspirin Active 81 MG PO Daily 90 90 October 13, 2021 12:00am Aspirin 81 MG Or al Tablet Chewable TAKE 1 TABLET Quantity: 90 Refills: 3 Ordered: 22-Nov-2022 Denis Hoang DO Active atorvastatin 40 mg oral tablet (20 sources) HMG-CoA Reductase Inhibitor Start: 10-13-2021 take 1 tablet by mouth once daily atorvastatin (LIPITOR) 40 MG tablet Take 1 tablet by mouth nightly 07/04/2022 Active busPIRone hydrochloride 15 mg oral tablet (20 sources) Start: 08-30-2023 take 1 tablet by mouth twice daily busPIRone (BUSPAR) 15 MG tablet Take 15 mg by mouth 2 times daily 08/30/2023 Active Start: 11-11-2021 End: 11-13-2023 take 1 tablet by mouth twice daily busPIRone (BUSPAR) 10 MG tablet TAKE 1 TABLET BY MOUTH TWICE A DAY FOR 30 DAYS 0 06/14/2022 11/13/2023 Discontinued (Stop Taking at Discharge) Start: 11-11-2021 take 1 tablet by indy twice daily as needed for anxiety busPIRone HCl 7.5 MG 1 tablet Orally Twice a day as needed for anxiety for 15 days Oct, Active take 2 tablets by mo [facility] twice daily busPIRone (Buspar) 7.5 mg tablet Take 2 tablets (15 mg) by mouth 2 times a day. Active take 1 tablet by indy th twice daily busPIRone HCl 15 MG TAKE 1 TABLET BY MOUTH TWICE A DAY for 90 Active take 1 tablet by indy once daily busPIRone HCl - 15 MG Oral Tablet TAKE 1 TABLET EVERY 12 HOURS DAILY. Quantity: 0 Refills: 0 Ordered: 22-Nov-2022 DO Active cephalexin 500 mg oral capsule (12 sources) Cephalosporin Antibacterial Start: 11-13-2023 take 1 capsule by mouth three times daily cephALEXin (KEFLEX) 500 MG capsule Take 1 capsule by mouth 3 times daily 15 capsule 11/13/2023 Active Start: 10-12-2022 take 1 tablet by [facility] three times daily Cephalexin 500 MG 1 tablet Orally three times daily for 14 days Sep, Not-Taking 1 ml diphenhydrAMINE hydrochloride 50 mg/ml cartridge (1 source) Histamine-1 Receptor Antagonist Start: 11-13-2023 End: 11-14-2023 diphenhydrAMINE (BENADRYL) injection 12.5 mg 1 ml fentaNYL 0.05 mg/ml injection (1 source) Opioid Agonist Start: 11-13-2023 fentaNYL (SUBL IMAZE) injection 25 mcg fluocinolone acetonide 0.1 mg/ml topical oil (8 sources) Corticosteroid Rhine-Smoothe/FS Body 0.01 % 1 application Externally PRN for 30 days Active Rhine-Smoothe/FS Body 0.01 % External for 30 Days Active 1 ml HYDROmorphone hydrochloride 1 mg/ml cartridge (1 source) Opioid Agonist Start: 11-13-2023 HYDROmorphone (DILAUDID) injection 0.5 mg labetalol (NORMODYNE;TRANDATE) injection 10 mg (1 source) Start: 11-13-2023 labetalol (NORMODYNE;TRANDATE) injection 10 mg 1 ml meperidine hydrochloride 25 mg/ml cartridge (1 source) Opioid Agonist Start: 11-13-2023 meperidine (DEMEROL) injection 12.5 mg 2 ml metoclopramide 5 mg/ml prefilled syringe (1 source) Dopamine-2 Receptor Antagonist Start: 11-13-2023 End: 11-14-2023 metoclopramide (REGLAN) injection 10 mg metoprolol tartrate 25 mg oral tablet (20 [...] 04/06/2022 08/08/2023 Discontinued (Duplicate order) Start: 10-13-2021 metoprolol tar trate (LOPRESSOR) 25 MG tablet 07/17/2022 Active Metoprolol Tartr ate 25 MG one half Orally daily Active naloxone 0.4 mg in 10 mL sodium chloride syringe (1 source) Start: 11-13-2023 naloxone 0.4 mg in 10 mL sodium chloride syringe 24 hr nicotine 0.292 mg/hr transdermal system [...] tablet (20 sources) Nitrate Vasodilator Start: 10-13-2021 nitroGLYCE RIN (NITROSTAT) 0.4 MG SL tablet Q5M 10/13/2021 Active Start: 10-13-2021 Nitroglycerin Active 0.4 MG SUBLINGUAL Q5M October 13, 2021 12:00am Nitroglycerin 0. 4 MG as directed Sublingual Once a day Active 2 ml ondansetron 2 mg/ml injection (1 source) Serotonin-3 Receptor Antagonist Start: 11-13-2023 End: 11-14-2023 ondansetron (ZOFRAN) injection 4 mg predniSONE 10 mg oral tablet (14 sources) [...] 3 days for 9 days Oct, Not-Taking 5 ml sodium chloride 9 mg/ml injection (3 sources) Start: 11-13-2023 sodium chlorid e flush 0.9 % injection 5-40 mL Start: 11-13-2023 0.9 % sodium c hloride infusion Start: 11-13-2023 sodium chlorid e flush 0.9 % injection 5-40 mL tamsulosin hydrochloride 0.4 mg oral capsule (12 sources) alpha-Adrenergic Amee Start: 10-22-2023 take 1 capsule by mouth once daily at bedtime Tamsulosin Active 0 .ROUTE .COMPLEX 90 October 22, 2023 5:19pm TAKE 1 CAPSULE BY MOUTH EVERY DAY AT BEDTIME Start: 09-28-2023 End: 10-22-2023 tamsulosin (FLOMAX) 0.4 MG c apsule Daily at bedtime 09/28/2023 Active Completed/Discontinued Medications Medication Drug Class(es) Dates Sig (Normalized) Sig (Original) doygp-n-mrkqwshwskli e enzyme 150 unt oral tablet (1 source) Beano TABS USE DIRECTED. Quantity: 0 Refills: 0 Ordered: 22-Nov-2021 DO Active 12 hr buPROPion hydrochloride 150 mg extended release oral tablet (5 sources) Aminoketone take 1 tablet by mouth twice daily buPROPion HCl ER (SR) 150 MG one tablet Orally Twice a day for 30 day(s) Not-Taking calcium chloride 0.0014 meq/ml / potassium chloride 0.004 meq/ml / sodium chloride 0.103 meq/ml / sodium lactate 0.028 meq/ml injectable solution (1 source) Start: 11-13-2023 End: 11-13-2023 lactated ringers IV soln infusion ciprofloxacin 3 mg/ml ophthalmic solution (2 sources) Quinolone Antimicrobial Start: 05-27-2023 take 1 drop(s) into the eye(s) every four hours as needed Ciloxan 0.3 % 1 drop each eye every 4 hrs for 5 day(s) May, Not-Taking/PRN gadoteridol (PROHANCE) injection 15 mL (1 source) Start: 03-10-2024 End: 03-10-2024 take 1 dose intravenously once 15 mL, IntraVENous, IMG ONCE PRN, 1 dose, Starting on Sun03/10/24 at 1013, Until Sun03/10/24 at 1014, Other iopamidol (ISOVUE-370) 76 % injection 120 mL (2 sources) Start: 05-02-2024 End: 05-02-2024 take 1 dose intravenously once 120 mL, IntraVENous, IMG ONCE PRN, 1 dose, Starting on Sun05/02/24 at 1538, Until Sun05/02/24 at 1539, Other Start: 10-24-2023 End: 10-24-2023 iopamidol (ISOVUE-370) 76 % injection 120 mL 10 ml lidocaine hydrochloride 10 mg/ml injection (1 source) Antiarrhythmic, Amide Local Anesthetic Start: 11-13-2023 End: 11-13-2023 lidocaine PF 1 % injection 1 mL ticagrelor 90 mg oral tablet (20 sources) Start: 10-13-2021 End: 09-03-2023 take 1 tablet by mouth twice daily Ticagrelor (Brilinta) 90 mg Tablet Discontinued 90 MG PO Twice daily 180 90 October 13, 2021 12:00am September 03, 2023 3:53pm Problems Active Problems Problem Classification Problem Date Documented Date Episodic/Chronic Acute and unspecified renal failure (12 sources) Injury of kidney; Translations: [Acute kidney failure, unspecified] 10-14-2021 Episodic Acute myocardial infarction (20 sources) Myocardial infarction; Translations: [Non-ST elevation (NSTEMI) myocardial infarction] Onset: 10-20-2021 Resolved: 11-23-2021 10-12-2021 Chronic Administrative/social admission (1 source) Persons encountering health services in other specified circumstances Episodic Anxiety disorders (20 sources) Anxiety; Translations: [Anxiety disorder, unspecified] Onset: 11-09-2021 Resolved: 11-23-2021 Chronic Calculus of urinary tract (12 sources) History of calculus of kidney; Translations: [Personal history of urinary calculi] Onset: 10-08-2023 09-28-2023 Episodic Coronary atherosclerosis and other heart disease (20 sources) Coronary arteriosclerosis; Translations: [Coronary atherosclerosis of unspecified type of vessel, [place] or graft] Onset: 04-01-2022 Chronic Coronary atherosclerosis [...] [Essential (primary) hypertension] Onset: 10-14-2021 10-12-2021 Chronic Genitourinary symptoms and ill-defined conditions (5 sources) Mani hematuria; Translations: [Gross hematuria] Onset: 05-02-2024 09-28-2023 Episodic Inflammation; infection of eye (except that caused [...] Chronic Other diseases of kidney and ureters (9 sources) Cyst of kidney, acquired; Translations: [Cyst of kidney, acquired] Onset: 08-14-2023 Episodic Other diseases of kidney and ureters (3 sources) Acquired renal cystic disease; Translations: [Cyst of kidney, acquired] 09-01-2023 Episodic Other diseases of kidney and ureters (1 source) Cyst of kidney; Translations: [Cyst of kidney, acquired] 03-10-2024 Episodic Other diseases of kidney and ureters (2 sources) Complex renal cyst; Translations: [Cyst of kidney, acquired] 03-10-2024 Episodic Other liver diseases (12 sources) Elevated liver enzymes level; Translations: [Abnormal levels of other serum enzymes] 10-14-2021 Episodic Other lower respiratory disease (20 sources) Nodule of lung; Translations: [Solitary pulmonary nodule] 09-01-2023 Episodic Other nutritional; endocrine; and metabolic disorders [...] nutritional; endocrine; and metabolic disorders (2 sources) Weight loss; Translations: [Abnormal weight loss] 09-14-2023 [...] cigarettes, uncomplicated] Onset: 10-14-2021 Resolved: 12-28-2021 Chronic Superficial injury; contusion (4 sources) Metal foreign body in eye region; Translations: [Superficial foreign body of unspecified eyelid and periocular area, initial encounter] Onset: 03-10-2024 03-10-2024 Episodic Unclassified (1 source) CONTACT W/AND (SUSP) EXPOS COVID-19; Translations: [CONTACT W/AND (SUSP) EXPOS COVID-19] Onset: 10-14-2021 Unclassified (1 source) Cyst of kidney, acquired; Translations: [Cyst of kidney, acquired] Onset: 02-07-2023 Past or Other Problems Problem Classification Problem Date Documented Da te Episodic/Chronic Allergic reactions (4 sources) Allergic contact dermatitis due to plants, except food; Translations: [Other specified dermatitis] Onset: 12-05-2022 Episodic Other lower respiratory disease (8 sources) Solitary pulmonary nodule; Translations: [Solitary pulmonary nodule] Onset: 06-11-2023 Episodic Urinary tract infections (2 sources) Urinary tract infection, site not specified; Translations: [Urinary tract infection, site not specified] Onset: 11-01-2023 Episodic Results Test Name Value Interpretation Reference Range Facility XR ABDOMEN (KUB) (SINGLE AP VIEW)on 05-30-2024 XR ABDOMEN (KUB) (SINGLE AP VIEW) EXAMINATION: ONE SUPINE XRAY VIEW(S) OF THE ABDOMEN 05/28/2024 2:26 pm COMPARISON: March 10, 2024 HISTORY: ORDERING SYSTEM PROVIDED HISTORY: Bilateral kidney stones TECHNOLOGIST PROVIDED HISTORY: BILATERAL STONES, CONSIDER eswl FINDINGS: Bowel gas pattern nonobstructed. Renal shadows partially obscured by bowel gas and fecal debris. 5 mm bilateral nephrolithiasis. No definite ureteral stones. Prostate calcification noted no acute osseous abnormality. IMPRESSION: Bilateral nephrolithiasis Interpreted by: Carmine Manley DO Signed by: Carmine Manley DO 05/30/24 Final result Normal [facility] XR Abdomen Single viewon Bilateral nephrolithiasis [facility] EXAMINATION: ONE SUPINE XRAY VIEW(S) OF THE ABDOMEN 05/28/2024 2:26 pm COMPARISON: March 10, 2024 HISTORY: ORDERING SYSTEM PROVIDED HISTORY: Bilateral kidney stones TECHNOLOGIST PROVIDED HISTORY: BILATERAL STONES, CONSIDER eswl FINDINGS: Bowel gas pattern nonobstructed. Renal shadows partially obscured by bowel gas and fecal debris. 5 mm bilateral nephrolithiasis. No definite ureteral stones. Prostate calcification noted no acute osseous abnormality. [facility] Carmine Manley D O - 05/30/2024 EXAMINATION: ONE SUPINE XRAY VIEW(S) OF THE ABDOMEN 05/28/2024 2:26 pm COMPARISON: March 10, 2024 HISTORY: ORDERING SYSTEM PROVIDED HISTORY: Bilateral kidney stones TECHNOLOGIST PROVIDED HISTORY: BILATERAL STONES, CONSIDER eswl FINDINGS: Bowel gas pattern nonobstructed. Renal shadows partially obscured by bowel gas and fecal debris. 5 mm bilateral nephrolithiasis. No definite ureteral stones. Prostate calcification noted no acute osseous abnormality. IMPRESSION: Bilateral nephrolithiasis [facility] Single viewOrdere d By: Carmine Manley on 05-30-2024 [facility] Work Phone: XR Abdomen Single viewon Radiology Study observation (narrative) [facility] PTH, [place] 05-09-2024 Parathyrin.intact [Mass/Vol] 39.0 pg/mL 15 - 65 pg/mL [facility] PTH, Intact 39.0 pg/mL Normal 15-65 [facility] Comment on above: Performed By: #### B MP, URI #### [facility] [address] [place] [address] [employer]er: Zac Zee MD #### PTHNCA #### [facility] [address] [place] [address] [employer]: Pb Parikh MD Basic Metabolic Panelon 04-23 Anion gap [Moles/Vol] 9 mmol/L 9 - 16 mmol/L [facility] Calcium [Mass/Vol] 9.3 mg/dL 8.6 - 10. 4 mg/dL [facility] Chloride [Moles/Vol] 106 mmol/L 98 - 10 7 mmol/L [facility] CO2 [Moles/Vol] 26 mmol/L 20 - 31 mmol/L [facility] Creatinine [Mass/Vol] 1.0 mg/dL 0.70 - 1.20 mg/dL [facility] Est, Glom Filt Rate 86 - PINF [facility] Comment on above: These results are not intended for use in patients <18 years of age. eGFR results are calculated without a race factor using the 2020 CKD-EPI equation. Careful clinical correlation is recommended, particularly when comparing to results calculated using previous equations. The CKD-EPI equation is less accurate in patients with extremes of muscle mass, extra-renal metabolism of creatine, excessive creatine ingestion, or following therapy that affects renal tubular secretion. Glucose [Mass/Vol] 82 mg/dL 74 - 99 mg/dL [facility] Potassium [Moles/Vol] 4.3 mmol/L 3.7 - 5.3 mmol/L [facility] Sodium [Moles/Vol] 141 mmol/L 136 - 145 mmol/L [facility] Urea nitrogen [Mass/Vol] 19 mg/dL 6 - 20 mg/dL [facility] Urea nitrogen/Creatinine [Mass ratio] 19 mg/mg 9 - 20 [facility] Basic Metabolic Profon 05-08 Anion gap [Moles/Vol] 9 mmol/L Normal -16 [facility] Comment on above: Performed By: #### B GALA, URI #### [facility] [address] [place] [address] [place] [address] [employer]: Zac Zee MD #### PTHNCA #### [facility] [address] [place] [address] [employer]er: Pb Parikh MD BUN/CRE Ratio 19 Normal 9- [facility] Comment on above: Performed By: #### B GALA, URI #### [address] [place] [address] [employer]er: Zac Zee MD #### PTHNCA #### [facility] [address] [place], [place] [id number] [employer]er: Pb Parikh MD Calcium [Mass/Vol] 9.3 mg/dL Normal 8.6-10.4 [facility] Comment on above: Performed By: #### B GALA, URI #### [address] [place] [address] [employer]er: Zac Zee MD #### PTHNCA #### [id number] [place], [place] [id number] [employer]er: Pb Parikh MD Chloride [Moles/Vol] 106 mmol/L Normal 98-107 [facility] Comment on above: Performed By: #### B GALA, URI #### [facility] [address] [place] [address] [place] [address] [employer] Pr[employer]er: Zac Zee MD #### PTHNCA #### [address] [id number] [employer]er: Pb Parikh MD CO2 [Moles/Vol] 26 mmol/L Normal 20-31 [facility] Comment on above: Performed By: #### Fernando CEDEÑO, URI #### [address] [place] [id number] [employer]er: Zac Zee MD #### PTHNCA #### [address] [id number] [employer]er: Pb Parikh MD Creatinine [Mass/Vol] 1.0 mg/dL Normal 0.70-1.20 [facility] Comment on above: Performed By: #### Fernando CEDEÑO, URI #### [facility] [address] [place] [address] [place] [address] [employer] Pruner: Zac Zee MD #### PTHNCA #### [address] [id number] [employer]er: Pb Parikh MD GFR/1.73 sq M.predicted among non-blacks MDRD (S/P/Bld) [Vol rate/Area] 86 mL/min/{1.73_m2} Normal >60 [facility] Comment on above: Result Comment: These results are not intended for use in patients <18 years of age. eGFR results are calculated without a race factor using the 2020 CKD-EPI equation. Careful clinical correlation is recommended, particularly when comparing to results calculated using previous equations. The CKD-EPI equation is less accurate in patients with extremes of muscle mass, extra-renal metabolism of creatine, excessive creatine ingestion, or following therapy that affects renal tubular secretion. Performed By: #### B GALA, URI #### [facility] [address] [place] [address] [place] [address] [employer] Pr[employer]er: Zac Zee MD #### PTHNCA #### [address] [id number] [employer]er: Pb Parikh MD Glucose [Mass/Vol] 82 mg/dL Normal 74-99 [facility] Comment on above: Performed By: #### B GALA, URI #### [address] [place], [place] [id number] [employer]er: Zac Zee MD #### PTHNCA #### [address] [address] [employer]er: Pb Parikh MD Potassium [Moles/Vol] 4.3 mmol/L Normal 3.7-5.3 [facility] Comment on above: Performed By: #### B GALA, URI #### [address] [place], [place] [id number] [employer] Pr[employer]er: Zac Zee MD #### PTHNCA #### [address] [id number] [employer]er: Pb Parikh MD Sodium [Moles/Vol] 141 mmol/L Normal 136-145 [facility] Comment on above: Performed By: #### B GALA, URI #### [address] [place], [place] [id number] [employer]er: Zac Zee MD #### PTHNCA #### [address] [id number] [employer] Pr[employer]er: Pb Parikh MD Urea nitrogen [Mass/Vol] 19 mg/dL Normal 6-20 [facility] Comment on above: Performed By: #### B GALA, URI #### [facility] [address] [place] [address] [employer] Pr[employer]er: Zac Zee MD #### PTHNCA #### [facility] [address] [place], [place] [id number] [employer]er: Pb Parikh MD No Panel Informationon 05-08 [facility] Uric Acidon 05-08-2024 Urate [Mass/Vol] 5.5 mg/dL 3.4 - 7.0 mg/dL [facility] Urate [Mass/Vol] 5.5 mg/dL Normal 3.4-7.0 [facility] Comment on above: Performed By: #### B GALA, URI #### [facility] [address] [place] [address] [employer]: Zac Zee MD #### PTHNCA #### [id number] [place] [address] [employer]: Pb Parikh MD CT UROGRAMon 05-03-2024 CT UROGRAM EXAMINATION: CT UROGRAM 05/02/2024 3:39 pm TECHNIQUE: CT of the abdomen and pelvis was performed before and after the administration of intravenous contrast as per CT urogram protocol. Multiplanar reformatted images as well as MIP urogram images are provided for review. Dose modulation, iterative reconstruction, and/or weight based adjustment of the mA/kV was utilized to reduce the radiation dose to as low as reasonably achievable. COMPARISON: CT urogram 10/24/2023. MRI abdomen 03/10/2024. HISTORY: ORDERING SYSTEM PROVIDED HISTORY: Gross hematuria TECHNOLOGIST PROVIDED HISTORY: STAT Creatinine as needed:->No FINDINGS: Lung Bases: No focal consolidation. Scattered calcified granulomas.. Inferior Mediastinum: Borderline cardiomegaly. Coronary artery calcifications present.. Liver: Normal size and morphology. . Gallbladder: Single layering calcified gallstone within the gallbladder lumen. No pericholecystic fluid or gallbladder wall thickening.. Biliary System: Unremarkable.. Pancreas: Normal.. Spleen: Splenomegaly.. Adrenals: Normal. Kidneys: Unchanged appearance of bilateral renal cysts. Similar appearance although increased size of 9 mm cystic structure within the at the superior pole left kidney. There appears to be mild enhancement present similar to the adjacent renal parenchyma. Mild adjacent inflammatory change within the perinephric fat. Given susceptibility on prior MRI imaging findings favor small hemorrhagic cyst. Nonobstructing nephroliths at the inferior pole the bilateral kidneys measuring up to 7 mm on the left and 5 mm on the right. No hydronephrosis.. Ureters: Normal course and caliber bilaterally. . Bladder: Normal. . Pelvis: No pelvic masses. Prostatic enlargement with calcifications present. No abnormal pelvic fluid.. Stomach: Normal. Duodenum: Normal. Small Bowel: Normal. Colon: Normal. Appendix: Normal. Lymph Nodes: No lymphadenopathy. Peritoneum: No ascites or free air. Vessels: Aorta is normal in caliber without acute abnormality.. Abdominal Wall: Normal. Bones: Multilevel degenerative change of the spine. Mild increased sclerosis and thickening of the trabecula of the left ilium.. IMPRESSION: 1. Similar appearance although increased size of 9 mm cystic structure within the superior pole left kidney. Given susceptibility on prior MRI imaging findings favor small hemorrhagic cyst. Consider follow-up imaging in 6-12 months. 2. Nonobstructing nephroliths at the inferior pole the bilateral kidneys measuring up to 7 mm on the left and 5 mm on the right. No hydronephrosis. 3. Cholelithiasis without evidence of acute cholecystitis. 4. Splenomegaly. 5. Mild increased sclerosis and thickening of the trabecula of the left ilium. Findings are nonspecific and may be related to Paget's disease. Recommend correlation with PSA. Interpreted by: Merlin Mahmood DO Signed by: Merlin Mahmood DO 05/03/24 Final result Normal [facility] 1. Similar appearanc e although increased size of 9 mm cystic structure within the superior pole left kidney. Given susceptibility on prior MRI imaging findings favor small hemorrhagic cyst. Consider follow-up imaging in 6-12 months. 2. Nonobstructing nephroliths at the inferior pole the bilateral kidneys measuring up to 7 mm on the left and 5 mm on the right. No hydronephrosis. 3. Cholelithiasis without evidence of acute cholecystitis. 4. Splenomegaly. 5. Mild increased sclerosis and thickening of the trabecula of the left ilium. Findings are nonspecific and may be related to Paget's disease. Recommend correlation with PSA. [facility] EXAMINATION: CT UROGRAM 05/02/2024 3:39 pm TECHNIQUE: CT of the abdomen and pelvis was performed before and after the administration of intravenous contrast as per CT urogram protocol. Multiplanar reformatted images as well as MIP urogram images are provided for review. Dose modulation, iterative reconstruction, and/or weight based adjustment of the mA/kV was utilized to reduce the radiation dose to as low as reasonably achievable. COMPARISON: CT urogram 10/24/2023. MRI abdomen 03/10/2024. HISTORY: ORDERING SYSTEM PROVIDED HISTORY: Gross hematuria TECHNOLOGIST PROVIDED HISTORY: STAT Creatinine as needed:->No FINDINGS: Lung Bases: No focal consolidation. Scattered calcified granulomas.. Inferior Mediastinum: Borderline cardiomegaly. Coronary artery calcifications present.. Liver: Normal size and morphology. . Gallbladder: Single layering calcified gallstone within the gallbladder lumen. No pericholecystic fluid or gallbladder wall thickening.. Biliary System: Unremarkable.. Pancreas: Normal.. Spleen: Splenomegaly.. Adrenals: Normal. Kidneys: Unchanged appearance of bilateral renal cysts. Similar appearance although increased size of 9 mm cystic structure within the at the superior pole left kidney. There appears to be mild enhancement present similar to the adjacent renal parenchyma. Mild adjacent inflammatory change within the perinephric fat. Given susceptibility on prior MRI imaging findings favor small hemorrhagic cyst. Nonobstructing nephroliths at the inferior pole the bilateral kidneys measuring up to 7 mm on the left and 5 mm on the right. No hydronephrosis.. Ureters: Normal course and caliber bilaterally. . Bladder: Normal. . Pelvis: No pelvic masses. Prostatic enlargement with calcifications present. No abnormal pelvic fluid.. Stomach: Normal. Duodenum: Normal. Small Bowel: Normal. Colon: Normal. Appendix: Normal. Lymph Nodes: No lymphadenopathy. Peritoneum: No ascites or free air. Vessels: Aorta is normal in caliber without acute abnormality.. Abdominal Wall: Normal. Bones: Multilevel degenerative change of the spine. Mild increased sclerosis and thickening of the trabecula of the left ilium.. [facility] Merlin Mahmood DO - 05/03/2024 EXAMINATION: CT UROGRAM 05/02/2024 3:39 pm TECHNIQUE: CT of the abdomen and pelvis was performed before and after the administration of intravenous contrast as per CT urogram protocol. Multiplanar reformatted images as well as MIP urogram images are provided for review. Dose modulation, iterative reconstruction, and/or weight based adjustment of the mA/kV was utilized to reduce the radiation dose to as low as reasonably achievable. COMPARISON: CT urogram 10/24/2023. MRI abdomen 03/10/2024. HISTORY: ORDERING SYSTEM PROVIDED HISTORY: Gross hematuria TECHNOLOGIST PROVIDED HISTORY: STAT Creatinine as needed:->No FINDINGS: Lung Bases: No focal consolidation. Scattered calcified granulomas.. Inferior Mediastinum: Borderline cardiomegaly. Coronary artery calcifications present.. Liver: Normal size and morphology. . Gallbladder: Single layering calcified gallstone within the gallbladder lumen. No pericholecystic fluid or gallbladder wall thickening.. Biliary System: Unremarkable.. Pancreas: Normal.. Spleen: Splenomegaly.. Adrenals: Normal. Kidneys: Unchanged appearance of bilateral renal cysts. Similar appearance although increased size of 9 mm cystic structure within the at the superior pole left kidney. There appears to be mild enhancement present similar to the adjacent renal parenchyma. Mild adjacent inflammatory change within the perinephric fat. Given susceptibility on prior MRI imaging findings favor small hemorrhagic cyst. Nonobstructing nephroliths at the inferior pole the bilateral kidneys measuring up to 7 mm on the left and 5 mm on the right. No hydronephrosis.. Ureters: Normal course and caliber bilaterally. . Bladder: Normal. . Pelvis: No pelvic masses. Prostatic enlargement with calcifications present. No abnormal pelvic fluid.. Stomach: Normal. Duodenum: Normal. Small Bowel: Normal. Colon: Normal. Appendix: Normal. Lymph Nodes: No lymphadenopathy. Peritoneum: No ascites or free air. Vessels: Aorta is normal in caliber without acute abnormality.. Abdominal Wall: Normal. Bones: Multilevel degenerative change of the spine. Mild increased sclerosis and thickening of the trabecula of the left ilium.. IMPRESSION: 1. Similar appearance although increased size of 9 mm cystic structure within the superior pole left kidney. Given susceptibility on prior MRI imaging findings favor small hemorrhagic cyst. Consider follow-up imaging in 6-12 months. 2. Nonobstructing nephroliths at the inferior pole the bilateral kidneys measuring up to 7 mm on the left and 5 mm on the right. No hydronephrosis. 3. Cholelithiasis without evidence of acute cholecystitis. 4. Splenomegaly. 5. Mild increased sclerosis and thickening of the trabecula of the left ilium. Findings are nonspecific and may be related to Paget's disease. Recommend correlation with PSA. [employer] CT UROGRAMOrdered By: Merlin Mahmood on 05-03-2024 [employer] Work Phone: CT UROGRAMon 05-02-2024 Radiology Study observation (narrative) [employer] MR Abdomen WO and W contrast Nicky 03-12-2024 1. 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 No additional imaging follow-up is recommended. [facility] RIS CONSOL[facility] EXAMINATION: MRI OF THE ABDOMEN WITHOUT AND WITH CONTRAST, 03/10/2024 10:14 am TECHNIQUE: Multiplanar multisequence MRI of the abdomen was performed without and with the administration of intravenous contrast. COMPARISON: CT dated 10/24/2023 HISTORY: ORDERING SYSTEM PROVIDED HISTORY: Renal cyst TECHNOLOGIST PROVIDED HISTORY: STAT Creatinine as needed:->No hemorragic cyst FINDINGS: Portions of the upper abdomen not included in the field of view given limitations of this examination. Liver: The visualized portion of the liver demonstrates a normal signal intensity and morphology. No discrete lesion seen on this examination. Gallbladder: Unremarkable Biliary tree: Unremarkable Pancreas: Demonstrates a normal signal intensity without evidence of ductal dilatation. No discrete lesion. Spleen: Unremarkable Kidneys and ureters: There is a 5 mm lesions in the upper pole the left kidney that demonstrates Lao ink artifact with fat saturation imaging demonstrates loss of signal consistent with macroscopic fat and a small angiomyolipoma best seen on series 5 image 46. There is a 5 mm T1 hyperintense lesions in the posterior aspect interpolar segment left kidney that corresponds a hemorrhagic/proteinac eous cyst. No evidence of enhancement of this lesion on postcontrast imaging. Additional blooming artifact seen within the collecting system suggesting nonobstructing stone. No hydronephrosis. No definite enhancing renal lesion. Adrenal glands: Unremarkable Lymph nodes: No enlarged lymph nodes Bowel: The visualized bowel is within normal limits. Bone marrow: Within normal limits Lower chest: Unremarkable Vasculature: Patent portal venous system Miscellaneous: Nothing significant [facility] Maximilian Minor MD - 03/12/2024 EXAMINATION: MRI OF THE ABDOMEN WITHOUT AND WITH CONTRAST, 03/10/2024 10:14 am TECHNIQUE: Multiplanar multisequence MRI of the abdomen was performed without and with the administration of intravenous contrast. COMPARISON: CT dated 10/24/2023 HISTORY: ORDERING SYSTEM PROVIDED HISTORY: Renal cyst TECHNOLOGIST PROVIDED HISTORY: STAT Creatinine as needed:->No hemorragic cyst FINDINGS: Portions of the upper abdomen not included in the field of view given limitations of this examination. Liver: The visualized portion of the liver demonstrates a normal signal intensity and morphology. No discrete lesion seen on this examination. Gallbladder: Unremarkable Biliary tree: Unremarkable Pancreas: Demonstrates a normal signal intensity without evidence of ductal dilatation. No discrete lesion. Spleen: Unremarkable Kidneys and ureters: There is a 5 mm lesions in the upper pole the left kidney that demonstrates Lao ink artifact with fat saturation imaging demonstrates loss of signal consistent with macroscopic fat and a small angiomyolipoma best seen on series 5 image 46. There is a 5 mm T1 hyperintense lesions in the posterior aspect interpolar segment left kidney that corresponds a hemorrhagic/proteinac eous cyst. No evidence of enhancement of this lesion on postcontrast imaging. Additional blooming artifact seen within the collecting system suggesting nonobstructing stone. No hydronephrosis. No definite enhancing renal lesion. Adrenal glands: Unremarkable Lymph nodes: No enlarged lymph nodes Bowel: The visualized bowel is within normal limits. Bone marrow: Within normal limits Lower chest: Unremarkable Vasculature: Patent portal venous system Miscellaneous: Nothing significant IMPRESSION: 1. 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 No additional imaging follow-up is recommended. [employer] MR Abdomen WO and W contrast IVOrdered By: Maximilian Sorto on 03-12-2024 [employer] Work Phone: MRI ABDOMEN W WO CONTRASTon 03-12-2024 MRI ABDOMEN W WO CONTRAST EXAMINATION: MRI OF THE ABDOMEN WITHOUT AND WITH CONTRAST, 03/10/2024 10:14 am TECHNIQUE: Multiplanar multisequence MRI of the abdomen was performed without and with the administration of intravenous contrast. COMPARISON: CT dated 10/24/2023 HISTORY: ORDERING SYSTEM PROVIDED HISTORY: Renal cyst TECHNOLOGIST PROVIDED HISTORY: STAT Creatinine as needed:->No hemorragic cyst FINDINGS: Portions of the upper abdomen not included in the field of view given limitations of this examination. Liver: The visualized portion of the liver demonstrates a normal signal intensity and morphology. No discrete lesion seen on this examination. Gallbladder: Unremarkable Biliary tree: Unremarkable Pancreas: Demonstrates a normal signal intensity without evidence of ductal dilatation. No discrete lesion. Spleen: Unremarkable Kidneys and ureters: There is a 5 mm lesions in the upper pole the left kidney that demonstrates Lao ink artifact with fat saturation imaging demonstrates loss of signal consistent with macroscopic fat and a small angiomyolipoma best seen on series 5 image 46. There is a 5 mm T1 hyperintense lesions in the posterior aspect interpolar segment left kidney that corresponds a hemorrhagic/proteinac eous cyst. No evidence of enhancement of this lesion on postcontrast imaging. Additional blooming artifact seen within the collecting system suggesting nonobstructing stone. No hydronephrosis. No definite enhancing renal lesion. Adrenal glands: Unremarkable Lymph nodes: No enlarged lymph nodes Bowel: The visualized bowel is within normal limits. Bone marrow: Within normal limits Lower chest: Unremarkable Vasculature: Patent portal venous system Miscellaneous: Nothing significant IMPRESSION: 1. 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 No additional imaging follow-up is recommended. Interpreted by: Maximilian Sorto MD Signed by: Maximilian Sorto MD 03/12/24 Final result Normal [facility] MR Abdomen WO and W contrast Nicky 03-10-2024 Radiology Study observation (narrative) [facility] No Panel Informationon 03-10 Orbits: Limited exam as only a single view of the orbits provided for review. No obvious radiopaque foreign body overlying the orbits. Abdomen: 1. Moderate stool burden. 2. No radiodense metallic foreign body. 3. Probable lower pole left-sided renal calculus measuring 6 mm. [facility] CONSOLIDATED EXAMINATION: TWO XRAY VIEWS OF THE ORBITS; ONE SUPINE XRAY VIEW(S) OF THE ABDOMEN 03/10/2024 COMPARISON: None. HISTORY: ORDERING SYSTEM PROVIDED HISTORY: Metal foreign body in eye region TECHNOLOGIST PROVIDED HISTORY: history of metal in eye 53-year-old male with history of metal in the eye FINDINGS: Orbits: Single view of the orbits provided for review. No evidence of radiopaque foreign body within the orbits. No other acute abnormalities noted. Abdomen: Moderate stool burden. Psoas shadows symmetric in appearance. Probable lower pole left-sided renal calculus measuring up to 6 mm. No abnormally dilated small bowel loops. No acute osseous abnormality. No radiodense metallic foreign body. [facility] Pacheco, Orlando Aguilar MD - 03/10/2024 EXAMINATION: TWO XRAY VIEWS OF THE ORBITS; ONE SUPINE XRAY VIEW(S) OF THE ABDOMEN 03/10/2024 COMPARISON: None. HISTORY: ORDERING SYSTEM PROVIDED HISTORY: Metal foreign body in eye region TECHNOLOGIST PROVIDED HISTORY: history of metal in eye 53-year-old male with history of metal in the eye FINDINGS: Orbits: Single view of the orbits provided for review. No evidence of radiopaque foreign body within the orbits. No other acute abnormalities noted. Abdomen: Moderate stool burden. Psoas shadows symmetric in appearance. Probable lower pole left-sided renal calculus measuring up to 6 mm. No abnormally dilated small bowel loops. No acute osseous abnormality. No radiodense metallic foreign body. IMPRESSION: Orbits: Limited exam as only a single view of the orbits provided for review. No obvious radiopaque foreign body overlying the orbits. Abdomen: 1. Moderate stool burden. 2. No radiodense metallic foreign body. 3. Probable lower pole left-sided renal calculus measuring [address] [facility] [employer] No Panel InformationOrdered By: Orlando Pacheco on 03-10-2024 [employer] Work Phone: XR ABDOMEN (KUB) (SINGLE AP VIEW)on 03-10-2024 XR ABDOMEN (KUB) (SINGLE AP VIEW) EXAMINATION: TWO XRAY VIEWS OF THE ORBITS; ONE SUPINE XRAY VIEW(S) OF THE ABDOMEN 03/10/2024 COMPARISON: None. HISTORY: ORDERING SYSTEM PROVIDED HISTORY: Metal foreign body in eye region TECHNOLOGIST PROVIDED HISTORY: history of metal in eye 53-year-old male with history of metal in the eye FINDINGS: Orbits: Single view of the orbits provided for review. No evidence of radiopaque foreign body within the orbits. No other acute abnormalities noted. Abdomen: Moderate stool burden. Psoas shadows symmetric in appearance. Probable lower pole left-sided renal calculus measuring up to 6 mm. No abnormally dilated small bowel loops. No acute osseous abnormality. No radiodense metallic foreign body. IMPRESSION: Orbits: Limited exam as only a single view of the orbits provided for review. No obvious radiopaque foreign body overlying the orbits. Abdomen: 1. Moderate stool burden. 2. No radiodense metallic foreign body. 3. Probable lower pole left-sided renal calculus measuring 6 mm. Interpreted by: Orlando Pacheco MD Signed by: Orlando Pacheco MD 03/10/24 Final result Normal [facility] XR Abdomen Single viewon Radiology Study observation (narrative) [facility] XR EYE FOREIGN BODYon 2023 XR EYE FOREIGN BODY EXAMINATION: TWO XRAY VIEWS OF THE ORBITS; ONE SUPINE XRAY VIEW(S) OF THE ABDOMEN 03/10/2024 COMPARISON: None. HISTORY: ORDERING SYSTEM PROVIDED HISTORY: Metal foreign body in eye region TECHNOLOGIST PROVIDED HISTORY: history of metal in eye 53-year-old male with history of metal in the eye FINDINGS: Orbits: Single view of the orbits provided for review. No evidence of radiopaque foreign body within the orbits. No other acute abnormalities noted. Abdomen: Moderate stool burden. Psoas shadows symmetric in appearance. Probable lower pole left-sided renal calculus measuring up to 6 mm. No abnormally dilated small bowel loops. No acute osseous abnormality. No radiodense metallic foreign body. IMPRESSION: Orbits: Limited exam as only a single view of the orbits provided for review. No obvious radiopaque foreign body overlying the orbits. Abdomen: 1. Moderate stool burden. 2. No radiodense metallic foreign body. 3. Probable lower pole left-sided renal calculus measuring 6 mm. Interpreted by: Orlando Pacheco MD Signed by: Orlando Pacheco MD 03/10/24 Final result Normal [facility] XR Orbit Views for foreign b odyon 03-10-2024 Radiology Study observation (narrative) [facility] XR ABDOMEN (KUB) (SINGLE AP VIEW)on 12-25-2023 XR ABDOMEN (KUB) (SINGLE AP VIEW) EXAMINATION: ONE SUPINE XRAY VIEW(S) OF THE ABDOMEN 12/25/2023 10:33 am COMPARISON: None. HISTORY: ORDERING SYSTEM PROVIDED HISTORY: Kidney stone FINDINGS: Bowel gas pattern nonobstructed. Renal shadows partially obscured by bowel gas and fecal debris. Possible 2-3 mm bilateral nephrolithiasis. No definite ureteral stones. Calcifications low pelvis likely related to prostate. No definite no acute osseous abnormality. IMPRESSION: Probable bilateral nephrolithiasis. Interpreted by: Carmine Manley DO Signed by: Carmine Manley DO 12/25/23 Final result Normal [facility] XR Abdomen Single viewon Probable bilateral nephrolithiasis. [facility] EXAMINATION: ONE SUPINE XRAY VIEW(S) OF THE ABDOMEN 12/25/2023 10:33 am COMPARISON: None. HISTORY: ORDERING SYSTEM PROVIDED HISTORY: Kidney stone FINDINGS: Bowel gas pattern nonobstructed. Renal shadows partially obscured by bowel gas and fecal debris. Possible 2-3 mm bilateral nephrolithiasis. No definite ureteral stones. Calcifications low pelvis likely related to prostate. No definite no acute osseous abnormality. [facility] Carmine Manley DO - 12/25/2023 EXAMINATION: ONE SUPINE XRAY VIEW(S) OF THE ABDOMEN 12/25/2023 10:33 am COMPARISON: None. HISTORY: ORDERING SYSTEM PROVIDED HISTORY: Kidney stone FINDINGS: Bowel gas pattern nonobstructed. Renal shadows partially obscured by bowel gas and fecal debris. Possible 2-3 mm bilateral nephrolithiasis. No definite ureteral stones. Calcifications low pelvis likely related to prostate. No definite no acute osseous abnormality. IMPRESSION: Probable bilateral nephrolithiasis. [facility] Radiology Study observation (narrative) [facility] XR Abdomen Single viewOrdere d By: Carmine Manley on 12-25-2023 [facility] Work Phone: [employer] [employer]UR ESon 11-13-2023 [facility] Radiology exam is complete. No Radiologist dictation. Please follow up with ordering provider. Final result Normal [facility] Guidance-- during surgeryon 11-13-2023 Radiology exam is complete. No Radiologist dictation. Please follow up with ordering provider. [facility] Cult,Urineon 11-06-2023 Cult,Urine Specimen Description .CLEAN CATCH URINE Special Requests Site: Urine Culture NO GROWTH Report Status FINAL 11/06/2023 Normal [facility] Comment on above: Performed By: #### U RC #### [facility] [address] [place] [address] [employer]: Pb Parikh MD [facility] [address] [place] [address] [employer]: Zac Zee MD Urine Cultureon 11-01-2023 Bacteria identified Cx Nom (U) <9,000 colonies/ml mixed bacterial skin contaminants 2 Days PERFORMED BY: [place] [id number] PATHOLOGIST SECTION MAINTAINER JACK PATEL M.D. Normal [facility] Comment on above: Performed By: #### C UU #### [address] UROGRAMon 10-25-2023 CT UROGRAM EXAMINATION: CT UROGRAM 10/24/2023 1:28 pm TECHNIQUE: CT of the abdomen and pelvis was performed before and after the administration of intravenous contrast as per CT urogram protocol. Multiplanar reformatted images as well as MIP urogram images are provided for review. Dose modulation, iterative reconstruction, and/or weight based adjustment of the mA/kV was utilized to reduce the radiation dose to as low as reasonably achievable. COMPARISON: None. HISTORY: ORDERING SYSTEM PROVIDED HISTORY: Gross hematuria TECHNOLOGIST PROVIDED HISTORY: hematuria. CT urogram FINDINGS: Lower Chest: No active disease. Kidneys and Urinary Tract: The pre contrast evaluation demonstrates right hydronephrosis and hydroureter leading to a right upper ureteric stone measuring 7.1 mm. Bilateral nephrolithiasis. No evidence of left obstructive uropathy. Following administration of IV contrast right hydronephrosis and renal obstruction noted. No evidence of contrast past the obstruction on the right. On the left there is normal renal function with no obstruction. The left ureter is visualized and appears normal. No renal inflammation or mass. Organs: The liver appears unremarkable. Mild cholelithiasis, but no acute cholecystitis. Pancreas is normal. Splenomegaly with the spleen measuring 15.4 cm. Adrenals, aorta and IVC appear stable. GI/Bowel: No evidence of bowel obstruction or perforation. Pelvis: The urinary bladder and prostate appear stable. No evidence of bladder thickening or focal abnormality. No lymphadenopathy. Peritoneum/Retroperit oneum: No retroperitoneal lymphadenopathy or acute mesenteric findings. Bones/Soft Tissues: Lumbar spine and sacrum appear unremarkable. No acute soft tissue abnormality. IMPRESSION: 1. Right obstructive uropathy related to an upper ureteric stone measuring 7.1 mm. 2. Bilateral nephrolithiasis. No evidence of left obstructive uropathy. 3. Bilateral renal function although the right kidney is obstructed as described. The left kidney demonstrates normal renal function with the ureter visualized throughout its length. 4. The urinary bladder and UV junctions appear unremarkable. 5. Splenomegaly. Interpreted by: Bernadette Carpio MD Signed by: Bernadette Carpio MD 10/25/23 Final result Normal [facility] 1. Right obstructive uropathy related to an upper ureteric stone measuring 7.1 mm. 2. Bilateral nephrolithiasis. No evidence of left obstructive uropathy. 3. Bilateral renal function although the right kidney is obstructed as described. The left kidney demonstrates normal renal function with the ureter visualized throughout its length. 4. The urinary bladder and UV junctions appear unremarkable. 5. Splenomegaly. MHPN RIS CONSOLIDATED EXAMINATION: CT UROGRAM 10/24/2023 1:28 pm TECHNIQUE: CT of the abdomen and pelvis was performed before and after the administration of intravenous contrast as per CT urogram protocol. Multiplanar reformatted images as well as MIP urogram images are provided for review. Dose modulation, iterative reconstruction, and/or weight based adjustment of the mA/kV was utilized to reduce the radiation dose to as low as reasonably achievable. COMPARISON: None. HISTORY: ORDERING SYSTEM PROVIDED HISTORY: Gross hematuria TECHNOLOGIST PROVIDED HISTORY: hematuria. CT urogram FINDINGS: Lower Chest: No active disease. Kidneys and Urinary Tract: The pre contrast evaluation demonstrates right hydronephrosis and hydroureter leading to a right upper ureteric stone measuring 7.1 mm. Bilateral nephrolithiasis. No evidence of left obstructive uropathy. Following administration of IV contrast right hydronephrosis and renal obstruction noted. No evidence of contrast past the obstruction on the right. On the left there is normal renal function with no obstruction. The left ureter is visualized and appears normal. No renal inflammation or mass. Organs: The liver appears unremarkable. Mild cholelithiasis, but no acute cholecystitis. Pancreas is normal. Splenomegaly with the spleen measuring 15.4 cm. Adrenals, aorta and IVC appear stable. GI/Bowel: No evidence of bowel obstruction or perforation. Pelvis: The urinary bladder and prostate appear stable. No evidence of bladder thickening or focal abnormality. No lymphadenopathy. Peritoneum/Retroperit oneum: No retroperitoneal lymphadenopathy or acute mesenteric findings. Bones/Soft Tissues: Lumbar spine and sacrum appear unremarkable. No acute soft tissue abnormality. PN RIS Bernadette Evans MD - 10/25/2023 EXAMINATION: CT UROGRAM 10/24/2023 1:28 pm TECHNIQUE: CT of the abdomen and pelvis was performed before and after the administration of intravenous contrast as per CT urogram protocol. Multiplanar reformatted images as well as MIP urogram images are provided for review. Dose modulation, iterative reconstruction, and/or weight based adjustment of the mA/kV was utilized to reduce the radiation dose to as low as reasonably achievable. COMPARISON: None. HISTORY: ORDERING SYSTEM PROVIDED HISTORY: Gross hematuria TECHNOLOGIST PROVIDED HISTORY: hematuria. CT urogram FINDINGS: Lower Chest: No active disease. Kidneys and Urinary Tract: The pre contrast evaluation demonstrates right hydronephrosis and hydroureter leading to a right upper ureteric stone measuring 7.1 mm. Bilateral nephrolithiasis. No evidence of left obstructive uropathy. Following administration of IV contrast right hydronephrosis and renal obstruction noted. No evidence of contrast past the obstruction on the right. On the left there is normal renal function with no obstruction. The left ureter is visualized and appears normal. No renal inflammation or mass. Organs: The liver appears unremarkable. Mild cholelithiasis, but no acute cholecystitis. Pancreas is normal. Splenomegaly with the spleen measuring 15.4 cm. Adrenals, aorta and IVC appear stable. GI/Bowel: No evidence of bowel obstruction or perforation. Pelvis: The urinary bladder and prostate appear stable. No evidence of bladder thickening or focal abnormality. No lymphadenopathy. Peritoneum/Retroperit oneum: No retroperitoneal lymphadenopathy or acute mesenteric findings. Bones/Soft Tissues: Lumbar spine and sacrum appear unremarkable. No acute soft tissue abnormality. IMPRESSION: 1. Right obstructive uropathy related to an upper ureteric stone measuring 7.1 mm. 2. Bilateral nephrolithiasis. No evidence of left obstructive uropathy. 3. Bilateral renal function although the right kidney is obstructed as described. The left kidney demonstrates normal renal function with the ureter visualized throughout its length. 4. The urinary bladder and UV junctions appear unremarkable. 5. Splenomegaly. [facility] CT UROGRAMOrdered By: Bernadette higgins on 10-25-2023 [facility] Work Phone: CT UROGRAMon 10-24-2023 Radiology Study observation (narrative) [facility] Stone Analysison 10-12-2023 Calculi description See Note [facility] Comment on above: Result Comment: (NOT E) Specimen consists of one brown and betancur calculus. The total weight is 33 mg. Performed By: #### A STONE #### [employer] [address] [place] [address] [id number] Forest[employer] Tree Pruner: Xiang Flores MD Composition See Note [facility] Comment on above: Result Comment: (NOT E) Calculi composed primarily of: 80% calcium oxalate monohydrate, and 20% calcium oxalate dihydrate. INTERPRETIVE INFORMATION: Calculi (Stone) analysis Calculi are the products of physiological processes that yield crystalline compounds in a matrix of biological compounds and blood. Matrix components are not reported. The clinically significant crystalline components identified in calculi specimens are reported. Gross description may not be consistent with composition determined by FTIR analysis. Performed By: [employer] [address] [place] [address] Transformer Molder: Yobany Nelson MD, PhD CLIA Number: [id number] Performed By: #### A STONE #### [employer] [address] [place], [place] [id number] [employer] Pruner: Xiang Flores MD Mass [address] [facility] Comment on above: Performed By: #### A STONE #### [employer] [address] [place] [address] Forestry Tree Pruner: Xiang Flores MD Basophils Auto (Bld) [#/Vol] on 08-27-2023 Basophils (Bld) [#/Vol] 0.0 10 3/uL 0.0-0.1 [facility] Basophils/100 WBC Auto (Bld) on 08-27-2023 Basophils/100 WBC (Bld) 0.5 % 0.2-2.0 [facility] Cholesterol in LDL Calc [Mas s/Vol]on 08-27-2023 Cholesterol in LDL [Mass/Vol] 42.4 mg/dL [facility] Comment on above: <100 mg/dl [id number] 0-129 mg/dl NEAR OR ABOVE [id number] mg/dl BORDERLINE [id number] mg/dl HIGH>190 mg/dl VERY HIGH Cholesterol in VLDL Calc [Ma ss/Vol]on 08-27-2023 Cholesterol in VLDL [Mass/Vol] 8.6 mg/dL [facility] Eosinophils/100 WBC Auto (Bl d)on 08-27-2023 Eosinophils/100 WBC (Bld) 1.6 % 0.9-7.0 [facility] Erythrocyte distribution wid th Auto (RBC) [Ratio]on 08-27-2023 Erythrocyte distribution width (RBC) [Ratio] 11.5 % 11.0-15.0 [facility] Estimated glomerular filtrat ion rate (GFR) non- Americanon 08-27-2023 GFR/1.73 sq M.predicted among non-blacks MDRD (S/P/Bld) [Vol rate/Area] mL/min/{1.73_m2} >=60 [facility] Globulin Calc (S) [Mass/Vol] on 08-27-2023 Globulin (S) [Mass/Vol] 3.0 g/dL [facility] Hematocrit Auto (Bld) [Volum e fraction]on 08-27-2023 Hematocrit (Bld) [Volume fraction] 41.5 % Low 42.0-54.0 [facility] Hemoglobin [Mass/volume] in Bloodon 08-27-2023 Hemoglobin (Bld) [Mass/Vol] 14.2 g/dL 14.0-18.0 [facility] Laboratory - Chemistry and C hemistry - challengeon 08-27-2023 Albumin [Mass/Vol] 3.5 g/dL 3.4-5.0 [facility] ALP [Catalytic activity/Vol] 105 U/L 46-116 [facility] ALT [Catalytic activity/Vol] 45 U/L 16-63 [facility] AST [Catalytic activity/Vol] 21 U/L 15-37 [facility] Bilirubin [Mass/Vol] 0.8 mg/dL 0.2-1.0 [facility] Calcium [Mass/Vol] 9.0 mg/dL 8.5-10.1 [facility] Chloride [Moles/Vol] 107 mmol/L 98-107 [facility] Cholesterol [Mass/Vol] 99 mg/dL <=200 [facility] Cholesterol in HDL [Mass/Vol] 48 mg/dL 40-60 [facility] Comment on above: > or =60 mg/dl - LOW CARDIOVASCULAR RISK<40 mg/dl - HIGH CARDIOVASCULAR RISK CO2 [Moles/Vol] 27.2 mmol/L 21.0-32.0 [facility] Creatinine [Mass/Vol] 1.05 mg/dL 0.70-1.30 [facility] GFR/1.73 sq M.predicted MDRD (S/P/Bld) [Vol rate/Area] mL/min/{1.73_m2} >=60 [facility] Glucose [Mass/Vol] 86 mg/dL 74-106 [facility] Potassium [Moles/Vol] 4.1 mmol/L 3.5-5.1 [facility] Protein [Mass/Vol] 6.5 g/dL 6.4-8.2 [facility] Sodium [Moles/Vol] 142 mmol/L 136-145 [facility] Triglyceride [Mass/Vol] 43 mg/dL <=150 [facility] Urea nitrogen [Mass/Vol] 24.0 mg/dL High 7.0-18.0 [facility] Urea nitrogen/Creatinine [Mass ratio] 22.9 mg/mg [facility] Laboratory - Hematology and Cell countson 08-27-2023 Immature granulocytes/100 WBC (Bld) 0.4 % 0.0-0.5 [facility] Leukocytes [#/volume] correc grazyna for nucleated erythrocytes in Blood by Automated counon 08-27-2023 WBC corrected for nucl RBC Auto (Bld) [#/Vol] 5.5 10 3/uL 4.0-11.0 [facility] Lymphocytes Auto (Bld) [#/Vo l]on 08-27-2023 Lymphocytes (Bld) [#/Vol] 1.2 10 3/uL 1.2-3.8 [facility] Lymphocytes/100 WBC Auto (Bl d)on 08-27-2023 Lymphocytes/100 WBC (Bld) 21.0 % 20.5-60.0 [facility] MCH Auto (RBC) [Entitic mass ]on 08-27-2023 MCH (RBC) [Entitic mass] 29.6 pg 25.9-34.0 [facility] MCHC Auto (RBC) [Mass/Vol]on 08-27-2023 MCHC (RBC) [Mass/Vol] 34.2 g/dL 29.9-35.2 [facility] MCV Auto (RBC) [Entitic vol] on 08-27-2023 MCV (RBC) [Entitic vol] 86.5 fL 80.0-94.0 [facility] Monocytes Auto (Bld) [#/Vol] on 08-27-2023 Monocytes (Bld) [#/Vol] 0.5 10 3/uL 0.3-0.8 [facility] Monocytes/100 WBC Auto (Bld) on 08-27-2023 Monocytes/100 WBC (Bld) 9.3 % 1.7-12.0 [facility] Neutrophils Auto (Bld) [#/Vo l]on 08-27-2023 Neutrophils (Bld) [#/Vol] 3.7 10 3/uL 1.4-6.5 [facility] Neutrophils/100 WBC Auto (Bl d)on 08-27-2023 Neutrophils/100 WBC (Bld) 67.2 % 43.0-75.0 [facility] No Panel Informationon 08-26 Eosinophils # (Auto) 0.1 10 3/uL 0.0-0.7 [facility] Immature Granulocyte # (Auto) 0.02 10 3/uL 0.00-0.03 [facility] Platelet mean volume Auto (B ld) [Entitic vol]on 08-27-2023 Platelet mean volume (Bld) [Entitic vol] 10.1 fL 9.5-13.5 [facility] Platelets Auto (Bld) [#/Vol] on 08-27-2023 Platelets (Bld) [#/Vol] 140 10 3/uL Low 150-450 [facility] RBC Auto (Bld) [#/Vol]on RBC (Bld) [#/Vol] 4.80 10 6/uL 4.70-6.10 [facility] Serum or plasma albumin/glob ulin mass ratioon 08-27-2023 Albumin/Globulin [Mass ratio] 1.2 {ratio} [facility] Serum or plasma anion gap de terminationon 08-27-2023 Anion gap [Moles/Vol] 11.9 mmol/L Fi [facility] Serum or plasma total choles terol/high density lipoprotein (HDL) cholesterol mass norma 08-27-2023 Cholesterol.total/Cho lesterol in HDL [Mass ratio] 2.1 {ratio} [facility] Comment on above: 3.3 - 4.4 LOW RISK4. 4 - 7.1 AVERAGE RISK7.1 - 11.0 MODERATE RISK>11.0 HIGH RISK Cholesterol [Mass/volume] in Serum or PlasmaOrdered By: Garrett Hoang on 08-14-2023 Cholesterol [Mass/Vol] 87 mg/dL Low 140-200 [facility] Comment on above: Chol less than 200 m g/dl low riskChol 201-239 mg/dl borderline riskChol 240 mg/dl and greater high risk Result Comment: Chol less than 200 mg/dl low risk Chol 201-239 mg/dl borderline risk Chol 240 mg/dl and greater high risk Performed By: #### L IPID #### [address] Cholesterol in LDL Calc [Mas s/Vol]Ordered By: Garrett Hoang on 08-14-2023 Cholesterol in LDL [Mass/Vol] 38 mg/dL 0-100 [facility] Comment on above: LDL ATP III CLASSIFI CATIONLDL less than 100 mg/dL OptimalLDL 100-129 mg/dL Near or above optimalLDL 130-159 mg/dL Borderline highLDL 160-189 mg/dL HighLDL greater than 189 mg/dL Very high Cholesterol in VLDL Calc [Ma ss/Vol]Ordered By: Garrett Hoang on 08-14-2023 Cholesterol in VLDL [Mass/Vol] 8 mg/dL [facility] Lipid Panelon 08-14-2023 LDL Cholesterol,Calculate d 38 mg/dL Normal 0-100 [facility] Comment on above: Result Comment: LDL ATP III CLASSIFICATION LDL less than 100 mg/dL Optimal LDL 100-129 mg/dL Near or above optimal LDL 130-159 mg/dL Borderline high LDL 160-189 mg/dL High LDL greater than 189 mg/dL Very high Performed By: #### L IPID #### [address] Triglyceride w/Reflex 41 mg/dL Normal 0-149 [facility] Comment on above: Result Comment: TRIG ATP III CLASSIFICATION TRIG less than 150 mg/dL Normal TRIG 150-199 mg/dL Borderline high TRIG 200-500 mg/dL High TRIG greater than 500 mg/dL Very high Standard traceable to the Center for Disease Conrtrol and Prevention (CDC) test method. Performed By: #### L IPID #### [facility] [address] [place] [address] VLDL CHOLESTEROL 8 mg/dL Normal [facility] Comment on above: Performed By: #### L IPID #### [facility] [address] [place] [address] MR abdomen wo/w conon 2023 MR abdomen wo/w con [facility] [place] [address] MRI Report Signed Patient: Pj Sabillon MR#: [id number] 255 : 1970 Acct:[id number] Age/Sex: 53 / M ADM Date: 08/14/23 Loc: Room: Type: [facility] Attending Dr: Gary Esat MD Copies to: Gary East MD Ordering [...] Jarrett Chauhan M.D.08/14/2023 3:49 PM Dictation Location: [place] [address] Transcribed By: [facility] 08/14/23 1549 Dictated By: Jarrett Chauhan DO 08/14/23 1544 Signed By: 08/14/23 1549 Normal [facility] PSA Diagnostic (Total Free)o n 08-14-2023 Prostate Spec Ag, Free 0.190 ng/mL Normal [facility] Comment on above: Performed By: #### P SATF #### [facility] [address] PSA Total (Not a Screen) 0.370 ng/mL Normal 0.000-4.000 [facility] Comment on above: Result Comment: Karli stas tumor marker results determined by assays using different manufacturers or methods may not be comparable. [facility] register of deeds and method: [employer] DXI, CHEMILUMINESCENT IMMUNOASSAY. Performed By: #### P SATF #### [facility] [address] PSA,FREE% 51.3 % Normal [facility] Comment on above: Result [...] 10% 20% >25 5% 9% PERFORMED BY: [place] [address] PATHOLOGIST SECTION MAINTAINER JACK PATEL M.D. Performed By: #### P SAT #### [address] Prostate Specific Ag Free [M ass/volume] in Serum or PlasmaOrdered By: Gary East on 08-14-2023 Free PSA [Mass/Vol] 0.190 ng/mL [facility] Prostate specific Ag [Mass/v olume] in Serum or PlasmaOrdered By: Gary East on 08-14-2023 Prostate specific Ag [Mass/Vol] 0.370 ng/mL 0.000-4.000 [facility] Comment on above: Serial tumor marker results determined by assays using different manufacturers or methods may not be comparable.[facility] register of deeds and method:[employer] DXI, CHEMILUMINESCENT IMMUNOASSAY. Serum or plasma free prostat e specific antigen (PSA)/total PSA ratioOrdered By: Gary East on 08-14-2023 Free PSA/Total PSA [Mass fraction] 51.3 % [facility] Comment on above: Based on the [...] density lipoprotein (HDL) cholesterol measurementOrdered By: Garrett Hoang on 08-14-2023 Cholesterol in HDL [Mass/Vol] 41 mg/dL Normal 23-92 [facility] Comment on above: HDL CHOL ATP-III CLA SSIFICATION Cardiovascular RiskHDL > or equal to 60 mg/dL LOWHDL < 40 mg/dL HIGH Result Comment: HDL CHOL ATP-III CLASSIFICATION Cardiovascular Risk HDL > or equal to 60 mg/dL LOW HDL < 40 mg/dL HIGH Performed By: #### L IPID #### [facility] [address] [place] [address] Serum or plasma total choles terol/high density lipoprotein (HDL) cholesterol mass ratOrdered By: Garrett Hoang on 08-14-2023 Cholesterol.total/Cho lesterol in HDL [Mass ratio] 2.1 {ratio} Normal <5.0 [facility] Comment on above: Result Comment: PERF ORMED BY: [place] [address] PATHOLOGIST SECTION MAINTAINER JACK PATEL M.D. Performed By: #### L IPID #### [facility] [address] [place] [address] Triglyceride [Mass/volume] i n Serum or PlasmaOrdered By: Garrett Hoang on 08-14-2023 Triglyceride [Mass/Vol] 41 mg/dL 0-149 [facility] Comment on above: TRIG ATP III CLASSIF ICATIONTRIG less than 150 mg/dL NormalTRIG 150-199 mg/dL Borderline highTRIG 200-500 mg/dL High TRIG greater than 500 mg/dL Very highStandard traceable to the Center for Disease Conrtrol and Prevention (CDC) test method. CT chest w conon 06-12-2023 CT chest w [facility] [place] [address] [place] [address] CT Scan Report Signed Patient: Pj Sabillon MR#: [id number] 255 : 1970 Acct:[id number] Age/Sex: 52 / M ADM Date: 06/11/23 Loc: CT Room: Type: [facility] Attending Dr: Doretha Valentino APRN Copies to: [...] M.D.06/12/2023 9:41 AM Dictation Location: [place] [address] Transcribed By: [facility] 06/12/23 0941 Dictated By: Jarrett Chauhan DO 06/12/23 0936 Signed By: 06/12/23 0941 Normal [facility] ISTAT XRay CREon 02-07-2023 Creatinine [Mass/Vol] 1.2 mg/dL Normal 0.6-1.3 [facility] Comment on above: Result Comment: ER/E [place] physician is notified/shown all ISTAT results. Critical values may be confirmed by laboratory testing if deemed necessary by ER attending doctor. Performed By: #### I SCRE #### [address] ISTAT GFR > 60.0 Normal [facility] Comment on above: Result Comment: PERF ORMED BY: [place] [address] PATHOLOGIST SECTION MAINTAINER JACK PATEL M.D. Performed By: #### I SCRE #### [address] MR abdomen wo/w conon 2022 MR abdomen wo/w con [facility] [place] [address] MRI Report Signed Patient: Pj Sabillon MR#: [id number] 255 : 1970 Acct:[id number] Age/Sex: 52 / M ADM Date: 02/07/23 Loc: MR Room: Type: [facility] Attending Dr: Gary East MD Copies to: [...] Jarrett Chauhan M.D.02/07/2023 12:38 PM Dictation Location: [place] [address] Transcribed By: [facility] 02/07/23 1238 Dictated By: Jarrett Chauhan DO 02/07/23 1229 Signed By: 02/07/23 1238 Normal [facility] Superficial Wound Cultureon 12-05-2022 [...] RESISTANT TO ALL B-LACTAM DRUGS. PERFORMED BY: [place] [address] PATHOLOGIST SECTION MAINTAINER JACK PATEL M.D. Normal [facility] Comment on above: Performed By: #### C USUP #### [address] Office Visit (Cardiology)on 11-22-2022 Follow-up visit Diagnoses/Problems Assessed CAD (coronary artery disease) (414.00) (I25.10) History of [place] (myocardial infarction) (412) (I25.2) History of PTCA [...] Recorded: 22Nov2022 10:27AM Heart Rate58, L Radial Bvtlujof456, LUE, Sitting Pozsvwxyz49, LUE, Sitting Height5 ft 8 in Zxlvqd687 lb BMI Yisusdzpdd59.42 kg/m2 BSA Calculated1.83 Tobacco Useb) No Physical [...] . Signatures Electronically signed by : Denis Hoang DO; Nov 23 2022 1:38PM EST (Author) Normal [employer] Tobacco Screening.on 023 Tobacco use status CPHS b) No -[facility] 250 DO Work Phone: CBC AUTO DIFFon 09-01-2022 BASO # 0.0 103/ul Normal 0.0-0.1 [facility] Comment on above: Performed By: #### C BC #### [facility] [address] [place] [address] Dr. Kelly Jones Basophils/100 WBC (Bld) 0.8 % Normal 0.2-2.0 [facility] Comment on above: Performed By: #### C BC #### [facility] [address] [place] [address] Dr. Kelly Jones EO # 0.1 103/ul Normal 0.0-0.7 [facility] Comment on above: Performed By: #### C BC #### [facility] [address] [place] [address] Dr. Kelly Jones Eosinophils/100 WBC (Bld) 1.6 % Normal 0.9-7.0 [facility] Comment on above: Performed By: #### C BC #### [facility] [address] [place] [address] Dr. Kelly Jones Erythrocyte distribution width (RBC) [Ratio] 12.3 % Normal 11.0-15.0 [facility] Comment on above: Performed By: #### C BC #### [facility] [address] [place] [address] Dr. Kelly Jones Hematocrit (Bld) [Volume fraction] 38.5 % Critically low 42.0-54.0 [facility] Comment on above: Performed By: #### C BC #### [facility] [address] [place] [address] Dr. Kelly Jones Hemoglobin (Bld) [Mass/Vol] 13.5 g/dL Critically low 14.0-18.0 [facility] Comment on above: Performed By: #### C BC #### [facility] [address] [place] [address] Dr. Kelly Jones IG # 0.01 10e3/ul Normal 0.00-0.03 [facility] Comment on above: Performed By: #### C BC #### [facility] [address] [place] [address] Dr. Kelly Jones IG % 0.2 % Normal 0.0-0.5 [facility] Comment on above: Performed By: #### C BC #### [facility] [address] [place] [address] Dr. Kelly Jones LYMPH # 1.4 103/ul Normal 1.2-3.8 [facility] Comment on above: Performed By: #### C BC #### [facility] [address] [place] [address] Dr. Kelly Jones Lymphocytes/100 WBC (Bld) 28.1 % Normal 20.5-60.0 [facility] Comment on above: Performed By: #### C BC #### [facility] [address] [place] [address] Dr. Kelly Jones MANUAL DIFF REQ NO Normal [facility] Comment on above: Performed By: #### C BC #### [facility] [facility] [address] [place] [address] Dr. Kelly Jones MCH (RBC) [Entitic mass] 30.0 pg Normal 25.9-34.0 [facility] Comment on above: Performed By: #### C BC #### [facility] [address] [place] [address] Dr. Kelly Jones MCHC (RBC) [Mass/Vol] 35.1 g/dL Normal 29.9-35.2 [facility] Comment on above: Performed By: #### C BC #### [facility] [address] [address] [address] Kelly Jones MCV (RBC) [Entitic vol] 85.6 fL Normal 80.0-94.0 [facility] Comment on above: Performed By: #### C BC #### [facility] [address] [address] [address] Kelly Jones MONO # 0.5 103/ul Normal 0.3-0.8 [facility] Comment on above: Performed By: #### C BC #### [facility] [address] [place] [address] Dr. Kelly Jones Monocytes/100 WBC (Bld) 9.4 % Normal 1.7-12.0 [facility] Comment on above: Performed By: #### C BC #### [facility] [address] [place] [address] Dr. Kelly Jones NEUT # 3.0 103/ul Normal 1.4-6.5 [facility] Comment on above: Performed By: #### C BC #### [facility] [address] [place] [address] Dr. Kelly Jones Neutrophils/100 WBC (Bld) 59.9 % Normal 43.0-75.0 [facility] Comment on above: Performed By: #### C BC #### [facility] [address] [place] [address] Dr. Kelly Jones Platelet mean volume (Bld) [Entitic vol] 10.5 fL Normal 9.5-13.5 [facility] Comment on above: Performed By: #### C BC #### [facility] [address] [place] [address] Dr. Kelly Jones PLT 131 103/ul Critically low 150-450 [facility] Comment on above: Performed By: #### C BC #### [facility] [address] [place], [place] [id number] Dr. Kelly Jones RBC 4.50 106/ul Critically low 4.70-6.10 [facility] Comment on above: Performed By: #### C BC #### [facility] [address] [place] [address] Dr. Kelly Jones WBC 5.1 103/ul Normal 4.0-11.0 [facility] Comment on above: Performed By: #### C BC #### [facility] [address] [address] [address] Kelly Jones LIPID PROFILEon 09-01-2022 CHOL-HDL RATIO NORM SEE BELOW Normal [facility] Comment on above: Result Comment: 3.3 - 4.4 LOW RISK 4.4 - 7.1 AVERAGE RISK 7.1 - 11.0 MODERATE RISK >11.0 HIGH RISK Performed By: #### L IPID, CMP #### [facility] [address] [address] [address] Kelly Jones Cholesterol [Mass/Vol] 92 mg/dL Normal <=200 [facility] Comment on above: Performed By: #### L IPID, CMP #### [facility] [address] [address] [address] Kelly Jones Cholesterol in HDL [Mass/Vol] 47 mg/dL Normal 40-60 [facility] Comment on above: Performed By: #### L IPID, CMP #### [facility] [address] [address] [address] Kelly Jones Cholesterol in LDL [Mass/Vol] 35.8 mg/dL Normal [facility] Comment on above: Performed By: #### L IPID, CMP #### [facility] [address] [address] [address] Kelly Jones Cholesterol.total/Cho lesterol in HDL [Mass ratio] 2.0 {ratio} Normal [facility] Comment on above: Performed By: #### L IPID, CMP #### [facility] [address] [address] [address] Kelly Jones HDL NORMAL > or = 60 mg/dl - LO W CARDIOVASCULAR RISK <40 mg/dl - HIGH CARDIOVASCULAR RISK Normal [facility] Comment on above: Performed By: #### L IPID, CMP #### [facility] [address] [address] [address] Kelly Jones LDL CALC NORMAL SEE BELOW Normal [facility] Comment on above: Result Comment: <100 mg/dl OPTIMAL 100 - 129 mg/dl NEAR OR ABOVE OPTIMAL 130 - 159 mg/dl BORDERLINE HIGH 160 - 189 mg/dl HIGH >190 mg/dl VERY HIGH Performed By: #### L IPID, CMP #### [facility] [address] [place] [address] Dr. Kelly Jones Triglyceride [Mass/Vol] 46 mg/dL Normal <=150 [facility] Comment on above: Performed By: #### L IPID, CMP #### [facility] [address] [place] [address] Dr. Kelly Jones VLDL CALC 9.2 mg/dL Normal [facility] Comment on above: Performed By: #### L IPID, CMP #### [facility] [address] [place] [address] Dr. Kelly Jones PROF 14(COMP METB)on 023 Albumin [Mass/Vol] 3.6 g/dL Normal 3.4-5.0 [facility] Comment on above: Performed By: #### L IPID, CMP #### [facility] [address] [place] [address] Dr. Kelly Jones Albumin/Globulin [Mass ratio] 1.2 {ratio} Normal [facility] Comment on above: Performed By: #### L IPID, CMP #### [facility] [address] [place] [address] Dr. Kelly Jones ALP [Catalytic activity/Vol] 83 U/L Normal 46-116 [facility] Comment on above: Performed By: #### L IPID, CMP #### [facility] [address] [place] [address] Dr. Kelly Jones ALT [Catalytic activity/Vol] 52 U/L Normal 16-63 [facility] Comment on above: Performed By: #### L IPID, CMP #### [facility] [address] [place] [address] Dr. Kelly Jones Anion gap [Moles/Vol] 11.5 mmol/L Normal [facility] Comment on above: Performed By: #### L IPID, CMP #### [facility] [address] [address] [address] Kelly Jones AST [Catalytic activity/Vol] 20 U/L Normal 15-37 [facility] Comment on above: Performed By: #### L IPID, CMP #### [facility] [address] [place] [address] Dr. Kelly Jones Bilirubin [Mass/Vol] 0.6 mg/dL Normal 0.2-1.0 [facility] Comment on above: Performed By: #### L IPID, CMP #### [facility] [address] [place] [address] Dr. Kelly Jones Calcium [Mass/Vol] 8.9 mg/dL Normal 8.5-10.1 [facility] Comment on above: Performed By: #### L IPID, CMP #### [facility] [address] [place] [address] Dr. Kelly Jones Chloride [Moles/Vol] 109 mmol/L Critically high 98-107 [facility] Comment on above: Performed By: #### L IPID, CMP #### [facility] [address] [place] [address] Dr. Kelly Jones CO2 [Moles/Vol] 28.7 mmol/L Normal 21.0-32.0 [facility] Comment on above: Performed By: #### L IPID, CMP #### [facility] [address] [place] [address] Dr. Kelly Jones Creatinine [Mass/Vol] 1.09 mg/dL Normal 0.70-1.30 [facility] Comment on above: Performed By: #### L IPID, CMP #### [facility] [address] [place] [address] Dr. Kelly Joens EGFR-AF EGYPTIAN >60 Normal >=60 [facility] Comment on above: Performed By: #### L IPID, CMP #### [facility] [address] [place] [address] Dr. Kelly Jones EGFR-NON AF EGYPTIAN >60 Normal >=60 [facility] Comment on above: Performed By: #### L IPID, CMP #### [facility] [address] [address] [address] Kelly Jones Globulin (S) [Mass/Vol] 3.1 g/dL Normal [facility] Comment on above: Performed By: #### L IPID, CMP #### [facility] [address] [place] [address] Dr. Kelly Jones Glucose [Mass/Vol] 86 mg/dL Normal 74-106 [facility] Comment on above: Performed By: #### L IPID, CMP #### [facility] [address] [place] [address] Dr. Kelly Jones Potassium [Moles/Vol] 4.2 mmol/L Normal 3.5-5.1 [facility] Comment on above: Performed By: #### L IPID, CMP #### [facility] [address] [place] [address] Dr. Kelly Jones Protein [Mass/Vol] 6.7 g/dL Normal 6.4-8.2 [facility] Comment on above: Performed By: #### L IPID, CMP #### [facility] [address] [address] [address] Kelly Jones Sodium [Moles/Vol] 145 mmol/L Normal 136-145 [facility] Comment on above: Performed By: #### L IPID, CMP #### [facility] [address] [address] [address] Kelly Jones Urea nitrogen [Mass/Vol] 15.0 mg/dL Normal 7.0-18.0 [facility] Comment on above: Performed By: #### L IPID, CMP #### [facility] [address] [place] [address] Dr. Kelly Jones Urea nitrogen/Creatinine [Mass ratio] 13.8 mg/mg Normal [facility] Comment on above: Performed By: #### L IPID, CMP #### [facility] [address] [place] [address] Dr. Kelly Jones Office Visit (Cardiology)on 06-20-2022 Follow-up visit Diagnoses/Problems Assessed CAD (coronary artery disease) (414.00) (I25.10) History of PTCA (V45.82) (Z98.61) History of AZ (myocardial infarction) (412) (I25.2) Hyperlipidemia (272.4) (E78.5) [...] therapies including DAPT. He sustained non-ST elevation AZ in September 2021 with revascularization of the [...] negative for complaint. Vitals Vital Signs Recorded: 20Jun2022 02:18PM Heart Rate60, L Radial Iniynple067, LUE, Sitting Drqjrpvjl46, LUE, Sitting Height5 ft 8 in Rrgncw684 lb BMI Bqkyumlilm30.09 kg/m2 BSA Calculated1.88 Tobacco Useb) No PHQ-2 [...] . Signatures Electronically signed by : Denis Hoang DO; Jun 20 2022 5:18PM EST (Author) Normal [employer] CT ABD/PELV WO W CONon 06-15 CT [...] by: ABDIRAHMAN YOU Date: 2022-06-15 17:35 Normal [facility] CT chest w conon 05-31-2022 CT chest w con [facility] [employer] Other CT chest w con [facility] [employer] Other CT chest w con [address] [place] [address] [employer] [address] chest w con [place] [id number] [facility] Other CT chest w con CT Scan Report [facility] [employer] Other CT chest w con Signed [employer] Other CT chest w con Patient: Pj Sabillon MR#: [id number] [employer] Other CT chest w con [address] [employer] Other CT chest w con : 1970 Acct:[id number] [employer] Other CT chest w con Age/Sex: 51 / M ADM Date: 05/31/[address] [employer] [address] chest w con Loc: CT Room: Type: [facility] [employer] Other CT chest w con Attending Dr: Cathy Valentino [facility] [employer] Other CT chest w con Copies to: Doretha Valentino RADIOLOGY SERVICES MANAGER [employer] Other CT chest w con Ordering Provider: Doretha Valentino RADIOLOGY SERVICES MANAGER [employer] Other CT chest w con Date of Service: 05/31/[address] [employer] [address] chest w con CT/CT chest w con: Lung nodule [employer] Other CT chest w con CT CHEST WITH INTRAVENOUS CONTRAST: [employer] Other CT chest w con CLINICAL HISTORY: Follow-up lung nodules. [employer] Other CT chest w con COMPARISON: 01/11/[address] [employer] [address] chest w con TECHNIQUE: Spiral images were obtained through the chest following intravenous administration of [address] [employer] [address] chest w con mL of Isovue-300. Images were reviewed using both narrow and wide window settings. This CT exam [employer] Other CT chest w con was performed using one or more following dose reduction techniques: Automated exposure control, [employer] Other CT chest w con adjustment of the mA and/or kV according to patient size, or use of iterative reconstruction [employer] Other CT chest w con technique. [employer] Other CT chest w con FINDINGS: The heart is not enlarged. There is no pericardial effusion. Coronary artery [employer] Other CT chest w con calcification and/or stents are present. No aortic aneurysm or dissection is seen. There are [employer] Other CT chest w con stable calcified and noncalcified mediastinal and hilar lymph nodes. There is subtle [employer] Other CT chest w con dextroscoliotic curvature and small endplate spurs. [employer] Other CT chest w con There is no consolidation, pleural effusion or pneumothorax. No soft tissue nodularity is seen. [employer] Other CT chest w con There are calcified right middle lobe granulomas measuring up to 7 - 8 mm in size. [employer] Other CT chest w con Limited cuts through the upper abdomen show a partially imaged, enlarging left renal hypodensity [employer] Other CT chest w con measuring at least 4.7 cm in size. This is not a simple cyst. [employer] Other CT chest w con CT/CT chest w con [employer] Other CT chest w con IMPRESSION: [employer] Other CT chest w con GRANULOMATOUS CHANGES. [employer] Other CT chest w con NO SOFT TISSUE PULMONARY NODULARITY. [employer] Other CT chest w con NO ACUTE INTRATHORACIC FINDINGS. [employer] Other CT chest w con PARTIALLY IMAGED LEF T RENAL NODULARITY. THIS IS NOT A DEFINITE SIMPLE CYST. FOLLOW-UP WITH [employer] Other CT chest w con Impression dictated by: Lyly Weiss M.D.05/31/2022 4:21 PM [employer] Other CT chest w con Dictation Location: RADIO-PC-[address] [employer] [address] chest w con Transcribed By: PWS 05/31/[address] [employer] [address] chest w con Dictated By: Lyly Weiss MD 05/31/[address] [employer] [address] chest w con Signed By: [employer] Other CT chest w con 05/31/22 1621 [employer] Other CBC AUTO DIFFon 03-28-2022 BASO # 0.0 103/ul Normal 0.0-0.1 [facility] Comment on above: Performed By: #### C BC #### [facility] [address] [place] [address] Dr. Kelly Jones Basophils/100 WBC (Bld) 0.3 % Normal 0.2-2.0 [facility] Comment on above: Performed By: #### C BC #### [facility] [address] [address] [address] Kelly Jones EO # 0.1 103/ul Normal 0.0-0.7 [facility] Comment on above: Performed By: #### C BC #### [facility] [address] [place] [address] Dr. Kelly Jones Eosinophils/100 WBC (Bld) 1.5 % Normal 0.9-7.0 [facility] Comment on above: Performed By: #### C BC #### [facility] [address] [place] [address] Dr. Kelly Jones Erythrocyte distribution width (RBC) [Ratio] 13.2 % Normal 11.0-15.0 [facility] Comment on above: Performed By: #### C BC #### [facility] [address] [place] [address] Dr. Kelly Jones Hematocrit (Bld) [Volume fraction] 39.6 % Critically low 42.0-54.0 [facility] Comment on above: Performed By: #### C BC #### [facility] [address] [place] [address] Dr. Kelly Jones Hemoglobin (Bld) [Mass/Vol] 13.7 g/dL Critically low 14.0-18.0 [facility] Comment on above: Performed By: #### C BC #### [facility] [address] [place] [address] Dr. Kelly Jones IG # 0.02 10e3/ul Normal 0.00-0.03 [facility] Comment on above: Performed By: #### C BC #### [facility] [address] [place] [address] Dr. Kelly Jones IG % 0.3 % Normal 0.0-0.5 [facility] Comment on above: Performed By: #### C BC #### [facility] [address] [place] [address] Dr. Kelly Jones LYMPH # 1.4 103/ul Normal 1.2-3.8 [facility] Comment on above: Performed By: #### C BC #### [facility] [address] [place] [address] Dr. Kelly Jones Lymphocytes/100 WBC (Bld) 23.0 % Normal 20.5-60.0 [facility] Comment on above: Performed By: #### C BC #### [facility] [address] [place] [address] Dr. Kelly Jones MANUAL DIFF REQ NO Normal [facility] Comment on above: Performed By: #### C BC #### [facility] [address] [place] [address] Dr. Kelly Jones MCH (RBC) [Entitic mass] 29.9 pg Normal 25.9-34.0 [facility] Comment on above: Performed By: #### C BC #### [facility] [address] [place] [address] Dr. Kelly Jones MCHC (RBC) [Mass/Vol] 34.6 g/dL Normal 29.9-35.2 [facility] Comment on above: Performed By: #### C BC #### [facility] [address] [address] [address] Kelly Jones MCV (RBC) [Entitic vol] 86.5 fL Normal 80.0-94.0 [facility] Comment on above: Performed By: #### C BC #### [facility] [address] [address] [address] Kelly Jonse MONO # 0.5 103/ul Normal 0.3-0.8 [facility] Comment on above: Performed By: #### C BC #### [facility] [address] [address] [address] Kelly Jones Monocytes/100 WBC (Bld) 8.8 % Normal 1.7-12.0 [facility] Comment on above: Performed By: #### C BC #### [facility] [address] [address] [address] Kelly Jones NEUT # 4.0 103/ul Normal 1.4-6.5 [facility] Comment on above: Performed By: #### C BC #### [facility] [address] [address] [address] Kelly Jones Neutrophils/100 WBC (Bld) 66.1 % Normal 43.0-75.0 [facility] Comment on above: Performed By: #### C BC #### [facility] [address] [address] [address] Kelly Jones Platelet mean volume (Bld) [Entitic vol] 10.7 fL Normal 9.5-13.5 [facility] Comment on above: Performed By: #### C BC #### [facility] [address] [address] [address] Kelly Jones PLT 145 103/ul Critically low 150-450 [facility] Comment on above: Performed By: #### C BC #### [facility] [address] [address] [address] Kelly Jones RBC 4.58 106/ul Critically low 4.70-6.10 [facility] Comment on above: Performed By: #### C BC #### [facility] [address] [address] [address] Kelly Jones WBC 6.1 103/ul Normal 4.0-11.0 [facility] Comment on above: Performed By: #### C BC #### [facility] [address] [place] [address] Dr. Kelly Jones PROF CHEM 8 (BAS METB)on Anion gap [Moles/Vol] 8.0 mmol/L Normal [facility] Comment on above: Performed By: #### B MP #### [facility] [address] [place] [address] Dr. Kelly Jones Calcium [Mass/Vol] 9.3 mg/dL Normal 8.5-10.1 [facility] Comment on above: Performed By: #### B MP #### [facility] [address] [place] [address] Dr. Kelly Jones Chloride [Moles/Vol] 105 mmol/L Normal 98-107 [facility] Comment on above: Performed By: #### B MP #### [facility] [address] [place] [address] Dr. Kelly Jones CO2 [Moles/Vol] 31.0 mmol/L Normal 21.0-32.0 [facility] Comment on above: Performed By: #### B MP #### [facility] [address] [place] [address] Dr. Kelly Jones Creatinine [Mass/Vol] 0.96 mg/dL Normal 0.70-1.30 [facility] Comment on above: Performed By: #### B MP #### [facility] [address] [place] [address] Dr. Kelly Jones EGFR-AF EGYPTIAN >60 Normal >=60 [facility] Comment on above: Performed By: #### B MP #### [facility] [address] [place] [address] Dr. Kelly Jones EGFR-NON AF EGYPTIAN >60 Normal >=60 [facility] Comment on above: Performed By: #### B MP #### [facility] [address] [place] [address] Dr. Kelly Jones Glucose [Mass/Vol] 95 mg/dL Normal 74-106 [facility] Comment on above: Performed By: #### B MP #### [facility] [address] [address] [address] Kelly Jones Potassium [Moles/Vol] 4.0 mmol/L Normal 3.5-5.1 [facility] Comment on above: Performed By: #### B MP #### [facility] [address] [address] [address] Kelly Jones Sodium [Moles/Vol] 140 mmol/L Normal 136-145 [facility] Comment on above: Performed By: #### B MP #### [facility] [address] [address] [address] Kelly Jones Urea nitrogen [Mass/Vol] 10.0 mg/dL Normal 7.0-18.0 [facility] Comment on above: Performed By: #### B MP #### [facility] [address] [address] [address] Kelly Jones Urea nitrogen/Creatinine [Mass ratio] 10.4 mg/mg Normal [facility] Comment on above: Performed By: #### B MP #### [facility] [address] [address] [address] Kelly Jones LIPID PROFILEon 12-15-2021 CHOL-HDL RATIO NORM SEE BELOW Normal [facility] Comment on above: Result Comment: 3.3 - 4.4 LOW RISK 4.4 - 7.1 AVERAGE RISK 7.1 - 11.0 MODERATE RISK >11.0 HIGH RISK Performed By: #### C BC #### [facility] [address] [address] [address] Kelly Jones Cholesterol [Mass/Vol] 83 mg/dL Normal <=200 [facility] Comment on above: Performed By: #### C BC #### [facility] [place] [facility] [address] [address] [address] Kelly Jones Cholesterol in HDL [Mass/Vol] 29 mg/dL Critically low 40-60 [facility] Comment on above: Performed By: #### C BC #### [facility] [place] [facility] [address] [address] [address] Kelly Jones Cholesterol in LDL [Mass/Vol] 39.2 mg/dL Normal [facility] Comment on above: Performed By: #### C BC #### [facility] [place] [facility] [address] [place] [address] Dr. Kelly Jones Cholesterol.total/Cho lesterol in HDL [Mass ratio] 2.9 {ratio} Normal [facility] Comment on above: Performed By: #### C BC #### [facility] [place] [facility] [address] [place] [address] Dr. Kelly Jones HDL NORMAL > or = 60 mg/dl - LO W CARDIOVASCULAR RISK <40 mg/dl - HIGH CARDIOVASCULAR RISK Normal [facility] Comment on above: Performed By: #### C BC #### [facility] [place] [facility] [address] [place] [address] Dr. Kelly Jones LDL CALC NORMAL SEE BELOW Normal [facility] Comment on above: Result Comment: <100 mg/dl OPTIMAL 100 - 129 mg/dl NEAR OR ABOVE OPTIMAL 130 - 159 mg/dl BORDERLINE HIGH 160 - 189 mg/dl HIGH >190 mg/dl VERY HIGH Performed By: #### C BC #### [facility] [place] [facility] [address] [place] [address] Dr. Kelly Jones Triglyceride [Mass/Vol] 74 mg/dL Normal <=150 [facility] [place] Comment on above: Performed By: #### C BC #### [facility] [place] [facility] [address] [place] [address] Dr. Kelly Jones VLDL CALC 14.8 mg/dL Normal [facility] Comment on above: Performed By: #### C BC #### [facility] [place] [facility] [address] [place] [address] Dr. Kelly Jones PROF CHEM 8 (BAS METB)on Anion gap [Moles/Vol] 15.3 mmol/L Normal [facility] Comment on above: Performed By: #### B MP #### [facility] [place] [facility] [address] [place] [address] Dr. Kelly Jones Calcium [Mass/Vol] 8.8 mg/dL Normal 8.5-10.1 [facility] Comment on above: Performed By: #### B MP #### [facility] [place] [facility] [address] [address] [address] Kelly Jones Chloride [Moles/Vol] 100 mmol/L Normal 98-107 [facility] Comment on above: Performed By: #### B MP #### [facility] [place] [facility] [address] [address] [address] Kelly Jones CO2 [Moles/Vol] 22.6 mmol/L Normal 21.0-32.0 [facility] Comment on above: Performed By: #### B MP #### [facility] [place] [facility] [address] [address] [address] Kelly Jones Creatinine [Mass/Vol] 1.30 mg/dL Normal 0.70-1.30 [facility] Comment on above: Performed By: #### B MP #### [facility] [place] [facility] [address] [address] [address] Kelly Jones EGFR-AF EGYPTIAN >60 Normal >=60 [facility] Comment on above: Performed By: #### B MP #### [facility] [place] [facility] [address] [address] [address] Kelly Jones EGFR-NON AF EGYPTIAN 58 mL/min/1.73m2 Critically low >=60 [facility] Comment on above: Performed By: #### B MP #### [facility] [place] [facility] [address] [address] [address] Kelly Jones Glucose [Mass/Vol] 114 mg/dL Critically high 74-106 [facility] Comment on above: Performed By: #### B MP #### [facility] [place] [facility] [address] [address] [address] Kelly Jones Potassium [Moles/Vol] 3.9 mmol/L Normal 3.5-5.1 [facility] Comment on above: Performed By: #### B MP #### [facility] [place] [facility] [address] [address] [address] Kelly Jones Sodium [Moles/Vol] 134 mmol/L Critically low 136-145 [facility] Comment on above: Performed By: #### B MP #### [facility] [place] [facility] [address], [place] [address] Dr. Kelly Jones Urea nitrogen [Mass/Vol] 13.0 mg/dL Normal 7.0-18.0 [facility] Comment on above: Performed By: #### B MP #### [facility] [place] [facility] [address], [place] [address] Dr. Kelly Jones Urea nitrogen/Creatinine [Mass ratio] 10.0 mg/mg Normal [facility] Comment on above: Performed By: #### B MP #### [facility] [place] [facility] [address], [place] [address] Dr. Kelly Jones Activated partial thrombopla stin time (aPTT) in platelet poor plasma by coagulation aOrdered By: Dewayne Pettit on 10-14-2021 aPTT Coag (PPP) [Time] 29.8 s 25.1-36.5 [facility] Albumin [Mass/volume] in Ser um or PlasmaOrdered By: Myles Velarde on 10-14-2021 Albumin [Mass/Vol] 3.1 g/dL 3.2-5.5 [facility] Basophils Auto (Bld) [#/Vol] Ordered By: Myles Velarde on 10-14-2021 Basophils (Bld) [#/Vol] 0.1 10*3/uL 0.0-0.2 [facility] Basophils/100 WBC Auto (Bld) Ordered By: Myles Velarde on 10-14-2021 Basophils/100 WBC (Bld) 0.5 % [facility] Blood hemoglobin measurement (mass/volume)Ordered By: Myles Velarde on 10-14-2021 Hemoglobin (Bld) [Mass/Vol] 15.1 g/dL 13.0-17.0 [facility] Blood leukocytes automated c ount (number/volume)Ordered By: Myles Velarde on 10-14-2021 WBC (Bld) [#/Vol] 17.9 10*3/uL 4.5-11.0 [facility] Creatinine and Glomerular fi ltration rate.predicted panel (S/P/Bld)Ordered By: Myles Velarde on 10-14-2021 Creatinine [Mass/Vol] 1.70 mg/dL 0.64-1.27 [facility] Comment on above: Delta: 1.18 on 10/13 Eosinophils Auto (Bld) [#/Vo l]Ordered By: Myles Velarde on 10-14-2021 Eosinophils (Bld) [#/Vol] 0.1 10*3/uL 0.0-0.45 [facility] Eosinophils/100 WBC Auto (Bl d)Ordered By: Myles Velarde on 10-14-2021 Eosinophils/100 WBC (Bld) 0.3 % [facility] Erythrocyte distribution wid th Auto (RBC) [Ratio]Ordered By: Myles Velarde on 10-14-2021 Erythrocyte distribution width (RBC) [Ratio] 12.8 % 12.0-14.8 [facility] Estimated glomerular filtrat ion rate (GFR) non- AmericanOrdered By: Myles Velarde on 10-14-2021 GFR/1.73 sq M.predicted among non-blacks MDRD (S/P/Bld) [Vol rate/Area] 43 mL/Min [facility] Globulin Calc (S) [Mass/Vol] Ordered By: Myles Velarde on 10-14-2021 Globulin (S) [Mass/Vol] 2.9 g/dL [facility] Hematocrit Auto (Bld) [Volum e fraction]Ordered By: Myles Velarde on 10-14-2021 Hematocrit (Bld) [Volume fraction] 44.1 % 38.8-50.0 [facility] - CoagulationOrde red By: Dewayne Pettit on 10-14-2021 PT Coag (PPP) [Time] 13.7 s 9.0-12.9 [facility] - Hematology and Cell countsOrdered By: Myles Velarde on 10-14-2021 Nucleated RBC/100 WBC (Bld) [Ratio] 0.0 % 0-0.5 [facility] Lymphocytes Auto (Bld) [#/Vo l]Ordered By: Myles Velarde on 10-14-2021 Lymphocytes (Bld) [#/Vol] 1.4 10*3/uL 1.00-4.8 [facility] Lymphocytes/100 WBC Auto (Bl d)Ordered By: Myles Velarde on 10-14-2021 Lymphocytes/100 WBC (Bld) 8.0 % [facility] MCH Auto (RBC) [Entitic mass ]Ordered By: Myles Velarde on 10-14-2021 MCH (RBC) [Entitic mass] 29.3 pg 27.5-35.2 [facility] MCHC Auto (RBC) [Mass/Vol]Or dered By: Myles Velarde on 10-14-2021 MCHC (RBC) [Mass/Vol] 34.3 g/dL 32.5-35.6 [facility] MCV Auto (RBC) [Entitic vol] Ordered By: Myles Velarde on 10-14-2021 MCV (RBC) [Entitic vol] 85.3 fL 83.5-101 [facility] Monocytes Auto (Bld) [#/Vol] Ordered By: Myles Velarde on 10-14-2021 Monocytes (Bld) [#/Vol] 2.1 10*3/uL 0.0-0.8 [facility] Monocytes/100 WBC Auto (Bld) Ordered By: Myles Velarde on 10-14-2021 Monocytes/100 WBC (Bld) 11.5 % [facility] Neutrophils Auto (Bld) [#/Vo l]Ordered By: Myles Velarde on 10-14-2021 Neutrophils (Bld) [#/Vol] 14.3 10*3/uL 1.8-7.7 [facility] Neutrophils/100 WBC Auto (Bl d)Ordered By: Myles Velarde on 10-14-2021 Neutrophils/100 WBC (Bld) 79.7 % [facility] No Panel InformationOrdered By: Myles Velarde on 10-14-2021 Estimated GFR () 52 mL/Min [facility] Comment on above: GFR estimated refere nce range: According to KDOQI guidelines, <60 ml/min/1.73m2 is sufficient to diagnose a patient with chronic kidney disease. Pharmacy Creatinine Clearance (Chem 62.13 [facility] Platelet mean volume Auto (B ld) [Entitic vol]Ordered By: Myles Velarde on 10-14-2021 Platelet mean volume (Bld) [Entitic vol] 9.1 fL 6.6-10.1 [facility] Platelet poor plasma interna tional normalized ratio (INR) by coagulation assay (relatOrdered By: Dewayne Pettit on 10-14-2021 INR Coag (PPP) [Relative time] 1.2 {INR} [facility] Comment on above: INR Therapeutic Rang [...] 10-14-2021 Platelets (Bld) [#/Vol] 175 10*3/uL 150-450 [facility] Comment on above: Delta: 230 on -045 Protein [Mass/volume] in Ser um or PlasmaOrdered By: Myles Velarde on 10-14-2021 Protein [Mass/Vol] 6.0 g/dL 6.1-7.9 [facility] RBC Auto (Bld) [#/Vol]Ordere d By: Myles Velarde on 10-14-2021 RBC (Bld) [#/Vol] 5.17 10*6/uL 3.90-5.60 [facility] Serum or plasma alanine yeager otransferase measurement without P-5'-P (enzymatic activiOrdered By: Myles Velarde on 10-14-2021 ALT No additional P-5'-P [Catalytic activity/Vol] 61 U/L 10-60 [facility] Serum or plasma albumin/glob ulin mass ratioOrdered By: Myles Velarde on 10-14-2021 Albumin/Globulin [Mass ratio] 1.1 {ratio} [facility] Serum or plasma alkaline rodger sphatase measurement (enzymatic activity/volume)Ordered By: Myles Velarde on 10-14-2021 ALP [Catalytic activity/Vol] 80 U/L 32-92 [facility] Serum or plasma aspartate am inotransferase measurement (enzymatic activity/volume)Ordered By: Myles Velarde on 10-14-2021 AST [Catalytic activity/Vol] 119 U/L 10-42 [facility] Serum or plasma calcium yuriy urement (mass/volume)Ordered By: Myles Velarde on 10-14-2021 Calcium [Mass/Vol] 8.8 mg/dL 8.2-10.2 [facility] Serum or plasma chloride barbara surement (moles/volume)Ordered By: Myles Velarde on 10-14-2021 Chloride [Moles/Vol] 99 mmol/L 95-114 [facility] Serum or plasma glucose yuriy urement (mass/volume)Ordered By: Myles Velarde on 10-14-2021 Glucose [Mass/Vol] 102 mg/dL 70-100 [facility] Comment on above: ADA recommended refe rence range Random Glucose Reference Range is dependent on time and content of last meal. Glucose of more than 200 mg/dL in a nonstressed, ambulatory subject supports the diagnosis of Diabetes Mellitus. Serum or plasma potassium me asurement (moles/volume)Ordered By: Myles Velarde on 10-14-2021 Potassium [Moles/Vol] 4.4 mmol/L 3.5-5.1 [facility] Serum or plasma sodium measu rement (moles/volume)Ordered By: Myles Velarde on 10-14-2021 Sodium [Moles/Vol] 135 mmol/L 136-146 [facility] Serum or plasma total biliru bin measurement (mass/volume)Ordered By: Myles Velarde on 10-14-2021 Bilirubin [Mass/Vol] 2.2 mg/dL 0.3-1.2 [facility] Comment on above: Samples from patient s who have taken Naproxen have shown spurious elevation in Total Bilirubin levels. A metabolite of Naproxen, O-desmethylnaproxen, has been shown to interfere with the Lesly method for measuring Total Bilirubin. Serum or plasma total carbon dioxide measurement (moles/volume)Ordered By: Myles Velarde on 10-14-2021 CO2 [Moles/Vol] 25.2 mmol/L 22.0-30.0 [facility] Serum or plasma urea nitroge n measurement (mass/volume)Ordered By: Myles Velarde on 10-14-2021 Urea nitrogen [Mass/Vol] 21 mg/dL 9- [facility] Cholesterol [Mass/volume] in Serum or PlasmaOrdered By: Dewayne Pettit on 10-13-2021 Cholesterol [Mass/Vol] 184 mg/dL 140-200 [facility] Comment on above: Chol less than 200 m g/dl low risk Chol 201-239 mg/dl borderline risk Chol 240 mg/dl and greater high risk Cholesterol in LDL Calc [Mas s/Vol]Ordered By: Dewayne Pettit on 10-13-2021 Cholesterol in LDL [Mass/Vol] 128 mg/dL 0-100 [facility] Comment on above: LDL ATP III CLASSIFI CATION LDL less than 100 mg/dL Optimal LDL 100-129 mg/dL Near or above optimal LDL 130-159 mg/dL Borderline high LDL 160-189 mg/dL High LDL greater than 189 mg/dL Very high Cholesterol in VLDL Calc [Ma ss/Vol]Ordered By: Dewayne Pettit on 10-13-2021 Cholesterol in VLDL [Mass/Vol] 19 mg/dL [facility] Glucose Glucometer (BldC) [M ass/Vol]Ordered By: Emma Allen on 10-13-2021 Glucose [Mass/Vol] 108 mg/dL [facility] Comment on above: Random Glucose Refer ence Range is dependent on time and content of last meal. Glucose of more than 200 mg/dL in a nonstressed, ambulatory subject supports the diagnosis of Diabetes Mellitus. Glucose mean value [Mass/vol ume] in Blood Estimated from glycated hemoglobinOrdered By: Dewayne Pettit on 10-13-2021 Average glucose Estimated from glycated hemoglobin (Bld) [Mass/Vol] 108 mg/dL [facility] Hemoglobin A1c percentageOrd ered By: Dewayne Pettit on 10-13-2021 HbA1c (Bld) [Mass fraction] 5.4 % 4.3-5.6 [facility] Comment on above: Increased risk for d iabetes: 5.7 - 6.4 diabetes: >6.4 glycemic control for adults with diabetes: <7.0 Laboratory - Chemistry and C hemistry - challengeOrdered By: Dewayne Pettit on 10-13-2021 Magnesium [Mass/Vol] 2.1 mg/dL 1.6-2.6 [facility] No Panel InformationOrdered By: Emma Allen on 10-13-2021 Bedside Glucose Comment Glu2: cleaned meter [facility] No Panel InformationOrdered By: Dewayne Pettit on 10-13-2021 Platelet Estimate Normal Normal [facility] Platelet Morphology Comment Normal Normal [facility] Phosphate [Mass/volume] in S prateek or PlasmaOrdered By: Dewayne Pettit on 10-13-2021 Phosphate [Mass/Vol] 4.1 mg/dL 2.5-4.6 [facility] RBC morphologyOrdered By: Lizz Pettit on 10-13-2021 RBC morphology finding Nom (Bld) Normal [facility] Serum or plasma high density lipoprotein (HDL) cholesterol measurementOrdered By: Dewayne Pettit on 10-13-2021 Cholesterol in HDL [Mass/Vol] 36 mg/dL 29-71 [facility] Comment on above: HDL CHOL ATP-III CLA SSIFICATION Cardiovascular Risk HDL > or equal to 60 mg/dL LOW HDL < 40 mg/dL HIGH Serum or plasma total choles terol/high density lipoprotein (HDL) cholesterol mass ratOrdered By: Dewayne Pettit on 10-13-2021 Cholesterol.total/Cho lesterol in HDL [Mass ratio] 5.1 {ratio} [facility] Triglyceride [Mass/volume] i n Serum or PlasmaOrdered By: Dewayne Pettit on 10-13-2021 Triglyceride [Mass/Vol] 99 mg/dL 35-149 [facility] Comment on above: TRIG ATP III [...] 10-13-2021 Troponin I.cardiac High sensitivity method [Mass/Vol] 63164 pg/mL 0-20 [facility] Comment on above: Results called at 0930 on 10/13/21 BNPon 10-12-2021 Natriuretic peptide B (Bld) [Mass/Vol] 381.0 pg/mL Normal <=900.0 [facility] Comment on above: Performed By: #### C BC #### [facility] [place] [facility] [address] [place] [address] Dr. Kelly Jones CARDIAC SOFY 3-6on 2 CK [Catalytic activity/Vol] 979 U/L Critically high 39-308 [facility] Comment on above: Result Comment: Test Repeated. Critical Value Verified Performed By: #### C BC #### [facility] [place] [facility] [address] [place] [address] Dr. Kelly Jones CK.MB [Mass/Vol] 172.66 ng/mL Critically high <=3.60 [facility] Comment on above: Result Comment: Test Repeated. Critical Value Verified Performed By: #### C BC #### [facility] [place] [facility] [address] [place] [address] Dr. Kelly Jones HSTROP 6728.0 pg/mL Critically high 4.0-76.1 [facility] Comment on above: Result Comment: CUT- OFF POINTS HAVE BEEN ESTABLISHED BASED ON THE FOURTH UNIVERSAL DEFINITIONS OF MYOCARDIAL INFARCTION. THE UPPER REFERENCE LIMIT (URL) OF TROPONIN, DEFINED THE 99TH PERCENTILE OF cTnI DISTRIBUTION IN A REFERENCE POPULATION, HAS BEEN CONFIRMED THE DECISION THRESHOLD FOR [place] DIAGNOSIS. Test Repeated. Critical Value Verified Performed By: #### C BC #### [facility] [place] [facility] [address] [place] [address] Dr. Kelly Jones CBC AUTO DIFFon 10-12-2021 BASO # 0.1 103/ul Normal 0.0-0.1 [facility] Comment on above: Performed By: #### C BC #### [facility] [place] [facility] [address] [place] [address] Dr. Kelly Jones Basophils/100 WBC (Bld) 0.4 % Normal 0.2-2.0 [facility] Comment on above: Performed By: #### C BC #### [facility] [place] [facility] [address] [place] [address] Dr. Kelly Jones EO # 0.1 103/ul Normal 0.0-0.7 [facility] Comment on above: Performed By: #### C BC #### [facility] [place] [facility] [address] [address] [address] Kelly Jones Eosinophils/100 WBC (Bld) 0.4 % Critically low 0.9-7.0 [facility] Comment on above: Performed By: #### C BC #### [facility] [place] [facility] [address] [place] [address] Dr. Kelly Jones Erythrocyte distribution width (RBC) [Ratio] 11.9 % Normal 11.0-15.0 [facility] Comment on above: Performed By: #### C BC #### [facility] [place] [facility] [address] [place] [address] Dr. Kelly Jones Hematocrit (Bld) [Volume fraction] 49.7 % Normal 42.0-54.0 [facility] Comment on above: Performed By: #### C BC #### [facility] [place] [facility] [address] [place] [address] Dr. Kelly Jones Hemoglobin (Bld) [Mass/Vol] 17.4 g/dL Normal 14.0-18.0 [facility] Comment on above: Performed By: #### C BC #### [facility] [place] [facility] [address] [place] [address] Dr. Kelly Jones IG # 0.10 10e3/ul Critically high 0.00-0.03 [facility] Comment on above: Performed By: #### C BC #### [facility] [place] [facility] [address] [place] [address] Dr. Kelly Jones IG % 0.7 % Critically high 0.0-0.5 [facility] Comment on above: Performed By: #### C BC #### [facility] [place] [facility] [address] [place] [address] Dr. Kelly Jones LYMPH # 2.0 103/ul Normal 1.2-3.8 [facility] [place] Comment on above: Performed By: #### C BC #### [facility] [place] [facility] [address] [place] [address] Dr. Kelly Jones Lymphocytes/100 WBC (Bld) 13.4 % Critically low 20.5-60.0 [facility] Comment on above: Performed By: #### C BC #### [facility] [place] [facility] [address] [place] [address] Dr. Kelly Jones MANUAL DIFF REQ NO Normal [facility] Comment on above: Performed By: #### C BC #### [facility] [place] [facility] [address] [place] [address] Dr. Kelly Jones MCH (RBC) [Entitic mass] 29.1 pg Normal 25.9-34.0 [facility] Comment on above: Performed By: #### C BC #### [facility] [place] [facility] [address] [place] [address] Dr. Kelly Jones MCHC (RBC) [Mass/Vol] 35.0 g/dL Normal 29.9-35.2 [facility] [place] Comment on above: Performed By: #### C BC #### [facility] [place] [facility] [address] [place] [address] Dr. Kelly Jones MCV (RBC) [Entitic vol] 83.1 fL Normal 80.0-94.0 [facility] Comment on above: Performed By: #### C BC #### [facility] [place] [facility] [address] [place] [address] Dr. Kelly Jones MONO # 1.2 103/ul Critically high 0.3-0.8 [facility] Comment on above: Performed By: #### C BC #### [facility] [place] [facility] [address] [place] [address] Dr. Kelly Jones Monocytes/100 WBC (Bld) 7.8 % Normal 1.7-12.0 [facility] [place] Comment on above: Performed By: #### C BC #### [facility] [place] [facility] [address] [place] [address] Dr. Kelly Jones NEUT # 11.5 103/ul Critically high 1.4-6.5 [facility] Comment on above: Performed By: #### C BC #### [facility] [place] [facility] [address] [place] [address] Dr. Kelly Jones Neutrophils/100 WBC (Bld) 77.3 % Critically high 43.0-75.0 [facility] Comment on above: Performed By: #### C BC #### [facility] [place] [facility] [address] [address] [address] Kelly Jones Platelet mean volume (Bld) [Entitic vol] 9.9 fL Normal 9.5-13.5 [facility] Comment on above: Performed By: #### C BC #### [facility] [place] [facility] [address] [place] [address] Dr. Kelly Jones PLT 254 103/ul Normal 150-450 [facility] [place] Comment on above: Performed By: #### C BC #### [facility] [place] [facility] [address] [address] [address] Kelly Jones RBC 5.98 106/ul Normal 4.70-6.10 [facility] [place] Comment on above: Performed By: #### C BC #### [facility] [place] [facility] [address] [place] [address] Dr. Kelly Jones WBC 14.9 103/ul Critically high 4.0-11.0 [facility] Comment on above: Performed By: #### C BC #### [facility] [place] [facility] [address] [place] [address] Dr. Kelly Jones Covid-19 PCR ([facility])on 09-22 SARS-CoV-2 (COVID-19) RNA SON+probe Ql (Unsp spec) Not detected Normal NOT DETECTED [facility] [place] Comment on above: Result Comment: When diagnostic [...] for this test is supported by the [employer] of Health and Human Service's declaration that [...] used). Performed By: #### C VDTB #### [facility] [place] [facility] [address] [place] [address] Dr. Kelly Jones Laboratory - Chemistry and C hemistry - challengeOrdered By: Dewayne Pettit on 10-12-2021 Natriuretic peptide B (Bld) [Mass/Vol] 107.0 pg/mL 5-100 [facility] PROF 14(COMP METB)on 022 Albumin [Mass/Vol] 4.0 g/dL Normal 3.4-5.0 [facility] Comment on above: Performed By: #### C BC #### [facility] [place] [facility] [address] [place] [address] Dr. Kelly Jones Albumin/Globulin [Mass ratio] 1.1 {ratio} Normal [facility] Comment on above: Performed By: #### C BC #### [facility] [place] [facility] [address] [place] [address] Dr. Kelly Jones ALP [Catalytic activity/Vol] 144 U/L Critically high 46-116 [facility] Comment on above: Performed By: #### C BC #### [facility] [facility] [address] [place] [address] Dr. Kelly Jones ALT [Catalytic activity/Vol] 39 U/L Normal 16-63 [facility] Comment on above: Performed By: #### C BC #### [facility] [place] [facility] [address] [place] [address] Dr. Kelly Jones Anion gap [Moles/Vol] 13.2 mmol/L Normal [facility] Comment on above: Performed By: #### C BC #### [facility] [place] [facility] [address] [place] [address] Dr. Kelly Jones AST [Catalytic activity/Vol] 25 U/L Normal 15-37 [facility] Comment on above: Performed By: #### C BC #### [facility] [place] [facility] [address] [place] [address] Dr. Kelly Jones Bilirubin [Mass/Vol] 0.4 mg/dL Normal 0.2-1.0 [facility] Comment on above: Performed By: #### C BC #### [facility] [place] [facility] [address] [address] [address] Kelly Jones Calcium [Mass/Vol] 10.7 mg/dL Critically high 8.5-10.1 [facility] Comment on above: Performed By: #### C BC #### [facility] [place] [facility] [address] [address] [address] Kelly Jones Chloride [Moles/Vol] 102 mmol/L Normal 98-107 [facility] Comment on above: Performed By: #### C BC #### [facility] [place] [facility] [address] [address] [address] Kelly Jones CO2 [Moles/Vol] 27.5 mmol/L Normal 21.0-32.0 [facility] Comment on above: Performed By: #### C BC #### [facility] [place] [facility] [address] [address] [address] Kelly Jones Creatinine [Mass/Vol] 1.34 mg/dL Critically high 0.70-1.30 [facility] Comment on above: Performed By: #### C BC #### [facility] [place] [facility] [address] [address] [address] Kelly Jones EGFR-AF EGYPTIAN >60 Normal >=60 [facility] Comment on above: Performed By: #### C BC #### [facility] [place] [facility] [address] [address] [address] Kelly Jones EGFR-NON AF EGYPTIAN 56 mL/min/1.73m2 Critically low >=60 [facility] Comment on above: Performed By: #### C BC #### [facility] [place] [facility] [address] [address] [address] Kelly Jones Globulin (S) [Mass/Vol] 3.8 g/dL Normal [facility] Comment on above: Performed By: #### C BC #### [facility] [place] [facility] [address] [address] [address] Kelly Jones Glucose [Mass/Vol] 110 mg/dL Critically high 74-106 [facility] Comment on above: Performed By: #### C BC #### [facility] [place] [facility] [address] [address] [address] Kelly Jones Potassium [Moles/Vol] 3.7 mmol/L Normal 3.5-5.1 [facility] Comment on above: Performed By: #### C BC #### [facility] [place] [facility] [address] [address] [address] Kelly Jones Protein [Mass/Vol] 7.8 g/dL Normal 6.4-8.2 [facility] Comment on above: Performed By: #### C BC #### [facility] [address] [address] [address] Kelly Jones Sodium [Moles/Vol] 139 mmol/L Normal 136-145 [facility] Comment on above: Performed By: #### C BC #### [facility] [place] [facility] [address] [address] [address] Kelly Jones Urea nitrogen [Mass/Vol] 11.0 mg/dL Normal 7.0-18.0 [facility] Comment on above: Performed By: #### C BC #### [facility] [address] [address] [address] Kelly Jones Urea nitrogen/Creatinine [Mass ratio] 8.2 mg/mg Normal [facility] Comment on above: Performed By: #### C BC #### [facility] [address] [address] [address] Kelly Jones PROTIMEon 10-12-2021 INR Coag (PPP) [Relative time] 0.95 {INR} Normal [facility] Comment on above: Performed By: #### P T, PTT #### [facility] [address] [address] [address] Kelly Jones INR GUIDELINES SEE BELOW Normal [facility] Comment on above: Result Comment: CATHIE RED INR: 2.0 - 3.0 CONDITIONS NOT LISTED BELOW 2.5 - 3.5 FOR PROSTHETIC HEART VALVE REPLACEMENT 2.5 - 3.5 RECURRENT THROMBOSIS Performed By: #### P T, PTT #### [facility] [address] [address] [address] Kelly Jones PT Coag (PPP) [Time] 10.3 s Normal 9.0-11.6 [facility] Comment on above: Performed By: #### P T, PTT #### [facility] [address], [place] [address] Dr. Kelly Jones PTTon 10-12-2021 aPTT Coag (Bld) [Time] 27.9 s Normal 22.3-36.2 [facility] Comment on above: Performed By: #### P T, PTT #### [facility] [address], [place] [address] Dr. Kelly Jones TROPONIN, HIGH SENSITIVITYon 10-12-2021 HSTROP 1288.2 pg/mL Critically high 4.0-76.1 [facility] Comment on above: Result Comment: CUT- OFF POINTS HAVE BEEN ESTABLISHED BASED ON THE FOURTH UNIVERSAL DEFINITIONS OF MYOCARDIAL INFARCTION. THE UPPER REFERENCE LIMIT (URL) OF TROPONIN, DEFINED THE 99TH PERCENTILE OF cTnI DISTRIBUTION IN A REFERENCE POPULATION, HAS BEEN CONFIRMED THE DECISION THRESHOLD FOR [place] DIAGNOSIS. Performed By: #### C BC #### [facility] [address] [address] [address] Kelly Jones TSH DL <= 0.005 mIU/L QnOrde red By: Dewayne Pettit on 10-12-2021 TSH Qn 2.35 m[IU]/L 0.45-5.33 [facility] XR CHEST 1 Von 10-12-2021 XR [...] LELAND HARRIS Date: 2021-10-12 18:34 Normal [facility] Vital Signs Date Time Vital Sign Value Performing Clinician Facility 11-13-2023 12:10-0400 Body temperature 98.01 [degF] Gary East MD Work Phone: [facility] 11-13-2023 12:10-0400 Diastolic blood pressure 72 mm[Hg] Gary East MD Work Phone: [facility] 11-13-2023 12:10-0400 Heart rate 61 /min Gary Eats MD Work Phone: [facility] 11-13-2023 12:10-0400 Respiratory rate 15 /min Gary East MD Work Phone: [facility] 11-13-2023 12:10-0400 SaO2% (BldA) [Mass fraction] 97 % Gary East MD Work Phone: [facility] 11-13-2023 12:10-0400 Systolic blood pressure 108 mm[Hg] Gary East MD Work Phone: [facility] 11-13-2023 09:34-0400 Body height 170.2 cm Gary East MD Work Phone: [facility] 11-13-2023 09:34-0400 Body mass index (BMI) [Ratio] 24.59 kg/m2 Gary East MD Work Phone: [facility] 11-13-2023 09:34-0400 Body weight 71.22 kg Gary East MD Work Phone: [facility] 09-28-2023 10:03-0400 Body height 172.72 cm DO Yaya Ball Work Phone: [facility] 09-28-2023 10:03-0400 Body mass index (BMI) [Ratio] 24.9 kg/m2 DO Yaya Ball Work Phone: [facility] 09-28-2023 10:03-0400 Body weight 74.38 kg DO Yaya Ball Work Phone: [facility] 09-28-2023 10:03-0400 Diastolic blood pressure 82 mm[Hg] DO Yaya Ball Work Phone: [facility] 09-28-2023 10:03-0400 Heart rate 48 /min DO Yaya Ball Work Phone: [facility] 09-28-2023 10:03-0400 Respiratory rate 20 /min DO Yaya Ball Work Phone: [facility] 09-28-2023 10:03-0400 Systolic blood pressure 161 mm[Hg] DO Yaya Ball Work Phone: [facility] 09-03-2023 15:34-0400 Body height 172.72 cm DO Yaya Ball Work Phone: [facility] 09-03-2023 15:34-0400 Body mass index (BMI) [Ratio] 25.7 kg/m2 DO Yaya Ball Work Phone: [facility] 09-03-2023 15:34-0400 Body weight 76.88 kg DO Yaya Ball Work Phone: [facility] 09-03-2023 15:34-0400 Diastolic blood pressure 68 mm[Hg] DO Yaya Ball Work Phone: [facility] 09-03-2023 15:34-0400 Heart rate 66 /min DO Yaya Ball Work Phone: [facility] 09-03-2023 15:34-0400 Respiratory rate 16 /min DO Yaya Ball Work Phone: [facility] 09-03-2023 15:34-0400 Systolic blood pressure 119 mm[Hg] DO Yaya Ball Work Phone: [facility] 08-08-2023 10:26-0400 Body height 172.7 cm Denis Hoang DO Work Phone: [facility] 08-08-2023 10:26-0400 Body mass index (BMI) [Ratio] 25.24 kg/m2 Denis Hoang DO Work Phone: [facility] 08-08-2023 10:26-0400 Body weight 75.3 kg Denis Hoang DO Work Phone: [facility] 08-08-2023 10:26-0400 Diastolic blood pressure 72 mm[Hg] Denis Hoang DO Work Phone: [facility] 08-08-2023 10:26-0400 Heart rate 74 /min Denis Hoang DO Work Phone: [facility] 08-08-2023 10:26-0400 Systolic blood pressure 112 mm[Hg] Denis Hoang DO Work Phone: [facility] 06-04-2023 08:30-0500 Body height 172.72 cm Doretah Missler Other [employer] Other 06-04-2023 08:30-0500 Body mass index (BMI) [Ratio] 23.9 kg/m2 Doretha Missler Other [employer] Other 06-04-2023 08:30-0500 Body weight 71.31 kg Doretha Missler Other [employer] Other 06-04-2023 08:30-0500 Diastolic blood pressure 69 mm[Hg] Doretha Missler Other [employer] Other 06-04-2023 08:30-0500 Respiratory rate 16 /min Doretha Missler Other [employer] Other 06-04-2023 08:30-0500 SaO2% (BldA) [Mass fraction] 100 % Doretha Missler Other [employer] Other 06-04-2023 08:30-0500 Systolic blood pressure 109 mm[Hg] Doretha Missler Other [employer] [facility] [employer] Other 05-27-2023 10:50-0500 Body height 172.72 cm Aleksandra Caal Other [facility] 05-27-2023 10:50-0500 Body mass index (BMI) [Ratio] 24.42 kg/m2 Aleksandra Afua Other [employer] Other 05-27-2023 10:50-0500 Body temperature 98 [degF] Aleksandra Caal Other [employer] Other 05-27-2023 10:50-0500 Body weight 72.85 kg Aleksandra Caal Other [employer] Other 05-27-2023 10:50-0500 Body weight 72.84 kg DO Yaya MolecularMD Work Phone: [facility] 05-27-2023 10:50-0500 Diastolic blood pressure 87 mm[Hg] Aleksandra Orellanamond Other [facility] 05-27-2023 10:50-0500 Respiratory rate 16 /min Aleksandra Orellanamond Other [employer] Other 05-27-2023 10:50-0500 SaO2% (BldA) [Mass fraction] 99 % Aleksandra Afua Other [employer] [facility] [employer] Other 05-27-2023 10:50-0500 Systolic blood pressure 136 mm[Hg] Aleksandra Afua Other [facility] 03-02-2023 14:30-0500 Body height 172.72 cm Yaya Ball Other [employer] Other 03-02-2023 14:30-0500 Body mass index (BMI) [Ratio] 22.9 kg/m2 Yaya Ball Other [employer] Other 03-02-2023 14:30-0500 Body weight 68.31 kg Yaya Ball Other [employer] Other 03-02-2023 14:30-0500 Diastolic blood pressure 68 mm[Hg] Yaya Ball Other [employer] Other 03-02-2023 14:30-0500 Respiratory rate 12 /min Yaya Ball Other [employer] Other 03-02-2023 14:30-0500 Systolic blood pressure 110 mm[Hg] Yaya Ball Other [employer] Other 02-19-2023 09:00-0400 Body height 172.72 cm Doretha Missler Other [employer] Other 02-19-2023 09:00-0400 Body mass index (BMI) [Ratio] 23.57 kg/m2 Doretha Missler Other [employer] Other 02-19-2023 09:00-0400 Body weight 70.31 kg Doretha Missler Other [employer] Other 02-19-2023 09:00-0400 Diastolic blood pressure 68 mm[Hg] Doretha Missler Other [employer] Other 02-19-2023 09:00-0400 Respiratory rate 16 /min Doretha Missler Other [employer] Other 02-19-2023 09:00-0400 SaO2% (BldA) [Mass fraction] 100 % Doretha Missler Other [employer] Other 02-19-2023 09:00-0400 Systolic blood pressure 108 mm[Hg] Doretha Missler Other [employer] Other 12-18-2022 09:00-0400 Body height 172.72 cm Doretha Missler Other [employer] Other 12-18-2022 09:00-0400 Body mass index (BMI) [Ratio] 23.38 kg/m2 Doretha Missler Other [employer] Other 12-18-2022 09:00-0400 Body weight 69.76 kg Doretha Missler Other [employer] Other 12-18-2022 09:00-0400 Diastolic blood pressure 65 mm[Hg] Doretha Missler Other [employer] Other 12-18-2022 09:00-0400 Respiratory rate 16 /min Doretha Missler Other [employer] Other 12-18-2022 09:00-0400 SaO2% (BldA) [Mass fraction] 99 % Doretha Missler Other [employer] Other 12-18-2022 09:00-0400 Systolic blood pressure 103 mm[Hg] Doretha Missler Other [employer] Other 11-22-2022 10:27-0400 Body height 172.72 cm Yaya E Ball Work Phone: [facility] 250 DO Work Phone: 11-22-2022 10:27-0400 Body mass index (BMI) [Ratio] 23.42 kg/m2 Yaya Dale Ball Work Phone: [facility] 250 DO Work Phone: 11-22-2022 10:27-0400 Body surface area Derived from formula 1.83 m2 Yaya E Ball Work Phone: [facility] 250 DO Work Phone: 11-22-2022 10:27-0400 Body weight 69.85 kg aYya Dale Ball Work Phone: [facility] 250 DO Work Phone: 11-22-2022 10:27-0400 Diastolic blood pressure 64 mm[Hg] Yaya Dale Ball Work Phone: [facility] DO Work Phone: 11-22-2022 10:27-0400 Heart rate 58 /min Yaya Dale [employer] Work Phone: [facility] DO Work Phone: 11-22-2022 10:27-0400 Systolic blood pressure 110 mm[Hg] Yaya Dale [employer] Work Phone: [facility] DO Work Phone: 10-25-2022 11:00-0400 Body height 172.72 cm Dorethaher Diegoler Other [employer] Other 10-25-2022 11:00-0400 Body mass index (BMI) [Ratio] 23.14 kg/m2 Doretha Missler Other [employer] Other 10-25-2022 11:00-0400 Body weight 69.04 kg Doretha Missler Other [employer] Other 10-25-2022 11:00-0400 Diastolic blood pressure 69 mm[Hg] Doretha Missler Other [employer] Other 10-25-2022 11:00-0400 Respiratory rate 16 /min Dorethaher Diegoler Other [employer] Other 10-25-2022 11:00-0400 SaO2% (BldA) [Mass fraction] 100 % Doretha Diegoler Other [employer] Other 10-25-2022 11:00-0400 Systolic blood pressure 110 mm[Hg] Doretha Diegoler Other [employer] Other 10-12-2022 14:00-0400 Body height 172.72 cm Yaya Ball Other [employer] Other 10-12-2022 14:00-0400 Body mass index (BMI) [Ratio] 23.75 kg/m2 Yaya Ball Other [employer] Other 10-12-2022 14:00-0400 Body weight 70.85 kg Yaya Ball Other [employer] Other 10-12-2022 14:00-0400 Diastolic blood pressure 68 mm[Hg] Yaya Ball Other [employer] Other 10-12-2022 14:00-0400 Respiratory rate 12 /min Yaya Ball Other [employer] Other 10-12-2022 14:00-0400 Systolic blood pressure 106 mm[Hg] Yaya Ball Other [employer] Other 08-30-2022 16:00-0400 Body height 172.72 cm Yaya Ball Other [employer] Other 08-30-2022 16:00-0400 Body mass index (BMI) [Ratio] 23.99 kg/m2 Yaya Ball Other [employer] Other 08-30-2022 16:00-0400 Body weight 71.58 kg Yaya Ball Other [employer] Other 08-30-2022 16:00-0400 Diastolic blood pressure 65 mm[Hg] Yaya Ball Other [employer] Other 08-30-2022 16:00-0400 Respiratory rate 12 /min Yaya Ball Other [employer] Other 08-30-2022 16:00-0400 Systolic blood pressure 108 mm[Hg] Yaya Ball Other [employer] Other 06-14-2022 10:30-0500 Body height 172.72 cm Doretha Missler Other [employer] Other 06-14-2022 10:30-0500 Body mass index (BMI) [Ratio] 24.8 kg/m2 Doretha Missler Other [employer] Other 06-14-2022 10:30-0500 Body weight 73.98 kg Doretha Missler Other [employer] Other 06-14-2022 10:30-0500 Diastolic blood pressure 69 mm[Hg] Doretha Missler Other [employer] Other 06-14-2022 10:30-0500 Respiratory rate 16 /min Doretha Missler Other [employer] Other 06-14-2022 10:30-0500 SaO2% (BldA) [Mass fraction] 100 % Doretha Missler Other [employer] Other 06-14-2022 10:30-0500 Systolic blood pressure 118 mm[Hg] Doretha Missler Other [employer] Other 05-30-2022 16:00-0500 Body height 172.72 cm Yaya Ball Other [employer] Other 05-30-2022 16:00-0500 Body mass index (BMI) [Ratio] 25.33 kg/m2 Yaya Ball Other [employer] Other 05-30-2022 16:00-0500 Body weight 75.57 kg Yaya Ball Other [employer] Other 05-30-2022 16:00-0500 Diastolic blood pressure 78 mm[Hg] Yaya Ball Other [employer] Other 05-30-2022 16:00-0500 Respiratory rate 12 /min Yaya Ball Other [employer] Other 05-30-2022 16:00-0500 Systolic blood pressure 102 mm[Hg] Yaya Ball Other [employer] Other 05-03-2022 11:30-0500 Body height 172.72 cm Doretha Missler Other [employer] Other 05-03-2022 11:30-0500 Body mass index (BMI) [Ratio] 25.66 kg/m2 Doretha Missler Other [employer] Other 05-03-2022 11:30-0500 Body weight 76.57 kg Doretha Missler Other [employer] Other 05-03-2022 11:30-0500 Diastolic blood pressure 73 mm[Hg] Doretha Missler Other [employer] Other 05-03-2022 11:30-0500 Respiratory rate 18 /min Doretha Missler Other [employer] Other 05-03-2022 11:30-0500 SaO2% (BldA) [Mass fraction] 100 % Doretha Missler Other [employer] Other 05-03-2022 11:30-0500 Systolic blood pressure 120 mm[Hg] Doretha Missler Other [employer] Other 03-27-2022 12:30-0500 Body height 172.72 cm Doretha Missler Other [employer] Other 03-27-2022 12:30-0500 Body mass index (BMI) [Ratio] 26.51 kg/m2 Doretha Missler Other [employer] Other 03-27-2022 12:30-0500 Body weight 79.11 kg Doretha Missler Other [employer] Other 03-27-2022 12:30-0500 Diastolic blood pressure 74 mm[Hg] Doretha Missler Other [employer] Other 03-27-2022 12:30-0500 Respiratory rate 18 /min Doretha Missler Other [employer] Other 03-27-2022 12:30-0500 SaO2% (BldA) [Mass fraction] 100 % Doretha Missler Other [employer] Other 03-27-2022 12:30-0500 Systolic blood pressure 115 mm[Hg] Doretha Missler Other [employer] Other 02-15-2022 14:30-0400 Body height 172.72 cm Doretha Missler Other [employer] Other 02-15-2022 14:30-0400 Body mass index (BMI) [Ratio] 27.99 kg/m2 Doretha Missler Other [employer] Other 02-15-2022 14:30-0400 Body weight 83.51 kg Doretha Missler Other [employer] Other 02-15-2022 14:30-0400 Diastolic blood pressure 66 mm[Hg] Doretha Missler Other [employer] Other 02-15-2022 14:30-0400 Respiratory rate 18 /min Doretha Missler Other [employer] Other 02-15-2022 14:30-0400 SaO2% (BldA) [Mass fraction] 99 % Doretha Missler Other [employer] Other 02-15-2022 14:30-0400 Systolic blood pressure 112 mm[Hg] Doretha Missler Other [employer] Other 01-23-2022 13:45-0400 Body height 172.72 cm Doretha Missler Other [employer] Other 01-23-2022 13:45-0400 Body mass index (BMI) [Ratio] 30 kg/m2 Doretha Missler Other [employer] Other 01-23-2022 13:45-0400 Body weight 89.5 kg Doretha Missler Other [employer] Other 01-23-2022 13:45-0400 Diastolic blood pressure 74 mm[Hg] Doretha Missler Other [employer] Other 01-23-2022 13:45-0400 Respiratory rate 18 /min Doretha Missler Other [employer] Other 01-23-2022 13:45-0400 SaO2% (BldA) [Mass fraction] 100 % Doretha Missler Other [employer] Other 01-23-2022 13:45-0400 Systolic blood pressure 123 mm[Hg] Doretha Missler Other [employer] Other 12-28-2021 16:15-0400 Body height 172.72 cm Doretha Missler Other [employer] Other 12-28-2021 16:15-0400 Body mass index (BMI) [Ratio] 31.39 kg/m2 Doretha Missler Other [employer] Other 12-28-2021 16:15-0400 Body weight 93.67 kg Doretha Missler Other [employer] Other 12-28-2021 16:15-0400 Diastolic blood pressure 75 mm[Hg] Doretha Missler Other [employer] Other 12-28-2021 16:15-0400 Respiratory rate 18 /min Doretha Missler Other [employer] Other 12-28-2021 16:15-0400 SaO2% (BldA) [Mass fraction] 100 % Doretha Missler Other [employer] Other 12-28-2021 16:15-0400 Systolic blood pressure 123 mm[Hg] Doretha Missler Other [employer] Other 12-14-2021 16:15-0400 Body height 172.72 cm Doretha Missler Other [employer] Other 12-14-2021 16:15-0400 Body mass index (BMI) [Ratio] 33.05 kg/m2 Doretha Missler Other [employer] Other 12-14-2021 16:15-0400 Body weight 98.61 kg Doretha Missler Other [employer] Other 12-14-2021 16:15-0400 Diastolic blood pressure 63 mm[Hg] Doretha Missler Other [employer] Other 12-14-2021 16:15-0400 Respiratory rate 18 /min Doretha Missler Other [employer] Other 12-14-2021 16:15-0400 SaO2% (BldA) [Mass fraction] 98 % Doretha Missler Other [employer] Other 12-14-2021 16:15-0400 Systolic blood pressure 108 mm[Hg] Doretha Missler Other [employer] Other 11-23-2021 15:45-0400 Body height 172.72 cm Doretha Missler Other [employer] Other 11-23-2021 15:45-0400 Body mass index (BMI) [Ratio] 34.59 kg/m2 Doretha Missler Other [employer] Other 11-23-2021 15:45-0400 Body weight 103.19 kg Doretha Missler Other [employer] Other 11-23-2021 15:45-0400 Diastolic blood pressure 76 mm[Hg] Doretha Missler Other [employer] Other 11-23-2021 15:45-0400 Respiratory rate 18 /min Doretha Missler Other [employer] Other 11-23-2021 15:45-0400 SaO2% (BldA) [Mass fraction] 99 % Doretha Missler Other [employer] Other 11-23-2021 15:45-0400 Systolic blood pressure 125 mm[Hg] Doretha Missler Other [employer] Other 11-09-2021 11:00-0400 Body height 172.72 cm Doretha Missler Other [employer] Other 11-09-2021 11:00-0400 Body mass index (BMI) [Ratio] 35.17 kg/m2 Doretha Missler Other [employer] Other 11-09-2021 11:00-0400 Body weight 104.92 kg Doretha Missler Other [employer] Other 11-09-2021 11:00-0400 Diastolic blood pressure 86 mm[Hg] Doretha Missler Other [employer] Other 11-09-2021 11:00-0400 Respiratory rate 18 /min Doretha Missler Other [employer] Other 11-09-2021 11:00-0400 SaO2% (BldA) [Mass fraction] 98 % Doretha Missler Other [employer] Other 11-09-2021 11:00-0400 Systolic blood pressure 143 mm[Hg] Doretha Missler Other [employer] Other 10-19-2021 12:00-0400 Body height 172.72 cm Doretha Missler Other [employer] Other 10-19-2021 12:00-0400 Body mass index (BMI) [Ratio] 36.34 kg/m2 Doretha Missler Other [employer] Other 10-19-2021 12:00-0400 Body temperature 99.1 [degF] Doretha Missler Other [employer] Other 10-19-2021 12:00-0400 Body weight 108.41 kg Doretha Missler Other [employer] Other 10-19-2021 12:00-0400 Diastolic blood pressure 79 mm[Hg] Doretha Missler Other [employer] Other 10-19-2021 12:00-0400 Respiratory rate 24 /min Doretha Missler Other [employer] Other 10-19-2021 12:00-0400 SaO2% (BldA) [Mass fraction] 99 % Doretha ler Other [facility] [employer] Other 10-19-2021 12:00-0400 Systolic blood pressure 116 mm[Hg] Doretha Missler Other [facility] [employer] Other 10-14-2021 06:36-0400 Body temperature 98.9 [degF] DO Yaya Ball Work Phone: [facility] 10-14-2021 06:36-0400 Diastolic blood pressure 51 mm[Hg] DO Yaya Ball Work Phone: [facility] [facility] 10-14-2021 06:36-0400 Heart rate 88 /min DO Yaya Ball Work Phone: [facility] 10-14-2021 06:36-0400 Respiratory rate 18 /min DO Yaya Ball Work Phone: [facility] 10-14-2021 06:36-0400 SaO2% (BldA) [Mass fraction] 95 % DO Yaya Ball Work Phone: [facility] 10-14-2021 06:36-0400 Systolic blood pressure 103 mm[Hg] DO Yaya Ball Work Phone: [facility] 10-14-2021 06:00-0400 Body weight 110 kg DO Yaya Ball Work Phone: [facility] 10-14-2021 00:00-0400 Inhaled oxygen flow rate 3 L/min DO Yaya Ball Work Phone: [facility] 10-13-2021 16:16-0400 65 1 Denis Hoang DO Work Phone: [facility] DO Work Phone: Comment on above: [id number] 10-13-2021 14:18-0400 Body height 172.72 cm DO Yaya Ball Work Phone: [facility] 10-13-2021 00:00-0400 Inhaled oxygen concentration 98 % DO Yaya Lema Work Phone: [facility] 10-12-2021 22:43-0400 Body mass index (BMI) [Ratio] 37.2 kg/m2 DO Yaya Lema Work Phone: [facility] Encounters Encounter Date Encounter Type Care Provider Facility Start: 05-28-2024 End: 05-30-2024 ambulatory RAMYA PETER [facility] Start: 05-28-2024 End: 05-30-2024 Subsequent hospital visit by physician Kevin Jara Dr Room 4 [facility] Radiology Comment on above: Bilateral kidney sto jamar Start: 05-08-2024 End: 05-08-2024 ambulatory RAMYA PETER [facility] Start: 05-08-2024 End: 05-08-2024 Subsequent hospital visit by physician Yaya Lema DO Work Phone: [facility] Comment on above: Kidney stone Start: 05-02-2024 End: 05-04-2024 ambulatory GARYSANDRA EAST Jessika [facility] Start: 05-02-2024 End: 05-04-2024 Subsequent hospital visit by physician Kevin Hayden Scan Room [facility] CT Scan Comment on above: Gross hematuria Start: 03-10-2024 End: 03-12-2024 ambulatory RAMYA [facility] Start: 03-10-2024 End: 03-12-2024 Subsequent hospital visit by physician Kevin Jara Dr [facility] Comment on above: Metal foreign body i n eye region Renal cyst; Complex renal cyst Kidney stone Start: 12-25-2023 End: 12-27-2023 ambulatory GARY M CRUZITOBartolo Rosen [facility] Start: 12-25-2023 End: 12-27-2023 Subsequent hospital visit by physician Kevin Jara Dr Room 4 [facility] Radiology Comment on above: Kidney stone Start: 11-13-2023 End: 11-13-2023 ambulatory YAYA [facility] Start: 11-13-2023 End: 11-13-2023 Subsequent hospital visit by physician Gary East MD Work Phone: [facility] Comment on above: Ureteral stone (Prim patrice Dx) Start: 11-05-2023 End: 11-05-2023 [facility] Start: 11-01-2023 End: 11-01-2023 Patient encounter procedure DO Yaya Ball Work Phone: [facility] Work Phone: Start: 11-01-2023 End: 11-05-2023 ambulatory DO Yaya Ball Work Phone: [facility] Work Phone: Start: 10-24-2023 End: 10-26-2023 ambulatory RAMYA ACEVEDO [facility] Start: 10-24-2023 End: 10-26-2023 Subsequent hospital visit by physician Kevin Cat Scan Room [facility] CT Scan Comment on above: Gross hematuria; Complex renal cyst Start: 10-08-2023 End: 10-08-2023 ambulatory YAYA LEMA [facility] Start: 09-28-2023 End: 09-28-2023 ambulatory DO Yaya Ball Work Phone: [facility] Work Phone: Start: 09-28-2023 End: 09-28-2023 Patient encounter procedure DO Yaya Ball Work Phone: [facility] Work Phone: Start: 09-03-2023 End: 09-03-2023 ambulatory DO Yaya Ball Work Phone: [facility] Work Phone: Start: 09-03-2023 End: 09-03-2023 Encounter for general adult medical examination without abnormal findings DO Yaya Ball Work Phone: [facility] Start: 09-03-2023 End: 09-03-2023 Patient encounter procedure DO Yaya Ball Work Phone: [facility] Work Phone: Start: 08-27-2023 Non-patient / Non-visit DO Dimitri Lema Work Phone: [facility] [employer] Work Phone: Start: 08-14-2023 End: 08-14-2023 Patient encounter procedure DO Yaya Lema Work Phone: [facility] Work Phone: Start: 08-14-2023 End: 08-14-2023 ambulatory DO Yaya Lema Work Phone: [facility] Work Phone: Start: 08-08-2023 End: 08-08-2023 ambulatory [facility] Ambulatory Start: 08-08-2023 End: 08-08-2023 Office outpatient visit 15 minutes 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; History of PTCA; Mixed hyperlipidemia; Hypertension, benign; Subsequent non-ST elevation (NSTEMI) myocardial infarction (Multi); BMI 25.0-25.9,adult; Former smoker Start: 06-11-2023 End: 06-11-2023 ambulatory DO Yaya Lema Work Phone: [facility] Work Phone: Start: 06-11-2023 End: 06-11-2023 Patient encounter procedure DO Yaya Lema Work Phone: [facility] Work Phone: Start: 06-04-2023 (Smoking fu) Smoking cess fu [facility] Start: 06-04-2023 End: 06-04-2023 ambulatory DO Yaya Lema Work Phone: [facility] [employer] Other Start: 06-04-2023 End: 06-04-2023 Discharged Recurring DO Yaya Lema Work Phone: [facility] Work Phone: Start: 06-04-2023 Registered Recurring DO Roman in [place] Work Phone: [facility] Work Phone: Start: 06-04-2023 End: 06-04-2023 Patient encounter procedure DO Yaya Lema Work Phone: [facility]- Start: 05-27-2023 End: 05-27-2023 ambulatory Aleksandra Caal Other [employer] Other Start: 05-27-2023 Office outpatient vi sit 15 minutes Aleksandra Caal [facility] Start: 05-27-2023 End: 05-27-2023 Patient encounter procedure DO Yaya Lema Work Phone: [facility]- Start: 03-06-2023 End: 03-06-2023 ambulatory Yaya Lema Other [employer] Other Start: 03-06-2023 Telephone encounter Yaya LAY [facility] Start: 03-02-2023 End: 03-02-2023 ambulatory Yaya Lema Other [employer] Other Start: 03-02-2023 Office outpatient vi sit 25 minutes Yaya Lema [facility] Start: 03-02-2023 End: 03-02-2023 Patient encounter procedure [facility] Work Phone: Start: 02-22-2023 End: 02-22-2023 ambulatory Yaya Lema Other [employer] Other Start: 02-22-2023 Telephone encounter Yaya Lema FP [facility] Start: 02-19-2023 (Smoking fu) Smoking cess fu Doretha [facility] Start: 02-19-2023 End: 02-19-2023 ambulatory Yaya Lema [facility] [employer] Other Start: 02-07-2023 End: 02-07-2023 ambulatory Gary Cruzito Facility:[facility] Start: 12-18-2022 (Smoking fu) Smoking cess fu Doretha Valentino [facility] Start: 12-18-2022 End: 12-18-2022 ambulatory Doretha Valentino Other [employer] Other Start: 12-18-2022 Telephone encounter [facility] Start: 12-13-2022 End: 12-13-2022 ambulatory Yaya Lema Other [employer] Other Start: 12-13-2022 Telephone encounter [facility]aya [facility] Start: 12-05-2022 End: 12-05-2022 ambulatory DO Yaya [place] Work Phone: [facility] Work Phone: Start: 12-05-2022 End: 12-05-2022 Departed Referred DO Yaya [place] Work Phone: [facility] Work Phone: Start: 11-22-2022 Office outpatient vi sit 15 minutes Yaya Dale [place] Work Phone: [facility] DO Work Phone: Start: 11-22-2022 Patient encounter procedure Yaya Dale [place] Work Phone: [facility] DO Work Phone: Start: 11-22-[address] Denis Hoang Facility: Start: 11-06-2022 End: 11-06-2022 ambulatory Yaya Lema Other [employer] Other Start: 11-06-2022 Telephone encounter [facility] Start: 10-30-2022 End: 10-30-2022 ambulatory Yaya Lema Other [employer] Other Start: 10-30-2022 Telephone encounter [facility] Start: 10-25-2022 (Smoking fu) Smoking cess fu Doretha Valentino [facility] Start: 10-25-2022 End: 10-25-2022 ambulatory Doretha Valentino Other [employer] Other Start: 10-25-2022 Registered Recurring DO Roman in [employer] Work Phone: [facility] Work Phone: Start: 10-16-2022 End: 10-16-2022 ambulatory Yaya Lema Other [employer] Other Start: 10-16-2022 Telephone encounter Yaya LAY [facility] Start: 10-12-2022 End: 10-12-2022 ambulatory Yaya Lema Other [employer] Other Start: 10-12-2022 Office outpatient vi sit 15 minutes Yaya Lema [facility] Start: 10-12-2022 Telephone encounter Yaya LAY [facility] Start: 09-03-2022 Encounter for genera l adult medical examination without abnormal findings DR YAYA LEMA [facility] Start: 09-01-2022 Telephone encounter Yaya LAY [facility] Start: 09-01-2022 End: 09-02-[address] YAYA LEMA [facility] [employer] Other Start: 09-01-2022 End: 09-02-2022 Encounter for general adult medical examination without abnormal findings DR YAYA LEMA Facility: Start: 08-30-2022 End: 08-30-2022 ambulatory Yaya Lema Other [employer] Other Start: 08-30-2022 Encounter for genera l adult medical examination without abnormal findings Yaya Lema [facility] Start: 08-30-2022 Periodic preventive med est patient 40-64yrs Yaya Lema [facility] Start: 08-09-2022 ambulatory Lakesha Hatch Facility:[facility] Start: 07-31-2022 End: 07-31-2022 ambulatory Yaya Lema Other [employer] Other Start: 07-31-2022 Telephone encounter Yaya Lema [facility] Start: 07-20-2022 End: 07-20-2022 ambulatory DO Yaya Lema Work Phone: [facility] Work Phone: Start: 07-20-2022 End: 07-20-2022 Patient encounter procedure DO Yaya Lema Work Phone: [facility] Work Phone: Start: 06-21-2022 End: 06-21-2022 ambulatory Yaya Lema Other [employer] Other Start: 06-21-2022 Telephone encounter Yaya Lema [facility] Start: 06-20-2022 End: 06-20-[address] Denis Hoang [employer] Other Start: 06-20-2022 Telephone encounter Yaya Lema [facility] Start: 06-16-2022 End: 06-16-2022 ambulatory Yaya Lema Other [employer] Other Start: 06-16-2022 Telephone encounter Yaya Lema [facility] Start: 06-15-2022 End: 06-16-[address] YAYA LEMA Facility:[facility] Start: 06-14-2022 (Smoking fu) Smoking cess fu [facility] Start: 06-14-2022 End: 06-14-2022 ambulatory Doretha Valentino Other [employer] Other Start: 06-14-2022 Registered Recurring DO Roman in [place] Work Phone: [facility] Work Phone: Start: 06-05-2022 End: 06-05-2022 ambulatory Yaya Lema Other [employer] Other Start: 06-05-2022 Telephone encounter Yaya LAY [facility] Start: 05-31-2022 End: 05-31-2022 ambulatory DO Yaya Lema Work Phone: [facility] Work Phone: Start: 05-31-2022 End: 05-31-2022 Patient encounter procedure DO Yaya Lema Work Phone: [facility] [place] Work Phone: Start: 05-30-2022 End: 05-30-2022 ambulatory Yaya Lema Other [employer] Other Start: 05-30-2022 Office outpatient vi sit 25 minutes Yaya Lema [facility] Start: 05-17-2022 End: 05-17-2022 ambulatory Dorethaher Diegoler Other [employer] Other Start: 05-17-2022 Telephone encounter Doretha [facility] Start: 05-15-2022 End: 05-15-2022 ambulatory Dorethaher Diegoler Other [employer] Other Start: 05-15-2022 Telephone encounter [facility] Start: 05-11-2022 End: 05-11-2022 ambulatory Yaya Lema Other [employer] Other Start: 05-11-2022 Telephone encounter Yaya Lema [facility] Start: 05-03-2022 Registered Recurring DO Roman in [place] Work Phone: [facility] Work Phone: Start: 05-03-2022 (Smoking fu) Smoking cess fu [facility] Start: 05-03-2022 End: 05-03-2022 ambulatory Dorethaher Diegoler Other [employer] Other Start: 04-27-2022 End: 04-27-2022 ambulatory Yaya Lema Other [employer] Other Start: 04-27-2022 Telephone encounter Yaya LAY [facility] Start: 04-06-2022 Patient encounter procedure Yaya Lema Work Phone: [facility] DO Work Phone: Start: 03-30-2022 End: 03-30-2022 ambulatory [facility] [employer] Other Start: 03-30-2022 Telephone encounter [facility] Start: 03-28-2022 End: 03-29-[address] YAYA LEMA Facility: Start: 03-27-2022 (Smoking fu) Smoking cess fu [facility] Start: 03-27-2022 End: 03-27-2022 [facility] [employer] [facility] [employer] Other Start: 02-15-2022 (Smoking fu) Smoking cess fu [facility] Start: 02-15-2022 End: 02-15-2022 ambulatory [facility] [employer] Other Start: 02-15-2022 Registered Recurring DO Jaffe in [employer] Work Phone: [facility] Start: 01-23-2022 (Smoking fu) Smoking cess fu [facility] Start: 01-23-2022 End: 01-23-2022 [facility]ulatory [facility] [employer] Other Start: 12-28-2021 (Smoking fu) Smoking cess fu [facility] Start: 12-28-2021 End: 12-28-2021 ambulatory [facility] Other [employer] Other Start: 12-19-2021 End: 03-07-[address] DENIS HOANG Facility:[facility] Start: 12-15-2021 End: 12-16-[address] YAYA LEMA Facility:[facility] Start: 12-14-2021 (Smoking fu) Smoking cess fu [facility] Start: 12-14-2021 End: 12-14-2021 ambulatory Doretha Missler Other [employer] Other Start: 11-24-2021 End: 11-24-2021 ambulatory Doretha Missler Other [employer] Other Start: 11-24-2021 Telephone encounter [facility] Start: 11-23-2021 (Smoking fu) Smoking cess fu [facility] Start: 11-23-2021 End: 11-23-2021 ambulatory Dorehta Missler Other [employer] Other Start: 11-09-2021 (Smoking fu) Smoking cess fu [facility] Start: 11-09-2021 End: 11-09-2021 ambulatory Doretha Missler Other [employer] Other Start: 11-07-2021 Rx Renewal Denis Escudero n DO Work Phone: [facility] DO Work Phone: Start: 11-02-2021 End: 11-02-2021 ambulatory Doretha Missler Other [employer] Other Start: 11-02-2021 Telephone encounter [facility] Start: 10-25-2021 End: 10-25-2021 ambulatory [facility] [employer] Other Start: 10-25-2021 Telephone encounter [facility] Start: 10-20-2021 End: 10-21-[address] ARNULFO TALBOT Facility:[facility] Start: 10-19-2021 (Smoke Cess) Smoking Cessation [facility] Start: 10-19-2021 End: 10-19-2021 ambulatory [facility] [employer] Other Start: 10-12-2021 End: 10-14-2021 Evaluation and management of inpatient DO Yaya Lema Work Phone: [facility] Start: 10-12-2021 End: 10-12-[address] YAYA LEMA Facility:[facility] Procedures Date Procedure Procedure Detail Performing Clinician Start: 05-28-2024 Radiologic exam abdo men 1 view Ramya Acevedo RADIOLOGY SERVICES MANAGER - HEALTH CENTER MANAGER Work Phone: Start: 05-08-2024 Basic metabolic pane l calcium total Ramya Acevedo RADIOLOGY SERVICES MANAGER - HEALTH CENTER MANAGER Work Phone: Start: 05-02-2024 Ct abdomen & pelvis w/o contrst 1/> body re Gary East MD Work Phone: Start: 03-10-2024 Mri abdomen w/o & w/contrast material Gary East MD Work Phone: Start: 03-10-2024 Radiologic exam abdo men 1 view Ramya Acevedo RADIOLOGY SERVICES MANAGER - HEALTH CENTER MANAGER Work Phone: Start: 03-10-2024 Radiologic examinati on eye detect foreign body Gary East MD Work Phone: Start: 12-25-2023 Radiologic exam abdo men 1 view Gary East MD Work Phone: Start: 11-13-2023 Fluoroscopy during operation Gary East MD Work Phone: Start: 10-24-2023 Ct abdomen & pelvis w/o contrst 1/> body re Ramya Acevedo RADIOLOGY SERVICES MANAGER - HEALTH CENTER MANAGER Work Phone: Start: 08-14-2023 MRI of abdomen with contrast DO Yaya [employer] Work Phone: Start: 06-11-2023 CT of thorax with contrast DO Yaya [employer] Work Phone: Start: 04-04-2023 History of percutane ous transluminal coronary angioplasty History of PTCA Denis Hoang DO Work Phone: Start: 09-01-[address] JAFFE IN [employer] Comment on above: Performed By: #### P [facility] #### [facility] [address] [place] [address] Dr. Kelly Jones Start: 05-31-2022 CT of thorax with contrast DO Yaya [employer] Work Phone: Start: 10-14-2021 Ultrasonography of liver DO Yaya [employer] Work Phone: Start: 10-13-2021 CL Coronary Thrombol ysis IC DO Yaya [employer] Work Phone: Start: 10-13-2021 CL LHC & COR Angio DO B enjamin [employer] Work Phone: Start: 10-13-2021 CL Stent 1st Vessel CX VENICE DO Yaya [employer] Work Phone: Start: 10-13-2021 CL Stent Ea Add CX VENICE DO Yaya [employer] Work Phone: Start: 10-13-2021 DO Benjami n [employer] Work Phone: Start: 10-12-2021 Plain chest X-ray DO Be njamin [employer] Work Phone: Cardiac catheterization Benj yeager E [employer] Work Phone: History of percutane ous transluminal coronary angioplasty History of PTCA Yaya E [employer] Work Phone: History of percutane ous transluminal coronary angioplasty History of PTCA Denis Hoang DO Work Phone: Lithotripsy Yaya E [employer] Work Phone: NEGATED: Highlighted row has not occurred! Total colonoscopy Yaya E [employer] Work Phone: Plan of Treatment Date Care Activity Detail Author Start: 2030 RSV patient s and/or patients aged 60+ years (1 - 1-dose 60+ series) RSV patients and/or patients aged 60+ years (1 - 1-dose 60+ series) [facility] Start: 08-19-2024 End: 08-19-2024 Patient encounter procedure 08/19/2024 1:00 PM EDT Office Visit [facility] [address] [place] [address] Gary East MD [address] [place] [address] 4 month KUB, PSA Litholink [facility] Comment on above: 4 month KUB, PSA Lit holink Start: 08-05-2024 End: 08-05-2024 Patient encounter procedure 08/05/2024 9:10 AM EDT Office Visit [facility] [address] [place] [id number] Denis Hoang, [address] [place] [address] [facility] Start: 05-22-2024 End: 05-22-2024 Patient encounter procedure 05/22/2024 1:20 PM EST Office Visit [facility] [address] [place] [address] Ramya Acevedo, RADIOLOGY SERVICES MANAGER - HEALTH CENTER MANAGER [address] [place] [address] 2 week CTU/Litholink/Labs [facility] Comment on above: 2 week CTU/Litholink /Labs Start: 05-15-2024 End: 05-15-2024 Patient encounter procedure 05/15/2024 1:40 PM EST Office Visit [facility] [address] [place] [address] Ramya Acevedo, RADIOLOGY SERVICES MANAGER - HEALTH CENTER MANAGER [address] [place] [address] 2 week CTU [facility] Comment on above: 2 week CTU Start: 04-08-2024 End: 04-08-2024 Patient encounter procedure 04/08/2024 1:20 PM EST Office Visit [facility] [address] [place] [address] Gary East MD [address] [place] [address] 6m fu for renal cyst with abd abdoman [facility] Comment on above: 6m fu for renal cyst with abd abdoman Start: 01-03-2024 End: 01-03-2024 Patient encounter procedure 01/03/2024 8:40 AM EDT Office Visit [facility] [address] [place] [address] Gary East MD [address] [place] [address] 6 week KUB [facility] Comment on above: 6 week KUB Start: 12-23-2023 COVID-19 Vaccine ( season) COVID-19 Vaccine ( season) [facility] Start: 12-23-2023 COVID-19 Vaccine ( season) COVID-19 Vaccine ( season) [facility] Start: 12-23-2023 COVID-19 Vaccine ( season) COVID-19 Vaccine ( season) [facility] Start: 12-23-2023 Influenza vaccination Influenz a Vaccine (Season Ended) [facility] Start: 11-22-2023 Influenza vaccination Flu vaccine (# 1) [facility] Start: 11-22-2023 End: 11-22-2023 Patient encounter procedure 11/22/2023 8:30 AM EDT Procedure visit [facility] [address] [place] [address] Gary East MD [address] [place] [address] Cysto Stent Removal-per Dr East to add on [facility] Comment on above: Cysto Stent Removal- per Dr East to add on Start: 11-15-2023 End: 11-15-2023 Patient encounter procedure 11/15/2023 11:00 AM EDT Office Visit [facility] [address] [place] [address] Ramya Acevedo, RADIOLOGY SERVICES MANAGER - HEALTH CENTER MANAGER [address] [place] [address] ctu follow up, -needs to be on a day where Dr. East is in office [facility] Comment on above: ctu follow up, -need s to be on a day where Dr. East is in office Start: 11-13-2023 End: 11-13-2023 Cysto fragmentation ureteral stone CYSTOSCOPY URETEROSCOPY LASER Right kidney stone 11/13/2023 11:[address] [facility] Start: 11-01-2023 Bacteria identified in Urine by Culture [facility] Start: 08-08-2023 End: 08-07-2024 Lipid 1996 panel - Serum or Plasma Lipid Panel Lab Routine Mixed hyperlipidemia Expected: 08/08/2023 (Approximate), Expires: 08/07/2024 [facility] Service Area Work Phone: Comment on above: Expected: 08/08/2023 (Approximate), Expires: 08/07/2024 Start: 08-08-2023 FUV, Provider: Denis Hoang, Status: Pen, Time: 10:10 AM FUV, Provider: Denis Hoang, Status: Pen, Time: 10:10 AM [facility] [place] [facility] [facility] DO Work Phone: Start: 06-11-2023 CT of thorax with contrast CT chest w con [facility] Start: 12-22-2022 COVID-19 Vaccine ( season) COVID-19 Vaccine ( season) [facility] Start: 12-05-2022 Superficial Wound Culture Superficial Wound Culture [facility] Start: 07-20-2022 MR Abdomen WO and W contrast IV [facility] Start: 07-20-2022 MRI of abdomen with contrast MR abdomen wo/w con [facility] Start: 05-31-2022 FUV, Provider: Denis Hoang, Status: Pen, Time: 9:40 AM FUV, Provider: Denis Hoang, Status: Pen, Time: 9:40 AM [facility] [facility] Work Phone: Start: 11-22-2021 FUVHOSP, Provider: Denis Hoang, Status: Pen, Time: 10:20 AM FUVHOSP, Provider: Denis Hoang, Status: Pen, Time: 10:20 AM [facility] [facility] DO Work Phone: Start: 2020 Pneumococcal 50+ yea rs Vaccine (1 of 1 - PCV) Pneumococcal 50+ years Vaccine (1 of 1 - PCV) [facility] Start: 2020 Shingles vaccine (1 of 2) Shingles vaccine (1 of 2) [facility] Start: 2020 Zoster Vaccines (1 o f 2) Zoster Vaccines (1 of 2) [facility] Start: 08-13-2015 Screening for malign ant neoplasm of colon [facility] Start: 2005 Diabetes screen Diabetes screen [facility] Start: 1992 DTaP/Tdap/Td Vaccine s (1 - Tdap) DTaP/Tdap/Td Vaccines (1 - Tdap) [facility] Start: 1989 DTaP/Tdap/Td vaccine (1 - Tdap) DTaP/Tdap/Td vaccine (1 - Tdap) [facility] Start: 1989 Hepatitis B vaccine (1 of 3 - 19+ 3-dose series) Hepatitis B vaccine (1 of 3 - 19+ 3-dose series) [facility] Start: 1989 Hepatitis B Vaccines (1 of 3 - 19+ 3-dose series) Hepatitis B Vaccines (1 of 3 - 19+ 3-dose series) [facility] Start: 1988 Diabetes mellitus screening Diabetes Screening [facility] Start: 1988 Hepatitis C screening [facility] Start: 1985 HIV screening HIV screen [facility] Start: 1982 Depression Screen Depression Screen [facility] Start: 1980 Lipid panel Lipids [facility] Start: 1976 Pneumococcal Vaccine : Pediatrics (0 to 5 Years) and At-Risk Patients (6 to 64 Years) (1 of 2 - PCV) Pneumococcal Vaccine: Pediatrics (0 to 5 Years) and At-Risk Patients (6 to 64 Years) (1 of 2 - PCV) [facility] Start: 08-13-1971 MMR Vaccines (1 of 1 - Standard series) MMR Vaccines (1 of 1 - Standard series) [facility] Start: 1970 Hepatitis B vaccine (1 of 3 - 3-dose series) Hepatitis B vaccine (1 of 3 - 3-dose series) [facility] Start: 1970 HIV screening HIV Screening [facility] Start: 1970 Lipid panel Lipid Panel [facility] Start: 1970 Screening for malign ant neoplasm of colon [facility] Start: 1970 Yearly Adult Physical Yearly Adult P hysical [facility] CT Abdomen and Pelvi s WO contrast [facility] End: 11-13-2023 INITIATE PACU OXYGEN THERAPY PROTOCOL Initiate PACU Oxygen Therapy Protocol Respiratory Care Routine Continuous until discontinued starting 11/13/2023 [facility] Work Phone: Comment on above: Continuous until dis continued starting 11/13/2023 Patient Education Coronary Angio plasty (DC) Coronary Stenting (DC) Angina (DC) Chest Pain (DC) Drug Eluting Stents [facility] Work Phone: Patient referral [facility] Work Phone: Immunizations Immunization Date Immunization Notes Care Provider Nilson lanzalucas 08-18-2021 COVID-19 mRNA, Comir david (Pfizer) DO Yaya Lema Work Phone: [facility] 08-18-2020 Pfizer-BioNTech COVI D-19 Vacc 30 MCG/0.3ML Intramuscular Suspension Yaya Lema Work Phone: [facility] 07-28-2020 COVID-19 mRNA, Comir david (Pfizer) DO Yaya Lema Work Phone: [facility] Payers Date Payer Category Payer Medicaid [employer] [place] MEDICAID [employer] MEDICAID [id number] 2022-Present [address] [address] [place] [address] [id number] 2021 Self-pay [id number] 1970 Unknown [id number] 2..840.1.680423.3.579.2.7 1970 Unknown [id number] 2.840.1.496544.3.579.2.7 1970 Unknown [id number] .840.1.696510.3.579.2.5 1970 Unknown [id number] 2..840.1.882681.3.579.2.5 1970 Unknown [id number] 2.16.840.1.889668.3.579.2.5 1970 Unknown [id number] .16.840.1.541678.3.579.2.5 1970 Unknown [id number] .16.840.1.874580.3.579.2.5 93 1970 Unknown [id number] 2.16.840.1.294576.3.579.2.5 93 1970 Unknown [id number] 2.16.840.1.662273.3.579.2.5 93 1970 Unknown [id number] 2.16.840.1.397558.3.579.2.3 56 1970 Unknown [id number] 2.16.840.1.601925.3.579.2.3 56 1970 Unknown [id number] 2.16.840.1.825389.3.579.2.1 244 1970 Unknown [id number] 2.16.840.1.927504.3.579.2.1 76 1970 Unknown [id number] 2.16.840.1.908716.3.579.2.1 76 1970 Unknown [id number] 2.16.840.1.646261.3.579.2.1 75 1970 Unknown [id number] 2.16.840.1.141291.3.579.2.1 73 1970 Unknown [id number] 2.16.840.1.248507.3.579.2.1 73 1970 Unknown [id number] 2.16.840.1.265693.3.579.2.1 73 1970 Unknown [id number] 2.16.840.1.709751.3.579.2.1 73 1970 Unknown [id number] 2.16.840.1.780724.3.579.2.1 73 1970 Unknown [id number] 2.16.840.1.932703.3.579.2.1 73 1970 Unknown [id number] 2.16.840.1.270213.3.579.2.1 73 1970 Unknown [id number] 2.16.840.1.270323.3.579.2.1 73 1970 Unknown [id number] 2.16.840.1.911824.3.579.2.1 73 1970 Unknown [id number] 2.16.840.1.698052.3.579.2.1 73 1970 Unknown [id number] 2.16.840.1.356732.3.579.2.1 73 1970 Unknown [id number] 2.16.840.1.160677.3.579.2.1 73 1970 Unknown [id number] 2.16.840.1.470554.3.579.2.1 73 1959 Medicaid [id number] 2.16.840.1.263992.19 Private Health Insurance [employer] 87c [id number] Unknown Unknown [id number] 2.16.840.1.541525.3.579.2.5 31 Unknown [id number] 2.16.840.1.327775.3.579.2.5 31 Unknown [id number] 2.16.840.1.775073.3.579.2.5 31 Unknown [id number] 2.16.840.1.847165.3.579.2.5 31 Unknown [id number] 2.16.840.1.952821.3.579.2.5 31 Unknown [id number] 2.16.840.1.369675.3.579.2.5 31 Unknown [id number] 2.16.840.1.894526.3.579.2.5 31 Social History Date Type Detail Facility Start: 10-13-2021 End: 10-13-2021 Tobacco smoking status OKIS Smoker (finding) [facility] Start: 1970 Sex Assigned At Male F [facility] Start: 04-04-2023 End: 05-22-2024 Sex Assigned At [employer] Other Start: 04-04-2023 End: 05-22-2024 Daily caffeine consumption Daily caffeine consumption -[facility] 250 DO Work Phone: Comment on above: 1-2 cans of pop odessa y; Quit October 2021; Start: 08-08-2023 Tobacco smoking status NHIS Ex-smoker [facility] End: 04-23-2021 History of tobacco use Cigarette Smoker [facility] Work Phone: Start: 08-08-2023 Alcoholic beverage intake Lifetime non-drinker (finding) [facility] Work Phone: Start: 1970 [facility] at [facility] Work Phone: Start: 07-29-2023 End: 08-08-2023 Exposure to SARS-CoV-2 (event) Not sure [facility] Start: 10-04-2023 Tobacco smoking status OKIS Never smoked tobacco [employer] Start: 01-03-2024 End: 05-22-2024 Alcoholic beverage intake Ex-drinker (finding) [facility] Start: 11-13-2023 Alcohol Comment over 10 years [employer] Start: 05-23-2024 Gender identity Identifies as male gender (finding) [employer] Start: 05-23-2024 Sexual orientation Heterosexual (fin ding) [employer] NEGATED: Highlighted rowStart: NINF History of tobacco use Passive smoker [facility] Medical Equipment Procedure Code Equipment Code Equipment Origin al Text Equipment Identifier Dates CL STENT ANGLE 2. 25 X 18 FDA Start: 10-13-2021 Drug-eluting coronary artery stent, [id number] lymer-coated ()[id number] FDA Start: 10-13-2021 Drug-eluting coronary artery stent, [id number] lymer-coated ()[id number] [id number] FDA Start: 10-13-2021 CL STENT ANGLE 2. [...] 2. 25 X 18 FDA Start: 10-13-2021 Stent Uret 5fr L 28cm Percflx Hydr+ Dbl Pgtl Thrd 2 - [id number] , [id number] FDA Start: 11-13-2023 Goals Date Patient Goal Desired Activity /State Functional Status Date Assessment Result Facility 10-14-2021 Functional status Patient at Baseline [facility] Work Phone: Mental Status Date Assessment Result Facility 10-14-2021 Cognitive function Cognitive Sta tus Patient at Baseline [facility] Work Phone: Clinical Notes 10-13-2021 to 11-13-2023 Discharge InstructionsAttaBatsheva Cortez RN - 11/05/2023 9:54 AM Darrick Hoang DO - 08/08/2023 10:10 AM EDTPatient Instructions Note Date & Type Note Facility 11-13-2023 Hospital Discharge instructions Alysia Osman RN - 11/13/2023 12:32 PM EDT DISCHARGE INSTRUCTIONS FOR CYSTOSCOPY In order to continue your care at home, please follow the instructions below. For General Anesthesia Do not drink any alcoholic beverages or make any legal or important decisions for 24 hours. No driving or operating machinery for 24 hours. Diet Drink plenty of fluids after surgery, unless you are on a fluid restriction. After general anesthesia, start out eating lightly (broth, soup, crackers, toast, etc.) advancing as tolerated to your usual diet. Try to avoid spicy or greasy/fatty foods for 24 hours. Avoid milk products for several hours. Medications Take medications as instructed by your surgeon. Please do not take prescribed pain medication with alcoholic beverages. Do not drive or operate machinery while taking any prescribed pain medication. Activities As instructed by your surgeon. Limit your activities for 24 hours. Avoid heavy work or sports until surgeon approves. No lifting, pushing, pulling, straining until surgeon approves. You may shower. Surgery Area or Examination Site After the cystoscopy, your urethra may be sore at first, and it may burn when you urinate for the first few days after the procedure. You may feel the need to urinate more often, and your urine may be pink. These symptoms should get better in 1 or 2 days. Call your surgeon for the following: You have pain that does not get better after you take pain medicine. For an oral temperature (by mouth) is 101 degrees or higher, chills, or excessive sweating. Persistent nausea or vomiting and can t keep fluids down. You have trouble passing urine or stool, especially if you have pain or swelling in your lower belly. If you are unable to urinate within 8 hours of surgery. Your urine is still red or you see blood clots after you have urinated several times. Your urine gets cloudy or smells bad. You have pain in your back just below your rib cage. This is called flank pain. You have pain or burning when you urinate that continues after 2 days. You have a frequent urge to urinate but can pass only small amounts of urine. Redness or swelling at IV site. For any questions or concerns you may have. The following attachments cannot be sent through Care Everywhere.Ureteral Stent Placement: Post-op (Cameroonian)Laser Lithotripsy: Post-op (Cameroonian)documented in this encounter [facility] 11-05-2023 History of Present illness Narrative Left message on voice mail for surgery schedulers regarding requested Cardiac Clearance, Dr Hoang out of office as well as nurse practioner. documented in this encounter [facility] 08-08-2023 History of Present illness Narrative Subjective Pj Sabillon is a 52 y.o. male Chief Complaint Follow-up 52-year-old gentleman returns for 8-month follow-up he is doing well he denies any events, chest pain or nitrate usage or hospitalizations. He still works [employer]. He is no longer smoking. He is [...] Rfl: Assessment/Plan 1. Coronary artery disease involving menominee coronary artery of menominee heart without angina pectoris 2. History of PTCA 3. Mixed hyperlipidemia 4. Hypertension, benign 5. Subsequent non-ST elevation (NSTEMI) myocardial infarction (Multi) 6. BMI 25.0-25.9,adult Scribe Attestation By signing my name below, ICalista LPN , Scribe attest that this documentation has been prepared under the direction and in the presence of Denis Hoang DO. Provider Attestation - Scribe documentation All medical record entries made by the Scribe were at my direction and personally dictated by me. I have reviewed the chart and agree that the record accurately reflects my personal performance of the history, physical exam, discussion and plan. documented in this encounter [facility] Work Phone: 08-08-2023 Instructions Calisat Saavedra LPN - 08/08/2023 10:10 AM EDT [...] Increase physical activity. documented in this encounter [facility] Work Phone: 06-04-2023 Evaluation note Encounter [...] desires to follow-up in 4 months May, AZ (myocardial infarction) (ICD-10 - I21.3) May, Weight loss (ICD-10 - R63.4) His weight seems to have stabilized over the last several visits without significant increase or decrease in weight. He had a significant weight loss last year and his smoking cessation attempts and overall health shift after his AZ. Reinforced healthy lifestyle with good quality calories, [...] has history of pulmonary nodule identified in 2016. He did have a CT of the chest with contrast in May 2022 and recommendations of yearly follow-up to monitor. We discussed that I will go ahead and order the CT scan with contrast to [facility], instructed him that central scheduling would call to schedule as they did in the past and would call with results. He is to call if he has not heard from us in a week after he has the scan. Further scans and follow-up will be deferred to his PCP. He denies is any signs or symptoms of lung cancer at this time [employer] Other 02-04-2024 Evaluation note* Encounter Date Diagnosis Assessment Notes Treatment Notes Treatment Clinical Notes May, Conjunctivitis of both eyes, unspecified conjunctivitis type (ICD-10 - H10.9) Conjunctivitis home care material was printed Drink plenty fluids, get plenty of rest. Use the eyedrops as prescribed. Continue your home medications as prescribed. Follow-up with your artificial plastic eye maker if no improvement in 2 to 3 days. Off work tomorrow. Wash your pillowcase every day for the next few days [employer] Other 11-10-2023 Evaluation note* Encounter Date [...] 1.5cm. Hemorrhagic cyst. repeating MRI/CT in 6mo. 10 Nov, 2023 Pruritic dermatitis (ICD-10 - L30.8) Unknown dermatitis, evaluated by Derm and treated w/ Steroids and Antibiotics. Prednisone Rx sent to pharmacy but accidentally under [facility] Feb, Anemia in other chronic diseases classified elsewhere (ICD-10 - D63.8) Healthy diet No s/s GIB Questionable bleed, checking UA Fe, FA, B12 normal REcheck [facility] [employer] Other 11-02-2023 Evaluation note* Encounter Date Diagnosis Assessment Notes Treatment Notes Treatment Clinical Notes Feb, Anemia, unspecified type (ICD-10 - D64.9) [employer] Other 10-30-2023 Evaluation note* Encounter Date [...] mints Jan, Anxiety (ICD-10 - F41.9) Jan, AZ (myocardial infarction) (ICD-10 - I21.3) Jan, Weight [...] evaluation by his PCP. We will follow [employer] Other 08-28-2023 Evaluation note* Encounter Date [...] 2023. Nov, Anxiety (ICD-10 - F41.9) Nov, AZ (myocardial infarction) (ICD-10 - I21.3) Nov, Weight loss (ICD-10 - R63.4) Patient's weight is finally stable for the first visit. Reinforced the need to increase protein in his diet to avoid or halt further muscle wasting with his significant weight loss. Encouraged meat products which would help in both iron supplementation and protein. Reinforced well-balanced healthy diet to build health [employer] Other 08-23-2023 Evaluation note* Encounter Date Diagnosis Assessment Notes Treatment Notes Treatment Clinical Notes Nov, Anemia, unspecified type (ICD-10 - D64.9) [employer] Other 07-10-2023 Evaluation note* Encounter Date Diagnosis Assessment Notes Treatment Notes Treatment Clinical Notes Oct, Allergic contact dermatitis due to plants, except food (ICD-10 - L23.7) [employer] Other 07-05-2023 Evaluation note* Encounter Date [...] attempt. Oct, Anxiety (ICD-10 - F41.9) Oct, AZ (myocardial infarction) (ICD-10 - I21.3) Oct, Weight [...] snacks. Continue to work on well-rounded meals [employer] Other 06-22-2023 Evaluation note* Encounter Date Diagnosis Assessment Notes Treatment Notes Treatment Clinical Notes Sep, Allergic contact dermatitis due to plants, except food (ICD-10 - L23.7) Cool compresses, avoid harsh soaps. No improvement, refer to Dermatology [employer] Other 05-10-2023 Evaluation note* Encounter Date [...] (ICD-10 - R91.1) Continue surveillance scans w/ [facility] Denies cough, wheezing or sputum. Continues w/ [...] F41.1) Healthy diet, exercise and keep active [employer] Other 04-10-2023 Evaluation note* Encounter Date Diagnosis Assessment Notes Treatment Notes Treatment Clinical Notes Jul, Left kidney mass (ICD-10 - N28.89) MRI: benign cyst - 06/2022 [employer] Other 02-22-2023 Evaluation note* Encounter Date [...] understanding. May, Anxiety (ICD-10 - F41.9) May, AZ (myocardial infarction) (ICD-10 - I21.3) May, Weight [...] again. Information regarding our dietitians guidance via [employer] shanti was given in office today as a second option as well. This will help guide him on some healthy tips as well as recipes. [employer] Other 02-13-2023 Evaluation note* Encounter Date Diagnosis Assessment Notes Treatment Notes Treatment Clinical Notes May, Left kidney mass (ICD-10 - N28.89) [employer] Other 02-08-2023 NoteULTRASOUND IS SUGGESTED FOR MORE COMPLETE EVALUATION.[employer] Other 02-07-2023 Evaluation note* Encounter Date [...] nodule (ICD-10 - R91.1) Chronic nodules w/o frame changer the past 5 years May, Cigarette nicotine dependence in remission (ICD-10 - F17.211) Encouraged to continue abstinence. Weaning off nicotine replacement [employer] Other 01-23-2023 Evaluation note* Encounter Date [...] chest. We will follow/inform PCP of results. [employer] Other 01-19-2023 Evaluation note* Encounter Date Diagnosis Assessment Notes Treatment Notes Treatment Clinical Notes Apr, Nicotine dependence (ICD-10 - F17.200) Apr, LEONID (generalized anxiety disorder) (ICD-10 - F41.1) [employer] Other 01-11-2023 Evaluation note* Encounter Date [...] up. Apr, Anxiety (ICD-10 - F41.9) Apr, AZ (myocardial infarction) (ICD-10 - I21.3) Patient denied [...] habits and regular meals with healthy snacks. [employer] Other 12-05-2022 Evaluation note* Encounter Date [...] any significant changes in his anxiety. Mar, AZ (myocardial infarction) (ICD-10 - I21.3) He has since graduated from cardiac rehab last month. We reinforced cardiovascular benefits of stopping smoking and congratulated him on his success. [employer] Other 10-26-2022 Evaluation note* Encounter Date [...] insecurities or complete omission of meals. Jan, AZ (myocardial infarction) (ICD-10 - I21.3) Patient is doing well and his cardiac rehab and is feeling better than he has in a long time. He is returning to his normal activities including getting back to work. Encourage patient to reinforce his positive behavior by reminding himself of the cardiovascular benefits of remaining smoke-free. [employer] Other 10-03-2022 Evaluation note* Encounter Date [...] or scratching palms throughout the visit. Jan, AZ (myocardial infarction) (ICD-10 - I21.3) Patient is recovering nicely from his AZ likely related to previous tobacco use. Reinforced the positive effects and cardiovascular benefits of not smoking. [employer] Other 09-07-2022 Evaluation note* Encounter Date [...] although it still difficult. Follow-up 2 weeks [employer] Other 08-24-2022 Evaluation note* Encounter Date [...] at the pharmacy versus paying for it [id number]. Patient asks about amount of lozenges he [...] pertaining to the visit today. JERO Fraser [employer] Other 08-03-2022 Evaluation note* Encounter Date Diagnosis [...] will send in 14 mg patches to [facility] pharmacy to see if his newly awarded Medicaid insurance will cover. If not he may have to get from the quit line versus [id number]. Reinforced that this is still cheaper than a pack of cigarettes per day. Patient verbalizes understanding. 30 minutes was spent with the patient/ review of documentation pertaining to the visit today. JERO Fraser Nov, AZ (myocardial infarction) (ICD-10 - I21.3) Patient continues to be motivated by smoking cessation due to recent AZ. Patient was recently seen by cardiology and released back to work when he is ready from a cardiology standpoint. He is taking his blood thinners as prescribed and his blood pressure has been well controlled. His weight has decreased by over 10 pounds and patient seems motivated to adopt a healthier lifestyle.Encourag ed exercise as directed by certified phlebotomist and has tolerated to not only improve [...] follow with his PCP in the future. [employer] Other 07-20-2022 Evaluation note* Encounter Date [...] provider agreed to run this by his certified phlebotomist due to his recent AZ and cardiac stenting. (On a side note [...] anxiety if clonidine is not appropriate per certified phlebotomist. [employer] Other 07-20-2022 Evaluation note* Encounter Date [...] provider agreed to run this by his certified phlebotomist due to his recent AZ and cardiac stenting. (On a side note [...] anxiety if clonidine is not appropriate per certified phlebotomist. Oct, Anxiety (ICD-10 - F41.9) Call was returned from cardiology office stating that smoking cessation medications are not contraindicated in this patient. Did not directly discuss clonidine. After further consideration will trial buspirone as needed and small doses to help with withdrawal symptoms. Sent to pharmacy [employer] Other 06-29-2022 Evaluation note* Encounter Date [...] is motivated by recent health event. Plan1. - Quit-Now ( ) placed via fax. Patient informed that this is a free service for counseling and they will also provide NRT in the form of patches at no cost to the patient every 2 weeks via [employer]. Patient is to use smoking log to [...] counseling and education was performed by myself Surinder Valentino [facility] [employer] Other 06-24-2022 Hospital Discharge instructions Additional Instructions [...] doctor or pharmacist, without first calling the certified phlebotomist who implanted the stent. If you require [...] weight lifting, stair steppers, etc. until the certified phlebotomist approves these activities. Check with the certified phlebotomist on your first follow-up visit. CALL YOUR PHYSICIAN at [phone]: -If bleeding should occur from the catheter insertion site- apply pressure to the site then immediately call us. -Report any fever, redness, drainage, increased swelling, or firmness at the catheter insertion site. Some bruising or slight swelling may be present at the time of discharge. -Should arm or leg become cold, numb, white, or blue, contact the certified phlebotomist immediately. -IF you should experience episodes of [...] is recommended. Please call Central Scheduling at [phone] to schedule your appointment.] The attending certified phlebotomist or [facility] nurse clinician should provide you with specific instructions regarding activity, diet, medications, and further follow up for you. Follow the medication instructions provided on your discharge. If the dosages and instructions on this sheet differ from the dosage and instructions on the bottle, follow the instructions on the bottle. [facility] is not responsible for incorrect prescription information provided by the patient during their visit. Do not stop your medications without consulting your health care provider. Please take the list with you to your next doctor's appointment. Diovan on hold until renal function improves.[facility] Work Phone: 1(176) 505-648506-24-2022 Progress note Author Myles Velarde [facility] October 14, 2021 9:52am Note Date/Time October 14, 2021 9:52 am [facility] [address] [place] [address] Cardiology Progress Note Signed Patient: Pj Sabillon MR#: [id number] : 1970 Acct:[id number] Age/Sex: 51 / M Adm Date: 2 Loc: Room: 1F8202-0 Type : ADM IN Attending Dr: Emma [...] % (Auto) 79.7 Lymph % (Auto) 8.0 [place] % (Auto) 11.5 Eos % (Auto) 0.3 Baso % (Auto) 0.5 Neut # (Auto) 14.3 H Lymph # (Auto) 1.4 [place] # (Auto) 2.1 H Eos # (Auto) [...] MPV Neut % (Auto) Lymph % (Auto) [place] % (Auto) Eos % (Auto) Baso % (Auto) Neut # (Auto) Lymph # (Auto) [place] # (Auto) Eos # (Auto) Baso # [...] left circumflex/OM with implantation of 3 resolute [place] drug-eluting stent in a bifurcation configuration. Serum [...] patient is scheduled to be seen in [facility] within 10 days of discharge. From the first clinic visit enrollment in phase 2 monitored cardiac rehabilitation in [place] is strongly recommended. Time spent with patient Time Spent With Patient (min): 30 Documented By: Myles Velarde MD 10/14/21 0945 Signed By: <Electronically signed by Myles Velarde MD> 10/14/21 0952 [facility] Work Phone: 1(208) 241-803306-23-2022 Progress note Author Emma Allen [facility] October 13, 2021 2:25pm Note Date/Time October 13, 2021 2:21 pm [facility] [address] [place] [address] Hospitalist Progress Note Signed Patient: Pj Sabillon MR#: [id number] : 1970 Acct:[id number] Age/Sex: 51 / M Adm Date: 2 Loc: Room: [address] [place] [address] Type : ADM IN Attending Dr: Emma [...] Sodium Chloride 1,000 Ml IV 10/13/21 23:59 .[id number] FREIDA Lidocaine HCl 10 ml 10/13/21 11:55 [...] <Electronically signed by Emma Allen MD> 10/13/21 1421 [facility] Work Phone: 1(658) 356-663906-23-2022 Consult note Author Myles Velarde [facility] October 13, 2021 1:20pm Note Date/Time October 13, 2021 1:20 pm [facility] [address] [place] [address] Cardiology Consult Note Signed Patient: Pj Sabillon MR#: [id number] : 1970 Acct:[id number] Age/Sex: 51 / M Adm Date: 2 Loc: Room: [address] [place] [address] Type : ADM IN Attending Dr: Emma [...] longstanding smoking/tobacco abuse who presented to the [place] emergency department yesterday evening complaining of heartburn. The patient states that his symptoms started 3 to 4 hours prior to presenting to [place] emergencydepartment. He describes his symptoms as a burning type sensation in the mid chest with associated nausea. There was no associated dyspnea, diaphoresis, norradiation of the pain. In the emergency department at [place] and ECG was taken which showed mild [...] patient per my recommendation was brought from [place] to [facility] and admitted to the ICU. He [...] Lymph # (Auto) 1.5 1.6 (1.00-4.8) x10E3/uL [place] # (Auto) 1.3 H 1.6 H (0.0-0.8) [...] signed by Myles Velarde MD> 10/13/21 1320 [facility] Work Phone: 1(769) 268-860206-23-2022 [facility]2022 History and physical note Author Kobe Mandujano [facility] October 13, 2021 4:08am Note Date/Time October 12, 2021 11:2 5pm [facility] [address] [place] [address] Hospitalist H&P Signed Patient: Pj Sabillon MR#: [id number] : 1970 Acct:[id number] Age/Sex: 51 / M Adm Date: 2 Loc: Room: 6H0515-0 Type : ADM IN Attending Dr: Emma [...] convinced by his sister to go to [facility]. Of note, he states he had previoushistory of rib fractures in associated area that have caused him chronic soreness in the left upper chest and states that the soreness he felt today was significantly more than usual. Upon arrival at [facility] his initial vitals were blood pressure [...] of 27.9. Patient was then transferred to [facility], after discussing case with Dr. Velarde (scratch brusher) who requested patient to be placed on [...] % (Auto) 8.2 % (.) 10/12/21 23:04 [place] % (Auto) 7.1 % (.) 10/12/21 23:04 Eos % (Auto) 0.4 % (.) 10/12/21 23:04 Baso % (Auto) 0.7 % (.) 10/12/21 23:04 Neut # (Auto) 15.4 x10E3/uL (1.8-7.7) H 10/12/21 23:04 Lymph # (Auto) 1.5 x10E3/uL (1.00-4.8) 10/12/21 23:04 [place] # (Auto) 1.3 x10E3/uL (0.0-0.8) H 10/12/21 [...] plan of care and confirmed the resident's/internal communications manager/medical student's dictation/written note. Patient is a 51-year-old [...] to be in NSTEMI for which her certified phlebotomist was contacted and they recommended for the [...] signed by Kobe Sanchez MD> 10/13/21 0408 [facility] Work Phone: Evaluation note* Diagnosis Onset Date Resolution Status Hypertension acute NSTEMI (non-ST elevated myocardial infarction) acute [facility] Work Phone: Evaluation noteNo InformationNort M-KOPA Other Evaluation noteNo assessment information available [facility] Work Phone: Evaluation note* Diagnosis Coronary artery disease involving menominee coronary artery of menominee heart without angina pectoris History of PTCA Postsurgical percutaneous transluminal coronary angioplasty status Mixed hyperlipidemia Hypertension, benign Essential hypertension, benign Subsequent non-ST elevation (NSTEMI) myocardial infarction (Multi) BMI 25.0-25.9,adult Former smoker Personal history of tobacco use, presenting hazards to health documented in this encounter [facility] Work Phone: Evaluation note* Diagnosis Onset Date Resolution Status ASHD (arteriosclerotic heart disease) acute LEONID (generalized anxiety disorder) acute Hypercholesterolemia acute Hypertension acute Nicotine addiction acute Pulmonary nodule acute Renal cyst, acquired, left a cute Wellness examination noneact ev [facility] Work Phone: evaluation note* Diagnosis Onset Date Resolution Status ASHD (arteriosclerotic heart disease) acute LEONID (generalized anxiety disorder) acute Hypercholesterolemia acute Hypertension acute Nicotine addiction acute Renal cyst, acquired, left a cute Wellness examination noneact [facility] Work Phone: Evaluation note* Diagnosis Onset Date Resolution Status ASHD (arteriosclerotic heart disease) acute LEONID (generalized anxiety disorder) acute Hypercholesterolemia acute Hypertension acute Nicotine addiction acute Renal cyst, acquired, left a cute Wellness examination noneact ev Gross hematuria acute History of nephrolithiasis a cute Renal cyst, acquired, left a [facility] Work Phone: evaluation note* Diagnosis Metal foreign body in eye region documented in this encounter [facility] Diagnosis Renal cyst 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 [facility] Diagnosis Kidney stone Calculus of kidney [facility] Diagnosis Gross hematuria [facility] in [facility]* Diagnosis Kidney stone Calculus of kidney documented [facility] Diagnosis Gross hematuria Complex renal cyst Other specified congenital cystic kidney disease documented [facility]* Diagnosis Ureteral stone- Primary Calculus of ureter [facility] Diagnosis Bilateral kidney stones Calculus of kidney documented in this encounter [facility] Narrative - Reported* Type Description Date Medical History H/O [place] WITH CARDIAC STENTING X3 Medical History HYPERLIPIDEMIA Medical History CAD Medical History HYPERTENSION Surgical History CARDIAC STENTING X3 2021 Surgical History LITHOTRIPSY KIDNEY STONES 1989 Surgical History RIGHT FOREARM TENDON REPAIR 199 3 Hospitalization History 1) [place] WITH CARDIAC STENT ING 09/2021 [employer] Other Hismrax general Narrative - Reported* Type Description Date Medical History H/O [place] WITH CARDIAC STENTING X3 Medical History HYPERLIPIDEMIA Medical History CAD Medical History HYPERTENSION Medical History Cyst on kidney Surgical History CARDIAC STENTING X3 2021 Surgical History LITHOTRIPSY KIDNEY STONES 1989 Surgical History RIGHT FOREARM TENDON REPAIR 199 3 Hospitalization History 1) [place] WITH CARDIAC STENT ING 09/2021 [employer] Other Hisiitw general Narrative - Reported* Type Description Date Medical History H/O [place] WITH CARDIAC STENTING X3 Medical History HYPERLIPIDEMIA Medical History CAD Medical History HYPERTENSION Medical History Cyst on kidney Medical History psoriasis Surgical History CARDIAC STENTING X3 2021 Surgical History LITHOTRIPSY KIDNEY STONES 1989 Surgical History RIGHT FOREARM TENDON REPAIR 199 3 Hospitalization History 1) [place] WITH CARDIAC STENT ING 09/2021 [employer] Other Hisbuin general Narrative - Reported* Type Description Date Medical History H/O [place] WITH CARDIAC STENTING X3 Medical History HYPERLIPIDEMIA Medical History CAD Medical History HYPERTENSION Medical History Cyst on kidney, (hemorrhagic cys t) Medical History psoriasis Surgical History CARDIAC STENTING X3 2021 Surgical History LITHOTRIPSY KIDNEY STONES 1989 Surgical History RIGHT FOREARM TENDON REPAIR 199 3 Hospitalization History 1) [place] WITH CARDIAC STENT ING 09/2021 [employer] Other Hiswtru general Narrative - Reported* Type Description Date Medical History H/O [place] WITH CARDIAC STENTING X3 Medical History HYPERLIPIDEMIA Medical History CAD Medical History HYPERTENSION Medical History Cyst on kidney, (hemorrhagic cys t) Medical History psoriasis Medical History [facility] Surgical History CARDIAC STENTING X3 2021 Surgical History LITHOTRIPSY KIDNEY STONES 1989 Surgical History RIGHT FOREARM TENDON REPAIR 199 3 Hospitalization History 1) [place] WITH CARDIAC STENT ING 09/2021 [employer] Other Reason for referral (narrative)* Consultation (Routine) - Authorized Specialty Diagnoses / Procedures Referred By Deborah fairbanks Referred To Contact Cardiology Diagnoses Coronary artery disease involving menominee coronary artery of menominee heart without angina pectoris Procedures Follow Up In Cardiology Denis Hoang DO [address] [place] [address] Denis Hoang DO [address] [place] [address] Referral ID Status Reason Start Date Expiration Date V isits Requested Visits Authorized [id number] Authorized 08/08/2023 08/07/2024 1 1 [facility] Work Phone: Chief Complaint and Reason for Visit Chief Complaint Non Stemi Reason for Visit Hypertension NSTEMI (non-ST elevated myocardial infarction) Chief Complaint smoking cessation Chief Complaint smoking cessation r91.1 Chief Complaint r91.1 smoking cessation n28.89 Chief Complaint 6 Month Follow Up Chief Complaint Poss [facility] Smoking F/U Nicotine Abuse R91.1 Chief Complaint Poss [facility] Smoking F/U Nicotine Abuse R91.1 n28.1 [...] addiction Renal cyst, acquired, left Wellness examination Chief Complaint n28.1 Wellness back pain, nausea n39.0 Reason for Visit ASHD (arteriosclerot ic heart disease) LEONID (generalized anxiety disorder) Hypercholesterolemia Hypertension Nicotine addiction Renal cyst, acquired, left Wellness examination Gross hematuria History of nephrolithiasis Renal cyst, acquired, left Family History No Family History Records Found [...] Condition Age at Onset Recorded Date/T bianca mother Hypertension Unknown Malignant neoplasm Unknown Malignant neoplasm of uterus Unknown Heart disease Unknown sister Schizophrenia Unknown Family history of mental disorder Unknown Advance Directives No Advanced Directives Records Found Advance Directive Response Recorded Date/ Time Advance Directives No December 9:48am Advance Directive Response Recorded Date/ Time Advance Directives No December 8:48am Reason for Referral Specialty Diagnoses / Procedures Referred By Deborah fairbanks Referred To Contact Radiology Diagnoses Gross hematuria Complex renal cyst Procedures CT UROGRAM KarissareddRamya, RADIOLOGY SERVICES MANAGER - HEALTH CENTER MANAGER [address] [place] [address] Referral ID Status Reason Start Date Expiration Date Visits Re quested Visits Authorized [id number] Closed 10/24/2023 11/24/2023 1 1 Specialty Diagnoses / Procedures Referred By Deborah fairbanks Referred To Contact Radiology Diagnoses Gross hematuria Procedures CT UROGRAM Gary East MD [address] [place] [address] Referral ID Status Reason Start Date Expiration Date Visits Re quested Visits Authorized [id number] Closed 05/01/2024 05/01/2025 1 1 Specialty Diagnoses / Procedures Referred By Deborah fairbanks Referred To Contact Radiology Diagnoses Renal cyst Complex renal cyst Procedures MRI ABDOMEN W WO CONTRAST Gary East MD [address] [place] [address] Referral ID Status Reason Start Date Expiration Date Visits Re quested Visits Authorized [id number] Closed 03/10/2024 04/04/2025 1 1 Reason 07/03/22 Patient b maday referred for a left renal mass Diagnosis 1 Left kidney mass (N2 8.89) Referral Organization [facility] Torey alvarez Referring Provider First Name Yaya Referring Provider [...] Referral for further testing for definitive diagnosis Pipe Parraya 06/20/2022 11:32:23 AM >received today, attachments made, [...] Status: Active Member Role Status Dates Yaya Lema DO Primary Care Provider Active Team Status: Inactive Member Role Status Dates Yaya Lema , Primary Care Provider Active Doretha Valentino APRN Attending Provider Active Team Status: Inactive Member Role Status Dates Yaya Lema , Primary Care Provider Active Josesito Timmons MD Attending Provider Active Team Status: Active Member Role Status Dates Yaya Lema , DO Primary Care Provider Active Doretha Valentino APRN Attending Provider Active Team Status: Inactive Member Role Status Dates Yaya Lema , Primary Care Provider Active Kobe Sanchez MD Admit Provider Active Emma Allen MD Attending Provider Active Denis Jung MD Other Provider Active Team Status: Inactive Member Role Status Dates Joanne Holder FILM LABORATORY TECHNICIAN-C Attending Provider Active Team Status: Inactive Member Role Status Dates Yaya Lema DO Attending Provider Active Sta rt: March 02, 2023 End: March 02, 2023 Team Status: Inactive Member Role Status Dates NORMA Lantigua Attending Provider Active S tart: May 27, 2023 End: May 27, 2023 Team Status: Inactive Member Role Status Dates Doretha Valentino APRN Attending Provider Active Start: June 04, 2023 End: June 04, 2023 Team Status: Active Member Role Status Dates Yaya Lema DO Primary Care Provider Active Start: June 04, 2023 Doretha Valentino APRN Attending Provider Active Start: June 04, 2023 Team Status: Inactive Member Role Status Dates Yaya Lema DO Primary Care Provider Active Start: June 11, 2023 End: June 11, 2023 Doretha Valentino APRN Attending Provider Active Start: June 11, 2023 End: June 11, 2023 Team Status: Inactive Member Role Status Dates Yaya Lema DO Primary Care Provider Active Start: June 04, 2023 End: June 04, 2023 Doretha Valentino APRN Attending Provider Active Start: June 04, 2023 End: June 04, 2023 Compliance Review Officer Relationship Specialty Start Date End Date Yaya Lema DO [address] [place] [address] A [facility], [facility] [address] PCP - General Internal Medicine 08/08/23 Denis Hoang DO [address] [place] [address] 2, [address] [address] Consulting Physician Cardiology 08/08/23 Team Status: Inactive Member Role Status Dates Yaya Lema DO Primary Care Provider Active Start: August 14, 2023 End: August 14, 2023 Gary East MD Attending Provider Active Start: August 14, 2023 End: August 14, 2023 Garrett Hoang DO Other Provider Active Start : August 14, 2023 End: August 14, 2023 Team Status: Active Member Role Status Dates Yaya Lema DO Primary Care Provide r, Attending Provider Active Start: August 27, 2023 Team Status: Inactive Member Role Status Dates Yaya Lema DO Primary Care Provide r, Attending Provider Active Start: September 03, 2023 End: September 03, 2023 Team Status: Inactive Member Role Status Dates Yaya Lema DO Primary Care Provide r, Attending Provider Active Start: September 28, 2023 End: September 28, 2023 Team Status: Inactive Member Role Status Dates Yaya Lema DO Primary Care Provider Active Start: November 01, 2023 End: November 01, 2023 Gary East Attending Provider Active Start: 2023 End: November 01, 2023 Compliance Review Officer Relationship Specialty Start Date End Date Yaya Lema DO [address] [place] [phone] PCP - General Internal Medicine 07/26/22 Compliance Review Officer Relationship Specialty Start Date End Date Yaya Lema DO [address] [place] [phone] PCP - General Internal Medicine 07/26/22 Compliance Review Officer Relationship Specialty Start Date End Date Yaya Lema DO [address] [place] [address] PCP - General Internal Medicine 07/26/22 Compliance Review Officer Relationship Specialty Start Date End Date Yaya Lema DO [address] [place] [phone] PCP - General Internal Medicine 07/26/22 Compliance Review Officer Relationship Specialty Start Date End Date Yaya Lema DO [address] [place] [phone] PCP - General Internal Medicine 07/26/22 Compliance Review Officer Relationship Specialty Start Date End Date Yaya Lema DO [address] [place] [facility] [place] [phone] PCP - General Internal Medicine 07/26/22 Compliance Review Officer Relationship Specialty Start Date End Date Yaya Lema [address] [place] [phone] PCP - General Internal Medicine 07/26/22 Compliance Review Officer Relationship Specialty Start Date End Date Yaya Lema DO [address] [place] [facility] [place] [phone] PCP - General Internal Medicine 07/26/22 Compliance Review Officer Relationship Specialty Start Date End Date Yaya Lema DO [address] [place] [facility] [place] [phone] PCP - General Internal Medicine 07/26/22 REASON FOR VISIT (unrecogniz ed section and content) Reason Comments Follow-up 8 month Specialty Diagnoses / Procedures Referred By Contemilie t Referred To Contact Radiology Diagnoses Renal cyst Complex renal cyst Procedures MRI ABDOMEN W WO CONTRAST Gary East MD [address] [place] [address] Referral ID Status Reason Start Date Expiration Date Visits Re quested Visits Authorized [id number] Closed 03/10/2024 04/04/2025 1 1 Specialty Diagnoses / Procedures Referred By Deborah t Referred To Contact Radiology Diagnoses Gross hematuria Procedures CT UROGRAM Gary East MD [address] [place] [address] Referral ID Status Reason Start Date Expiration Date Visits Re quested Visits Authorized [id number] Closed 05/01/2024 05/01/2025 1 1 Specialty Diagnoses / Procedures Referred By Contac t Referred To Contact Radiology Diagnoses Gross hematuria Complex renal cyst Procedures CT UROGRAM Ramya Acevedo, RADIOLOGY SERVICES MANAGER - HEALTH CENTER MANAGER [address] [place] [address] Referral ID Status Reason Start Date Expiration Date Visits Re quested Visits Authorized [id number] Closed 10/24/2023 11/24/2023 1 1 Specialty Diagnoses / Procedures Referred By Deborah fairbanks Referred To Contact Diagnoses Right kidney stone Right kidney stone [N20.0] Procedures MI CYSTO FRAGMENTATION URETERAL STONE CYSTOSCOPY RIGHT URETEROSCOPY HOLMIUM LASER RIGHT STENT PLACEMENT Gary East MD [address] [place] [address] [facility] [address] [place] [address] Referral ID Status Reason Start Date Expiration Date Visits Re quested Visits Authorized [id number] 1 1 Goals (unrecognized section and content) Goals may be documented in a n alternate section (unrecognized sect ion and content) No Status Records FoundNo Status Records FoundNo Status Records FoundNo Status Records FoundNo Status Records FoundNo Status Records FoundNo Status Records FoundNo Status Records FoundNo Status Records Found INFORMATION SOURCE (unrecogn ized section and content) DATE CREATED AUTHOR 08/07/2022 Crawford Umer [facility] ical Center DATE CREATED AUTHOR AUTHOR'S ORGANIZ ATION 09/04/2022 [facility] DATE CREATED AUTHOR AUTHOR'S ORGANIZ ATION 11/23/2022 [facility] ical Center DATE CREATED AUTHOR AUTHOR'S ORGANIZ ATION 11/24/2022 [facility] DATE CREATED AUTHOR AUTHOR'S ORGANIZ ATION 08/09/2023 [facility]als Ambulatory DATE CREATED AUTHOR AUTHOR'S ORGANIZ ATION 11/13/2023 [facility] DATE CREATED AUTHOR AUTHOR'S ORGANIZ ATION 11/15/2023 [facility] DATE CREATED AUTHOR AUTHOR'S ORGANIZ ATION 05/24/2024 [facility] DATE CREATED AUTHOR AUTHOR'S ORGANIZ ATION 06/02/2024 [facility] Steven fuchs Ordered Prescriptions (unrec ognized section and content) Prescription Sig Dispensed Refills Start Date End Da te cephALEXin (KEFLEX) 500 MG capsule Take 1 capsule by mouth 3 times daily 15 capsule 0 11/13/2023 HYDROcodone-acetaminoph en (NORCO) 5-325 MG per tabletIndications:Urete ral stone Take 1 tablet by mouth every 6 hours as needed for Pain for up to 7 days. Intended supply: 7 days. Take lowest dose possible to manage pain Max Daily Amount: 4 tablets 28 tablet 0 11/13/2023 11/20/2023 Scheduled Active and Recently Administ ered Medications (unrecognized section and content) Medication Order 11/11/2023 11/12/2023 11/13/2023 sodium chloride flush 0.9 % injection 5-40 mL 5-40 mL, IntraVENous, EVERY 12 HOURS SCHEDULED (2 times per day), First dose on Sun11/13/23 at 2100, Until Discontinued, For Line Patency: Peripheral IV = 5 mL; Midline or Central Line = 10 mL/lumen. If following IV push medication, administer flush at same rate as the IV push. Flush volume is determined by type of infusion therapy being given. For non-viscous solutions use: Peripheral IV = 5 mL Midline or Central Line = 10 mL/lumen For viscous solutions (i.e. blood components, parenteral nutrition, contrast media, or after obtaining blood sample) use: Peripheral IV = 10 mL Midline or Central Line = 20 mL/lumen, PACU only 2100 (Due) Continuous Medication Order 11/11/2023 11/12/2023 11/13/2023 lactated ringers IV soln infusion (CANCELED) IntraVENous, at 125 mL/hr, CONTINUOUS, Starting on Sun11/13/23 at 0930, Pre-op (day of surgery) 0952 (New Bag - Prov ider: Kelly Brown RN)1102 (Paused - Provider: Geraldine Dickerson APRN - TACKER OFF - Comment: Switch to gravity)1103 (Restarted - Provider: CATHERINE Bowman CRNA)1104 (NoRateChange - Provider: CATHERINE Bowman CRNA)1129 (Anesthesia Volume Adjustment - Provider: CATHERINE Bowman CRNA) PRN Medication Order 11/11/2023 11/12/2023 11/13/2023 0.9 % sodium chloride infusion IntraVENous, at 5-250 mL/hr, PRN, if patient receiving piggyback infusions and maintenance fluids are not ordered OR KVO fluids to protect IV site / prevent frequent line interruptions/ long duration, Starting on Sun11/13/23 at 1142, For piggyback infusion, administer at same rate as piggyback for a total of 25 mL. Enter 25 mL into dose field and piggyback rate into rate field of order. If piggyback is infusing at a rate less than 100 mL/hr, enter 25 mL into dose field and 100 mL/hr into rate field of order. For KVO fluids, enter rate of 20 mL/hr or less into rate field of order., PACU only acetaminophen (TYLENOL) tablet 650 mg 650 mg, Oral, ONCE PRN, 1 dose, Starting on Sun11/13/23 at 1142, Until Sun11/14/23 at 1142, Other, Pain (1-10), Give in addition to any other pain medication ordered at same time for any pain indication., PACU only diphenhydrAMINE (BENADRYL) injection 12.5 mg 12.5 mg, IntraVENous, ONCE PRN, 1 dose, Starting on Sun11/13/23 at 1142, Until Sun11/14/23 at 1142, Itching, PACU only fentaNYL (SUBLIMAZE) injection 25 mcg 25 mcg, IntraVENous, EVERY 5 MIN PRN, 2 doses, Starting on Sun11/13/23 at 1142, Until Discontinued, Pain Moderate (4-6), For Phase I. If Phase II oral narcotics have been administered in the last 60 minutes, do not administer IV narcotics unless specifically approved by provider., PACU only hydrALAZINE (APRESOLINE) injection 10 mg(Linked Group 1) 10 mg, IntraVENous, EVERY 15 MIN PRN, 2 doses, Starting on Sun11/13/23 at 1142, Until Discontinued, High Blood Pressure, for SBP greater than 180 mmHg for 2 consecutive measurements taken from different sites, If heart rate is greater than 60 bpm, hold hydralazine and use labetalol if ordered, otherwise contact provider. Inform provider if SBP is still greater than 180 mmHg 10 minutes after second antihypertensive dose is administered., PACU only HYDROmorphone (DILAUDID) injection 0.5 mg 0.5 mg, IntraVENous, EVERY 5 MIN PRN, 2 doses, Starting on Sun11/13/23 at 1142, Until Discontinued, Pain Severe (7-10), For Phase I. If Phase II oral narcotics have been administered in the last 60 minutes, do not administer IV narcotics unless specifically approved by provider., PACU only labetalol (NORMODYNE;TRANDATE) injection 10 mg(Linked Group 1) 10 mg, IntraVENous, EVERY 15 MIN PRN, 2 doses, Starting on Sun11/13/23 at 1142, Until Discontinued, High Blood Pressure, for SBP greater than 180 mmHg for 2 consecutive measurements taken from different sites., If heart rate is 60 bpm or less hold labetalol and use hydralazine if ordered, otherwise contact provider. Inform provider if SBP is still greater than 180 mmHg, 10 minutes after second antihypertensive dose is administered., PACU only lidocaine (XYLOCAINE) 2 % uro-jet (CANCELED) PRN, Starting on Sun11/13/23 at 1123, Intra-op 1115 (Given - Provid er: Juana Mack RN - Comment: OPENED TO BACK TABLE, NOT GIVEN) lidocaine PF 1 % injection 1 mL (COMPLETED) 1 mL, IntraDERmal, ONCE PRN, 1 dose, Starting on Sun11/13/23 at 0908, Until Sun11/14/23 at 0908, IV start, Pre-op (day of surgery) 0951 (Given - Provid er: Kelly Brown RN) meperidine (DEMEROL) injection 12.5 mg 12.5 mg, IntraVENous, EVERY 5 MIN PRN, 4 doses, Starting on Sun11/13/23 at 1142, Until Discontinued, Shivering, , May give every 5 minutes to max of 50mg., PACU only metoclopramide (REGLAN) injection 10 mg 10 mg, IntraVENous, ONCE PRN, 1 dose, Starting on Sun11/13/23 at 1142, Until Sun11/14/23 at 1142, Nausea, Secondary antiemetic therapy., PACU only naloxone 0.4 mg in 10 mL sodium chloride syringe IntraVENous, PRN, Opioid Reversal, Starting on Sun11/13/23 at 1142, PRN if respiratory rate is less than 6/min and patient is difficult to arouse then notify physician STAT. Mix 9 mL of sodium chloride 0.9% with 0.4 mg (1 mL) of naloxone (NARCAN) in 10 mL syringe. (Note: dilution is 0.04 mg/mL) Give 0.08 mg (2 mL of special dilution), slow IV push, repeat up to 0.4 mg (10 mL) or until patient is responsive to physical stimulation and respiratory rate is equal to or greater than 6 breaths/min. Continue to observe, if no response within 3 minutes of administration of 0.4 mg (10 mL) total, repeat dose (0.4 mg as administered previously). Concentration 0.04 mg/mL, PACU only ondansetron (ZOFRAN) injection 4 mg 4 mg, IntraVENous, ONCE PRN, 1 dose, Starting on Sun11/13/23 at 1142, Until Sun11/14/23 at 1142, Nausea, Initial antiemetic therapy., PACU only sodium chloride flush 0.9 % injection 5-40 mL 5-40 mL, IntraVENous, PRN, Starting on Sun11/13/23 at 1142, Until Discontinued, Line Care, After every IV line use, For Line Patency: Peripheral IV = 5 mL; Midline or Central Line = 10 mL/lumen. If following IV push medication, administer flush at same rate as the IV push. Flush volume is determined by type of infusion therapy being given. For non-viscous solutions use: Peripheral IV = 5 mL Midline or Central Line = 10 mL/lumen For viscous solutions (i.e. blood components, parenteral nutrition, contrast media, or after obtaining blood sample) use: Peripheral IV = 10 mL Midline or Central Line = 20 mL/lumen, PACU only Linked Groups Order Group 1: labetalol (NORMODYNE;TRANDATE) injection 10 mgJump to med 10 mg, IntraVENous, EVERY 15 MIN PRN, 2 doses, Starting on Sun11/13/23 at 1142, Until Discontinued, High Blood Pressure, for SBP greater than 180 mmHg for 2 consecutive measurements taken from different sites.
If heart rate is 60 bpm or less hold labetalol and use hydralazine if ordered, otherwise contact provider. Inform provider if SBP is still greater than 180 mmHg, 10 minutes after second antihypertensive dose is administered.
PACU only Or hydrALAZINE (APRESOLINE) injection 10 mgJump to med 10 mg, IntraVENous, EVERY 15 MIN PRN, 2 doses, Starting on Sun11/13/23 at 1142, Until Discontinued, High Blood Pressure, for SBP greater than 180 mmHg for 2 consecutive measurements taken from different sites
If heart rate is greater than 60 bpm, hold hydralazine and use labetalol if ordered, otherwise contact provider. Inform provider if SBP is still greater than 180 mmHg 10 minutes after second antihypertensive dose is administered.
PACU only FOR RECORDS PERTAINING TO PATIENTS WHO ARE [...] BE BASED ON THE PRIMARY CLINICAL RECORDS. [facility]. provides no warranty or guarantee of the accuracy or completeness of information in this document.
[2024-07-22 09:26] LABS: Chol HDL Ratio 1.9; Cholesterol 98 mg/dL (<=200); HDL Cholesterol 51 mg/dL (40-60); Triglycerides 45 mg/dL (<=150)
== END 2024-07-22 08:17 | disposition home or self-care (01) ==
LOC: LAB 08:16
PROVIDERS: PCP Internal Medicine; Visit Provider Internal Medicine Cardiovascular Disease
DX: E78.2 Mixed hyperlipidemia (principal)
CPT/HCPCS: 36415; 80061

== ENCOUNTER 2024-09-04 09:52 | Outpatient (OUT) | payer MEDICAID, SELFPAY ==
[2024-09-04 10:07] LABS: Basophils Percent Auto 0.4 % (0.2-2.0); Eosinophils Absolute Auto 0.3 10^3/uL (0.0-0.7); Eosinophils Percent Auto 3.5 % (0.9-7.0); Hematocrit 42.4 % (42.0-54.0); Immature Granulocytes Abs Auto 0.02 10^3/uL (0.00-0.03); Immature Granulocytes Pct Auto 0.3 % (0.0-0.5); Lymphocytes Absolute Auto 1.1 10^3/uL (1.2-3.8); Lymphocytes Percent Auto 14.9 % (20.5-60.0); Mean Corpuscular HGB Conc 35.4 g/dL (29.9-35.2); Mean Corpuscular Hemoglobin 30.1 pg (25.9-34.0); Mean Corpuscular Volume 85.1 fL (80.0-94.0); Mean Platelet Volume 10.2 fL (9.5-13.5); Monocytes Absolute Auto 0.7 10^3/uL (0.3-0.8); Monocytes Percent Auto 10.4 % (1.7-12.0); Neutrophils Percent Auto 70.5 % (43.0-75.0); Platelet Count 162 10^3/uL (150-450); Red Blood Count 4.98 10^6/uL (4.70-6.10); Red Cell Distribution Width 11.7 % (11.0-15.0); White Blood Count 7.1 10^3/uL (4.0-11.0)
== END 2024-09-04 09:53 | disposition home or self-care (01) ==
LOC: LAB 09:54
PROVIDERS: PCP Internal Medicine; Visit Provider Internal Medicine
DX: Z00.00 Encounter for general adult medical examination without abnormal findings (principal)
CPT/HCPCS: 36415; 85025

== ENCOUNTER 2025-02-09 12:07 | Outpatient (OUT) | payer MEDICAID, SELFPAY ==
--- OUTSIDE RECORDS SUMMARY | 2025-02-06 05:18 | XMS_ITS | Continuity of Care Document ---
Author Organization [facility] Address [address] [place] [address] Phone Care Team Providers Care Bee Worker Name Role Phone Geovani Yaya MACHADO Primary Care Provider Juana Palomino Attending Provider UnavailElaine Sierra DO Attending Provider [phone] Care Teams Patient Care Team Team Status: Active Member Role/Relationship Status Dates Yaya Olivo DO Primary Care Provider Active Patient Care Team Team Status: Active Member Role/Relationship Status Dates Yaya Olivo DO Primary Care Provider Active Start: November 15, 2024 MAVIS Christiansen Attending Provider Active S tart: November 15, 2024 Patient Care Team Team Status: Inactive Member Role/Relationship Status Dates Yaya Olivo DO Primary Care Provider Active Start: February 06, 2025 End: February 06, 2025 Elaine Smith DO Attending Provider Active St art: February 06, 2025 End: February 06, 2025 Chief Complaint and Reason for Visit Chief Complaint Admit Date Amb Documentation November 15, 2024 12:0 1pm follow up 3-4 months February 06, 2025 8:49am Allergies, Adverse Reactions, Alerts Allergen Type Severity Reaction Last Updated Verified Status No Known Allergies Allergy Unknown Octobe r 2024 8:55am Yes Active Social History Smoking Status Status Start Date End Date Date of Observa tion Ex-smoker (finding) October 9:47am Observation Status Observation Response Date of Response Legal Sex Male (finding) Sex Assigned At Male July Family History Relationship Condition Age at Onset Recorded Date/T bianca mother Heart disease Unknown Malignant neoplasm Unknown Hypertension Unknown Malignant neoplasm of uterus Unknown sister Schizophrenia Unknown Family history of mental disorder Unknown mother Heart disease Unknown Malignant neoplasm Unknown Hypertension Unknown father Hypertension Unknown mother Malignant neoplasm Unknown Hypertension Unknown Problems Active Problems Problem Diagnosis/Recorded Date Onset Date Status C omments AUNG (acute kidney injury) October 14, 2021 12:52pm Unknown Active Nicotine addiction September 01, 2023 12:08pm Unknown Activ e LEONID (generalized anxiety disorder) September 01, 2023 12:06pm Unknown Active Screening PSA (prostate specific antigen) September 03, 2024 3:44pm Unknown Active PSA: 0.6 3 - 07/2024 Renal cyst, acquired, left September 01, 2023 12:03pm Unknown Active MRI: 5cm cyst - 06/2022MRI: 1.5cm cyst - 01/2023MRI: 7mm cyst - 07/2023MRI: no further imaging - T: 9mm left - 04/2024 History of heart artery stent September 14, 2023 8:28am Unknown Active PCI/stent x 2021 Hypercholesterolemia September 01, 2023 12:06pm Unknown Act ev Pulmonary nodule September 01, 2023 12:06pm Unknown Active Myocardial infarction September 14, 2023 8:33am Unknown Act ev Gross hematuria September 28, 2023 10:34am Unknown Active Elevated liver enzymes October 14, 2021 12:52pm Unknown Active Weight loss September 14, 2023 8:33am Unknown Active History of nephrolithiasis September 28, 2023 10:34am Unknown Active Hypertension October 12, 2021 10:38pm Unknown Active Ulcerative colitis November 14, 2024 7:11am 2024 Activ e ASHD (arteriosclerotic heart disease) September 01, 2023 12:05pm Unknown Active PCI/stent x - 2021 Cholelithiasis May 04, 2024 3:38pm Unknown Active CT - 04/2024 Inactive/Resolved Problems Problem Diagnosis/Recorded Date Onset Date Status C omments NSTEMI (non-ST elevated myocardial infarction) October 12, 2021 11:23pm Unknown Resolved Medications Medication Status Dose Units Route Directions Qty Days Refills S tart Date Stop Date End Date Reason(s) Instructions Adherence Tamsulosin 0.4 mg capsule Discont inued 0 .ROUTE .COMPLEX 90 1 October 22, 2023 5:19pm October 23, 2024 10:30 am TAKE 1 CAPSULE BY MOUTH EVERY DAY AT BEDTIME Buspirone 15 mg tablet Discont inued 0 .ROUTE .COMPLEX 180 1 December 02, 2023 2:00pm Febru patrice 2024 10:23 am TAKE 1 TABLET BY MOUTH TWICE A DAY Nitroglycer in 0.4 mg tablet, sublingual Active 0 .ROUTE .COMPLEX 25 5 Nove er 2023 9:47am PLACE 1 TABLET UNDER TONGUE EVERY 5 MINUTES UP TO 3 DOSES NEEDED FOR CHEST PAIN Complies with drug therapy Buspirone 15 mg tablet Discont inued 0 .ROUTE .COMPLEX 180 1 ry 2024 10:23a m Augus t 2024 6:14p m TAKE 1 TABLET BY MOUTH TWICE A DAY Polyethylen e Glycol 3350 (Miralax) 17 gram/dose powder Discont inued 17 GM PO .COMPLEX 238 0 October 09, 2024 12:00a m November 06, 2024 9:45a m bowel prep At 5 pm the day before your colonoscopy, mix the entire bottle of miralax with 64 oz of gatorade or powerade, drink 8oz glasses every 15 minutes until the entire mixture is gone. Bisacodyl (Dulcolax (Bisacodyl) ) 5 mg tablet,tiki yed release (DR/EC) Discont inued 5 MG PO .COMPLEX 3 0 October 09, 2024 12:00a m November 06, 2024 9:45a m bowel prep At 3pm the day before your colonoscopy, take 3 tablets with a glass of clear liquid Mesalamine (Lialda) 1.2 gram tablet,tiki yed release (DR/EC) Discont inued 4.8 GM PO Daily 120 30 5 November 20, 2024 1:05pm Octob er 2024 9:08a m Buspirone 15 mg tablet Active 0 .ROUTE .COMPLEX 180 1 December 14, 2024 6:14pm TAKE 1 TABLET BY MOUTH TWICE A DAY Complies with drug therapy Metoprolol Tartrate 25 mg Tablet Active 12.5 MG PO Twice daily Ju ly 2025 12:00a m Complies with drug therapy Atorvastati n 40 mg Tablet Active 40 MG PO Every evening 30 30 October 13, 2021 12:00a m Complies with drug therapy Aspirin 81 mg Tablet,Tiki yed Release (Dr/Ec) Active 81 MG PO Daily 90 90 October 13, 2021 12:00a m Complies with drug therapy Nitroglycer in 0.4 mg Tablet, Sublingual Discont inued 0.4 MG SUBLIN GUAL Q5M as needed for Chest Pain 25 30 3 October 13, 2021 12:00a m Novem mitchel 2023 9:47a m Metoprolol Tartrate 25 mg Tablet Discont inued 25 MG PO Twice daily 60 30 October 13, 2021 12:00a m October 23, 2024 10:30 am Ticagrelor (Brilinta) 90 mg Tablet Discont inued 90 MG PO Twice daily 180 90 October 13, 2021 12:00a m September 03, 2023 3:53p m Tamsulosin 0.4 mg capsule Discont inued 0.4 MG PO Daily at bedtime 30 30 0 September 28, 2023 12:00a m October 22, 2023 5:19p m Mesalamine (Lialda) 1.2 gram tablet,tiki yed release (DR/EC) Discont inued 4.8 GM PO Daily 120 30 5 November 14, 2024 12:00a m November 20, 2024 1:05p m Buspirone 15 mg tablet Discont inued 15 MG PO Twice daily September 03, 2023 12:00a m Augus t 2023 2:00p m Mesalamine (Lialda) 1.2 gram tablet,tiki yed release (DR/EC) Active 4.8 GM PO Daily 360 90 2 Octobe r 2024 9:08am Complies with drug therapy Immunizations Immunization Event Date Not Given Reason Dose Number Supply Cataloguer Lot Number Reason(s) Given Vaccine Information Statement (VIS) Detail Administration Location COVID-19 mRNA, Comirnaty ([employer]) July 28, 2020 COVID-19 mRNA, Comirnaty ([employer]) August 18, 2020 COVID-19 mRNA, Comirnaty ([employer]) August 18, 2021 Medical Equipment Device Date Implanted Device Details CL STENT ANGLE 2.25 X 18 October 13, 2021 Drug-eluting coronary artery stent, [id number]-coated October 13, 2021 ASH: [id number] Issuing Agency: [facility] Device Id: [id number] Lot Number: [id number] Drug-eluting coronary artery stent, [id number]-coated October 13, 2021 ASH: [id number] Issuing Agency: [facility] Device Id: [id number] Lot Number: [id number] Vital Signs Vital Reading Result Reference Range Collection Date/Time Height 68 [in_i] February 06, 025 8:54am Weight 77.11 kg February 06, 025 8:54am Heart Rate 61 /min 60-100 February 06, 025 8:54am BP Systolic 149 mm[Hg] 100-140 February 06, 2 025 8:54am BP Diastolic 94 mm[Hg] 60-100 February 06, 2 025 8:54am BMI (Body Mass Index) 25.8 kg/m2 Octobe r 2024 8:54am Advance Directives Advance Directive Response Recorded Date/ Time Advance Directives No December 9:48am Insurance Providers Guarantor [employer] Address [address] [address] Contact Info. Home Phone: Coverage Status Update:2025 Payer Group Member ID Coverage Type Subscriber Relationship to Subscriber Effective Date Expiration Date Medicaid Self-Em ployed [id number] null [employer] Id: [id number] [address] [address] Home Phone: Email: [email or web address] Self Encounters Encounter Location(s) Arrival/Admit Date Discharge/Departure Date Discharge/Departure Disposition Provider(s) Non-patinavjot t / Non-visit -[facility] November 15, 2024 12:01pm MAVIS Christiansen Departed Physician/ Provider Office Visit -[facility] February 06, 2025 8:49am February 06, 2025 9:12am Discharged to home care or self care (routine discharge) Elaine Smith DO Plan of Treatment Future Tests Future scheduled test information is unavailable Pending Tests Test Name Ordered Date Scheduled Date Comprehensive Metabolic Panel February 06, 2025 9:07am Future Visits Future appointment information is unavailable Future Procedures Procedure Name Ordered Date Scheduled Date C-Reactive Protein February 06, 2025 9:07am Future Medications Future medication information is unavailable Patient Instructions Patient instructions are unavailable
--- OUTSIDE RECORDS SUMMARY | 2025-02-09 12:13 | XMS_ITS | CCD ---
Author Organization [facility] Care Team Providers Care Filter Changing Technician Name Role Phone DO Yaya Lema Primary Care Provider MD Kobe Bravo Admit Provider MD Emma Allen Attending Provider MD Denis Jung Other Provider [phone] Doretha Valentino Unavailable Unavailable Unavailable DO Yaya Lema Primary Care Provider [phone] CATHERINE Valentino Attending Provider Yaya Lema E Unavailable DO Yaya Lema Primary Care Provider CATHERINE Valentino Attending Provider Yaya Lema Unavailable DO Yaya Lema Primary Care Provider [phone] CATHERINE Valentino Attending Provider MD Josesito Timmons Attending Provider [phone] Lakesha Hatch Attending Unavailable TOREY, YAYA Referring Unavailable TOREY, DR BAZAN Primary Care Unavailable IAN .ES Admitting Unavailable IAN .ES Attending Unavailable NENA ., ASAF DESAI Consulting UnavailLeland Torres Consulting Unavailable IAN .ES Consulting Unavailable TOREY, DR BAZAN Admitting Unavailable BALL, DR BAZAN Attending Unavailable BALL, DR BAZAN Primary Care Unavailable BALL, DR BAZAN Consulting Unavailable TABLOT, DR ARNULFO Dale Admitting Unavailable TALBOT, DR [...] ilable Torey, Dr. Yaya Michelle Primary Care Angelikavai destin Hoang, Dr. Denis Nieto Attending Unava ilable Viktor, Dr. Denis Nieto Referring Unava ilable Torey, Dr. Yaya Michelle Primary Care Angelikavai destin Hoang, Dr. Denis Nieto Attending Unava ilable DO Yaya Lema Primary Care Provider [phone] CATHERINE Valentino Attending Provider NORMA Holder Attending Provider Aleksandra Caal Unavailable DO Yaya Lema Primary Care Provider CATHERINE Valentino Attending Provider Yaya Lema DO Primary Care Provider Denis Hoang DO Unavailable DO Yaya Lema Primary Care Provider CATHERINE Valentino Attending Provider MD Gary East Attending Provider [phone] DO Garrett Hoang Other Provider DO Yaya Lema Primary Care Provider CATHERINE Valentino Attending Provider DO Yaya Lema Primary Care Provider Gary East Attending Provider YAYA LEMA Primary Care Unavailable YAYA LEMA Primary Care Unavailable GARY EAST Attending Unavailable GARY EAST Admitting Unavailable Yaya Lema DO Primary Care Provider Ball DO, Yaya E Primary Care Provider Viktor DO, Denis S Unavailable VIKTOR, DENIS S Attending Unavailable BALL, YAYA E Primary Care Unavailable VIKTOR, DENIS S Attending Unavailable VIKTOR, DENIS S Referring Unavailable BALL, YAYA E Primary Care Unavailable RAQUEL, GARY M Referring Unavailable BALL, YAYA Primary Care Unavailable BALL, YAYA Primary Care Unavailable RAQUEL, GARY M Referring Unavailable BALL, YAYA Primary Care Unavailable DURIVAGE, RAMYA Referring Unavailable RAQUEL, GARY M Referring Unavailable BALL, YAYA Primary Care Unavailable RAQUEL, GARY M Referring Unavailable BALL, YAYA Primary Care Unavailable RAQUEL, GARY M Referring Unavailable BALL, YAYA Primary Care Unavailable RAQUEL, GARY M Referring Unavailable BALL, YAYA Primary Care Unavailable BALL, YAYA Primary Care Unavailable DURIVAGE, RAMYA Referring Unavailable DURIVAGE, RAMYA Referring Unavailable BALL, YAYA Primary Care Unavailable RAQUEL, GARY M Referring Unavailable BALL, YAYA Primary Care Unavailable RAQUEL, GAYR M Referring Unavailable BALL, YAYA Primary Care Unavailable DURIVAGE, RAMYA Referring Unavailable BALL, YAYA Primary Care Unavailable RAQUEL, GARY M Referring Unavailable BALL, YAYA Primary Care Unavailable BALL, YAYA Primary Care Unavailable DURIVAGE, RAMYA Referring Unavailable BALL, YAYA Primary Care Unavailable DURIVAGE, RAMYA Referring Unavailable BALL, YAYA Primary Care Unavailable RAQUEL, GARY M Referring Unavailable Ball DO, Yaya Primary Care Provider Torey DO Yaya Attending Provider Ly DO, Elaine L Attending Provider [phone] Ly DO, Elaine L Other Provider Ly, Elaine L Attending Unavailable Ly, Elaine L Admitting Unavailable Ball, Yaya Primary Care Unavailable Ball DO, Yaya Primary Care Provider Juana Young Attending Provider Unavailab le Ly DO, Elaine L Attending Provider [phone] Allergies Allergy Classification Reported Allergen(s) Allergy Type Date of Onset Reaction(s) Facility (5 sources) patient allergy list reviewed by nurse or physicia Propensity to adverse reactions 6 Comment:Done [employer] Other (5 sources) Allergies Reconciled Propensity to adverse reactions Unknown [employer] Other Medications Current Medications Medication Drug Class(es) [...] mouth once 10/18/2021 Active Start: 10-13-2021 take 1 tablet by indy th once daily Aspirin 81 mg Tablet,Delayed Release (Dr/Ec) Active 81 MG PO Daily 90 90 October 13, 2021 12:00am Complies with drug therapy Aspirin 81 MG Or al Tablet Chewable TAKE 1 TABLET Quantity: 90 Refills: 3 Ordered: 22-Nov-2022 Denis Hoang DO Active atorvastatin 40 mg oral tablet (20 sources) HMG-CoA Reductase Inhibitor Start: 10-13-2021 End: 08-05-2025 take 1 tablet by mouth once daily in the evening Atorvastatin 40 mg Tablet Active 40 MG PO Every evening 30 30 October 13, 2021 12:00am Complies with drug therapy busPIRone hydrochloride 15 mg oral tablet (20 sources) Start: 12-02-2023 End: 12-14-2024 take 1 tablet by mouth twice daily Buspirone 15 mg tablet Active 0 .ROUTE .COMPLEX 180 December 14, 2024 6:14pm TAKE 1 TABLET BY MOUTH TWICE A DAY Complies with drug therapy Start: 08-30-2023 End: 12-02-2023 take 1 tablet by mouth twice daily Buspirone 15 mg tablet Discontinued 15 MG PO Twice daily September 03, 2023 12:00am December 02, 2023 2:00pm Start: 11-11-2021 End: 11-13-2023 take 1 tablet [...] Active take 2 tablets by mo [facility] twice daily busPIRone (Buspar) 7.5 mg tablet Take 2 tablets (15 mg) by mouth 2 times a day. [facility] HCl 15 MG TAKE 1 TABLET BY MOUTH TWICE A DAY for 90 Active [facility] bus[facility] HCl - 15 MG [...] Active Start: 10-12-2022 take 1 tablet by [facility] three times daily Cephalexin 500 MG [...] 0.1 mg/ml topical oil (8 sources) Corticosteroid [place]-Smoothe/FS Body 0.01 % 1 application Externally PRN for 30 days Active [place]-Smoot[place]/FS Body 0.01 % External for 30 Days Active 1 ml HYDROmorphone hydrochloride 1 mg/ml cartridge (1 source) Opioid Agonist Start: 11-13-2023 HYDROmorphone (DILAUDID) injection 0.5 mg labetalol (NORMODYNE;TRANDATE ) injection 10 mg (1 source) Start: 11-13-2023 labetalol (NORMODYNE;TRANDATE ) injection 10 mg 1 ml meperidine hydrochloride 25 mg/ml cartridge (1 source) Opioid Agonist Start: 11-13-2023 meperidine (DEMEROL) injection 12.5 mg mesalamine 1200 mg delayed release oral tablet (3 sources) Aminosalicylate Start: 11-14-2024 End: 02-06-2025 take 4 tablets by mouth once daily Mesalamine (Lialda) 1.2 gram tablet,delayed release (DR/EC) Active 4.8 GM PO Daily 360 90 2 February 06, 2025 9:08am Complies with drug therapy 2 ml metoclopramide 5 mg/ml prefilled syringe (1 source) Dopamine-2 Receptor Antagonist Start: 11-13-2023 End: 11-14-2023 metoclopramide (REGLAN) injection 10 mg metoprolol tartrate 25 mg oral tablet (20 sources) beta-Adrenergic Amee Start: 10-23-2024 Metoprolol Tartrate 25 mg Tablet Active 12.5 MG PO Twice daily October 23, 2024 12:00am Complies with drug therapy Start: 05-27-2024 End: 05-27-2025 take 0.5 tablet by mouth twice daily metoprolol tartrate (Lopressor) 25 mg tablet Indications: Hypertension, benign Take 0.5 tablets (12.5 mg) by mouth 2 times a day. 90 tablet 3 05/27/2024 05/27/2025 Active Start: 04-04-2023 take 0.5 tablet by m outh twice daily metoprolol tartrate (Lopressor) 25 mg tablet Indications: Hypertension, benign Take 0.5 tablets (12.5 mg) by mouth 2 times a day. 180 tablet 3 04/04/2023 Active Start: 04-06-2022 End: 08-08-2023 take 0.5 tablet by mouth once daily metoprolol tartrate (Lopressor) 25 mg tablet Take 0.5 tablets (12.5 mg) by mouth once daily. 04/06/2022 08/08/2023 Discontinued (Duplicate order) Start: 10-13-2021 End: 10-23-2024 take 1 tablet by mouth twice daily Metoprolol Tartrate 25 mg Tablet Discontinued 25 MG PO Twice daily 60 30 October 13, 2021 12:00am October 23, 2024 10:30am Metoprolol Tartr ate 25 MG one half [...] sublingual tablet (20 sources) Nitrate Vasodilator Start: 03-12-2024 Nitroglyce rin 0.4 mg tablet, sublingual Active 0 .ROUTE .COMPLEX 25 March 12, 2024 9:47am PLACE 1 TABLET UNDER TONGUE EVERY 5 MINUTES UP TO 3 DOSES NEEDED FOR CHEST PAIN Complies with drug therapy Start: 10-13-2021 nitroGLYCERIN (NITROSTAT) 0.4 MG SL tablet Q5M 10/13/2021 Active Start: 10-13-2021 End: 03-12-2024 Nitroglycerin 0.4 mg Tablet, Sublingual Discontinued 0.4 MG SUBLINGUAL Q5M as needed for Chest Pain 25 30 October 13, 2021 12:00am March 12, 2024 9:47am Nitroglycerin 0. 4 MG as directed Sublingual [...] e flush 0.9 % injection 5-40 mL Completed/Discontinued Medications Medication Drug Class(es) Dates Sig (Normalized) Sig (Original) hwrth-j-ahhbjsxmrjf se enzyme 150 unt oral tablet (1 source) Beano TABS USE A S DIRECTED. Quantity: 0 Refills: 0 Ordered: 22-Nov-2021 DO Active bisacodyl 5 mg delayed release oral tablet (2 sources) Stimulant Laxative Start: 10-09-2024 End: 11-06-2024 take 3 tablets by mouth once Bisacodyl (Dulcolax (Bisacodyl)) 5 mg tablet,delayed release (DR/EC) Discontinued 5 MG PO .COMPLEX 3 0 October 09, 2024 12:00am November 06, 2024 9:45am bowel prep At 3pm the day before your colonoscopy, take 3 tablets with a glass of clear liquid 12 hr buPROPion hydrochloride 150 mg extended [...] lidocaine PF 1 % injection 1 mL polyethylene glycol 3350 30676 mg powder for oral solution (2 sources) Osmotic Laxative Start: 10-09-2024 End: 11-06-2024 take 17 g by mouth once in the evening Polyethylene Glycol 3350 (Miralax) 17 gram/dose powder Discontinued 17 GM PO .COMPLEX 238 0 October 09, 2024 12:00am November 06, 2024 9:45am bowel prep At 5 pm the day before your colonoscopy, mix the entire bottle of miralax with 64 oz of gatorade or powerade, drink 8oz glasses every 15 minutes until the entire mixture is gone. tamsulosin hydrochloride 0.4 mg oral capsule (18 sources) alpha-Adrenergic Amee Start: 10-22-2023 End: 10-23-2024 take 1 capsule by mouth once daily at bedtime Tamsulosin 0.4 mg capsule Discontinued 0 .ROUTE .COMPLEX 90 1 October 22, 2023 5:19pm October 23, 2024 10:30am TAKE 1 CAPSULE BY MOUTH EVERY DAY AT BEDTIME Start: 09-28-2023 End: 10-22-2023 take 1 capsule by mouth once daily at bedtime Tamsulosin 0.4 mg capsule Discontinued 0.4 MG PO Daily at bedtime 30 30 0 September 28, 2023 12:00am October 22, 2023 5:19pm ticagrelor 90 mg oral tablet (20 sources) Start: 10-13-2021 End: 09-03-2023 take 1 tablet by mouth twice daily Ticagrelor (Brilinta) 90 mg Tablet Discontinued 90 MG PO Twice daily 180 90 3 October 13, 2021 12:00am September 03, 2023 3:53pm Problems Active Problems Problem Classification Problem Date Documented Da te Episodic/Chronic Acute and unspecified renal failure (15 sources) Injury of kidney; Translations: [Acute kidney failure, unspecified] 10-14-2021 Episodic Acute myocardial infarction (20 sources) Myocardial infarction; Translations: [Non-ST elevation (NSTEMI) myocardial infarction] Onset: 10-20-2021 Resolved: 11-23-2021 10-12-2021 Chronic Administrative/social admission (1 source) Persons encountering health services in other specified circumstances Episodic Allergic reactions (3 sources) Allergic contact dermatitis due to plants, except food; Translations: [Other specified dermatitis] Episodic Anxiety disorders (20 sources) Anxiety; Translations: [Anxiety disorder, unspecified] Onset: 11-09-2021 Resolved: 11-23-2021 Chronic Biliary tract disease (3 sources) Biliary calculus; Translations: [Calculus of gallbladder without cholecystitis without obstruction] 05-04-2024 Episodic Comment on above: 04/2024 Calculus of urinary tract (16 sources) History of calculus of kidney; Translations: [Personal history of urinary calculi] Onset: 10-08-2023 09-28-2023 Episodic Coronary atherosclerosis and other heart disease (20 sources) Coronary arteriosclerosis; Translations: [Coronary atherosclerosis of unspecified type of vessel, [place] or graft] Onset: 04-01-2022 Chronic Comment on above: PCI/stent x 2021 Deficiency and other anemia (4 sources) Anemia [...] [Essential (primary) hypertension] Onset: 10-14-2021 10-12-2021 Chronic Gastrointestinal hemorrhage (4 sources) Rectal hemorrhage; Translations: [Hemorrhage of anus and rectum] Onset: 11-06-2024 Episodic Genitourinary symptoms and ill-defined conditions (9 sources) Mani hematuria; Translations: [Gross hematuria] Onset: 08-04-2024 09-28-2023 Episodic Inflammation; infection of eye (except [...] acquired; Translations: [Cyst of kidney, acquired] Onset: 03-10-2024 Episodic Other diseases of kidney and ureters (7 sources) Acquired renal cystic disease; Translations: [Cyst of kidney, acquired] 09-01-2023 Episodic Comment on above: MRI: 5cm cyst - 07/10 22MRI: 1.5cm cyst - 01/2023MRI: 7mm cyst - 07/2023MRI: no further imaging - T: 9mm left - 04/2024 Other diseases of kidney and ureters (1 source) Cyst of kidney; Translations: [Cyst of kidney, acquired] 03-10-2024 Episodic Other diseases of kidney and ureters (2 sources) Complex renal cyst; Translations: [Cyst of kidney, acquired] 03-10-2024 Episodic Other liver diseases (15 sources) Elevated liver enzymes level; Translations: [Abnormal levels of other serum enzymes] 10-14-2021 Episodic Other lower respiratory disease (20 sources) Nodule of lung; Translations: [Solitary pulmonary nodule] 09-01-2023 Episodic Other lower respiratory disease (7 sources) Solitary pulmonary nodule; Translations: [Solitary pulmonary nodule] Episodic Other nutritional; endocrine; and metabolic disorders (1 source) Obesity; Translations: [Obesity, unspecified] Chronic Other nutritional; endocrine; and metabolic disorders (6 sources) Abnormal weight loss Episodic Other nutritional; endocrine; and metabolic disorders (4 sources) Overweight in adulthood with body mass index of 25 or more but less than 30; Translations: [Body mass index (BMI) 25.0-25.9, adult] Onset: 08-08-2023 08-08-2023 Episodic Other nutritional; endocrine; and metabolic disorders (2 sources) Weight loss; Translations: [Abnormal weight loss] 09-14-2023 Episodic Other nutritional; endocrine; and metabolic disorders (2 sources) Body mass index (BMI) 28.0-28.9, adult; Translations: [Body mass index (BMI) 28.0-28.9, adult] Onset: 08-05-2024 Episodic Other nutritional; endocrine; and metabolic disorders (3 sources) Weight decreased; Translations: [Abnormal weight loss] 09-14-2023 Episodic Other screening for suspected conditions (not mental disorders or infectious disease) (10 sources) Encounter for screening for malignant neoplasm of colon; Translations: [Encounter for screening for malignant neoplasm of prostate] Onset: 09-03-2022 Episodic Comment on above: PSA: 0.63 - 07/2024 Regional enteritis and ulcerative colitis (1 source) Ulcerative colitis; Translations: [Ulcerative colitis, unspecified, without complications] Onset: 04-23-2024 11-14-2024 Chronic Residual codes; unclassified (3 sources) Body mass index 20-24 - normal; Translations: [Body Mass Index between 19-24, adult] Episodic Substance-related disorders (20 sources) Tobacco user; Translations: [Nicotine dependence, cigarettes, uncomplicated] Onset: 10-14-2021 Resolved: 12-28-2021 Chronic Unclassified (1 source) CONTACT W/AND (SUSP) EXPOS COVID-19; Translations: [CONTACT W/AND (SUSP) EXPOS COVID-19] Onset: 10-14-2021 Unclassified (1 source) K62.5 - Hemorrhage of anus and rectum Past or Other Problems Problem Classification Problem Date Documented Da te Episodic/Chronic Coronary atherosclerosis and other heart disease (2 sources) Coronary angioplasty status; Translations: [Coronary angioplasty status] Onset: 04-04-2023 Episodic Other nutritional; endocrine; and metabolic disorders (2 sources) Body mass index (BMI) 25.0-25.9, adult; Translations: [Body mass index (BMI) 25.0-25.9, adult] Onset: 08-08-2023 Episodic Screening and history of mental health and substance abuse codes (11 sources) Ex-smoker; Translations: [Personal history of tobacco use] Onset: 08-08-2023 08-08-2023 Episodic Comment on above: Quit October 2021; Superficial injury; contusion (4 sources) Metal foreign body in eye region; Translations: [Superficial foreign body of unspecified eyelid and periocular area, initial encounter] Onset: 03-10-2024 03-10-2024 Episodic Urinary tract infections (1 source) Urinary tract infection, site not specified; Translations: [Urinary tract infection, site not specified] Onset: 11-05-2023 Episodic Results Test Name Value Interpretation Reference Range Facility Pathology Request for Lab Co rpon 11-06-2024 Pathology Request for Lab Meir Normal [facility] Comment on above: Order Comment: GI SP ECIMEN Result Comment: See report. Scanned copy available in EMR. PERFORMED BY: [place] [address] PATHOLOGIST SECONDARY ENGLISH TEACHER GRADY FLETCHER M.D. Performed By: #### P ATH TO [facility] #### [address] Basophils Auto (Bld) [#/Vol] on 09-04-2024 Basophils (Bld) [#/Vol] 0.0 10 3/uL 0.0-0.1 [facility] Basophils/100 WBC Auto (Bld) on 09-04-2024 Basophils/100 WBC (Bld) 0.4 % 0.2-2.0 [facility] Eosinophils/100 WBC Auto (Bl d)on 09-04-2024 Eosinophils/100 WBC (Bld) 3.5 % 0.9-7.0 [facility] Erythrocyte distribution wid th Auto (RBC) [Ratio]on 09-04-2024 Erythrocyte distribution width (RBC) [Ratio] 11.7 % 11.0-15.0 [facility] Hematocrit Auto (Bld) [Volum e fraction]on 09-04-2024 Hematocrit (Bld) [Volume fraction] 42.4 % 42.0-54.0 [facility] Hemoglobin [Mass/volume] in Bloodon 09-04-2024 Hemoglobin (Bld) [Mass/Vol] 15.0 g/dL 14.0-18.0 [facility] Laboratory - Hematology and Cell countson 09-04-2024 Immature granulocytes/100 WBC (Bld) 0.3 % 0.0-0.5 [facility] Leukocytes [#/volume] correc grazyna for nucleated erythrocytes in Blood by Automated counon 09-04-2024 WBC corrected for nucl RBC Auto (Bld) [#/Vol] 7.1 10 3/uL 4.0-11.0 [facility] Lymphocytes Auto (Bld) [#/Vo l]on 09-04-2024 Lymphocytes (Bld) [#/Vol] 1.1 10 3/uL Low 1.2-3.8 [facility] Lymphocytes/100 WBC Auto (Bl d)on 09-04-2024 Lymphocytes/100 WBC (Bld) 14.9 % Low 20.5-60.0 [facility] MCH Auto (RBC) [Entitic mass ]on 09-04-2024 MCH (RBC) [Entitic mass] 30.1 pg 25.9-34.0 [facility] MCHC Auto (RBC) [Mass/Vol]on 09-04-2024 MCHC (RBC) [Mass/Vol] 35.4 g/dL High 29.9-35.2 [facility] MCV Auto (RBC) [Entitic vol] on 09-04-2024 MCV (RBC) [Entitic vol] 85.1 fL 80.0-94.0 [facility] Monocytes Auto (Bld) [#/Vol] on 09-04-2024 Monocytes (Bld) [#/Vol] 0.7 10 3/uL 0.3-0.8 [facility] Monocytes/100 WBC Auto (Bld) on 09-04-2024 Monocytes/100 WBC (Bld) 10.4 % 1.7-12.0 [facility] Neutrophils Auto (Bld) [#/Vo l]on 09-04-2024 Neutrophils (Bld) [#/Vol] 5.0 10 3/uL 1.4-6.5 [facility] Neutrophils/100 WBC Auto (Bl d)on 09-04-2024 Neutrophils/100 WBC (Bld) 70.5 % 43.0-75.0 [facility] No Panel Informationon 09-04 Eosinophils # (Auto) 0.3 10 3/uL 0.0-0.7 [facility] Immature Granulocyte # (Auto) 0.02 10 3/uL 0.00-0.03 [facility] Platelet mean volume Auto (B ld) [Entitic vol]on 09-04-2024 Platelet mean volume (Bld) [Entitic vol] 10.2 fL 9.5-13.5 [facility] Platelets Auto (Bld) [#/Vol] on 09-04-2024 Platelets (Bld) [#/Vol] 162 10 3/uL 150-450 [facility] RBC Auto (Bld) [#/Vol]on RBC (Bld) [#/Vol] 4.98 10 6/uL 4.70-6.10 [facility] XR ABDOMEN (KUB) (SINGLE AP VIEW)on 08-06-2024 XR ABDOMEN (KUB) (SINGLE AP VIEW) EXAMINATION: ONE SUPINE XRAY VIEW(S) OF THE ABDOMEN 08/04/2024 2:16 pm COMPARISON: CT urogram May 02, 2024. HISTORY: ORDERING SYSTEM PROVIDED HISTORY: Kidney stone FINDINGS: Bilateral nephrolithiasis are again seen when compared to CT urogram from April 2024. Nonspecific and nonobstructive bowel gas pattern. No large volume free air. Visualized lungs are clear. Soft tissue and osseous structures are unremarkable. IMPRESSION: 1. Nonobstructive bowel gas pattern. 2. Bilateral nephrolithiasis are again seen when compared to CT urogram from April 2024. Interpreted by: Boris Dorantes MD Signed by: Boris Dorantes MD 08/06/24 Final result Normal [facility] XR Abdomen Single viewon 1. Nonobstructive bowel gas pattern. 2. Bilateral nephrolithiasis are again seen when compared to CT urogram from April 2024. [facility] EXAMINATION: ONE SUPINE XRAY VIEW(S) OF THE ABDOMEN 08/04/2024 2:16 pm COMPARISON: CT urogram May 02, 2024. HISTORY: ORDERING SYSTEM PROVIDED HISTORY: Kidney stone FINDINGS: Bilateral nephrolithiasis are again seen when compared to CT urogram from April 2024. Nonspecific and nonobstructive bowel gas pattern. No large volume free air. Visualized lungs are clear. Soft tissue and osseous structures are unremarkable. [facility] Boris Dorantes MD - 08/06/2024 EXAMINATION: ONE SUPINE XRAY VIEW(S) OF THE ABDOMEN 08/04/2024 2:16 pm COMPARISON: CT urogram May 02, 2024. HISTORY: ORDERING SYSTEM PROVIDED HISTORY: Kidney stone FINDINGS: Bilateral nephrolithiasis are again seen when compared to CT urogram from April 2024. Nonspecific and nonobstructive bowel gas pattern. No large volume free air. Visualized lungs are clear. Soft tissue and osseous structures are unremarkable. IMPRESSION: 1. Nonobstructive bowel gas pattern. 2. Bilateral nephrolithiasis are again seen when compared to CT urogram from April 2024. [facility] XR Abdomen Single viewOrdere d By: Boris Dorantes on 08-06-2024 [facility] Work Phone: Cult,Urineon 08-05-2024 Cult,Urine Specimen Description .CLEAN CATCH URINE Special Requests Site: Urine Culture NO GROWTH Report Status FINAL 08/05/2024 [facility] Comment on above: Performed By: #### P SAS #### [facility] [place] [address] Automatic Driller And Reamer: Pb Parikh MD PSA Screeningon 08-04-2024 Prostate specific Ag [Mass/Vol] 0.63 ng/mL 0.00 - 4.00 ng/mL [facility] Comment on above: The [employer] ECLIA as say is used. Results obtained with different assay methods cannot be used interchangeably. [facility] PSA, Screeningon 08-04-2024 Prostatic Spec. Ag 0.63 ng/mL Normal 0.00-4.[address] [facility] Comment on above: Result Comment: The [employer] ECLIA assay is used. Results obtained with different assay methods cannot be used interchangeably. Performed By: #### P SAS #### [facility] [address] [place] [address] Automatic Driller And Reamer: Pb Parikh MD XR Abdomen Single viewon Radiology Study observation (narrative) Pramod [facility] Cholesterol in LDL Calc [Mas s/Vol]on 07-22-2024 Cholesterol in LDL [Mass/Vol] Cholesterol in LDL [Mass/volume] in Serum or Plasma by calculation [facility] Comment on above: <100 mg/dl [id number] 0-129 mg/dl NEAR OR ABOVE [id number] mg/dl BORDERLINE [id number] mg/dl HIGH>190 mg/dl VERY HIGH Cholesterol in VLDL Calc [Ma ss/Vol]on 07-22-2024 Cholesterol in VLDL [Mass/Vol] Cholesterol in VLDL [Mass/volume] in Serum or Plasma by calculation [facility] Laboratory - Chemistry and C hemistry - challengeon 07-22-2024 Cholesterol [Mass/Vol] 98 mg/dL <=200 [facility] Cholesterol in HDL [Mass/Vol] 51 mg/dL 40-60 [facility] Comment on above: > or =60 mg/dl - LOW CARDIOVASCULAR RISK<40 mg/dl - HIGH CARDIOVASCULAR RISK Triglyceride [Mass/Vol] 45 mg/dL <=150 [facility] Serum or plasma total choles terol/high density lipoprotein (HDL) cholesterol mass norma 07-22-2024 Cholesterol.total/Cho lesterol in HDL [Mass ratio] Serum or plasma total cholesterol/high density lipoprotein (HDL) cholesterol mass rat [facility] Comment on above: 3.3 - 4.4 LOW RISK4. 4 - 7.1 AVERAGE RISK7.1 - 11.0 MODERATE RISK>11.0 HIGH RISK XR ABDOMEN (KUB) (SINGLE AP VIEW)on 05-30-2024 [...] Carmine Manley DO 05/30/24 Final result Normal [facility] XR Abdomen Single viewon Bilateral nephrolithiasis [facility] RIS CONSOLIDATED EXAMINATION: ONE SUPINE XRAY VIEW(S) OF THE ABDOMEN 05/28/2024 2:26 pm COMPARISON: March 10, 2024 HISTORY: ORDERING SYSTEM PROVIDED HISTORY: Bilateral kidney stones TECHNOLOGIST PROVIDED HISTORY: BILATERAL STONES, CONSIDER eswl FINDINGS: Bowel gas pattern nonobstructed. Renal shadows partially obscured by bowel gas and fecal debris. 5 mm bilateral nephrolithiasis. No definite ureteral stones. Prostate calcification noted no acute osseous abnormality. [facility] RIS CONSOLIDATED Carmine Manley D O - [...] no acute osseous abnormality. IMPRESSION: Bilateral [facility]rolithiasis [facility] Abdomen Single viewOrdere d By: Carmine Manley on 05-30-2024 [facility] Work Phone: XR Abdomen Single viewon Radiology Study observation (narrative) [facility] Estech PTH, Intacton 05-09-2024 Parathyrin.intact [Mass/Vol] 39.0 pg/mL 15 - 65 pg/mL [facility] PTH, Intact 39.0 pg/mL Normal 15-[address] [facility] Comment on above: Performed By: #### P SAS #### [facility] [address] [place] [address] [employer] Reamer: Pb Parikh MD Basic Metabolic Panelon 04-23 Anion gap [Moles/Vol] 9 mmol/L 9 - 16 mmol/L [facility] Calcium [Mass/Vol] 9.3 mg/dL 8.6 - 10. 4 mg/dL [facility] Chloride [Moles/Vol] 106 mmol/L 98 - 10 7 mmol/L [facility] CO2 [Moles/Vol] 26 mmol/L 20 - 31 mmol/L [facility] Creatinine [Mass/Vol] 1.0 mg/dL 0.70 - 1.20 mg/dL [facility] Est, Glom Filt Rate 86 - PINF [facility] Comment on above: These results are not [...] [Mass/Vol] 82 mg/dL 74 - 99 mg/dL [facility] Potassium [Moles/Vol] 4.3 mmol/L 3.7 - 5.3 mmol/L [facility] Sodium [Moles/Vol] 141 mmol/L 136 - 145 mmol/L [facility] Urea nitrogen [Mass/Vol] 19 mg/dL 6 - 20 mg/dL [facility] Urea nitrogen/Creatinine [Mass ratio] 19 mg/mg 9 - 20 [facility] Basic Metabolic Profon 05-08 Anion gap [Moles/Vol] 9 mmol/L Normal -16 [facility] Comment on above: Performed By: #### P SAS #### [facility] [address] [place] [address] [employer] Dr[employer] Reamer: Pb Parikh MD BUN/CRE Ratio 19 Normal - [facility] Comment on above: Performed By: #### P SAS #### [id number] [place] [address] [employer]: Pb Parikh MD Calcium [Mass/Vol] 9.3 mg/dL Normal 8.6-10.[address] [facility] Comment on above: Performed By: #### P SAS #### [id number] [place] [address] [employer]: Pb Parikh MD Chloride [Moles/Vol] 106 mmol/L Normal 98-107 [facility] Comment on above: Performed By: #### P SAS #### [address] [address] [employer]: Pb Parikh MD CO2 [Moles/Vol] 26 mmol/L Normal 20-31 [facility] Comment on above: Performed By: #### P SAS #### [address] [address] [employer]: Pb Parikh MD Creatinine [Mass/Vol] 1.0 mg/dL Normal 0.70-1.20 [facility] Comment on above: Performed By: #### P SAS #### [address] [address] [employer]: Pb Parikh MD GFR/1.73 sq M.predicted among non-blacks MDRD (S/P/Bld) [Vol rate/Area] 86 mL/min/{1.73_m2} Normal >[address] [facility] Comment on above: Result Comment: These results [...] affects renal tubular secretion. Performed By: #### P SAS #### [address] [address] [employer]: Pb Parikh MD Glucose [Mass/Vol] 82 mg/dL Normal 74-[address] [facility] Comment on above: Performed By: #### P SAS #### [id number] [place] [address] [employer]: Pb Parikh MD Potassium [Moles/Vol] 4.3 mmol/L Normal 3.7-5.3 [facility] Comment on above: Performed By: #### P SAS #### [facility] [place] [address] [employer] Reamer: Pb Parikh MD Sodium [Moles/Vol] 141 mmol/L Normal 136-[address] [facility] Comment on above: Performed By: #### P SAS #### [address] [address] [employer]: Pb Parikh MD Urea nitrogen [Mass/Vol] 19 mg/dL Normal 6-[address] [facility] Comment on above: Performed By: #### P SAS #### [address] [address] [employer]: Pb Parikh MD No Panel Informationon 05-08 [facility] Uric Acidon 05-08-2024 Urate [Mass/Vol] 5.5 mg/dL 3.4 - 7.0 mg/dL [facility] Urate [Mass/Vol] 5.5 mg/dL Normal 3.4-7.0 [facility] Comment on above: Performed By: #### P SAS #### [id number] [place] [address] [employer] Reamer: Pb Parikh MD CT UROGRAMon 05-03-2024 CT [...] Merlin Mahmood DO 05/03/24 Final result Normal [facility] 1. Similar appearanc e although increased size [...] to Paget's disease. Recommend correlation with PSA. [facility] RIS CONSOLIDATED EXAMINATION: CT UROGRAM 05/02/2024 3:39 pm [...] to Paget's disease. Recommend correlation with PSA. [facility] [employer] CT UROGRAMOrdered By: Merlin Mahmood on 05-03-2024 [facility] [employer] Work Phone: CT UROGRAMon 05-02-2024 Radiology Study observation (narrative) [facility] [employer] MR Abdomen WO and W contrast Nicky 03-12-2024 1. 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 No additional imaging follow-up is recommended. [facility] RIS CONSOLIDATED EXAMINATION: MRI OF THE ABDOMEN [...] upper pole the left kidney that demonstrates Portuguese ink artifact with fat saturation imaging demonstrates [...] upper pole the left kidney that demonstrates Portuguese ink artifact with fat saturation imaging demonstrates [...] bilaterally. No additional imaging follow-up is recommended. [facility] MR Abdomen WO and W contrast IVOrdered By: Maximilian Sorto on 03-12-2024 [facility] Work Phone: MRI ABDOMEN W WO CONTRASTon [...] upper pole the left kidney that demonstrates Portuguese ink artifact with fat saturation imaging demonstrates [...] Maximilian Sorto MD 03/12/24 Final result Normal [facility] MR Abdomen WO and W contrast Nicky 03-10-2024 Radiology Study observation (narrative) [facility] No Panel Informationon 03-10 Orbits: Limited exam as only a single view of the orbits provided for review. No obvious radiopaque foreign body overlying the orbits. Abdomen: 1. Moderate stool burden. 2. No radiodense metallic foreign body. 3. Probable lower pole left-sided renal calculus measuring 6 mm. [facility] CONSOLIDATED EXAMINATION: TWO XRAY VIEWS OF THE [...] osseous abnormality. No radiodense metallic foreign body. [facility] CONSOLIDATED Junior, Orlando Aguilar MD - 03/10/2024 EXAMINATION: TWO [...] renal calculus measuring 6 mm. [facility] [employer] [facility] No Panel InformationOrdered By: Orlando Pacheco on 03-10-2024 [facility] Work Phone: XR ABDOMEN (KUB) (SINGLE AP [...] Orlando Pacheco MD 03/10/24 Final result Normal [facility] XR Abdomen Single viewon Radiology Study observation (narrative) [facility] XR EYE FOREIGN BODYon 2023 XR EYE [...] Orlando Pacheco MD 03/10/24 Final result Normal [facility] XR Orbit Views for foreign b odyon 03-10-2024 Radiology Study observation (narrative) [facility] XR ABDOMEN (KUB) (SINGLE AP VIEW)on 12-25-2023 [...] Carmine Manley DO 12/25/23 Final result Normal [facility] XR Abdomen Single viewon Probable bilateral nephrolithiasis. [facility] RIS CONSOLIDATED EXAMINATION: ONE SUPINE XRAY VIEW(S) OF THE ABDOMEN 12/25/2023 10:33 am COMPARISON: None. HISTORY: ORDERING SYSTEM PROVIDED HISTORY: Kidney stone FINDINGS: Bowel gas pattern nonobstructed. Renal shadows partially obscured by bowel gas and fecal debris. Possible 2-3 mm bilateral nephrolithiasis. No definite ureteral stones. Calcifications low pelvis likely related to prostate. No definite no acute osseous abnormality. [facility] RIS CONSOLIDATED Carmine Manley DO - 12/25/2023 [...] acute osseous abnormality. IMPRESSION: Probable bilateral nephrolithiasis. [facility] Radiology Study observation (narrative) [facility] XR Abdomen Single viewOrdere d By: Carmine Manley on 12-25-2023 [facility] Work Phone: FLUORO FOR SURGICAL PROCEDUR ESon 11-13-2023 [facility] Radiology exam is complete. No Radiologist dictation. Please follow up with ordering provider. Final result Normal [facility] Guidance-- during surgeryon 11-13-2023 Radiology exam is complete. No Radiologist dictation. Please follow up with ordering provider. [facility] RIS CONSOLIDATED Cult,Urineon 11-06-2023 Cult,Urine Specimen Description .CLEAN CATCH URINE Special Requests Site: Urine Culture NO GROWTH Report Status FINAL 11/06/[address] [facility] Comment on above: Performed By: #### U RC #### [facility] [address] [place] [address] Automatic Driller [employer] Reamer: Pb Parikh MD [facility] [address] [place] [address] Automatic Driller And Reamer: Zac Zee MD CT UROGRAMon 10-25-2023 CT UROGRAM EXAMINATION: CT [...] Bernadette Carpio MD 10/25/23 Final result Normal [facility] 1. Right obstructive uropathy related to an [...] and UV junctions appear unremarkable. 5. Splenomegaly. [facility] CT UROGRAMOrdered By: Bernadette higgins on 10-25-2023 [facility] Work Phone: CT UROGRAMon 10-24-2023 Radiology Study observation (narrative) [facility] Stone Analysison 10-12-2023 Calculi description See Note [facility] Comment on above: Result Comment: (NOT E) Specimen consists of one brown and betancur calculus. The total weight is 33 mg. Performed By: #### A STONE #### [employer] [address] [place] [id number] [employer]: Xiang Flores MD Composition See Note [facility] Comment on above: Result Comment: (NOT [...] composition determined by FTIR analysis. Performed By: [employer] [address] [place] [id number] Veterinary Laboratory Technician: Yobany Nelson MD, PhD CLIA Number: [id number] Performed By: #### A STONE #### [employer] [facility] [address] [place], [place] [id number] [employer] Driller [employer] Reamer: Xiang Flores MD Mass 33 mg [facility] Comment on above: Performed By: #### A STONE #### [employer] [facility] [address] [place] [address] Automatic Driller [employer] Reamer: Xiang Flores MD Basophils Auto (Bld) [#/Vol] on 08-27-2023 Basophils (Bld) [#/Vol] 0.0 10 3/uL 0.0-0.1 [facility] Basophils/100 WBC Auto (Bld) on 08-27-2023 Basophils/100 WBC (Bld) 0.5 % 0.2-2.0 [facility] Cholesterol in LDL Calc [Mas s/Vol]on 08-27-2023 Cholesterol in LDL [Mass/Vol] 42.4 mg/dL [facility] Comment on above: <100 mg/dl [id number] 0-129 mg/dl NEAR OR ABOVE [id number] mg/dl BORDERLINE [id number] mg/dl HIGH>190 mg/dl VERY HIGH Cholesterol in VLDL Calc [Ma ss/Vol]on 08-27-2023 Cholesterol in VLDL [Mass/Vol] 8.6 mg/dL [facility] Eosinophils/100 WBC Auto (Bl d)on 08-27-2023 Eosinophils/100 WBC (Bld) 1.6 % 0.9-7.0 [facility] Erythrocyte distribution wid th Auto (RBC) [Ratio]on 08-27-2023 Erythrocyte distribution width (RBC) [Ratio] 11.5 % 11.0-15.0 [facility] Estimated glomerular filtrat ion rate (GFR) non- Americanon 08-27-2023 GFR/1.73 sq M.predicted among non-blacks MDRD (S/P/Bld) [Vol rate/Area] mL/min/{1.73_m2} >=60 [facility] Globulin Calc (S) [Mass/Vol] on 08-27-2023 Globulin (S) [Mass/Vol] 3.0 g/dL [facility] Hematocrit Auto (Bld) [Volum e fraction]on 08-27-2023 Hematocrit (Bld) [Volume fraction] 41.5 % Low 42.0-54.0 [facility] Hemoglobin [Mass/volume] in Bloodon 08-27-2023 Hemoglobin (Bld) [Mass/Vol] 14.2 g/dL 14.0-18.0 [facility] Laboratory - Chemistry and C hemistry - challengeon 08-27-2023 Albumin [Mass/Vol] 3.5 g/dL 3.4-5.0 [facility] ALP [Catalytic activity/Vol] 105 U/L 46-116 [facility] ALT [Catalytic activity/Vol] 45 U/L 16-63 [facility] AST [Catalytic activity/Vol] 21 U/L 15-37 [facility] Bilirubin [Mass/Vol] 0.8 mg/dL 0.2-1.0 [facility] Calcium [Mass/Vol] 9.0 mg/dL 8.5-10.1 [facility] Chloride [Moles/Vol] 107 mmol/L 98-107 [facility] Cholesterol [Mass/Vol] 99 mg/dL <=200 [facility] Cholesterol in HDL [Mass/Vol] 48 mg/dL 40-60 [facility] Comment on above: > or =60 mg/dl - LOW CARDIOVASCULAR RISK<40 mg/dl - HIGH CARDIOVASCULAR RISK CO2 [Moles/Vol] 27.2 mmol/L 21.0-32.0 [facility] Creatinine [Mass/Vol] 1.05 mg/dL 0.70-1.30 [facility] GFR/1.73 sq M.predicted MDRD (S/P/Bld) [Vol rate/Area] mL/min/{1.73_m2} >=60 [facility] Glucose [Mass/Vol] 86 mg/dL 74-106 [facility] Potassium [Moles/Vol] 4.1 mmol/L 3.5-5.1 [facility] Protein [Mass/Vol] 6.5 g/dL 6.4-8.2 [facility] Sodium [Moles/Vol] 142 mmol/L 136-145 [facility] Triglyceride [Mass/Vol] 43 mg/dL <=150 [facility] Urea nitrogen [Mass/Vol] 24.0 mg/dL High 7.0-18.0 [facility] Urea nitrogen/Creatinine [Mass ratio] 22.9 mg/mg [facility] Laboratory - Hematology and Cell countson 08-27-2023 Immature granulocytes/100 WBC (Bld) 0.4 % 0.0-0.5 [facility] Leukocytes [#/volume] correc grazyna for nucleated erythrocytes in Blood by Automated counon 08-27-2023 WBC corrected for nucl RBC Auto (Bld) [#/Vol] 5.5 10 3/uL 4.0-11.0 [facility] Lymphocytes Auto (Bld) [#/Vo l]on 08-27-2023 Lymphocytes (Bld) [#/Vol] 1.2 10 3/uL 1.2-3.8 [facility] Lymphocytes/100 WBC Auto (Bl d)on 08-27-2023 Lymphocytes/100 WBC (Bld) 21.0 % 20.5-60.0 [facility] MCH Auto (RBC) [Entitic mass ]on 08-27-2023 MCH (RBC) [Entitic mass] 29.6 pg 25.9-34.0 [facility] MCHC Auto (RBC) [Mass/Vol]on 08-27-2023 MCHC (RBC) [Mass/Vol] 34.2 g/dL 29.9-35.2 [facility] MCV Auto (RBC) [Entitic vol] on 08-27-2023 MCV (RBC) [Entitic vol] 86.5 fL 80.0-94.0 [facility] Monocytes Auto (Bld) [#/Vol] on 08-27-2023 Monocytes (Bld) [#/Vol] 0.5 10 3/uL 0.3-0.8 [facility] Monocytes/100 WBC Auto (Bld) on 08-27-2023 Monocytes/100 WBC (Bld) 9.3 % 1.7-12.0 [facility] Neutrophils Auto (Bld) [#/Vo l]on 08-27-2023 Neutrophils (Bld) [#/Vol] 3.7 10 3/uL 1.4-6.5 [facility] Neutrophils/100 WBC Auto (Bl d)on 08-27-2023 Neutrophils/100 WBC (Bld) 67.2 % 43.0-75.0 [facility] No Panel Informationon 08-26 Eosinophils # (Auto) 0.1 10 3/uL 0.0-0.7 [facility] Immature Granulocyte # (Auto) 0.02 10 3/uL 0.00-0.03 [facility] Platelet mean volume Auto (B ld) [Entitic vol]on 08-27-2023 Platelet mean volume (Bld) [Entitic vol] 10.1 fL 9.5-13.5 [facility] Platelets Auto (Bld) [#/Vol] on 08-27-2023 Platelets (Bld) [#/Vol] 140 10 3/uL Low 150-450 [facility] RBC Auto (Bld) [#/Vol]on RBC (Bld) [#/Vol] 4.80 10 6/uL 4.70-6.10 [facility] Serum or plasma albumin/glob ulin mass ratioon 08-27-2023 Albumin/Globulin [Mass ratio] 1.2 {ratio} [facility] Serum or plasma anion gap de terminationon 08-27-2023 Anion gap [Moles/Vol] 11.9 mmol/L Fi [facility] Serum or plasma total choles terol/high density lipoprotein (HDL) cholesterol mass norma 08-27-2023 Cholesterol.total/Cho lesterol in HDL [Mass ratio] 2.1 {ratio} [facility] Comment on above: 3.3 - 4.4 LOW RISK4. 4 - 7.1 AVERAGE RISK7.1 - 11.0 MODERATE RISK>11.0 HIGH RISK Cholesterol [Mass/volume] in Serum or PlasmaOrdered By: Garrett Hoang on 08-14-2023 Cholesterol [Mass/Vol] 87 mg/dL Low 140-200 [facility] Comment on above: Chol less than 200 m g/dl low riskChol 201-239 mg/dl borderline riskChol 240 mg/dl and greater high risk Cholesterol in LDL Calc [Mas s/Vol]Ordered By: Garrett Hoang on 08-14-2023 Cholesterol in LDL [Mass/Vol] 38 mg/dL 0-100 [facility] Comment on above: LDL ATP III CLASSIFI CATIONLDL less than 100 mg/dL OptimalLDL 100-129 mg/dL Near or above optimalLDL 130-159 mg/dL Borderline highLDL 160-189 mg/dL HighLDL greater than 189 mg/dL Very high Cholesterol in VLDL Calc [Ma ss/Vol]Ordered By: Garrett Hoang on 08-14-2023 Cholesterol in VLDL [Mass/Vol] 8 mg/dL [facility] Prostate Specific Ag Free [M ass/volume] in Serum or PlasmaOrdered By: Gary East on 08-14-2023 Free PSA [Mass/Vol] 0.190 ng/mL [facility] Prostate specific Ag [Mass/v olume] in Serum or PlasmaOrdered By: Gary East on 08-14-2023 Prostate specific Ag [Mass/Vol] 0.370 ng/mL 0.000-4.000 [facility] Comment on above: Serial tumor marker results determined by assays using different manufacturers or methods may not be comparable.[facility] tmh teacher and method:[employer] DXI, CHEMILUMINESCENT IMMUNOASSAY. Serum or plasma free prostat e specific antigen (PSA)/total PSA ratioOrdered By: Gary East on 08-14-2023 Free PSA/Total PSA [Mass fraction] 51.3 % [facility] Comment on above: Based on the [...] 08-14-2023 Cholesterol in HDL [Mass/Vol] 41 mg/dL 23- [facility] Comment on above: HDL CHOL ATP-III CLA SSIFICATION Cardiovascular RiskHDL > or equal to 60 mg/dL LOWHDL < 40 mg/dL HIGH Serum or plasma total choles terol/high density lipoprotein (HDL) cholesterol mass ratOrdered By: Garrett Hoang on 08-14-2023 Cholesterol.total/Cho lesterol in HDL [Mass ratio] 2.1 {ratio} <5.0 [facility] Triglyceride [Mass/volume] i n Serum or PlasmaOrdered By: Garrett Hoang on 08-14-2023 Triglyceride [Mass/Vol] 41 mg/dL 0-149 [facility] Comment on above: TRIG ATP III CLASSIF ICATIONTRIG less than 150 mg/dL NormalTRIG 150-199 mg/dL Borderline highTRIG 200-500 mg/dL High TRIG greater than 500 mg/dL Very highStandard traceable to the Center for Disease Conrtrol and Prevention (CDC) test method. Office Visit (Cardiology)on 11-22-2022 Follow-up visit Diagnoses/Problems Assessed CAD (coronary artery disease) (414.00) (I25.10) History of VT (myocardial infarction) (412) (I25.2) History of PTCA [...] Recorded: 22Nov2022 10:27AM Heart Rate58, L Radial Gvevxqbx644, LUE, Sitting Hhyktrttm62, LUE, Sitting Height5 ft 8 in Ndzoyt456 lb BMI Htsocinkdn01.42 kg/m2 BSA Calculated1.83 Tobacco Useb) No Physical [...] Nov 23 2022 1:38PM EST (Author) Normal [employer] Tobacco Screening.on 023 Tobacco use status [facility] b) No -[facility] DO Work Phone: CBC AUTO DIFFon 09-01-2022 BASO # 0.0 103/ul Normal 0.0-0.[address] [facility] Comment on above: Performed By: #### C BC #### [facility] [address] [place] [address] Dr. Kelly Jones Basophils/100 WBC (Bld) 0.8 % Normal 0.2-2.[address] [facility] Comment on above: Performed By: #### C BC #### [facility] [address] [place] [address] Dr. Kelly Jones EO # 0.1 103/ul Normal 0.0-0.[address] [facility] Comment on above: Performed By: #### C BC #### [facility] [address] [place] [address] Dr. Kelly Jones Eosinophils/100 WBC (Bld) 1.6 % Normal 0.9-7.[address] [facility] Comment on above: Performed By: #### C BC #### [facility] [address] [place] [address] Dr. Kelly Jones Erythrocyte distribution width (RBC) [Ratio] 12.3 % Normal 11.0-15.[address] [facility] Comment on above: Performed By: #### C BC #### [facility] [address] [place] [address] Dr. Kelly Jones Hematocrit (Bld) [Volume fraction] 38.5 % Critically low 42.0-54.[address] [facility] Comment on above: Performed By: #### C BC #### [facility] [address] [place] [address] Dr. Kelly Jones Hemoglobin (Bld) [Mass/Vol] 13.5 g/dL Critically low 14.0-18.[address] [facility] Comment on above: Performed By: #### C BC #### [facility] [address] [place] [address] Dr. Kelly Jones IG # 0.01 10e3/ul Normal 0.00-0.[address] [facility] Comment on above: Performed By: #### C BC #### [facility] [address] [place] [address] Dr. Kelly Jones IG % 0.2 % Normal 0.0-0.[address] [facility] Comment on above: Performed By: #### C BC #### [facility] [address] [place] [address] Dr. Kelly Jones LYMPH # 1.4 103/ul Normal 1.2-3.[address] [facility] Comment on above: Performed By: #### C BC #### [facility] [address] [place] [address] Dr. Kelly Jones Lymphocytes/100 WBC (Bld) 28.1 % Normal 20.5-60.[address] [facility] Comment on above: Performed By: #### C BC #### [facility] [address] [place] [address] Dr. Kelly Jones MANUAL DIFF REQ NO Normal [facility] Comment on above: Performed By: #### C BC #### [facility] [address] [place] [address] Dr. Kelly Jones MCH (RBC) [Entitic mass] 30.0 pg Normal 25.9-34.[address] [facility] Comment on above: Performed By: #### C BC #### [facility] [address] [place] [address] Dr. Kelly Jones MCHC (RBC) [Mass/Vol] 35.1 g/dL Normal 29.9-35.[address] [facility] Comment on above: Performed By: #### C BC #### [facility] [address] [place] [address] Dr. Kelly Jones MCV (RBC) [Entitic vol] 85.6 fL Normal 80.0-94.[address] [facility] Comment on above: Performed By: #### C BC #### [facility] [address] [place] [address] Dr. Kelly Jones MONO # 0.5 103/ul Normal 0.3-0.[address] [facility] Comment on above: Performed By: #### C BC #### [facility] [address] [place] [address] Dr. Kelly Jones Monocytes/100 WBC (Bld) 9.4 % Normal 1.7-12.[address] [facility] Comment on above: Performed By: #### C BC #### [facility] [address] [address] [address] Kelly Jones NEUT # 3.0 103/ul Normal 1.4-6.[address] [facility] Comment on above: Performed By: #### C BC #### [facility] [address] [address] [address] Kelly Jones Neutrophils/100 WBC (Bld) 59.9 % Normal 43.0-75.[address] [facility] Comment on above: Performed By: #### C BC #### [facility] [facility] [address] [address] [address] Kelly Jones Platelet mean volume (Bld) [Entitic vol] 10.5 fL Normal 9.5-13.[address] [facility] Comment on above: Performed By: #### C BC #### [facility] [address] [address] [address] Kelly Jones PLT 131 103/ul Critically low 150-450 [facility] Comment on above: Performed By: #### C BC #### [facility] [address] [address] [address] Kelly Jones RBC 4.50 106/ul Critically low 4.70-6.10 [facility] Comment on above: Performed By: #### C BC #### [facility] [address] [address] [address] Kelly Jones WBC 5.1 103/ul Normal 4.0-11.[address] [facility] Comment on above: Performed By: #### C BC #### [facility] [address] [address] [address] Kelly Jones LIPID PROFILEon 09-01-2022 CHOL-HDL RATIO NORM SEE BELOW Normal [facility] Comment on above: Result Comment: 3.3 - 4.4 LOW RISK 4.4 - 7.1 AVERAGE RISK 7.1 - 11.0 MODERATE RISK >11.0 HIGH RISK Performed By: #### L IPID, CMP #### [facility] [address] [place] [address] Dr. Kelly Jones Cholesterol [Mass/Vol] 92 mg/dL Normal <=[address] [facility] Comment on above: Performed By: #### L IPID, CMP #### [facility] [address] [address] [address] Kelly Jones Cholesterol in HDL [Mass/Vol] 47 mg/dL Normal 40-[address] [facility] Comment on above: Performed By: #### L IPID, CMP #### [facility] [address] [address] [address] Kelly Jones Cholesterol in LDL [Mass/Vol] 35.8 mg/dL Normal [facility] Comment on above: Performed By: #### L IPID, CMP #### [facility] [address] [address] [address] Kelly Jones Cholesterol.total/Cho lesterol in HDL [Mass ratio] 2.0 {ratio} Normal [facility] Comment on above: Performed By: #### L IPID, CMP #### [facility] [address] [place] [address] Dr. Kelly Jones HDL NORMAL > or = 60 mg/dl - LO W CARDIOVASCULAR RISK <40 mg/dl - HIGH CARDIOVASCULAR RISK Normal [facility] Comment on above: Performed By: #### L IPID, CMP #### [facility] [address] [address] [address] Kelly Jones LDL CALC NORMAL SEE BELOW Normal [facility] Comment on above: Result Comment: <100 mg/dl OPTIMAL 100 - 129 mg/dl NEAR OR ABOVE OPTIMAL 130 - 159 mg/dl BORDERLINE HIGH 160 - 189 mg/dl HIGH >190 mg/dl VERY HIGH Performed By: #### L IPID, CMP #### [facility] [address] [address] [address] Kelly Jones Triglyceride [Mass/Vol] 46 mg/dL Normal <=[address] [facility] Comment on above: Performed By: #### L IPID, CMP #### [facility] [address] [address] [address] Kelly Jones VLDL CALC 9.2 mg/dL Normal [facility] Comment on above: Performed By: #### L IPID, CMP #### [facility] [address] [address] [address] Kelly Jones PROF 14(COMP METB)on 023 Albumin [Mass/Vol] 3.6 g/dL Normal 3.4-5.0 [facility] Comment on above: Performed By: #### L IPID, CMP #### [facility] [address] [place] [address] Dr. Kelly Jones Albumin/Globulin [Mass ratio] 1.2 {ratio} Normal [facility] Comment on above: Performed By: #### L IPID, CMP #### [facility] [address] [place] [address] Dr. Kelly Jones ALP [Catalytic activity/Vol] 83 U/L Normal 46-[address] [facility] Comment on above: Performed By: #### L IPID, CMP #### [facility] [address] [place] [address] Dr. Kelly Jones ALT [Catalytic activity/Vol] 52 U/L Normal 16-[address] [facility] Comment on above: Performed By: #### L IPID, CMP #### [facility] [address] [place] [address] Dr. Kelly Jones Anion gap [Moles/Vol] 11.5 mmol/L Normal [facility] Comment on above: Performed By: #### L IPID, CMP #### [facility] [address] [place] [address] Dr. Kelly Jones AST [Catalytic activity/Vol] 20 U/L Normal 15-[address] [facility] Comment on above: Performed By: #### L IPID, CMP #### [facility] [address] [place] [address] Dr. Kelly Jones Bilirubin [Mass/Vol] 0.6 mg/dL Normal 0.2-1.[address] [facility] Comment on above: Performed By: #### L IPID, CMP #### [facility] [address] [place] [address] Dr. Kelly Jones Calcium [Mass/Vol] 8.9 mg/dL Normal 8.5-10.1 [facility] Comment on above: Performed By: #### L IPID, CMP #### [facility] [address] [place] [address] Dr. Kelly Jones Chloride [Moles/Vol] 109 mmol/L Critically high 98-[address] [facility] Comment on above: Performed By: #### L IPID, CMP #### [facility] [address] [place] [address] Dr. Kelly Jones CO2 [Moles/Vol] 28.7 mmol/L Normal 21.0-32.0 [facility] Comment on above: Performed By: #### L IPID, CMP #### [facility] [address] [place] [address] Dr. Kelly Jones Creatinine [Mass/Vol] 1.09 mg/dL Normal 0.70-1.30 [facility] Comment on above: Performed By: #### L IPID, CMP #### [facility] [address] [place] [address] Dr. Kelly Jones EGFR-AF BAHAMIAN >60 Normal >=60 [facility] Comment on above: Performed By: #### L IPID, CMP #### [facility] [address] [place] [address] Dr. Kelly Jones EGFR-NON AF BAHAMIAN >60 Normal >=60 [facility] Comment on above: Performed By: #### L IPID, CMP #### [facility] [address] [place] [address] Dr. Kelly Jones Globulin (S) [Mass/Vol] 3.1 g/dL Normal [facility] Comment on above: Performed By: #### L IPID, CMP #### [facility] [address] [place] [address] Dr. Kelly Jones Glucose [Mass/Vol] 86 mg/dL Normal 74-106 [facility] Comment on above: Performed By: #### L IPID, CMP #### [facility] [address] [place] [address] Dr. Kelly Jones Potassium [Moles/Vol] 4.2 mmol/L Normal 3.5-5.[address] [facility] Comment on above: Performed By: #### L IPID, CMP #### [facility] [address] [place] [address] Dr. Kelly Jones Protein [Mass/Vol] 6.7 g/dL Normal 6.4-8.2 [facility] Comment on above: Performed By: #### L IPID, CMP #### [facility] [address] [place] [address] Dr. Kelly Jones Sodium [Moles/Vol] 145 mmol/L Normal 136-145 [facility] Comment on above: Performed By: #### L IPID, CMP #### [facility] [address] [place] [address] Dr. Kelly Jones Urea nitrogen [Mass/Vol] 15.0 mg/dL Normal 7.0-18.[address] [facility] Comment on above: Performed By: #### L IPID, CMP #### [facility] [address] [place] [address] Dr. Kelly Jones Urea nitrogen/Creatinine [Mass ratio] 13.8 mg/mg Normal [facility] Comment on above: Performed By: #### L IPID, CMP #### [facility] [address] [place] [address] Dr. Kelly Jones Office Visit (Cardiology)on 06-20-2022 Follow-up visit Diagnoses/Problems Assessed CAD (coronary artery disease) (414.00) (I25.10) History of PTCA (V45.82) (Z98.61) History of VT (myocardial infarction) (412) (I25.2) Hyperlipidemia (272.4) (E78.5) [...] therapies including DAPT. He sustained non-ST elevation VT in September 2021 with revascularization of the [...] negative for complaint. Vitals Vital Signs Recorded: [id number] 02:18PM Heart Rate60, L Radial [id number], LUE, Sitting Remkmwmjp54, LUE, Sitting Height5 ft 8 in Lhkjlg327 lb BMI Znsqtukjcb46.09 kg/m2 BSA Calculated1.88 Tobacco Useb) No PHQ-2 [...] Jun 20 2022 5:18PM EST (Author) Normal [employer] CT ABD/PELV WO W CONon 06-15 CT [...] by: ABDIRAHMAN YOU Date: 2022-06-15 17:[address] [facility] CT chest w conon 05-31-2022 CT chest w con [facility] Other CT chest w con [facility] Other CT chest w con [address] [place] [address] [facility] [place] [address] No rt [facility] Other CT chest w con CT Scan Report [facility] Other CT chest w con Signed [employer] Other CT chest w con Patient: Pj Sabillon MR#: [id number] [facility] Other CT chest w con [address] [employer] [address] chest w con : 1970 Acct:[id number] [employer] Other CT chest w con Age/Sex: 51 / M ADM Date: 05/31/22 [employer] Other [address] chest w con Loc: CT Room: Type: [facility] [employer] Other CT chest w con Attending Dr: Cathy Valentino APRN [employer] Other CT chest w con Copies to: Doretha Valentino APRN [employer] Other CT chest w con Ordering Provider: Doretha Valentino APRN [employer] Other CT chest w con Date of Service: 05/31/22 [employer] Other [address] chest w con CT/CT chest w con: Lung nodule [employer] Other CT chest w con CT CHEST WITH INTRAVENOUS CONTRAST: [employer] Other CT chest w con CLINICAL HISTORY: Follow-up lung nodules. [employer] Other CT chest w con COMPARISON: 01/11/[address] [employer] [address] chest w con TECHNIQUE: Spiral images were obtained through the chest following intravenous administration of [address] [employer] [address] chest w con mL of Isovue-300. Images were reviewed using both narrow and wide window settings. This CT exam [employer] Other CT chest w con was performed using one or more following dose reduction techniques: Automated exposure control, [employer] Other CT chest w con adjustment of the mA and/or kV according to patient size, or use of iterative reconstruction [employer] Other CT chest w con technique. [employer] Other CT chest w con FINDINGS: The heart is not enlarged. There is no pericardial effusion. Coronary artery [employer] Other CT chest w con calcification and/or stents are present. No aortic aneurysm or dissection is seen. There are [employer] Other CT chest w con stable calcified and noncalcified mediastinal and hilar lymph nodes. There is subtle [employer] Other CT chest w con dextroscoliotic curvature and small endplate spurs. [employer] Other CT chest w con There is no consolidation, pleural effusion or pneumothorax. No soft tissue nodularity is seen. [employer] Other CT chest w con There are calcified right middle lobe granulomas measuring up to 7 - 8 mm in size. [employer] Other CT chest w con Limited cuts through the upper abdomen show a partially imaged, enlarging left renal hypodensity [employer] Other CT chest w con measuring at least 4.7 cm in size. This is not a simple cyst. [employer] Other CT chest w con CT/CT chest w con [employer] Other CT chest w con IMPRESSION: [employer] Other CT chest w con GRANULOMATOUS CHANGES. [employer] Other CT chest w con NO SOFT TISSUE PULMONARY NODULARITY. [employer] Other CT chest w con NO ACUTE INTRATHORACIC FINDINGS. [employer] Other CT chest w con PARTIALLY IMAGED LEF T RENAL NODULARITY. THIS IS NOT A DEFINITE SIMPLE CYST. FOLLOW-UP WITH [employer] Other CT chest w con Impression dictated by: Lyly Weiss M.D.05/31/2022 4:21 PM [employer] Other CT chest w con Dictation Location: [facility]-- [employer] Other CT chest w con Transcribed By: PWS 05/31/22 [facility] [employer] Other CT chest w con Dictated By: Lyly Weiss MD 05/31/22 [facility] [employer] Other CT chest w con Signed By: [employer] Other CT chest w con 05/31/22 [facility] [employer] Other CBC AUTO DIFFon 12-06-2022 BASO # 0.0 103/ul Normal 0.0-0.[address] [facility] Comment on above: Performed By: #### C BC #### [facility] [address] [place] [address] Dr. Kelly Jones Basophils/100 WBC (Bld) 0.3 % Normal 0.2-2.[address] [facility] Comment on above: Performed By: #### C BC #### [facility] [address] [place] [address] Dr. Kelly Jones EO # 0.1 103/ul Normal 0.0-0.[address] [facility] Comment on above: Performed By: #### C BC #### [facility] [address] [place] [address] Dr. Kelly Jones Eosinophils/100 WBC (Bld) 1.5 % Normal 0.9-7.[address] [facility] Comment on above: Performed By: #### C BC #### [facility] [address] [place] [address] Dr. Kelly Jones Erythrocyte distribution width (RBC) [Ratio] 13.2 % Normal 11.0-15.[address] [facility] Comment on above: Performed By: #### C BC #### [facility] [address] [place] [address] Dr. Kelly Jones Hematocrit (Bld) [Volume fraction] 39.6 % Critically low 42.0-54.[address] [facility] Comment on above: Performed By: #### C BC #### [facility] [address] [place] [address] Dr. Kelly Jones Hemoglobin (Bld) [Mass/Vol] 13.7 g/dL Critically low 14.0-18.[address] [facility] Comment on above: Performed By: #### C BC #### [facility] [address] [place] [address] Dr. Kelly Jones IG # 0.02 10e3/ul Normal 0.00-0.[address] [facility] Comment on above: Performed By: #### C BC #### [facility] [address] [place] [address] Dr. Kelly Jones IG % 0.3 % Normal 0.0-0.[address] [facility] Comment on above: Performed By: #### C BC #### [facility] [address] [place] [address] Dr. Kelly Jones LYMPH # 1.4 103/ul Normal 1.2-3.[address] [facility] Comment on above: Performed By: #### C BC #### [facility] [address] [place] [address] Dr. Kelly Jones Lymphocytes/100 WBC (Bld) 23.0 % Normal 20.5-60.[address] [facility] Comment on above: Performed By: #### C BC #### [facility] [address] [place] [address] Dr. Kelly Jones MANUAL DIFF REQ NO Normal [facility] Comment on above: Performed By: #### C BC #### [facility] [address] [place] [address] Dr. Kelly Jones MCH (RBC) [Entitic mass] 29.9 pg Normal 25.9-34.[address] [facility] Comment on above: Performed By: #### C BC #### [facility] [address] [place] [address] Dr. Kelly Jones MCHC (RBC) [Mass/Vol] 34.6 g/dL Normal 29.9-35.2 [facility] Comment on above: Performed By: #### C BC #### [facility] [address] [place] [address] Dr. Kelly Jones MCV (RBC) [Entitic vol] 86.5 fL Normal 80.0-94.[address] [facility] Comment on above: Performed By: #### C BC #### [facility] [address] [place] [address] Dr. Kelly Jones MONO # 0.5 103/ul Normal 0.3-0.[address] [facility] Comment on above: Performed By: #### C BC #### [facility] [address] [place] [address] Dr. Kelly Jones Monocytes/100 WBC (Bld) 8.8 % Normal 1.7-12.[address] [facility] Comment on above: Performed By: #### C BC #### [facility] [address] [place] [address] Dr. Kelly Jones NEUT # 4.0 103/ul Normal 1.4-6.[address] [facility] Comment on above: Performed By: #### C BC #### [facility] [address] [place] [address] Dr. Kelly Jones Neutrophils/100 WBC (Bld) 66.1 % Normal 43.0-75.[address] [facility] Comment on above: Performed By: #### C BC #### [facility] [address] [place] [address] Dr. Kelly Jones Platelet mean volume (Bld) [Entitic vol] 10.7 fL Normal 9.5-13.[address] [facility] Comment on above: Performed By: #### C BC #### [facility] [address] [place] [address] Dr. Kelly Jones PLT 145 103/ul Critically low 150-450 [facility] Comment on above: Performed By: #### C BC #### [facility] [address] [place] [address] Dr. Kelly Jones RBC 4.58 106/ul Critically low 4.70-6.10 [facility] Comment on above: Performed By: #### C BC #### [facility] [address] [place] [address] Dr. Kelly Jones WBC 6.1 103/ul Normal 4.0-11.[address] [facility] Comment on above: Performed By: #### C BC #### [facility] [address] [place] [address] Dr. Kelly Jones PROF CHEM 8 (BAS METB)on Anion gap [Moles/Vol] 8.0 mmol/L Normal [facility] Comment on above: Performed By: #### B MP #### [facility] [address] [place] [address] Dr. Kelly Jones Calcium [Mass/Vol] 9.3 mg/dL Normal 8.5-10.1 [facility] Comment on above: Performed By: #### B MP #### [facility] [address] [place] [address] Dr. Kelly Jones Chloride [Moles/Vol] 105 mmol/L Normal 98-107 [facility] Comment on above: Performed By: #### B MP #### [facility] [address] [place] [address] Dr. Kelly Jones CO2 [Moles/Vol] 31.0 mmol/L Normal 21.0-32.0 [facility] Comment on above: Performed By: #### B MP #### [facility] [address] [place] [address] Dr. Kelly Jones Creatinine [Mass/Vol] 0.96 mg/dL Normal 0.70-1.30 [facility] Comment on above: Performed By: #### B MP #### [facility] [address] [place] [address] Dr. Kelly Jones EGFR-AF BAHAMIAN >60 Normal >=60 [facility] Comment on above: Performed By: #### B MP #### [facility] [address] [place] [address] Dr. Kelly Jones EGFR-NON AF BAHAMIAN >60 Normal >=60 [facility] Comment on above: Performed By: #### B MP #### [facility] [address] [place] [address] Dr. Kelly Jones Glucose [Mass/Vol] 95 mg/dL Normal 74-106 [facility] Comment on above: Performed By: #### B MP #### [facility] [address] [place] [address] Dr. Kelly Jones Potassium [Moles/Vol] 4.0 mmol/L Normal 3.5-5.1 [facility] Comment on above: Performed By: #### B MP #### [facility] [address] [place] [address] Dr. Kelly Jones Sodium [Moles/Vol] 140 mmol/L Normal 136-145 [facility] Comment on above: Performed By: #### B MP #### [facility] [address] [address] [address] Kelly Jones Urea nitrogen [Mass/Vol] 10.0 mg/dL Normal 7.0-18.[address] [facility] Comment on above: Performed By: #### B MP #### [facility] [address] [address] [address] Kelly Jones Urea nitrogen/Creatinine [Mass ratio] 10.4 mg/mg Normal [facility] Comment on above: Performed By: #### B MP #### [facility] [address] [address] [address] Kelly Jones LIPID PROFILEon 12-15-2021 CHOL-HDL RATIO NORM SEE BELOW Normal [facility] Comment on above: Result Comment: 3.3 - 4.4 LOW RISK 4.4 - 7.1 AVERAGE RISK 7.1 - 11.0 MODERATE RISK >11.0 HIGH RISK Performed By: #### C BC #### [facility] [address] [place] [address] Dr. Kelly Jones Cholesterol [Mass/Vol] 83 mg/dL Normal <=200 [facility] Comment on above: Performed By: #### C BC #### [facility] [address] [address] [address] Kelyl Jones Cholesterol in HDL [Mass/Vol] 29 mg/dL Critically low 40-[address] [facility] Comment on above: Performed By: #### C BC #### [facility] [address] [address] [address] Kelly Jones Cholesterol in LDL [Mass/Vol] 39.2 mg/dL Normal [facility] Comment on above: Performed By: #### C BC #### [facility] [address] [address] [address] Kelly Jones Cholesterol.total/Cho lesterol in HDL [Mass ratio] 2.9 {ratio} Normal [facility] Comment on above: Performed By: #### C BC #### [facility] [address] [address] [address] Kelly Jones HDL NORMAL > or = 60 mg/dl - LO W CARDIOVASCULAR RISK <40 mg/dl - HIGH CARDIOVASCULAR RISK Normal [facility] Comment on above: Performed By: #### C BC #### [facility] [address] [address] [address] Kelly Jones LDL CALC NORMAL SEE BELOW Normal [facility] Comment on above: Result Comment: <100 mg/dl OPTIMAL 100 - 129 mg/dl NEAR OR ABOVE OPTIMAL 130 - 159 mg/dl BORDERLINE HIGH 160 - 189 mg/dl HIGH >190 mg/dl VERY HIGH Performed By: #### C BC #### [facility] [address] [address] [address] Kelly Jones Triglyceride [Mass/Vol] 74 mg/dL Normal <=[address] [facility] Comment on above: Performed By: #### C BC #### [facility] [address] [place] [address] Dr. Kelly Jones VLDL CALC 14.8 mg/dL Normal [facility] Comment on above: Performed By: #### C BC #### [facility] [address] [address] [address] Kelly Jones PROF CHEM 8 (BAS METB)on Anion gap [Moles/Vol] 15.3 mmol/L Normal [facility] Comment on above: Performed By: #### B MP #### [facility] [address] [place] [address] Dr. Kelly Jones Calcium [Mass/Vol] 8.8 mg/dL Normal 8.5-10.1 [facility] Comment on above: Performed By: #### B MP #### [facility] [address] [place] [address] Dr. Kelly Jones Chloride [Moles/Vol] 100 mmol/L Normal 98-[address] [facility] Comment on above: Performed By: #### B MP #### [facility] [address] [address] [address] Kelly Jones CO2 [Moles/Vol] 22.6 mmol/L Normal 21.0-32.0 [facility] Comment on above: Performed By: #### B MP #### [facility] [address] [address] [address] Kelly Jones Creatinine [Mass/Vol] 1.30 mg/dL Normal 0.70-1.[address] [facility] Comment on above: Performed By: #### B MP #### [facility] [address] [place] [address] Dr. Kelly Jones EGFR-AF BAHAMIAN >60 Normal >=60 [facility] Comment on above: Performed By: #### B MP #### [facility] [address] [address] [address] Kelly Jones EGFR-NON AF BAHAMIAN 58 mL/min/1.73m2 Critically low >=[address] [facility] Comment on above: Performed By: #### B MP #### [facility] [address] [place] [address] Dr. Kelly Jones Glucose [Mass/Vol] 114 mg/dL Critically high 74-106 T [facility] Comment on above: Performed By: #### B MP #### [facility] [address] [place] [address] Dr. Kelly Jones Potassium [Moles/Vol] 3.9 mmol/L Normal 3.5-5.[address] [facility] Comment on above: Performed By: #### B MP #### [facility] [address] [place] [address] Dr. Kelly Jones Sodium [Moles/Vol] 134 mmol/L Critically low 136-145 [facility] Comment on above: Performed By: #### B MP #### [facility] [address] [place] [address] Dr. Kelly Jones Urea nitrogen [Mass/Vol] 13.0 mg/dL Normal 7.0-18.[address] [facility] Comment on above: Performed By: #### B MP #### [facility] [address] [place] [address] Dr. Kelly Jones Urea nitrogen/Creatinine [Mass ratio] 10.0 mg/mg Normal [facility] Comment on above: Performed By: #### B MP #### [facility] [address] [place] [address] Dr. Kelly Jones Activated partial thrombopla stin time (aPTT) in platelet poor plasma by coagulation aOrdered By: Dewayne Pettit on 10-14-2021 aPTT Coag (PPP) [Time] 29.8 s 25.1-36.5 [facility] Albumin [Mass/volume] in Ser um or PlasmaOrdered By: Myles Velarde on 10-14-2021 Albumin [Mass/Vol] 3.1 g/dL 3.2-5.5 [facility] Basophils Auto (Bld) [#/Vol] Ordered By: Myles Velarde on 10-14-2021 Basophils (Bld) [#/Vol] 0.1 10*3/uL 0.0-0.2 [facility] Basophils/100 WBC Auto (Bld) Ordered By: Myles Velarde on 10-14-2021 Basophils/100 WBC (Bld) 0.5 % [facility] Blood hemoglobin measurement (mass/volume)Ordered By: Myles Velarde on 10-14-2021 Hemoglobin (Bld) [Mass/Vol] 15.1 g/dL 13.0-17.0 [facility] Blood leukocytes automated c ount (number/volume)Ordered By: Myles Velarde on 10-14-2021 WBC (Bld) [#/Vol] 17.9 10*3/uL 4.5-11.0 [facility] Creatinine and Glomerular fi ltration rate.predicted panel (S/P/Bld)Ordered By: Myles Velarde on 10-14-2021 Creatinine [Mass/Vol] 1.70 mg/dL 0.64-1.27 [facility] Comment on above: Delta: 1.18 on 10/13-045 Eosinophils Auto (Bld) [#/Vo l]Ordered By: Myles Velarde on 10-14-2021 Eosinophils (Bld) [#/Vol] 0.1 10*3/uL 0.0-0.45 [facility] Eosinophils/100 WBC Auto (Bl d)Ordered By: Myles Velarde on 10-14-2021 Eosinophils/100 WBC (Bld) 0.3 % [facility] Erythrocyte distribution wid th Auto (RBC) [Ratio]Ordered By: Myles Velarde on 10-14-2021 Erythrocyte distribution width (RBC) [Ratio] 12.8 % 12.0-14.8 [facility] Estimated glomerular filtrat ion rate (GFR) non- AmericanOrdered By: Myles Velarde on 10-14-2021 GFR/1.73 sq M.predicted among non-blacks MDRD (S/P/Bld) [Vol rate/Area] 43 mL/Min [facility] Globulin Calc (S) [Mass/Vol] Ordered By: Myles Velarde on 10-14-2021 Globulin (S) [Mass/Vol] 2.9 g/dL [facility] Hematocrit Auto (Bld) [Volum e fraction]Ordered By: Myles Velarde on 10-14-2021 Hematocrit (Bld) [Volume fraction] 44.1 % 38.8-50.0 [facility] Laboratory - CoagulationOrde red By: Dewayne Pettit on 10-14-2021 PT Coag (PPP) [Time] 13.7 s 9.0-12.9 [facility] Laboratory - Hematology and Cell countsOrdered By: Myles Velarde on 10-14-2021 Nucleated RBC/100 WBC (Bld) [Ratio] 0.0 % 0-0.5 [facility] Lymphocytes Auto (Bld) [#/Vo l]Ordered By: Myles Velarde on 10-14-2021 Lymphocytes (Bld) [#/Vol] 1.4 10*3/uL 1.00-4.8 [facility] Lymphocytes/100 WBC Auto (Bl d)Ordered By: Myles Velarde on 10-14-2021 Lymphocytes/100 WBC (Bld) 8.0 % [facility] MCH Auto (RBC) [Entitic mass ]Ordered By: Myles Velarde on 10-14-2021 MCH (RBC) [Entitic mass] 29.3 pg 27.5-35.2 [facility] MCHC Auto (RBC) [Mass/Vol]Or dered By: Myles Velarde on 10-14-2021 MCHC (RBC) [Mass/Vol] 34.3 g/dL 32.5-35.6 [facility] MCV Auto (RBC) [Entitic vol] Ordered By: Myles Velarde on 10-14-2021 MCV (RBC) [Entitic vol] 85.3 fL 83.5-101 [facility] Monocytes Auto (Bld) [#/Vol] Ordered By: Myles Velarde on 10-14-2021 Monocytes (Bld) [#/Vol] 2.1 10*3/uL 0.0-0.8 [facility] Monocytes/100 WBC Auto (Bld) Ordered By: Myles Velarde on 10-14-2021 Monocytes/100 WBC (Bld) 11.5 % [facility] Neutrophils Auto (Bld) [#/Vo l]Ordered By: Myles Velarde on 10-14-2021 Neutrophils (Bld) [#/Vol] 14.3 10*3/uL 1.8-7.7 [facility] Neutrophils/100 WBC Auto (Bl d)Ordered By: Myles Velarde on 10-14-2021 Neutrophils/100 WBC (Bld) 79.7 % [facility] No Panel InformationOrdered By: Myles Velarde on 10-14-2021 Estimated GFR () 52 mL/Min [facility] Comment on above: GFR estimated refere nce range: According to KDOQI guidelines, <60 ml/min/1.73m2 is sufficient to diagnose a patient with chronic kidney disease. Pharmacy Creatinine Clearance (Chem 62.13 [facility] Platelet mean volume Auto (B ld) [Entitic vol]Ordered By: Myles Velarde on 10-14-2021 Platelet mean volume (Bld) [Entitic vol] 9.1 fL 6.6-10.1 [facility] Platelet poor plasma interna tional normalized ratio (INR) by coagulation assay (relatOrdered By: Dewayne Pettit on 10-14-2021 INR Coag (PPP) [Relative time] 1.2 {INR} [facility] Comment on above: INR Therapeutic Rang [...] 10-14-2021 Platelets (Bld) [#/Vol] 175 10*3/uL 150-450 [facility] Comment on above: Delta: 230 on Protein [Mass/volume] in Ser um or PlasmaOrdered By: Myles Velarde on 10-14-2021 Protein [Mass/Vol] 6.0 g/dL 6.1-7.9 [facility] RBC Auto (Bld) [#/Vol]Ordere d By: Myles Velarde on 10-14-2021 RBC (Bld) [#/Vol] 5.17 10*6/uL 3.90-5.60 [facility] Serum or plasma alanine yeager otransferase measurement without P-5'-P (enzymatic activiOrdered By: Myles Velarde on 10-14-2021 ALT No additional P-5'-P [Catalytic activity/Vol] 61 U/L 10-60 [facility] Serum or plasma albumin/glob ulin mass ratioOrdered By: Myles Velarde on 10-14-2021 Albumin/Globulin [Mass ratio] 1.1 {ratio} [facility] Serum or plasma alkaline rodger sphatase measurement (enzymatic activity/volume)Ordered By: Myles Velarde on 10-14-2021 ALP [Catalytic activity/Vol] 80 U/L 32-92 [facility] Serum or plasma aspartate am inotransferase measurement (enzymatic activity/volume)Ordered By: Myles Velarde on 10-14-2021 AST [Catalytic activity/Vol] 119 U/L 10-42 [facility] Serum or plasma calcium yuriy urement (mass/volume)Ordered By: Myles Velarde on 10-14-2021 Calcium [Mass/Vol] 8.8 mg/dL 8.2-10.2 [facility] Serum or plasma chloride barbara surement (moles/volume)Ordered By: Myles Velarde on 10-14-2021 Chloride [Moles/Vol] 99 mmol/L 95-114 [facility] Serum or plasma glucose yuriy urement (mass/volume)Ordered By: Myles Velarde on 10-14-2021 Glucose [Mass/Vol] 102 mg/dL 70-100 [facility] Comment on above: ADA recommended refe rence range Random Glucose Reference Range is dependent on time and content of last meal. Glucose of more than 200 mg/dL in a nonstressed, ambulatory subject supports the diagnosis of Diabetes Mellitus. Serum or plasma potassium me asurement (moles/volume)Ordered By: Myles Velarde on 10-14-2021 Potassium [Moles/Vol] 4.4 mmol/L 3.5-5.1 [facility] Serum or plasma sodium measu rement (moles/volume)Ordered By: Myles Velarde on 10-14-2021 Sodium [Moles/Vol] 135 mmol/L 136-146 [facility] Serum or plasma total biliru bin measurement (mass/volume)Ordered By: Myles Velarde on 10-14-2021 Bilirubin [Mass/Vol] 2.2 mg/dL 0.3-1.2 [facility] Comment on above: Samples from patient s who have taken Naproxen have shown spurious elevation in Total Bilirubin levels. A metabolite of Naproxen, O-desmethylnaproxen, has been shown to interfere with the Joy-Cherry method for measuring Total Bilirubin. Serum or plasma total carbon dioxide measurement (moles/volume)Ordered By: Myles Velarde on 10-14-2021 CO2 [Moles/Vol] 25.2 mmol/L 22.0-30.0 [facility] Serum or plasma urea nitroge n measurement (mass/volume)Ordered By: Myles Velarde on 10-14-2021 Urea nitrogen [Mass/Vol] 21 mg/dL - [facility] Cholesterol [Mass/volume] in Serum or PlasmaOrdered By: Dewayne Pettit on 10-13-2021 Cholesterol [Mass/Vol] 184 mg/dL 140-200 [facility] Comment on above: Chol less than 200 m g/dl low risk Chol 201-239 mg/dl borderline risk Chol 240 mg/dl and greater high risk Cholesterol in LDL Calc [Mas s/Vol]Ordered By: Dewayne Pettit on 10-13-2021 Cholesterol in LDL [Mass/Vol] 128 mg/dL 0-100 [facility] Comment on above: LDL ATP III CLASSIFI CATION LDL less than 100 mg/dL Optimal LDL 100-129 mg/dL Near or above optimal LDL 130-159 mg/dL Borderline high LDL 160-189 mg/dL High LDL greater than 189 mg/dL Very high Cholesterol in VLDL Calc [Ma ss/Vol]Ordered By: Dewayne Pettit on 10-13-2021 Cholesterol in VLDL [Mass/Vol] 19 mg/dL [facility] Glucose Glucometer (BldC) [M ass/Vol]Ordered By: Emma Allen on 10-13-2021 Glucose [Mass/Vol] 108 mg/dL [facility] Comment on above: Random Glucose Refer ence Range is dependent on time and content of last meal. Glucose of more than 200 mg/dL in a nonstressed, ambulatory subject supports the diagnosis of Diabetes Mellitus. Glucose mean value [Mass/vol ume] in Blood Estimated from glycated hemoglobinOrdered By: Dewayne Pettit on 10-13-2021 Average glucose Estimated from glycated hemoglobin (Bld) [Mass/Vol] 108 mg/dL [facility] Hemoglobin A1c percentageOrd ered By: Dewayne Pettit on 10-13-2021 HbA1c (Bld) [Mass fraction] 5.4 % 4.3-5.6 [facility] Comment on above: Increased risk for d iabetes: 5.7 - 6.4 diabetes: >6.4 glycemic control for adults with diabetes: <7.0 Laboratory - Chemistry and C hemistry - challengeOrdered By: Dewayne Pettit on 10-13-2021 Magnesium [Mass/Vol] 2.1 mg/dL 1.6-2.6 [facility] No Panel InformationOrdered By: Emma Allen on 10-13-2021 Bedside Glucose Comment Glu2: cleaned meter [facility] No Panel InformationOrdered By: Dewayne Pettit on 10-13-2021 Platelet Estimate Normal Normal [facility] Platelet Morphology Comment Normal Normal [facility] Phosphate [Mass/volume] in S prateek or PlasmaOrdered By: Dewayne Pettit on 10-13-2021 Phosphate [Mass/Vol] 4.1 mg/dL 2.5-4.6 [facility] RBC morphologyOrdered By: Lizz Pettit on 10-13-2021 RBC morphology finding Nom (Bld) Normal [facility] Serum or plasma high density lipoprotein (HDL) cholesterol measurementOrdered By: Dewayne Pettit on 10-13-2021 Cholesterol in HDL [Mass/Vol] 36 mg/dL 29-71 [facility] Comment on above: HDL CHOL ATP-III CLA SSIFICATION Cardiovascular Risk HDL > or equal to 60 mg/dL LOW HDL < 40 mg/dL HIGH Serum or plasma total choles terol/high density lipoprotein (HDL) cholesterol mass ratOrdered By: Dewayne Pettit on 10-13-2021 Cholesterol.total/Cho lesterol in HDL [Mass ratio] 5.1 {ratio} [facility] Triglyceride [Mass/volume] i n Serum or PlasmaOrdered By: Dewayne Pettit on 10-13-2021 Triglyceride [Mass/Vol] 99 mg/dL 35-149 [facility] Comment on above: TRIG ATP III [...] 10-13-2021 Troponin I.cardiac High sensitivity method [Mass/Vol] 98428 pg/mL 0-20 [facility] Comment on above: Results called at 0930 on 10/13/21 BNPon 10-12-2021 Natriuretic peptide B (Bld) [Mass/Vol] 381.0 pg/mL Normal <=900.[address] [facility] Comment on above: Performed By: #### C BC #### [facility] [address] [address] [address] Kelly Jones CARDIAC SOFY 3-6on 2 CK [Catalytic activity/Vol] 979 U/L Critically high 39-[address] [facility] Comment on above: Result Comment: Test Repeated. Critical Value Verified Performed By: #### C BC #### [facility] [address] [address] [address] Kelly Jones CK.MB [Mass/Vol] 172.66 ng/mL Critically high <=3.60 [facility] Comment on above: Result Comment: Test Repeated. Critical Value Verified Performed By: #### C BC #### [facility] [address] [place] [address] Dr. Kelly Jones HSTROP 6728.0 pg/mL Critically high 4.0-76.1 [facility] Comment on above: Result Comment: CUT- OFF POINTS HAVE BEEN ESTABLISHED BASED ON THE FOURTH UNIVERSAL DEFINITIONS OF MYOCARDIAL INFARCTION. THE UPPER REFERENCE LIMIT (URL) OF TROPONIN, DEFINED THE 99TH PERCENTILE OF cTnI DISTRIBUTION IN A REFERENCE POPULATION, HAS BEEN CONFIRMED THE DECISION THRESHOLD FOR [place] DIAGNOSIS. Test Repeated. Critical Value Verified Performed By: #### C BC #### [facility] [address] [place] [address] Dr. Kelly Jones CBC AUTO DIFFon 10-12-2021 BASO # 0.1 103/ul Normal 0.0-0.[address] [facility] Comment on above: Performed By: #### C BC #### [facility] [address] [place] [address] Dr. Kelly Jones Basophils/100 WBC (Bld) 0.4 % Normal 0.2-2.[address] [facility] Comment on above: Performed By: #### C BC #### [facility] [address] [place] [address] Dr. Kelly Jones EO # 0.1 103/ul Normal 0.0-0.[address] [facility] Comment on above: Performed By: #### C BC #### [facility] [address] [place] [address] Dr. Kelly Jones Eosinophils/100 WBC (Bld) 0.4 % Critically low 0.9-7.[address] [facility] Comment on above: Performed By: #### C BC #### [facility] [address] [place] [address] Dr. Kelly Jones Erythrocyte distribution width (RBC) [Ratio] 11.9 % Normal 11.0-15.[address] [facility] Comment on above: Performed By: #### C BC #### [facility] [address] [place], [place] [id number] Dr. Kelly Jones Hematocrit (Bld) [Volume fraction] 49.7 % Normal 42.0-54.[address] [facility] Comment on above: Performed By: #### C BC #### [facility] [address] [place] [address] Dr. Kelly Jones Hemoglobin (Bld) [Mass/Vol] 17.4 g/dL Normal 14.0-18.0 [facility] Comment on above: Performed By: #### C BC #### [facility] [address] [place] [address] Dr. Kelly Jones IG # 0.10 10e3/ul Critically high 0.00-0.03 [facility] Comment on above: Performed By: #### C BC #### [facility] [address] [place] [address] Dr. Kelly Jones IG % 0.7 % Critically high 0.0-0.5 [facility] Comment on above: Performed By: #### C BC #### [facility] [address] [place] [address] Dr. Kelly Jones LYMPH # 2.0 103/ul Normal 1.2-3.8 [facility] Comment on above: Performed By: #### C BC #### [facility] [address] [place] [address] Dr. Kelly Jones Lymphocytes/100 WBC (Bld) 13.4 % Critically low 20.5-60.0 [facility] Comment on above: Performed By: #### C BC #### [facility] [address] [place] [address] Dr. Kelly Jones MANUAL DIFF REQ NO Normal [facility] Comment on above: Performed By: #### C BC #### [facility] [address] [place] [address] Dr. Kelly Jones MCH (RBC) [Entitic mass] 29.1 pg Normal 25.9-34.[address] [facility] Comment on above: Performed By: #### C BC #### [facility] [address] [place] [address] Dr. Kelly Jones MCHC (RBC) [Mass/Vol] 35.0 g/dL Normal 29.9-35.2 [facility] Comment on above: Performed By: #### C BC #### [facility] [address] [address] [address] Kelly Jones MCV (RBC) [Entitic vol] 83.1 fL Normal 80.0-94.0 [facility] Comment on above: Performed By: #### C BC #### [facility] [address] [address] [address] Kelly Jones MONO # 1.2 103/ul Critically high 0.3-0.8 [facility] Comment on above: Performed By: #### C BC #### [facility] [address] [place] [address] Dr. Kelly Jones Monocytes/100 WBC (Bld) 7.8 % Normal 1.7-12.[address] [facility] Comment on above: Performed By: #### C BC #### [facility] [address] [place] [address] Dr. Kelly Jones NEUT # 11.5 103/ul Critically high 1.4-6.5 [facility] Comment on above: Performed By: #### C BC #### [facility] [address] [place] [address] Dr. Kelly Jones Neutrophils/100 WBC (Bld) 77.3 % Critically high 43.0-75.[address] [facility] Comment on above: Performed By: #### C BC #### [facility] [address] [address] [address] Kelly Jones Platelet mean volume (Bld) [Entitic vol] 9.9 fL Normal 9.5-13.5 [facility] Comment on above: Performed By: #### C BC #### [facility] [address] [place] [address] Dr. Kelly Jones PLT 254 103/ul Normal 150-450 [facility] Comment on above: Performed By: #### C BC #### [facility] [address] [place] [address] Dr. Kelly Jones RBC 5.98 106/ul Normal 4.70-6.10 [facility] Comment on above: Performed By: #### C BC #### [facility] [address] [place] [address] [id number] [address] Kelly Jones WBC 14.9 103/ul Critically high 4.0-11.0 [facility] Comment on above: Performed By: #### C BC #### [facility] [address] [place], [place] [address] Dr. Kelly Jones Covid-19 PCR (CVDTB)on 09-22 SARS-CoV-2 (COVID-19) RNA SON+probe Ql (Unsp spec) Not detected Normal NOT DETECTED [facility] Comment on above: Result Comment: When diagnostic [...] this test is supported by the [place] [employer] and Human Service's declaration that [...] used). Performed By: #### C VDTBH #### [facility] [address] [place] [address] [id number] [address] Kelly Jones Laboratory - Chemistry and C hemistry - challengeOrdered By: Dewayne Pettit on 10-12-2021 Natriuretic peptide B (Bld) [Mass/Vol] 107.0 pg/mL 5-100 [facility] PROF 14(COMP METB)on 022 Albumin [Mass/Vol] 4.0 g/dL Normal 3.4-5.0 [facility] Comment on above: Performed By: #### C BC #### [facility] [address] [place] [address] Dr. Kelly Jones Albumin/Globulin [Mass ratio] 1.1 {ratio} Normal [facility] Comment on above: Performed By: #### C BC #### [facility] [address] [address] [address] Kelly Jones ALP [Catalytic activity/Vol] 144 U/L Critically high 46-[address] [facility] Comment on above: Performed By: #### C BC #### [facility] [address] [place] [address] Dr. Kelly Jones ALT [Catalytic activity/Vol] 39 U/L Normal 16-[address] [facility] Comment on above: Performed By: #### C BC #### [facility] [address] [place] [address] Dr. Kelly Jones Anion gap [Moles/Vol] 13.2 mmol/L Normal [facility] Comment on above: Performed By: #### C BC #### [facility] [address] [place] [address] Dr. Kelly Jones AST [Catalytic activity/Vol] 25 U/L Normal 15-[address] [facility] Comment on above: Performed By: #### C BC #### [facility] [address] [place] [address] Dr. Kelly Jones Bilirubin [Mass/Vol] 0.4 mg/dL Normal 0.2-1.[address] [facility] Comment on above: Performed By: #### C BC #### [facility] [address] [place] [address] Dr. Kelly Jones Calcium [Mass/Vol] 10.7 mg/dL Critically high 8.5-10.1 [facility] Comment on above: Performed By: #### C BC #### [facility] [address] [place] [address] Dr. Kelly Jones Chloride [Moles/Vol] 102 mmol/L Normal 98-[address] [facility] Comment on above: Performed By: #### C BC #### [facility] [address] [place] [address] Dr. Kelly Jones CO2 [Moles/Vol] 27.5 mmol/L Normal 21.0-32.0 [facility] Comment on above: Performed By: #### C BC #### [facility] [address] [place] [address] Dr. Kelly Jones Creatinine [Mass/Vol] 1.34 mg/dL Critically high 0.70-1.[address] [facility] Comment on above: Performed By: #### C BC #### [facility] [address] [address] [address] Kelly Jones EGFR-AF BAHAMIAN >60 Normal >=60 [facility] Comment on above: Performed By: #### C BC #### [facility] [address] [place] [address] Dr. Kelly Jones EGFR-NON AF BAHAMIAN 56 mL/min/1.73m2 Critically low >=[address] [facility] Comment on above: Performed By: #### C BC #### [facility] [address] [place] [address] Dr. Kelly Jones Globulin (S) [Mass/Vol] 3.8 g/dL Normal [facility] Comment on above: Performed By: #### C BC #### [facility] [address] [place] [address] Dr. Kelly Jones Glucose [Mass/Vol] 110 mg/dL Critically high 74-106 T [facility] Comment on above: Performed By: #### C BC #### [facility] [address] [place] [address] Dr. Kelly Jones Potassium [Moles/Vol] 3.7 mmol/L Normal 3.5-5.[address] [facility] Comment on above: Performed By: #### C BC #### [facility] [address] [place] [address] Dr. Kelly Jones Protein [Mass/Vol] 7.8 g/dL Normal 6.4-8.2 [facility] Comment on above: Performed By: #### C BC #### [facility] [address] [place] [address] Dr. eKlly Jones Sodium [Moles/Vol] 139 mmol/L Normal 136-145 [facility] [place] Comment on above: Performed By: #### C BC #### [facility] [address] [place] [address] Dr. Kelly Jones Urea nitrogen [Mass/Vol] 11.0 mg/dL Normal 7.0-18.[address] [facility] Comment on above: Performed By: #### C BC #### [facility] [address] [place] [address] Dr. Kelly Jones Urea nitrogen/Creatinine [Mass ratio] 8.2 mg/mg Normal [facility] Comment on above: Performed By: #### C BC #### [facility] [address] [place] [address] Dr. Kelly Jones PROTIMEon 10-12-2021 INR Coag (PPP) [Relative time] 0.95 {INR} Normal [facility] Comment on above: Performed By: #### P T, PTT #### [facility] [address] [place] [address] Dr. Kelly Jones INR GUIDELINES SEE BELOW Normal [facility] Comment on above: Result Comment: CATHIE RED INR: 2.0 - 3.0 CONDITIONS NOT LISTED BELOW 2.5 - 3.5 FOR PROSTHETIC HEART VALVE REPLACEMENT 2.5 - 3.5 RECURRENT THROMBOSIS Performed By: #### P T, PTT #### [facility] [address] [place] [address] Dr. Kelly Jones PT Coag (PPP) [Time] 10.3 s Normal 9.0-11.[address] [facility] Comment on above: Performed By: #### P T, PTT #### [facility] [address] [place] [address] Dr. Kelly Jones PTTon 10-12-2021 aPTT Coag (Bld) [Time] 27.9 s Normal 22.3-36.[address] [facility] Comment on above: Performed By: #### P T, PTT #### [facility] [address] [place] [address] Dr. Kelly Jones TROPONIN, HIGH SENSITIVITYon 10-12-2021 HSTROP 1288.2 pg/mL Critically high 4.0-76.1 [facility] Comment on above: Result Comment: CUT- OFF POINTS HAVE BEEN ESTABLISHED BASED ON THE FOURTH UNIVERSAL DEFINITIONS OF MYOCARDIAL INFARCTION. THE UPPER REFERENCE LIMIT (URL) OF TROPONIN, DEFINED THE 99TH PERCENTILE OF cTnI DISTRIBUTION IN A REFERENCE POPULATION, HAS BEEN CONFIRMED THE DECISION THRESHOLD FOR VT DIAGNOSIS. Performed By: #### C BC #### [facility] [address] [address] [address] Kelly Jones TSH DL <= 0.005 mIU/L QnOrde red By: Dewayne Pettit on 10-12-2021 TSH Qn 2.35 m[IU]/L 0.45-5.33 [facility] XR CHEST 1 Von 10-12-2021 XR [...] by: LELAND HARRIS Date: 2021-10-12 18:[address] [facility] Vital Signs Date Time Vital Sign Value Performing Clinician Facility 02-06-2025 08:54-0400 Body height 172.72 cm Zodio DO Work Phone: [facility] 02-06-2025 08:54-0400 Body mass index (BMI) [Ratio] 25.8 kg/m2 Zodio DO Work Phone: [facility] 02-06-2025 08:54-0400 Body weight 77.11 kg Zodio DO Work Phone: [facility] 02-06-2025 08:54-0400 Diastolic blood pressure 94 mm[Hg] Zodio DO Work Phone: [facility] 02-06-2025 08:54-0400 Heart rate 61 /min Yaya Ball DO Work Phone: [facility] 02-06-2025 08:54-0400 Systolic blood pressure 149 mm[Hg] Yaya Ball DO Work Phone: [facility] 11-06-2024 12:38-0400 Diastolic blood pressure 66 mm[Hg] Yaya Ball DO Work Phone: [facility] 11-06-2024 12:38-0400 Heart rate 58 /min Yaya Ball DO Work Phone: [facility] 11-06-2024 12:38-0400 Respiratory rate 16 /min Yaya Ball DO Work Phone: [facility] 11-06-2024 12:38-0400 SaO2% (BldA) [Mass fraction] 99 % Yaya Ball DO Work Phone: [facility] 11-06-2024 12:38-0400 Systolic blood pressure 105 mm[Hg] Yaya Ball DO Work Phone: [facility] 11-06-2024 09:46-0400 Body height 172.72 cm Yaya Ball DO Work Phone: [facility] 11-06-2024 09:46-0400 Body weight 79.37 kg Yaya Ball DO Work Phone: [facility] 10-08-2024 09:49-0400 Body height 172.72 cm Yaya Ball DO Work Phone: [facility] 10-08-2024 09:49-0400 Body mass index (BMI) [Ratio] 27.9 kg/m2 Yaya Ball DO Work Phone: [facility] 10-08-2024 09:49-0400 Body weight 83.46 kg Yaya Ball DO Work Phone: [facility] 10-08-2024 09:49-0400 Diastolic blood pressure 66 mm[Hg] Yaya Ball DO Work Phone: [facility] 10-08-2024 09:49-0400 Heart rate 62 /min Yaya Ball DO Work Phone: [facility] 10-08-2024 09:49-0400 Systolic blood pressure 109 mm[Hg] Yaya Ball DO Work Phone: [facility] 09-03-2024 15:33-0400 Body height 172.72 cm [facility] 09-03-2024 15:33-0400 Body mass index (BMI) [Ratio] 28.3 kg/m2 [facility] 09-03-2024 15:33-0400 Body weight 84.36 kg [facility] 09-03-2024 15:33-0400 Diastolic blood pressure 77 mm[Hg] [facility] 09-03-2024 15:33-0400 Heart rate 67 /min [facility] 09-03-2024 15:33-0400 Respiratory rate 12 /min [facility] 09-03-2024 15:33-0400 Systolic blood pressure 125 mm[Hg] [facility] 08-05-2024 09:24-0400 Body height 172.7 cm Denis Hoang DO Work Phone: [facility] 08-05-2024 09:24-0400 Body mass index (BMI) [Ratio] 28.46 kg/m2 Denis Hoang DO Work Phone: [facility] 08-05-2024 09:24-0400 Body weight 84.91 kg Denis Hoang DO Work Phone: [facility] 08-05-2024 09:24-0400 Diastolic blood pressure 64 mm[Hg] Denis Hoang DO Work Phone: [facility] 08-05-2024 09:24-0400 Heart rate 62 /min Denis Hoang DO Work Phone: [facility] 08-05-2024 09:24-0400 Systolic blood pressure 110 mm[Hg] Denis Hoang DO Work Phone: [facility] 11-13-2023 12:10-0400 Body temperature 98.01 [degF] Gary East MD Work Phone: [facility] [employer] 11-13-2023 12:10-0400 Diastolic blood pressure 72 mm[Hg] Gary East MD Work Phone: [facility] [employer] 11-13-2023 12:10-0400 Heart rate 61 /min Gary East MD Work Phone: [facility] [employer] 11-13-2023 12:10-0400 Respiratory rate 15 /min Gary East MD Work Phone: [facility] [employer] 11-13-2023 12:10-0400 SaO2% (BldA) [Mass fraction] 97 % Gary East MD Work Phone: [facility] [employer] 11-13-2023 12:10-0400 Systolic blood pressure 108 mm[Hg] Gary East MD Work Phone: [facility] [employer] 11-13-2023 09:34-0400 Body height 170.2 cm Gary East MD Work [facility] 11-13-2023 09:34-0400 Body mass index (BMI) [Ratio] 24.59 kg/m2 Gary East MD Work Phone: [facility] 11-13-2023 09:34-0400 Body weight 71.22 kg Gary East MD Work Phone: [facility] 09-28-2023 10:03-0400 Body height 172.72 cm DO Yaya Ball Work Phone: [facility] 09-28-2023 10:03-0400 Body mass index (BMI) [Ratio] 24.9 kg/m2 DO Yaya Ball Work Phone: [facility] 09-28-2023 10:03-0400 Body weight 74.38 kg DO Yaya Ball Work Phone: [facility] 09-28-2023 10:03-0400 Diastolic blood pressure 82 mm[Hg] DO Yaya Ball Work Phone: [facility] 09-28-2023 10:03-0400 Heart rate 48 /min DO Yaya Ball Work Phone: [facility] 09-28-2023 10:03-0400 Respiratory rate 20 /min DO Yaya Ball Work Phone: [facility] 09-28-2023 10:03-0400 Systolic blood pressure 161 mm[Hg] DO Yaya Ball Work Phone: [facility] 09-03-2023 15:34-0400 Body height 172.72 cm DO Yaya Ball Work Phone: [facility] 09-03-2023 15:34-0400 Body mass index (BMI) [Ratio] 25.7 kg/m2 DO Yaya Ball Work Phone: [facility] 09-03-2023 15:34-0400 Body weight 76.88 kg DO Yaya Ball Work Phone: [facility] 09-03-2023 15:34-0400 Diastolic blood pressure 68 mm[Hg] DO Yaya Ball Work Phone: [facility] 09-03-2023 15:34-0400 Heart rate 66 /min DO Yaya Ball Work Phone: [facility] 09-03-2023 15:34-0400 Respiratory rate 16 /min DO Yaya Ball Work Phone: [facility] 09-03-2023 15:34-0400 Systolic blood pressure 119 mm[Hg] DO Yaya Ball Work Phone: [facility] 08-08-2023 10:26-0400 Body height 172.7 cm Denis Hoagn DO Work Phone: [facility] 08-08-2023 10:26-0400 Body mass index (BMI) [Ratio] 25.24 kg/m2 Denis Hoang DO Work Phone: [facility] 08-08-2023 10:26-0400 Body weight 75.3 kg Denis Hoang DO Work Phone: [facility] 08-08-2023 10:26-0400 Diastolic blood pressure 72 mm[Hg] Denis Hoang DO Work Phone: [facility] 08-08-2023 10:26-0400 Heart rate 74 /min Denis Hoang DO Work Phone: [facility] 08-08-2023 10:26-0400 Systolic blood pressure 112 mm[Hg] Denis Hoang DO Work Phone: [facility] 06-04-2023 08:30-0500 Body height 172.72 cm Doretha Missler Other [employer] Other 06-04-2023 08:30-0500 Body mass index (BMI) [Ratio] 23.9 kg/m2 Doretha Missler Other [employer] Other 06-04-2023 08:30-0500 Body weight 71.31 kg Doretha Missler Other [employer] Other 06-04-2023 08:30-0500 Diastolic blood pressure 69 mm[Hg] Doretha Missler Other [employer] Other 06-04-2023 08:30-0500 Respiratory rate 16 /min Doretha Missler Other [employer] Other 06-04-2023 08:30-0500 SaO2% (BldA) [Mass fraction] 100 % Doretha Missler Other [employer] Other 06-04-2023 08:30-0500 Systolic blood pressure 109 mm[Hg] Doretha Missler Other [employer] [facility] [employer] Other 05-27-2023 10:50-0500 Body height 172.72 cm Aleksandra Caal Other [facility] 05-27-2023 10:50-0500 Body mass index (BMI) [Ratio] 24.42 kg/m2 Aleksandra Afua Other [employer] Other 05-27-2023 10:50-0500 Body temperature 98 [degF] Aleksandra Caal Other [employer] Other 05-27-2023 10:50-0500 Body weight 72.85 kg Aleksandra Caal Other [employer] Other 05-27-2023 10:50-0500 Body weight 72.84 kg DO Yaya Campanja Work Phone: [facility] 05-27-2023 10:50-0500 Diastolic blood pressure 87 mm[Hg] Aleksandra Caal Other [facility] 05-27-2023 10:50-0500 Respiratory rate 16 /min Aleksandra Caal Other [employer] Other 05-27-2023 10:50-0500 SaO2% (BldA) [Mass fraction] 99 % Aleksandra Orellanamond Other [employer] Other 05-27-2023 10:50-0500 Systolic blood pressure 136 mm[Hg] Aleksandra Afua Other [facility] 03-02-2023 14:30-0500 Body height 172.72 cm Yaya Ball Other [employer] Other 03-02-2023 14:30-0500 Body mass index (BMI) [Ratio] 22.9 kg/m2 Yaya Ball Other [employer] Other 03-02-2023 14:30-0500 Body weight 68.31 kg Yaya Ball Other [employer] Other 03-02-2023 14:30-0500 Diastolic blood pressure 68 mm[Hg] Yaya Ball Other [employer] Other 03-02-2023 14:30-0500 Respiratory rate 12 /min Yaya Ball Other [employer] Other 03-02-2023 14:30-0500 Systolic blood pressure 110 mm[Hg] Yaya Ball Other [employer] Other 02-19-2023 09:00-0400 Body height 172.72 cm Doretha Missler Other [employer] Other 02-19-2023 09:00-0400 Body mass index (BMI) [Ratio] 23.57 kg/m2 Doretha Missler Other [employer] Other 02-19-2023 09:00-0400 Body weight 70.31 kg Doretha Missler Other [employer] Other 02-19-2023 09:00-0400 Diastolic blood pressure 68 mm[Hg] Doretha Missler Other [employer] Other 02-19-2023 09:00-0400 Respiratory rate 16 /min Doretha Missler Other [employer] Other 02-19-2023 09:00-0400 SaO2% (BldA) [Mass fraction] 100 % Doretha Missler Other [employer] Other 02-19-2023 09:00-0400 Systolic blood pressure 108 mm[Hg] Doretha Missler Other [employer] Other 12-18-2022 09:00-0400 Body height 172.72 cm Doretha Missler Other [employer] Other 12-18-2022 09:00-0400 Body mass index (BMI) [Ratio] 23.38 kg/m2 Doretha Missler Other [employer] Other 12-18-2022 09:00-0400 Body weight 69.76 kg Doretha Missler Other [employer] Other 12-18-2022 09:00-0400 Diastolic blood pressure 65 mm[Hg] Doretha Missler Other [employer] Other 12-18-2022 09:00-0400 Respiratory rate 16 /min Doretha Missler Other [employer] Other 12-18-2022 09:00-0400 SaO2% (BldA) [Mass fraction] 99 % Doretha Missler Other [employer] Other 12-18-2022 09:00-0400 Systolic blood pressure 103 mm[Hg] Doretha Missler Other [employer] Other 11-22-2022 10:27-0400 Body height 172.72 cm Yaya E Ball Work Phone: [facility] [employer] DO Work Phone: 11-22-2022 10:27-0400 Body mass index (BMI) [Ratio] 23.42 kg/m2 Yaya Dale Ball Work Phone: [facility] [employer] DO Work Phone: 11-22-2022 10:27-0400 Body surface area Derived from formula 1.83 m2 Yaya Dale Ball Work Phone: [facility] [employer] DO Work Phone: 11-22-2022 10:27-0400 Body weight 69.85 kg Yaya Dale Ball Work Phone: [facility] Selo Reserva DO Work Phone: 11-22-2022 10:27-0400 Diastolic blood pressure 64 mm[Hg] Yaya Dale Ball Work Phone: [facility] Selo Reserva DO Work Phone: 11-22-2022 10:27-0400 Heart rate 58 /min Yaya Dale Campanja Work Phone: [facility] Selo Reserva DO Work Phone: 11-22-2022 10:27-0400 Systolic blood pressure 110 mm[Hg] Yaya Dale Campanja Work Phone: [facility] Selo Reserva DO Work Phone: 10-25-2022 11:00-0400 Body height 172.72 cm Dorehta ler Other [employer] Other 10-25-2022 11:00-0400 Body mass index (BMI) [Ratio] 23.14 kg/m2 Doretha Missler Other [employer] Other 10-25-2022 11:00-0400 Body weight 69.04 kg Dorethaher Diegoler Other [employer] Other 10-25-2022 11:00-0400 Diastolic blood pressure 69 mm[Hg] Dorethaher Diegoler Other [employer] Other 10-25-2022 11:00-0400 Respiratory rate 16 /min Doretha Valentino Other [employer] Other 10-25-2022 11:00-0400 SaO2% (BldA) [Mass fraction] 100 % Doretha Valentino Other [employer] Other 10-25-2022 11:00-0400 Systolic blood pressure 110 mm[Hg] Doretha Valentino Other [employer] Other 10-12-2022 14:00-0400 Body height 172.72 cm Yaya Ball Other [employer] Other 10-12-2022 14:00-0400 Body mass index (BMI) [Ratio] 23.75 kg/m2 Yaya Ball Other [employer] Other 10-12-2022 14:00-0400 Body weight 70.85 kg Yaya Ball Other [employer] Other 10-12-2022 14:00-0400 Diastolic blood pressure 68 mm[Hg] Yaya Ball Other [employer] Other 10-12-2022 14:00-0400 Respiratory rate 12 /min Yaya Ball Other [employer] Other 10-12-2022 14:00-0400 Systolic blood pressure 106 mm[Hg] Yaya Ball Other [employer] Other 08-30-2022 16:00-0400 Body height 172.72 cm Yaya Ball Other [employer] Other 08-30-2022 16:00-0400 Body mass index (BMI) [Ratio] 23.99 kg/m2 Yaya Ball Other [employer] Other 08-30-2022 16:00-0400 Body weight 71.58 kg Yaya Ball Other [employer] Other 08-30-2022 16:00-0400 Diastolic blood pressure 65 mm[Hg] Yaya Ball Other [employer] Other 08-30-2022 16:00-0400 Respiratory rate 12 /min Yaya Ball Other [employer] Other 08-30-2022 16:00-0400 Systolic blood pressure 108 mm[Hg] Yaya Ball Other [employer] Other 06-14-2022 10:30-0500 Body height 172.72 cm Doretha Missler Other [employer] Other 06-14-2022 10:30-0500 Body mass index (BMI) [Ratio] 24.8 kg/m2 Doretha Missler Other [employer] Other 06-14-2022 10:30-0500 Body weight 73.98 kg Doretha Missler Other [employer] Other 06-14-2022 10:30-0500 Diastolic blood pressure 69 mm[Hg] Doretha Missler Other [employer] Other 06-14-2022 10:30-0500 Respiratory rate 16 /min Doretha Missler Other [employer] Other 06-14-2022 10:30-0500 SaO2% (BldA) [Mass fraction] 100 % Doretha Missler Other [employer] Other 06-14-2022 10:30-0500 Systolic blood pressure 118 mm[Hg] Doretha Missler Other [employer] Other 05-30-2022 16:00-0500 Body height 172.72 cm Yaya Ball Other [employer] Other 05-30-2022 16:00-0500 Body mass index (BMI) [Ratio] 25.33 kg/m2 Yaya Ball Other [employer] Other 05-30-2022 16:00-0500 Body weight 75.57 kg Yaya Ball Other [employer] Other 05-30-2022 16:00-0500 Diastolic blood pressure 78 mm[Hg] Yaya Ball Other [employer] Other 05-30-2022 16:00-0500 Respiratory rate 12 /min Yaya Ball Other [employer] Other 05-30-2022 16:00-0500 Systolic blood pressure 102 mm[Hg] Yaya Ball Other [employer] Other 05-03-2022 11:30-0500 Body height 172.72 cm Doretha Missler Other [employer] Other 05-03-2022 11:30-0500 Body mass index (BMI) [Ratio] 25.66 kg/m2 Doretha Missler Other [employer] Other 05-03-2022 11:30-0500 Body weight 76.57 kg Doretha Missler Other [employer] Other 05-03-2022 11:30-0500 Diastolic blood pressure 73 mm[Hg] Doretha Missler Other [employer] Other 05-03-2022 11:30-0500 Respiratory rate 18 /min Doretha Missler Other [employer] Other 05-03-2022 11:30-0500 SaO2% (BldA) [Mass fraction] 100 % Doretha Missler Other [employer] Other 05-03-2022 11:30-0500 Systolic blood pressure 120 mm[Hg] Doretha Missler Other [employer] Other 03-27-2022 12:30-0500 Body height 172.72 cm Doretha Missler Other [employer] Other 03-27-2022 12:30-0500 Body mass index (BMI) [Ratio] 26.51 kg/m2 Doretha Missler Other [employer] Other 03-27-2022 12:30-0500 Body weight 79.11 kg Doretha Missler Other [employer] Other 03-27-2022 12:30-0500 Diastolic blood pressure 74 mm[Hg] Doretha Missler Other [employer] Other 03-27-2022 12:30-0500 Respiratory rate 18 /min Doretha Missler Other [employer] Other 03-27-2022 12:30-0500 SaO2% (BldA) [Mass fraction] 100 % Doretha Missler Other [employer] Other 03-27-2022 12:30-0500 Systolic blood pressure 115 mm[Hg] Doretha Missler Other [employer] Other 02-15-2022 14:30-0400 Body height 172.72 cm Doretha Missler Other [employer] Other 02-15-2022 14:30-0400 Body mass index (BMI) [Ratio] 27.99 kg/m2 Doretha Missler Other [employer] Other 02-15-2022 14:30-0400 Body weight 83.51 kg Doretha Missler Other [employer] Other 02-15-2022 14:30-0400 Diastolic blood pressure 66 mm[Hg] Doretha Missler Other [employer] Other 02-15-2022 14:30-0400 Respiratory rate 18 /min Doretha Missler Other [employer] Other 02-15-2022 14:30-0400 SaO2% (BldA) [Mass fraction] 99 % Doretha Missler Other [employer] Other 02-15-2022 14:30-0400 Systolic blood pressure 112 mm[Hg] Doretha Missler Other [employer] Other 01-23-2022 13:45-0400 Body height 172.72 cm Doretha Missler Other [employer] Other 01-23-2022 13:45-0400 Body mass index (BMI) [Ratio] 30 kg/m2 Doretha Missler Other [employer] Other 01-23-2022 13:45-0400 Body weight 89.5 kg Doretha Missler Other [employer] Other 01-23-2022 13:45-0400 Diastolic blood pressure 74 mm[Hg] Doretha Missler Other [employer] Other 01-23-2022 13:45-0400 Respiratory rate 18 /min Doretha Missler Other [employer] Other 01-23-2022 13:45-0400 SaO2% (BldA) [Mass fraction] 100 % Doretha Missler Other [employer] Other 01-23-2022 13:45-0400 Systolic blood pressure 123 mm[Hg] Doretha Missler Other [employer] Other 12-28-2021 16:15-0400 Body height 172.72 cm Doretha Missler Other [employer] Other 12-28-2021 16:15-0400 Body mass index (BMI) [Ratio] 31.39 kg/m2 Doretha Missler Other [employer] Other 12-28-2021 16:15-0400 Body weight 93.67 kg Doretha Missler Other [employer] Other 12-28-2021 16:15-0400 Diastolic blood pressure 75 mm[Hg] Doretha Missler Other [employer] Other 12-28-2021 16:15-0400 Respiratory rate 18 /min Doretha Missler Other [employer] Other 12-28-2021 16:15-0400 SaO2% (BldA) [Mass fraction] 100 % Doretha Missler Other [employer] Other 12-28-2021 16:15-0400 Systolic blood pressure 123 mm[Hg] Doretha Missler Other [employer] Other 12-14-2021 16:15-0400 Body height 172.72 cm Doretha Missler Other [employer] Other 12-14-2021 16:15-0400 Body mass index (BMI) [Ratio] 33.05 kg/m2 Doretha Missler Other [employer] Other 12-14-2021 16:15-0400 Body weight 98.61 kg Doretha Missler Other [employer] Other 12-14-2021 16:15-0400 Diastolic blood pressure 63 mm[Hg] Doretha Missler Other [employer] Other 12-14-2021 16:15-0400 Respiratory rate 18 /min Doretha Missler Other [employer] Other 12-14-2021 16:15-0400 SaO2% (BldA) [Mass fraction] 98 % Doretha Missler Other [employer] Other 12-14-2021 16:15-0400 Systolic blood pressure 108 mm[Hg] Doretha Missler Other [employer] Other 11-23-2021 15:45-0400 Body height 172.72 cm Doretha Missler Other [employer] Other 11-23-2021 15:45-0400 Body mass index (BMI) [Ratio] 34.59 kg/m2 Doretha Missler Other [employer] Other 11-23-2021 15:45-0400 Body weight 103.19 kg Doretha Missler Other [employer] Other 11-23-2021 15:45-0400 Diastolic blood pressure 76 mm[Hg] Doretha Missler Other [employer] Other 11-23-2021 15:45-0400 Respiratory rate 18 /min Doretha Missler Other [employer] Other 11-23-2021 15:45-0400 SaO2% (BldA) [Mass fraction] 99 % Doretha Missler Other [employer] Other 11-23-2021 15:45-0400 Systolic blood pressure 125 mm[Hg] Doretha Missler Other [employer] Other 11-09-2021 11:00-0400 Body height 172.72 cm Doretha Missler Other [employer] Other 11-09-2021 11:00-0400 Body mass index (BMI) [Ratio] 35.17 kg/m2 Doretha Missler Other [employer] Other 11-09-2021 11:00-0400 Body weight 104.92 kg Doretha Missler Other [employer] Other 11-09-2021 11:00-0400 Diastolic blood pressure 86 mm[Hg] Doretha Missler Other [employer] Other 11-09-2021 11:00-0400 Respiratory rate 18 /min Doretha Missler Other [employer] Other 11-09-2021 11:00-0400 SaO2% (BldA) [Mass fraction] 98 % Doretha Missler Other [employer] Other 11-09-2021 11:00-0400 Systolic blood pressure 143 mm[Hg] Doretha Missler Other [employer] Other 10-19-2021 12:00-0400 Body height 172.72 cm Doretha Missler Other [employer] Other 10-19-2021 12:00-0400 Body mass index (BMI) [Ratio] 36.34 kg/m2 Doretha Missler Other [employer] Other 10-19-2021 12:00-0400 Body temperature 99.1 [degF] Doretha Missler Other [employer] Other 10-19-2021 12:00-0400 Body weight 108.41 kg Doretha Missler Other [employer] Other 10-19-2021 12:00-0400 Diastolic blood pressure 79 mm[Hg] Doretha Missler Other [employer] Other 10-19-2021 12:00-0400 Respiratory rate 24 /min Doretha Missler Other [employer] Other 10-19-2021 12:00-0400 SaO2% (BldA) [Mass fraction] 99 % Doretha Valentino Other [facility] [employer] Other 10-19-2021 12:00-0400 Systolic blood pressure 116 mm[Hg] Doretha Diegoler Other [facility] [employer] Other 10-14-2021 06:36-0400 Body temperature 98.9 [degF] DO Yaya Ball Work Phone: [facility] 10-14-2021 06:36-0400 Diastolic blood pressure 51 mm[Hg] DO Yaya Ball Work Phone: [facility] 10-14-2021 06:36-0400 Heart rate 88 /min DO Yaya Ball Work Phone: [facility] 10-14-2021 06:36-0400 Respiratory rate 18 /min DO Yaya Ball Work Phone: [facility] 10-14-2021 06:36-0400 SaO2% (BldA) [Mass fraction] 95 % DO Yaya Ball Work Phone: [facility] 10-14-2021 06:36-0400 Systolic blood pressure 103 mm[Hg] DO Yaya Ball Work Phone: [facility] 10-14-2021 06:00-0400 Body weight 110 kg DO Yaya Ball Work Phone: [facility] 10-14-2021 00:00-0400 Inhaled oxygen flow rate 3 L/min DO Yaya Ball Work Phone: [facility] 10-13-2021 16:16-0400 65 1 Denis Hoang DO Work Phone: [facility] DO Work Phone: Comment on above: [id number] 10-13-2021 14:18-0400 Body height 172.72 cm DO Yaya Ball Work Phone: [facility] 10-13-2021 00:00-0400 Inhaled oxygen concentration 98 % DO Yaya Lema Work Phone: [facility] 10-12-2021 22:43-0400 Body mass index (BMI) [Ratio] 37.2 kg/m2 DO Yaya Lema Work Phone: [facility] Encounters Encounter Date Encounter Type Care Provider Facility Start: 02-06-2025 End: 02-06-2025 ambulatory Yaya Lema DO Work Phone: -[facility] Start: 02-06-2025 End: 02-06-2025 Patient encounter procedure Elaine L Ly DO -[facility] Work Phone: Start: 11-15-2024 Non-patient / Non-visit Juaan Toribioalejandra poole A -[facility] Work Phone: Start: 11-06-2024 End: 11-06-2024 ambulatory Elaine L Ly Facility:[facility] Start: 11-06-2024 Non-patient / Non-visit Elaine L Ly DO -[facility] Work Phone: Start: 10-08-2024 End: 10-08-2024 Patient encounter procedure Yaya Lema DO -[facility] Work Phone: Start: 09-04-2024 Non-patient / Non-visit Yaya wood DO -[facility] Work Phone: Start: 09-03-2024 End: 09-03-2024 ambulatory [facility] Work Phone: Start: 09-03-2024 End: 09-03-2024 Encounter for general adult medical examination without abnormal findings [facility] Start: 09-03-2024 End: 09-03-2024 Patient encounter procedure [facility] Work Phone: Start: 09-03-2024 End: 09-03-2024 Patient encounter status Yaya Lema [facility] Start: 08-05-2024 End: 08-05-2024 ambulatory [facility] Start: 08-05-2024 End: 08-05-2024 Office outpatient visit 15 minutes Denis Curtis Viktor DO Work Phone: [facility] Comment on above: Coronary artery dise ase involving [place] coronary artery of [place] heart without angina pectoris; History of PTCA; Subsequent non-ST elevation (NSTEMI) myocardial infarction; Mixed hyperlipidemia; BMI 28.0-28.9,adult; Former smoker; Hyperlipidemia, unspecified hyperlipidemia type Start: 08-04-2024 End: 08-06-2024 [facility] Start: 08-04-2024 End: 08-06-2024 Subsequent hospital visit by physician Kevin Jara Dr Room 2 [facility] Comment on above: Gross hematuria; Prostate cancer screening Kidney stone Start: 07-22-2024 Non-patient / Non-visit [facility] Work Phone: Start: 05-28-2024 End: 05-30-2024 ambulatory [facility] Start: 05-28-2024 End: 05-30-2024 Subsequent hospital visit by physician [facility]ara Dr [facility] Comment on above: Bilateral kidney sto jamar Start: 05-08-2024 End: 05-08-2024 ambulatory [facility] Start: 05-08-2024 End: 05-08-2024 Subsequent hospital visit by physician Yaya Lema DO Work Phone: [facility] Comment on above: Kidney stone Start: 05-02-2024 End: 05-04-2024 ambulatory [facility] Start: 05-02-2024 End: 05-04-2024 Subsequent hospital visit by physician Kevin [facility] Comment on above: Gross hematuria Start: 03-10-2024 End: 03-12-2024 ambulatory [facility] Start: 03-10-2024 End: 03-12-2024 Subsequent hospital visit by physician Kevin Jara Dr Room 4 [facility] Comment on above: Metal foreign body i n eye region Renal cyst; Complex renal cyst Kidney stone Start: 12-25-2023 End: 12-27-2023 ambulatory [facility] Start: 12-25-2023 End: 12-27-2023 Subsequent hospital visit by physician Kevin Jara Dr Room 4 [facility] Comment on above: Kidney stone Start: 11-13-2023 End: 11-13-2023 ambulatory YAYA LEMA [facility] Start: 11-13-2023 End: 11-13-2023 Subsequent hospital visit by physician Gary East MD Work Phone: [facility] Comment on above: Ureteral stone (Prim patrice Dx) Start: 11-05-2023 End: 11-05-2023 ambulatory [facility] Start: 11-01-2023 End: 11-05-2023 ambulatory DO Yaya Ball Work Phone: [facility] Work Phone: Start: 11-01-2023 End: 11-01-2023 Patient encounter procedure DO Yaya Lema Work Phone: [facility] [place] Work Phone: Start: 10-24-2023 End: 10-26-2023 [facility] Start: 10-24-2023 End: 10-26-2023 Subsequent hospital visit by physician Kevin Hayden Scan Room [facility] CT Scan Comment on above: Gross hematuria; Complex renal cyst Start: 10-08-2023 End: 10-08-[address] [facility] Start: 09-28-2023 End: 09-28-2023 ambulatory DO Yaya Ball Work Phone: [facility] Work Phone: Start: 09-28-2023 End: 09-28-2023 Patient encounter procedure DO Yaya Ball Work Phone: [facility] Work Phone: Start: 09-03-2023 End: 09-03-2023 ambulatory DO Yaya Ball Work Phone: [facility] Work Phone: Start: 09-03-2023 End: 09-03-2023 Encounter for general adult medical examination without abnormal findings DO Yaya Lema Work Phone: [facility] Start: 09-03-2023 End: 09-03-2023 Patient encounter procedure DO Yaya Lema Work Phone: [facility] Work Phone: Start: 08-27-2023 Non-patient / Non-visit DO Dimitri Lema Work Phone: [facility] Work Phone: Start: 08-14-2023 End: 08-14-2023 ambulatory DO Yaya Lema Work Phone: [facility] Work Phone: Start: 08-14-2023 End: 08-14-2023 Patient encounter procedure DO Yaya Lema Work Phone: [facility] [place] Work Phone: Start: 08-08-2023 End: 08-08-2023 ambulatory [facility] Start: 08-08-2023 End: 08-08-2023 Office outpatient visit 15 minutes [facility] DO Work Phone: [facility] Comment on above: Coronary artery dise ase involving passamaquoddy coronary artery of passamaquoddy heart without angina pectoris; History of PTCA; Mixed hyperlipidemia; Hypertension, benign; Subsequent non-ST elevation (NSTEMI) myocardial infarction (Multi); BMI 25.0-25.9,adult; Former smoker Start: 06-11-2023 End: 06-11-2023 ambulatory DO Yaya Lema Work Phone: [facility] Work Phone: Start: 06-11-2023 End: 06-11-2023 Patient encounter procedure DO Yaya Lema Work Phone: [facility] [place] Work Phone: Start: 06-04-2023 (Smoking fu) Smoking cess fu Doretha Chicho [facility] Start: 06-04-2023 End: 06-04-2023 ambulatory DO Yaya Ball Work Phone: [employer] Other Start: 06-04-2023 End: 06-04-2023 Discharged Recurring DO Yaya Ball Work Phone: [facility] Work Phone: Start: 06-04-2023 Registered Recurring DO Benjam in Ball Work Phone: [facility] Work Phone: Start: 06-04-2023 End: 06-04-2023 Patient encounter procedure DO Yaya Ball Work Phone: [facility]- Start: 05-27-2023 End: 05-27-2023 ambulatory Aleksandra Caal Other [employer] [facility] [employer] Other Start: 05-27-2023 Office outpatient vi sit 15 minutes Aleksandrapoli Caal [facility] Start: 05-27-2023 End: 05-27-2023 Patient encounter procedure DO Yaya Ball Work Phone: [facility]- Start: 03-06-2023 End: 03-06-2023 ambulatory Yaya Ball Other [employer] Other Start: 03-06-2023 Telephone encounter Yaya Ball FP [facility] Start: 03-02-2023 End: 03-02-2023 ambulatory Yaya Ball Other [employer] Other Start: 03-02-2023 Office outpatient vi sit 25 minutes Yaya Ball [facility] Start: 03-02-2023 End: 03-02-2023 Patient encounter procedure [facility] Work Phone: Start: 02-22-2023 End: 02-22-2023 ambulatory Yaya Ball Other [employer] Other Start: 02-22-2023 Telephone encounter Yaya Lema FP [facility] Start: 02-19-2023 (Smoking fu) Smoking cess fu [facility] Start: 02-19-2023 End: 02-19-2023 [facility] [employer] Other Start: 12-18-2022 (Smoking fu) Smoking cess fu [facility] Start: 12-18-2022 End: 12-18-2022 ambulatory [facility] Other [employer] Other Start: 12-18-2022 Telephone encounter Yaya Lema FP [facility] Start: 12-13-2022 End: 12-13-2022 ambulatory Yaya Lema Other [employer] Other Start: 12-13-2022 Telephone encounter Yaya Lema FP [facility] Start: 12-05-2022 End: 12-05-2022 ambulatory DO Yaya Lema Work Phone: [facility] Work Phone: Start: 12-05-2022 End: 12-05-2022 Departed Referred DO Yaya Lema Work Phone: [facility] [place] Work Phone: Start: 11-22-2022 Office outpatient vi sit 15 minutes Yaya Chito Torey Work Phone: [facility] [address] DO Work Phone: Start: 11-22-2022 Patient encounter procedure Yaya Lema Work Phone: [facility] [address] DO Work Phone: Start: 11-22-[address] Denis Hoang Facility: Start: 11-06-2022 End: 11-06-2022 ambulatory Yaya Lema Other [employer] Other Start: 11-06-2022 Telephone encounter Yaya LAY [facility] Start: 10-30-2022 End: 10-30-2022 ambulatory Yaya Lema Other [employer] Other Start: 10-30-2022 Telephone encounter Yaya LAY [facility] Start: 10-25-2022 (Smoking fu) Smoking cess fu Doretha Valentino [facility] Start: 10-25-2022 End: 10-25-2022 ambulatory Doretha Valentino Other [employer] Other Start: 10-25-2022 Registered Recurring DO Jaffe in Campanja Work Phone: [facility] Work Phone: Start: 10-16-2022 End: 10-16-2022 ambulatory Yaya Lema Other [employer] Other Start: 10-16-2022 Telephone encounter Yaya LAY [facility] Start: 10-12-2022 End: 10-12-2022 ambulatory Yaya Lema Other [employer] Other Start: 10-12-2022 Office outpatient vi sit 15 minutes Yaya Lema [facility] Start: 10-12-2022 Telephone encounter Yaya LAY [facility] Start: 09-03-2022 Encounter for genera l adult medical examination without abnormal findings DR YAYA LEMA [facility] Start: 09-01-2022 Telephone encounter Yaya LAY [facility] Start: 09-01-2022 End: 09-02-[address] YAYA LEMA [employer] Other Start: 09-01-2022 End: 09-02-2022 Encounter for general adult medical examination without abnormal findings DR YAYA LEMA Facility: Start: 08-30-2022 End: 08-30-2022 ambulatory Yaya Lmea Other [employer] Other Start: 08-30-2022 Encounter for genera l adult medical examination without abnormal findings Yaya Lema [facility] Start: 08-30-2022 Periodic preventive med est patient 40-64yrs Yaya Lema [facility] Start: 08-09-2022 ambulatory Lakesha De La CruzAshley Greenechito Facility:[facility] Start: 07-31-2022 End: 07-31-2022 ambulatory Yaya Lema Other [employer] Other Start: 07-31-2022 Telephone encounter Yaya Lema [facility] Start: 07-20-2022 End: 07-20-2022 ambulatory DO Yaya Lema Work Phone: [facility] Work Phone: Start: 07-20-2022 End: 07-20-2022 Patient encounter procedure DO Yaya Lema Work Phone: [facility] [place] Work Phone: Start: 06-21-2022 End: 06-21-2022 ambulatory Yaya Lema Other [employer] Other Start: 06-21-2022 Telephone encounter Yaya Lema [facility] Start: 06-20-2022 End: 06-20-[address] Denis Hoang [employer] Other Start: 06-20-2022 Telephone encounter Yaya LAY [facility] Start: 06-16-2022 End: 06-16-2022 ambulatory Yaya Lema Other [employer] Other Start: 06-16-2022 Telephone encounter Yaya LAY [facility] Start: 06-15-2022 End: 06-16-[address] YAYA LEMA Facility:[facility]1 Start: 06-14-2022 (Smoking fu) Smoking cess fu Doretha Valentino [facility] Start: 06-14-2022 End: 06-14-2022 ambulatory Doretha Valentino Other [employer] Other Start: 06-14-2022 Registered Recurring DO Bebaam in Ball Work Phone: [facility] Work Phone: Start: 06-05-2022 End: 06-05-2022 ambulatory Yaya Lema Other [employer] Other Start: 06-05-2022 Telephone encounter Yaya LAY [facility] Start: 05-31-2022 End: 05-31-2022 ambulatory DO Yaya Lema Work Phone: [facility] Work Phone: Start: 05-31-2022 End: 05-31-2022 Patient encounter procedure DO Yaya Lema Work Phone: [facility] [place] Work Phone: Start: 05-30-2022 End: 05-30-2022 ambulatory Yaya Lema Other [employer] Other Start: 05-30-2022 Office outpatient vi sit 25 minutes Yaya Lema [facility] Start: 05-17-2022 End: 05-17-2022 ambulatory Doretha Missler Other [employer] Other Start: 05-17-2022 Telephone encounter Dorethaher Valentino [facility] Start: 05-15-2022 End: 05-15-2022 ambulatory Doretha Missler Other [employer] Other Start: 05-15-2022 Telephone encounter Dorethaher Diegoler [facility] Start: 05-11-2022 End: 05-11-2022 ambulatory Yaya Lema Other [employer] Other Start: 05-11-2022 Telephone encounter Yaya LAY [facility] Start: 05-03-2022 Registered Recurring DO Benjam in Ball Work Phone: [facility] Work Phone: Start: 05-03-2022 (Smoking fu) Smoking cess fu [facility] Start: 05-03-2022 End: 05-03-2022 ambulatory Doretha Valentino Other [employer] Other Start: 04-27-2022 End: 04-27-2022 ambulatory Yaya Lema Other [employer] Other Start: 04-27-2022 Telephone encounter Yaya Lema [facility] Start: 04-06-2022 Patient encounter procedure Yaya Lema Work Phone: [facility] [address] DO Work Phone: Start: 03-30-2022 End: 03-30-2022 ambulatory Doretha Valentino Other [employer] Other Start: 03-30-2022 Telephone encounter Doretha [facility] Start: 03-28-2022 End: 03-29-[address] YAYA LEMA Facility: Start: 03-27-2022 (Smoking fu) Smoking cess fu [facility] Start: 03-27-2022 End: 03-27-2022 ambulatory Doretha Valentino Other [employer] Other Start: 02-15-2022 (Smoking fu) Smoking cess fu [facility] Start: 02-15-2022 End: 02-15-2022 ambulatory Dorethaher Valentino Other [employer] Other Start: 02-15-2022 Registered Recurring DO Roman in Campanja Work Phone: [facility] Start: 01-23-2022 (Smoking fu) Smoking cess fu [facility] Start: 01-23-2022 End: 01-23-2022 ambulatory Doretha Missler Other [employer] Other Start: 12-28-2021 (Smoking fu) Smoking cess fu [facility] Start: 12-28-2021 End: 12-28-2021 ambulatory Doretha Missler Other [employer] Other Start: 12-19-2021 End: 03-07-[address] DENIS HOANG Facility:[facility]1 Start: 12-15-2021 End: 12-16-[address] YAYA LEMA Facility:[facility] Start: 12-14-2021 (Smoking fu) Smoking cess fu [facility] Start: 12-14-2021 End: 12-14-2021 ambulatory Doretha Missler Other [employer] Other Start: 11-24-2021 End: 11-24-2021 ambulatory Doretha Missler Other [employer] Other Start: 11-24-2021 Telephone encounter [facility] Start: 11-23-2021 (Smoking fu) Smoking cess fu [facility] Start: 11-23-2021 End: 11-23-2021 ambulatory Doretha Missler Other [employer] Other Start: 11-09-2021 (Smoking fu) Smoking cess fu [facility] Start: 11-09-2021 End: 11-09-2021 ambulatory Doretha Missler Other [employer] Other Start: 11-07-2021 Rx Renewal Denis Escudero n DO Work Phone: [facility]-[place] [address] DO Work Phone: Start: 11-02-2021 End: 11-02-2021 ambulatory Doretha Missler Other [employer] Other Start: 11-02-2021 [facility] Start: 10-25-2021 End: 10-25-2021 ambulatory Doretha Valentino Other [employer] Other Start: 10-25-2021 Telephone encounter Doretha Valentino [facility] Start: 10-20-2021 End: 10-21-[address] ARNULFO TABLOT Facility:[facility]1 Start: 10-19-2021 (Smoke Cess) [facility]essation [facility] Start: 10-19-2021 End: 10-19-2021 ambulatory Doretha Valentino Other [employer] Other Start: 10-12-2021 End: 10-14-2021 Evaluation and management of inpatient DO Yaya Lema Work Phone: [facility] [place] [facility] Start: 10-12-2021 End: 10-12-[address] YAYA LEMA Facility:[facility]1 Procedures Date Procedure Procedure Detail Performing Clinician Start: 08-04-2024 Radiologic exam abdo men 1 view Gary East MD Work Phone: Start: 08-04-2024 PSA screening Ramya Acevedo [employer] Work Phone: Start: 05-28-2024 Radiologic exam abdo men 1 view Ramya Acevedo [employer] Work Phone: Start: 05-08-2024 Basic metabolic pane l calcium total Ramya Acevedo [employer] Work Phone: Start: 05-02-2024 Ct abdomen & pelvis w/o contrst 1/> body re Gary East MD Work Phone: Start: 03-10-2024 Mri abdomen w/o & w/contrast material Gary East MD Work Phone: Start: 03-10-2024 Radiologic exam abdo men 1 view Ramya Acevedo [employer] A[employer] Work Phone: Start: 03-10-2024 Radiologic examinati on eye detect foreign body Gary East MD Work Phone: Start: 12-25-2023 Radiologic exam abdo men 1 view Gary East MD Work Phone: Start: 11-13-2023 Fluoroscopy during operation Gary East MD Work Phone: Start: 10-24-2023 Ct abdomen & pelvis w/o contrst 1/> body re Ramya Hancockredd [employer] Work Phone: Start: 08-14-2023 MRI of abdomen with contrast DO Zodio Work Phone: Start: 06-11-2023 CT of thorax with contrast DO Zodio Work Phone: Start: 04-04-2023 History of percutane ous transluminal coronary angioplasty History of PTCA Denis Hoang DO Work Phone: Start: 09-01-[address] JAFFE IN [employer] Comment on above: Performed By: #### P [facility] #### [facility] [address] [place] [address] Dr. Kelly Jones Start: 05-31-2022 CT of thorax with contrast DO Yaya Campanja Work Phone: Start: 10-14-2021 Ultrasonography of liver DO Zodio Work Phone: Start: 10-13-2021 CL Coronary Thrombol ysis IC DO Yaya Campanja Work Phone: Start: 10-13-2021 CL LHC & COR Angio DO B enjamin Campanja Work Phone: Start: 10-13-2021 CL Stent 1st Vessel CX VENICE DO Yaya Ball Work Phone: Start: 10-13-2021 CL Stent Ea Add CX VENICE DO Yaya Ball Work Phone: Start: 10-13-2021 DO Benjvalentin Lema Work Phone: Start: 10-12-2021 Plain chest X-ray DO Be njamin Torey Work Phone: Cardiac catheterization Benj shobha Lema Work Phone: History of percutane ous transluminal coronary angioplasty History of PTCA Yaya Lema Work Phone: History of percutane ous transluminal coronary angioplasty History of PTCA Denis Hoang DO Work Phone: History of percutane ous transluminal coronary angioplasty History of PTCA Denis Roydon DO Work Phone: History of placement of stent for coronary artery disease History of heart artery stent Yaya Lema DO Work Phone: Comment on above: PCI/stent x 2021 History of placement of stent for coronary artery disease History of heart artery stent Yaya Lema DO Lithotripsy Yaya Lema Work Phone: NEGATED: Highlighted row has not occurred! Total colonoscopy Yaya Lema Work Phone: Plan of Treatment Date Care Activity Detail Author Start: 2030 RSV patient s and/or patients aged 60+ years (1 - 1-dose 60+ series) RSV patients and/or patients aged 60+ years (1 - 1-dose 60+ series) [facility] Start: 07-27-2025 End: 07-27-2025 Patient encounter procedure 07/27/2025 10:30 AM EDT Appointment [facility] [id number] [place] [address] [facility] Start: 07-05-2025 End: 08-05-2025 Cardiac stress study Procedure Stress Test Cardiac Services Routine Coronary artery disease involving passamaquoddy coronary artery of pass[place]quoddy heart without angina pectoris History of PTCA Subsequent non-ST elevation (NSTEMI) myocardial infarction Mixed hyperlipidemia Former smoker Expected: 07/05/2025, Expires: 08/05/2025 [facility] Service Area Work Phone: Comment on above: Expected: 07/05/2025 , Expires: 08/05/2025 Start: 12-22-2024 Influenza vaccination Influenz a Vaccine (Season Ended) [facility] Start: 11-21-2024 Influenza vaccination Flu vacc ine (Season Ended) Pramod Arreguinjulieta [facility] Start: 11-06-2024 End: 11-06-2024 [facility] Start: 10-08-2024 Patient referral [facility] Work Phone: Start: 08-19-2024 End: 08-19-2024 Patient encounter procedure 08/19/2024 1:00 PM EDT Office Visit [facility] [address] [place] [address] Gary East MD [place] [address] 4 month KUB, PSA Litholink [facility] Comment on above: 4 month KUB, PSA Lit [employer]ink Start: 08-05-2024 End: 08-05-2024 Patient encounter procedure 08/05/2024 9:10 AM EDT Office Visit [facility] [address] [facility] [address] [place] [address] Denis Hoang, [address] [facility] [address] [place] [address] [facility] Start: 05-22-2024 End: 05-22-2024 Patient encounter procedure 05/22/2024 1:20 PM EST Office Visit [facility] [address] [place] [id number] Ramya Acevedo, [employer]TEGRITY ANALYST [address] [place] [address] 2 week CTU/Litholink/Labs [facility] Comment on above: 2 week CTU/Litholink /Labs Start: 05-15-2024 End: 05-15-2024 Patient encounter procedure 05/15/2024 1:40 PM EST Office Visit [facility] [address] [place] [address] Ramya Acevedo, [employer]TEGRITY ANALYST [address] [place] [address] 2 week CTU [facility] Comment on above: 2 week CTU Start: 04-08-2024 End: 04-08-2024 Patient encounter procedure 04/08/2024 1:20 PM EST Office Visit [facility] [address] [place] [address] Gary East MD [address] [place] [address] 6m fu for renal cyst with abd abdoman [facility] Comment on above: 6m fu for renal cyst with abd abdoman Start: 01-03-2024 End: 01-03-2024 Patient encounter procedure 01/03/2024 8:40 AM EDT Office Visit [facility] [address] [place] [address] Gary East MD [address] [place] [address] 6 week KUB [facility] Comment on above: 6 week KUB Start: 12-23-2023 COVID-19 Vaccine ( season) COVID-19 Vaccine ( season) [facility] Start: 12-23-2023 COVID-19 Vaccine ( season) COVID-19 Vaccine ( season) [facility] Start: 12-23-2023 COVID-19 Vaccine () COVID-19 Vaccine ( season) [facility] Start: 12-23-2023 COVID-19 Vaccine ( season) COVID-19 Vaccine ( season) [facility] Start: 12-23-2023 Influenza vaccination Influenz a Vaccine (Season Ended) [facility] Start: 11-22-2023 Influenza vaccination Flu vaccine (# 1) [facility] Start: 11-22-2023 End: 11-22-2023 Patient encounter procedure 11/22/2023 8:30 AM EDT Procedure visit [address] [address] Gary East MD [address] [place] [address] Cysto Stent Removal-per Dr East to add on [facility] Comment on above: Cysto Stent Removal- per Dr East to add on Start: 11-15-2023 End: 11-15-2023 Patient encounter procedure 11/15/2023 11:00 AM EDT Office Visit [facility] [address] [place] [address] Ramya Acevedo, [employer] - INTEGRITY ANALYST [address] [place] [address] ctu follow up, -needs to be on a day where Dr. East is in office [facility] Comment on above: ctu follow up, -need s to be on a day where Dr. East is in office Start: 11-13-2023 End: 11-13-2023 Cysto fragmentation ureteral stone CYSTOSCOPY URETEROSCOPY LASER Right kidney stone 11/13/2023 11:04 AM EDT [facility] Start: 11-01-2023 Bacteria identified in Urine by Culture [facility] Start: 08-08-2023 End: 08-07-2024 Lipid 1996 panel - Serum or Plasma Lipid Panel Lab Routine Mixed hyperlipidemia Expected: 08/08/2023 (Approximate), Expires: 08/07/2024 [facility] Service Area Work Phone: Comment on above: Expected: 08/08/2023 (Approximate), Expires: 08/07/2024 Start: 08-08-2023 FUV, Provider: Denis Hoang, Status: Pen, Time: 10:10 AM FUV, Provider: Denis Hoang, Status: Pen, Time: 10:[address] [facility] [employer] [address] DO Work Phone: Start: 06-11-2023 CT of thorax with contrast CT chest w [facility] Start: 12-22-2022 COVID-19 Vaccine ( season) COVID-19 Vaccine ( season) [facility] Start: 12-05-2022 Superficial Wound Culture Superficial Wound Culture [facility] Start: 07-20-2022 MR Abdomen WO and W contrast IV [facility] Start: 07-20-2022 MRI of abdomen with contrast MR abdomen wo/w con [facility] Start: 05-31-2022 FUV, Provider: Denis Hoang, Status: Pen, Time: 9:40 AM FUV, Provider: Denis Hoang, Status: Pen, Time: 9:[address] [facility] [employer] DO Work Phone: Start: 11-22-2021 FUVHOSP, Provider: Denis Hoang, Status: Pen, Time: 10:20 AM FUVHOSP, Provider: Denis Hoang, Status: Pen, Time: 10:[address] [facility] [employer] DO Work Phone: Start: 2020 Pneumococcal 50+ yea rs Vaccine (1 of 1 - PCV) Pneumococcal 50+ years Vaccine (1 of 1 - PCV) [facility] Start: 2020 Shingles vaccine (1 of 2) Shingles vaccine (1 of 2) [facility] Start: 2020 Zoster Vaccines (1 o f 2) Zoster Vaccines (1 of 2) [facility] Start: 08-13-2015 Screening for malign ant neoplasm of colon [facility] Start: 2005 Diabetes screen Diabetes screen [facility] Start: 1992 DTaP/Tdap/Td Vaccine s (1 - Tdap) DTaP/Tdap/Td Vaccines (1 - Tdap) [facility] Start: 1989 DTaP/Tdap/Td vaccine (1 - Tdap) DTaP/Tdap/Td vaccine (1 - Tdap) [facility] Start: 1989 Hepatitis B vaccine (1 of 3 - 19+ 3-dose series) Hepatitis B vaccine (1 of 3 - 19+ 3-dose series) [facility] Start: 1989 Hepatitis B Vaccines (1 of 3 - 19+ 3-dose series) Hepatitis B Vaccines (1 of 3 - 19+ 3-dose series) [facility] Start: 1989 Pneumococcal vaccination Pneumococcal Vaccine (1 of 2 - PCV) [facility] Start: 1988 Diabetes mellitus screening Diabetes Screening [facility] Start: 1988 Hepatitis C screening [facility] Start: 1985 HIV screening HIV screen [facility] Start: 1982 Depression Screen Depression Screen [facility] Start: 1980 Lipid panel Lipids [facility] Start: 1976 Pneumococcal Vaccine : Pediatrics (0 to 5 Years) and At-Risk Patients (6 to 64 Years) (1 of 2 - PCV) Pneumococcal Vaccine: Pediatrics (0 to 5 Years) and At-Risk Patients (6 to 64 Years) (1 of 2 - PCV) [facility] Start: 08-13-1971 MMR Vaccines (1 of 1 - Standard series) MMR Vaccines (1 of 1 - Standard series) [facility] [facility]: [facility] Hepatitis B vaccine (1 of 3 - 3-dose series) Hepatitis B vaccine (1 of 3 - 3-dose series) [facility] Start: 1970 HIV screening HIV Screening [facility] Start: 1970 Lipid panel Lipid Panel [facility] Start: 1970 Screening for malign ant neoplasm of colon [facility] Start: 1970 Yearly Adult Physical Yearly Adult P hysical [facility] Comprehensive metabo lic 2000 panel - Serum or Plasma [facility] CT Abdomen and Pelvi s WO contrast [facility] End: 08-04-2024 Culture, Urine [employer] Work Phone: Comment on above: 1 Occurrences starti ng 08/04/2024 until 08/04/2024 End: 11-13-2023 INITIATE PACU OXYGEN THERAPY PROTOCOL Initiate PACU Oxygen Therapy Protocol Respiratory Care Routine Continuous until discontinued starting 11/13/2023 [employer] Work Phone: Comment on above: Continuous until dis continued starting 11/13/2023 Patient Education [facility] Work Phone: Patient referral [facility] Work Phone: [facility] Immunizations Immunization Date Immunization Notes Care Provider Nilson yang 08-18-2021 COVID-19 mRNA, Comir david (Pfizer) DO Yaya Campanja Work Phone: [facility] 08-18-2020 Pfizer-BioNTech COVI D-19 Vacc 30 MCG/0.3ML Intramuscular Suspension Yaya Chito Campanja Work Phone: [facility] 07-28-2020 COVID-19 mRNA, Comir david (Pfizer) DO Yaya Campanja Work Phone: [facility] Payers Date Payer Category Payer Self-pay [id number] 2022 Medicaid [id number] 1970 Unknown [id number] 2.16.8 40.1.263118.3.579.2.727 1970 Unknown [id number] 2.16.8 40.1.319218.3.579.2.727 1970 Unknown [id number] 2.16.84 0.1.429946.3.579.2.593 1970 Unknown [id number] 2.16.84 0.1.933661.3.579.2.593 1970 Unknown [id number] 2.16.84 0.1.566962.3.579.2.593 1970 Unknown [id number] 2.16.84 0.1.874605.3.579.2.593 1970 Unknown [id number] 2.16.84 0.1.401251.3.579.2.593 1970 Unknown [id number] 2.16.84 0.1.326614.3.579.2.593 1970 Unknown [id number] 2.16.84 0.1.355259.3.579.2.593 1970 Unknown [id number] 2.16. 840.1.939887.3.579.2.356 1970 Unknown [id number] 2.16. 840.1.942760.3.579.2.356 1970 Unknown [id number] 2.16.8 40.1.855079.3.579.2.176 1970 Unknown [id number] 2.16.8 40.1.221601.3.579.2.176 1970 Unknown [id number] 2.16. 840.1.191780.3.579.2.1244 1970 Unknown [id number] 2.16.8 40.1.527911.3.579.2.1244 1970 Unknown [id number] 2.16.8 40.1.144031.3.579.2.173 1970 Unknown [id number] 2.16.8 40.1.331449.3.579.2.173 1970 Unknown [id number] 2.16.8 40.1.860511.3.579.2.173 1970 Unknown [id number] 2.16.8 40.1.120184.3.579.2.173 1970 Unknown [id number] 2.16.8 40.1.021769.3.579.2.173 1970 Unknown [id number] 2.16.8 40.1.879861.3.579.2.173 1970 Unknown [id number] 2.16.8 40.1.839628.3.579.2.173 1970 Unknown [id number] 2.16.8 40.1.371938.3.579.2.173 1970 Unknown [id number] 2.16.8 40.1.242856.3.579.2.173 1970 Unknown [id number] 2.16.8 40.1.719431.3.579.2.173 1970 Unknown [id number] 2.16.8 40.1.411814.3.579.2.173 1970 Unknown [id number] 2.16.8 40.1.229139.3.579.2.173 1970 Unknown [id number] 2.16.8 40.1.158564.3.579.2.173 1970 Unknown [id number] 2.16.8 40.1.021913.3.579.2.173 1970 Unknown [id number] 2.16.8 40.1.126960.3.579.2.173 1970 Unknown [id number] 2.16. 840.1.956384.3.579.2.175 1959 Medicaid [id number] 2. [id number] Private Health Insurance [employer] [id number] Unknown Unknown [id number] 2.16.8 40.1.612375.3.579.2.531 Social History Date Type Detail Facility Start: 10-13-2021 End: 09-03-2024 Tobacco smoking status CAIS Smoker (finding) [facility] Start: 1970 Sex Assigned At Male F [facility] Start: 04-04-2023 End: 05-22-2024 Sex Assigned At [employer] Other Start: 04-04-2023 End: 05-22-2024 Daily caffeine consumption Daily caffeine consumption -[facility] DO Work Phone: Comment on above: 1-2 cans of pop odessa y; Quit October 2021; Start: 08-08-2023 End: 11-06-2024 Tobacco smoking status NHIS Ex-smoker [facility] End: 04-23-2021 History of tobacco use Cigarette Smoker [facility] Work Phone: Start: 08-08-2023 End: 08-05-2024 Alcoholic beverage intake Lifetime non-drinker (finding) [facility] Work Phone: Start: 1970 Sex assigned at Not on file [facility] Work Phone: Start: 07-29-2023 End: 08-05-2024 Exposure to SARS-CoV-2 (event) Not sure [facility] Start: 10-04-2023 Tobacco smoking status CAIS Never smoked tobacco [employer] Start: 01-03-2024 End: 05-22-2024 Alcoholic beverage intake Ex-drinker (finding) [employer] Start: 11-13-2023 Alcohol Comment over 10 years [employer] Start: 05-23-2024 Gender identity Identifies as male gender (finding) [employer] Start: 05-23-2024 Sexual orientation Heterosexual (fin ding) [employer] Start: 07-26-2022 End: 09-03-2024 Sex Male (finding) [employer] NEGATED: Highlighted rowStart: NINF History of tobacco use Passive smoker [employer] Medical Equipment Procedure Code Equipment Code Equipment Origin al Text Equipment Identifier Dates CL STENT AUGUSTO 2. 25 X 18 FDA Start: 10-13-2021 Drug-eluting coronary artery stent, [id number] lymer-coated ()[id number] [id number] FDA Start: 10-13-2021 Drug-eluting coronary artery stent, joq-wjjdwbyeiqcvo-zm lymer-coated ()[id number] [id number] FDA Start: 10-13-2021 CL STENT AUGUSTO 2. [...] Percflx Hydr+ Dbl Pgtl Thrd 2 - [id number] [id number] , [id number] FDA Start: 11-13-2023 CL STENT AUGUSTO 2. 25 X 18 FDA Start: 10-13-2021 CL STENT AUGUSTO 2. 25 X 18 FDA Start: 10-13-2021 CL STENT AUGUSTO 2. 25 X 18 FDA Start: 10-13-2021 Goals Date Patient Goal Desired Activity /State Functional Status Date Assessment Result Facility 10-14-2021 Functional status Patient at Baseline [facility] Work Phone: Mental Status Date Assessment Result Facility 10-14-2021 Cognitive function Cognitive Sta tus Patient at Baseline [facility] Work Phone: Clinical Notes 10-13-2021 to 09-03-2024 Note Date & Type Note Facility 09-03-2024 Evaluation note Diagnosis Onset Date Resolution ASHD (arteriosclerotic heart disease) acute September 03, 2024 3:24pm LEONID (generalized anxiety disorder) acute September 03, 2024 3:24pm Hypercholesterolemia acute September 03, 2024 3:24pm Hypertension acute September 03 3:24pm Nicotine addiction acute September 032024 3:24pm Renal cyst, acquired, left acute September 03, 2024 3:24pm Screening PSA (prostate specific antigen) acute September 03, 2024 3:24pm Wellness examination noneactive September 03, 2024 3:24pm ASHD (arteriosclerotic heart disease) acute October 08, 2024 9:37am History of heart artery stent acute October 08, 2024 9:37am Rectal bleeding acute September 9:37am [facility] Work Phone: 1(145) 586-158304-15-2025 History of Present illness Narrative* Denis Hoang, DO - 08/05/2024 9:10 AM EDT Chief Complaint Patient presents with Annual Exam 1 year, coronary artery disease Subjective Pj Sabillon is a 53 y.o. male 53-year-old gentleman returns for annual follow-up for continued cardiovascular surveillance and maintenance. He is doing well he denies any cardiovascular events, complaints or nitrate usage or repeat hospitalizations. He did undergo CT urogram details of which were reviewed, he stated there was some mention of coronary calcification and a large ventricle; upon review of this CT scan I cannot find any mention of cardiac anatomy in the report and furthermore CT urogram is not a cardiac specifictest to rely upon September 2021 he underwent PCI's in the circumflex obtuse marginal branch x3 drug- eluting stents with Dr. Velarde for an acute myocardial infarction. Most recent LDL is 38 He is otherwise asymptomatic, doing very well, functional class I. Recommendations: Continue current therapies and follow-up in 1 year, proceed with treadmill stress testing prior to next visit Review of Systems Cardiovascular: Positive for palpitations. Vitals: 08/05/24 0924 BP: 110/64 BP Location: Right arm Patient Position: Sitting Pulse: 62 Weight: 84.9 kg (187 lb 3.2 oz) Height: 1.727 m (5' 8 ) Objective [...] by mouth once daily at bedtime., Disp: 90 tablet, Rfl: 3 busPIRone (Buspar) 7.5 mg tablet, Take 2 tablets (15 mg) by mouth 2 times a day., Disp: , Rfl: metoprolol tartrate (Lopressor) 25 mg tablet, Take 0.5 tablets (12.5 mg) by mouth 2 times a day., Disp: 90 tablet, Rfl: 3 nitroglycerin (Nitrostat) 0.4 mg SL tablet, Place 1 tablet (0.4 mg) under the tongue every 5 minutes if needed., Disp: , Rfl: Assessment/Plan 1. Coronary artery disease involving [place] coronary artery of [place] heart without angina pectorisFollow Up In Cardiology 2. History of PTCA 3. Subsequent non-ST elevation (NSTEMI) myocardial infarction 4. Mixed hyperlipidemia 5. BMI 28.0-28.9,adult 6. Former smoker Scribe Attestation By signing my name below, ISienna RN , Scribe attest that this documentation has been prepared under the direction and in the presence of Stacy Hoang DO. Provider Attestation - Scribe documentation All medical record entries made by the Scribe were at my direction and personally dictated by me. Irene reviewed the chart and agree that the record accurately reflects my personal performance of the history, physical exam, discussion and plan. documented in this [facility] Work Phone: 1(237) 163-991704-15-2025 Instructions* Patient Instructions* Sienna Burnham RN - 08/05/2024 9:10 AM EDT Please bring all medicines, vitamins, and herbal supplements with you when you come to the office. Prescriptions will not be filled unless you are compliant with your follow up appointments or have a follow up appointment scheduled as per instruction of your physician. Refills should be requested at the time of your visit. BMI was above normal measurement. Current weight: 84.9 kg (187 lb 3.2 oz) Weight change since last visit (-) denotes wt loss 21.2 lbs Weight loss needed to achieve BMI 25: 23.1 Lbs Weight loss needed to achieve BMI 30: -9.7 Lbs Provided instructions on dietary changes Provided instructions on exercise. documented in this [facility] Work Phone: 1(417) 174-462607-23-2024 Hospital Discharge instructions* Discharge Instructions* Alysia Osman RN - 11/13/2023 12:32 PM [...] any questions or concerns you may have. * Attachments The following attachments cannot be sent through Care Everywhere. * Ureteral Stent Placement: Post-op (Icelandic) * Laser Lithotripsy: Post-op (Icelandic) [facility] History of Present illness Narrative* Batsheva Keen RN - 11/05/2023 9:54 AM EDT Left message on voice mail for surgery schedulers regarding requested Cardiac Clearance, Dr Godinez of office as well as nurse practioner. documented in [facility] History of Present illness Narrative* Denis Hoang DO - 08/08/2023 10:10 AM EDT Subjective Pj Sabillon is a 52 y.o. [...] in the circumflex obtuse marginal branch x3 drug- eluting stents with Dr. Velarde for an acute myocardial infarction. He is due for his annual wellness visit with labs, will obtain lipid panel from his primary care physician, continue excellent lifestyle and choices and follow- up in 1 year Review of Systems All [...] by mouth once daily at bedtime., Disp: ,Rfl: busPIRone (Buspar) 7.5 mg tablet, Take 2 [...] Rfl: Assessment/Plan 1. Coronary artery disease involving [place] coronary artery of [place] heart without angina pectoris 2. History of PTCA 3. Mixed hyperlipidemia 4. Hypertension, benign 5. Subsequent non-ST elevation (NSTEMI) myocardial infarction (Multi) 6. BMI 25.0-25.9,adult Scribe Attestation By signing my name below, ICalista LPN , Scribe attest that this documentation has been prepared under the direction and in the presence of Stacy Hoang DO. Provider Attestation - Scribe documentation All medical record entries made by the Scribe were at my direction and personally dictated by me. Ihave reviewed the chart and agree that the record accurately reflects my personal performance of the history, physical exam, discussion and plan. [facility] Work Phone: 1(210) 812-527504-17-2024 Instructions* Patient Instructions* Calista Saavedra LPN - 08/08/2023 10:10 AM [...] to Increase physical activity. [facility] Work Phone: 1(972) 855-802502-12-2024 Evaluation note* Encounter Date Diagnosis Assessment Notes [...] desires to follow-up in 4 months May, VT (myocardial infarction) (ICD-10 - I21.3) May, Weight loss (ICD-10 - R63.4) His weight seems to have stabilized over the last several visits without significant increase or decrease in weight. He had a significant weight loss last year and his smoking cessation attempts and overall health shift after his VT. Reinforced healthy lifestyle with good quality calories, [...] order the CT scan with contrast to [facility], instructed him that central scheduling would call to schedule as they did in the past and would call with results. He is to call if he has not heard from us in a week after he has the scan. Further scans and follow-up will be deferred to his PCP. He denies is any signs or symptoms of lung cancer at this time [employer] Other 02-04-2024 Evaluation note* Encounter Date Diagnosis Assessment Notes Treatment Notes Treatment Clinical Notes May, Conjunctivitis of both eyes, unspecified conjunctivitis type (ICD-10 - H10.9) Conjunctivitis home care material was printed Drink plenty fluids, get plenty of rest. Use the eyedrops as prescribed. Continue your home medications as prescribed. Follow-up with your medical coding instructor if no improvement in 2 to 3 days. Off work tomorrow. Wash your pillowcase every day for the next few days [employer] Other 11-10-2023 Evaluation note* Encounter Date Diagnosis [...] Fe, FA, B12 normal REcheck CBC [facility] [employer] Other 11-02-2023 Evaluation note* Encounter Date Diagnosis Assessment Notes Treatment Notes Treatment Clinical Notes Feb, Anemia, unspecified type (ICD-10 - D64.9) [employer] Other 10-30-2023 Evaluation note* Encounter Date Diagnosis [...] mints Jan, Anxiety (ICD-10 - F41.9) Jan, VT (myocardial infarction) (ICD-10 - I21.3) Jan, Weight [...] evaluation by his PCP. We will follow [employer] Other 08-28-2023 Evaluation note* Encounter Date Diagnosis [...] 2023. Nov, Anxiety (ICD-10 - F41.9) Nov, VT (myocardial infarction) (ICD-10 - I21.3) Nov, Weight loss (ICD-10 - R63.4) Patient's weight is finally stable for the first visit. Reinforced the need to increase protein in his diet to avoid or halt further muscle wasting with his significant weight loss. Encouraged meat products which would help in both iron supplementation and protein. Reinforced well-balanced healthy diet to build health [employer] Other 08-23-2023 Evaluation note* Encounter Date Diagnosis Assessment Notes Treatment Notes Treatment Clinical Notes Nov, Anemia, unspecified type (ICD-10 - D64.9) [employer] Other 07-10-2023 Evaluation note* Encounter Date Diagnosis Assessment Notes Treatment Notes Treatment Clinical Notes Oct, Allergic contact dermatitis due to plants, except food (ICD-10 - L23.7) [employer] Other 07-05-2023 Evaluation note* Encounter Date Diagnosis Assessment Notes Treatment Notes Treatment Clinical Notes Oct, Nicotine dependence (ICD-10 - F17.200) Praised patient for his 1 year anniversary being without cigarettes. We did discuss the health benefits including the significant decreased risk of cardiovascular disease elevated Enriquei 1 year anniversary. He is also omitted [...] attempt. Oct, Anxiety (ICD-10 - F41.9) Oct, VT (myocardial infarction) (ICD-10 - I21.3) Oct, Weight [...] snacks. Continue to work on well-rounded meals [employer] Other 06-22-2023 Evaluation note* Encounter Date Diagnosis Assessment Notes Treatment Notes Treatment Clinical Notes Sep, Allergic contact dermatitis due to plants, except food (ICD-10 - L23.7) Cool compresses, avoid harsh soaps. No improvement, refer to Dermatology [employer] Other 05-10-2023 Evaluation note* Encounter Date Diagnosis [...] (ICD-10 - R91.1) Continue surveillance scans w/ [facility] Denies cough, wheezing or sputum. Continues w/ [...] F41.1) Healthy diet, exercise and keep active [employer] Other 04-10-2023 Evaluation note* Encounter Date Diagnosis Assessment Notes Treatment Notes Treatment Clinical Notes Jul, Left kidney mass (ICD-10 - N28.89) MRI: benign cyst - 06/2022 [employer] Other 02-22-2023 Evaluation note* Encounter Date Diagnosis [...] understanding. May, Anxiety (ICD-10 - F41.9) May, VT (myocardial infarction) (ICD-10 - I21.3) May, Weight [...] again. Information regarding our dietitians guidance via [employer] was given in office today as a second option as well. This will help guide him on some healthy tips as well as recipes. [employer] Other 02-13-2023 Evaluation note* Encounter Date Diagnosis Assessment Notes Treatment Notes Treatment Clinical Notes May, Left kidney mass (ICD-10 - N28.89) [employer] Other 02-08-2023 NoteULTRASOUND IS SUGGESTED FOR MORE COMPLETE EVALUATION.[employer] Other 02-07-2023 Evaluation note* Encounter Date Diagnosis [...] (ICD-10 - R91.1) Chronic nodules w/o exchange administrator the past 5 years May, Cigarette nicotine dependence in remission (ICD-10 - F17.211) Encouraged to continue abstinence. Weaning off nicotine replacement [employer] Other 01-23-2023 Evaluation note* Encounter Date Diagnosis [...] chest. We will follow/inform PCP of results. [employer] Other 01-19-2023 Evaluation note* Encounter Date Diagnosis Assessment Notes Treatment Notes Treatment Clinical Notes Apr, Nicotine dependence (ICD-10 - F17.200) Apr, LEONID (generalized anxiety disorder) (ICD-10 - F41.1) [employer] Other 01-11-2023 Evaluation note* Encounter Date Diagnosis [...] up. Apr, Anxiety (ICD-10 - F41.9) Apr, VT (myocardial infarction) (ICD-10 - I21.3) Patient denied [...] habits and regular meals with healthy snacks. [employer] Other 12-05-2022 Evaluation note* Encounter Date Diagnosis [...] any significant changes in his anxiety. Mar, VT (myocardial infarction) (ICD-10 - I21.3) He has since graduated from cardiac rehab last month. We reinforced cardiovascular benefits of stopping smoking and congratulated him on his success. [employer] Other 10-26-2022 Evaluation note* Encounter Date Diagnosis [...] insecurities or complete omission of meals. Jan, VT (myocardial infarction) (ICD-10 - I21.3) Patient is doing well and his cardiac rehab and is feeling better than he has in a long time. He is returning to his normal activities including getting back to work. Encourage patient to reinforce his positive behavior by reminding himself of the cardiovascular benefits of remaining smoke-free. [employer] Other 10-03-2022 Evaluation note* Encounter Date Diagnosis [...] or scratching palms throughout the visit. Jan, VT (myocardial infarction) (ICD-10 - I21.3) Patient is recovering nicely from his VT likely related to previous tobacco use. Reinforced the positive effects and cardiovascular benefits of not smoking. [employer] Other 09-07-2022 Evaluation note* Encounter Date Diagnosis [...] although it still difficult. Follow-up 2 weeks [employer] Other 08-24-2022 Evaluation note* Encounter Date Diagnosis [...] at the pharmacy versus paying for it reta-[id number]. Patient asks about amount of lozenges he [...] pertaining to the visit today. JERO Fraser [employer] Other 08-03-2022 Evaluation note* Encounter Date Diagnosis [...] will send in 14 mg patches to [facility] pharmacy to see if his newly awarded Medicaid insurance will cover. If not he may have to get from the quit line versus [id number]. Reinforced that this is still cheaper than a pack of cigarettes per day. Patient verbalizes understanding. 30 minutes was spent with the patient/ review of documentation pertaining to the visit today. JERO Fraser Nov, VT (myocardial infarction) (ICD-10 - I21.3) Patient continues to be motivated by smoking cessation due to recent VT. Patient was recently seen by cardiology and released back to work when he is ready from a cardiology standpoint. He is taking his blood thinners as prescribed and his blood pressure has been well controlled. His weight has decreased by over 10 pounds and patient seems motivated to adopt a healthier lifestyle.Encourag ed exercise as directed by home visitor and has tolerated to not only improve [...] follow with his PCP in the future. [employer] Other 07-20-2022 Evaluation note* Encounter Date Diagnosis [...] provider agreed to run this by his home visitor due to his recent VT and cardiac stenting. (On a side note [...] anxiety if clonidine is not appropriate per home visitor. [employer] Other 07-20-2022 Evaluation note* Encounter Date Diagnosis [...] provider agreed to run this by his home visitor due to his recent VT and cardiac stenting. (On a side note [...] anxiety if clonidine is not appropriate per home visitor. Oct, Anxiety (ICD-10 - F41.9) Call was returned from cardiology office stating that smoking cessation medications are not contraindicated in this patient. Did not directly discuss clonidine. After further consideration will trial buspirone as needed and small doses to help with withdrawal symptoms. Sent to pharmacy [employer] Other 06-29-2022 Evaluation note* Encounter Date Diagnosis [...] to the patient every 2 weeks via [facility].2. Patient is to use smoking log to [...] counseling and education was performed by myself uSrinder Valentino [facility] [employer] Other 06-24-2022 Hospital Discharge instructions Additional Instructions [...] doctor or pharmacist, without first calling the home visitor who implanted the stent. If you require [...] weight lifting, stair steppers, etc. until the home visitor approves these activities. Check with the home visitor on your first follow-up visit. CALL YOUR PHYSICIAN at [phone]: -If bleeding should occur from the catheter insertion site- apply pressure to the site then immediately call us. -Report any fever, redness, drainage, increased swelling, or firmness at the catheter insertion site. Some bruising or slight swelling may be present at the time of discharge. -Should arm or leg become cold, numb, white, or blue, contact the home visitor immediately. -IF you should experience episodes of [...] is recommended. Please call Central Scheduling at [phone] to schedule your appointment.] The attending home visitor or [facility] nurse clinician should provide you with specific instructions regarding activity, diet, medications, and further follow up for you. Follow the medication instructions provided on your discharge. If the dosages and instructions on this sheet differ from the dosage and instructions on the bottle, follow the instructions on the bottle. [facility] is not responsible for incorrect prescription information provided by the patient during their visit. Do not stop your medications without consulting your health care provider. Please take the list with you to your next doctor's appointment. Manindervan on hold until renal function improves.[facility] Work Phone: 1(450) 236-770306-24-2022 Progress note Author Myles Velarde [facility] October 14, 2021 9:52am Note Date/Time October 14, 2021 9:52 am [facility] [address] [place] [address] Cardiology Progress Note Signed Patient: Pj Sabillon MR#: [id number] : 1970 Acct:[id number] Age/Sex: 51 / M Adm Date: 2 Loc: Room: [address] [place] [address] Type : ADM IN Attending Dr: Emma [...] % (Auto) 79.7 Lymph % (Auto) 8.0 Arroyo % (Auto) 11.5 Eos % (Auto) 0.3 Baso % (Auto) 0.5 Neut # (Auto) 14.3 H Lymph # (Auto) 1.4 Arroyo # (Auto) 2.1 H Eos # (Auto) [...] MPV Neut % (Auto) Lymph % (Auto) Arroyo % (Auto) Eos % (Auto) Baso % (Auto) Neut # (Auto) Lymph # (Auto) Arroyo # (Auto) Eos # (Auto) Baso # [...] patient is scheduled to be seen in [facility] clinic within 10 days of discharge. From the first clinic visit enrollment in phase 2 monitored cardiac rehabilitation in [place] is strongly recommended. Time spent with patient Time Spent With Patient (min): 30 Documented By: Myles Velarde MD 10/14/2145 Signed By: <Electronically signed by Myles Velarde MD> 10/14/2152 [facility] Work Phone: 1(292) 711-223606-23-2022 Progress note Author Emma Allen [facility] October 13, 2021 2:25pm Note Date/Time October 13, 2021 2:21 pm [facility] [address] [place] [address] Hospitalist Progress Note Signed Patient: Pj Sabillon MR#: [id number] : 1970 Acct:[id number] Age/Sex: 51 / M Adm Date: 2 Loc: Room: [address] [place] [address] Type : ADM IN Attending Dr: Emma [...] 10/13/21 09:00 10/13/21 09:17 Aspirin 81 Mg Tablet.Dr PO 10/13/22 08:59 81 mg DAILY FREIDA [...] Sodium Chloride 1,000 Ml IV 10/13/21 23:59 .[id number] FREIDA Lidocaine HCl 10 ml 10/13/21 11:55 [...] Tablet PO 10/13/22 20:59 BID [facility] Tramadol HCl 50 mg 10/12/21 22:44 Tramadol 50 Mg Tablet PO 04/10/22 22:43 Q6H PRN Moderate Pain Triamcinolone Acetonide 1 applic 10/12/21 22:44 Triamcinolone 0.1% Cream 15 Gm Tube TOPICAL 10/12/22 22:43 QID PRN Irritation Valsartan 80 mg 10/13/21 21:00 Valsartan 80 Mg Tablet PO 10/13/22 20:59 BID [facility] A&P - Hospitalist Assessment/Plan (1) NSTEMI (non-ST [...] signed by Emma Allen MD> 10/13/21 1425 [facility] Work Phone: 1(266) 900-599906-23-2022 Consult note Author Myles Velarde [facility] October 13, 2021 1:20pm Note Date/Time October 13, 2021 1:20 pm [facility] [address] [place] [address] Cardiology Consult Note Signed Patient: Pj Sabillon MR#: [id number] : 1970 Acct:[id number] Age/Sex: 51 / M Adm Date: 2 Loc: Room: [address] [place] [address] Type : ADM IN Attending Dr: Emma [...] longstanding smoking/tobacco abuse who presented to the [place] emergency department yesterday evening complaining of heartburn. The patient states that his symptoms started 3 to 4 hours prior to presenting to [place] [facility]. He describes his symptoms as a burning type sensation in the mid chest with associated nausea. There was no associated dyspnea, diaphoresis, norradiation of the pain. In the emergency department at [place] and ECG was taken which showed mild [...] patient per my recommendation was brought from [place] to [facility] and admitted to the ICU. He [...] Lymph # (Auto) 1.5 1.6 (1.00-4.8) x10E3/uL Arroyo # (Auto) 1.3 H 1.6 H (0.0-0.8) [...] signed by Myles Velarde MD> 10/13/21 1320 [facility] Work Phone: 1(583) 869-164606-23-2022 Procedure [facility]06-23-2022 Procedure [facility]06-23-2022 History and physical note Author Kobe Mandujano [facility] October 13, 2021 4:08am Note Date/Time October 12, 2021 11:2 5pm [facility] [address] [place] [address] Hospitalist H&P Signed Patient: Pj Sabillon MR#: [id number] : 1970 Acct:[id number] Age/Sex: 51 / M Adm Date: 2 Loc: Room: [address] [place] [address] Type : ADM IN Attending Dr: Emma Allen MD Copies to: DO Kobe Kaba MD Mazhar Rahman, MD [facility], [facility], RES~ HPI DATE OF EXAMINATION: 10/12/21 [...] convinced by his sister to go to [facility]. Of note, he states he had previoushistory of rib fractures in associated area that have caused him chronic soreness in the left upper chest and states that the soreness he felt today was significantly more than usual. Upon arrival at [facility] his initial vitals were [...] of 27.9. Patient was then transferred to [facility], after discussing case with Dr. Velarde (director of knowledge management) who requested patient to be placed on [...] % (Auto) 8.2 % (.) 10/12/21 23:04 Arroyo % (Auto) 7.1 % (.) 10/12/21 23:04 Eos % (Auto) 0.4 % (.) 10/12/21 23:04 Baso % (Auto) 0.7 % (.) 10/12/21 23:04 Neut # (Auto) 15.4 x10E3/uL (1.8-7.7) H 10/12/21 23:04 Lymph # (Auto) 1.5 x10E3/uL (1.00-4.8) 10/12/21 23:04 Arroyo # (Auto) 1.3 x10E3/uL (0.0-0.8) H 10/12/21 [...] the plan of care and confirmed the resident's/international marketing specialist/medical student's dictation/written note. Patient is a 51-year-old [...] to be in NSTEMI for which her home visitor was contacted and they recommended for the patient to be on heparindrip/nitro drip and to transfer him here [facility], on my encounter the patient was in [...] signed by Kobe Sanchez MD> 10/13/21 0408 [facility] Work Phone: Evaluation note* Diagnosis Onset Date Resolution Status Hypertension acute NSTEMI (non-ST elevated myocardial infarction) acute [facility] Work Phone: Evaluation noteNo InformationNort Sarata Other Evaluation noteNo assessment information available [facility] Work Phone: Evaluation note* Diagnosis Coronary artery disease involving [place] coronary artery of [place] heart without angina pectoris History of PTCA Postsurgical percutaneous transluminal coronary angioplasty status Mixed hyperlipidemia Hypertension, benign Essential hypertension, benign Subsequent non-ST elevation (NSTEMI) myocardial infarction (Multi) BMI 25.0-25.9,adult Former smoker Personal history of tobacco use, presenting hazards to health documented in this encounter [facility] Work Phone: Evaluation note* Diagnosis Onset Date Resolution Status ASHD (arteriosclerotic heart disease) acute LEONID (generalized anxiety disorder) acute Hypercholesterolemia acute Hypertension acute Nicotine addiction acute Pulmonary nodule acute Renal cyst, acquired, left a cute Wellness examination noneact [facility] Work Phone: Evaluation note* Diagnosis Onset Date Resolution Status ASHD (arteriosclerotic heart disease) acute LEONID (generalized anxiety disorder) acute Hypercholesterolemia acute Hypertension acute Nicotine addiction acute Renal cyst, acquired, left a cute Wellness examination noneact [facility] Work Phone: Evaluation note* Diagnosis Onset Date Resolution Status ASHD (arteriosclerotic heart disease) acute LEONID (generalized anxiety disorder) acute Hypercholesterolemia acute Hypertension acute Nicotine addiction acute Renal cyst, acquired, left a cute Wellness examination noneact ev Gross hematuria acute History of nephrolithiasis a cute Renal cyst, acquired, left a cute [facility] Work Phone: Evaluation note* Diagnosis Metal foreign body in eye region documented in this encounter [facility]* Diagnosis Renal cyst 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 documented in this encounter [facility] [employer] note* Diagnosis Kidney stone Calculus of kidney documented in this encounter [facility] note* Diagnosis Gross hematuria [facility] Diagnosis Kidney stone Calculus of kidney documented in this encounter [facility] [employer] note* Diagnosis Gross hematuria Complex renal cyst Other specified congenital cystic kidney disease documented in this encounter [facility] [employer] note* Diagnosis Ureteral stone- Primary Calculus of ureter documented in this encounter [facility] [employer] note* Diagnosis Bilateral kidney stones Calculus of kidney documented in this encounter [facility] [employer] note* Diagnosis Gross hematuria Prostate cancer screening Special screening for malignant neoplasm of prostate documented in this encounter [facility]* Diagnosis Coronary artery disease involving [place] coronary artery of [place] heart without angina pectoris History of PTCA Postsurgical percutaneous transluminal coronary angioplasty status Subsequent non-ST elevation (NSTEMI) myocardial infarction Mixed hyperlipidemia BMI 28.0-28.9,adult Former smoker Personal history of tobacco use, presenting hazards to health Hyperlipidemia, unspecified hyperlipidemia type documented in this encounter [facility] Work Phone: Evaluation note* Diagnosis Onset Date Resolution Status Admit Date ASHD (arteriosclerotic heart disease) acute September 03, 2024 3:24pm LEONID (generalized anxiety disorder) a cute September 03, 2024 3:24pm Hypercholesterolemia acute September 03, 2024 3:24pm Hypertension acute September 03 3:24pm Nicotine addiction acute September 032024 3:24pm Renal cyst, acquired, left acute September 03, 2024 3:24pm Screening PSA (prostate spec ific antigen) acute September 03, 2024 3:24pm Wellness examination noneactive September 03, 2024 3:24pm [facility] Work Phone: Hisrvih general Narrative - Reported* Type Description Date Medical History H/O [place] WITH CARDIAC STENTING X3 Medical History HYPERLIPIDEMIA Medical History CAD Medical History HYPERTENSION Surgical History CARDIAC STENTING X2021 Surgical History LITHOTRIPSY KIDNEY STONES 1989 Surgical History RIGHT FOREARM TENDON REPAIR 199 3 Hospitalization History 1) [place] WITH CARDIAC STENT ING 09/2021 [employer] Other Hisclng general Narrative - Reported* Type Description Date Medical History H/O [place] WITH CARDIAC STENTING X3 Medical History HYPERLIPIDEMIA Medical History CAD Medical History HYPERTENSION Medical History Cyst on kidney Surgical History CARDIAC STENTING X2021 Surgical History LITHOTRIPSY KIDNEY STONES 1989 Surgical History RIGHT FOREARM TENDON REPAIR 199 3 Hospitalization History 1) [place] WITH CARDIAC STENT ING 09/2021 [employer] Other Hisomsh general Narrative - Reported* Type Description Date Medical History H/O [place] WITH CARDIAC STENTING X3 Medical History HYPERLIPIDEMIA Medical History CAD Medical History HYPERTENSION Medical History Cyst on kidney Medical History psoriasis Surgical History CARDIAC STENTING X2021 Surgical History LITHOTRIPSY KIDNEY STONES 1989 Surgical History RIGHT FOREARM TENDON REPAIR 199 3 Hospitalization History 1) [place] WITH CARDIAC STENT ING 09/2021 [employer] Other Hisxmjg general Narrative - Reported* Type Description Date Medical History H/O [place] WITH CARDIAC STENTING X3 Medical History HYPERLIPIDEMIA Medical History CAD Medical History HYPERTENSION Medical History Cyst on kidney, (hemorrhagic cys t) Medical History psoriasis Surgical History CARDIAC STENTING X2021 Surgical History LITHOTRIPSY KIDNEY STONES 1989 Surgical History RIGHT FOREARM TENDON REPAIR 199 3 Hospitalization History 1) [place] WITH CARDIAC STENT ING 09/2021 [employer] Other Hisrfmk general Narrative - Reported* Type Description Date Medical History H/O [place] WITH CARDIAC STENTING X3 Medical History HYPERLIPIDEMIA Medical History CAD Medical History HYPERTENSION Medical History Cyst on kidney, (hemorrhagic cys t) Medical History psoriasis Medical History [facility] Surgical History CARDIAC STENTING X2021 Surgical History LITHOTRIPSY KIDNEY STONES 1989 Surgical History RIGHT FOREARM TENDON REPAIR 199 3 Hospitalization History 1) [place] WITH CARDIAC STENT ING 09/2021 [employer] Other Hospital Discharge instructions Additional Instructions DISCHARGE INSTRUCTIONS FOR COLONOSCOPY WHAT TO EXPECT: - You may feel full, gassy or cramping after your procedure. In some cases, this may be from a few hours to a day. Walking may help relieve the discomfort. - If you have polyp(s) removed you may note some minor bloody discharge after your first bowel movements. - You should begin to recover from anesthesia within 1 hour of the procedure, however may feel groggy for the next 24 hours. DO's AND DON'Ts: - Call your doctor right away if you have a hard abdomen, severe pain, are passing lots of bright red blood or clots. - Call your doctor if you develop any rashes, hives or difficulty breathing. - Let your doctor know if you have not had a bowel movement by 3 days after your procedure. - If you take 81 mg aspirin for your heart it is safe to resume this medication. - If you take other blood thinner medications your doctor will instruct you when these can safely be resumed. - Do NOT drive for 24 hours. - Do NOT operate machinery such as power tools, Superprotonic mowers, Omniturewers, sewing machines, etc. for 24 hours. - Avoid alcoholic beverages and drugs for allergies, nerves, or sleep. - Do NOT stay alone. Do NOT leave your child unattended. - Do NOT make important personal or business decisions or sign any legal documents. - Eat solid foods and drink liquids in smaller amounts than usual until normal appetite returns. If you should experience an upset stomach, liquids high in sugar content (soda, Mike-Aid, non-acid juices) are recommended. - You can resume normal activities tomorrow. FOLLOW UP & RECOMMENDATIONS: -Please call the office and make a follow up appointment to see me in 3 to 4 months if you do not have an appointment scheduled. -Notify the doctor if you have any problems. -Repeat colonoscopy pending biopsy result -Follow up with PCP. -Office number [phone]. [facility] Work Phone: Reason for referral (narrative)* Consultation (Routine) - Authorized Specialty Diagnoses / Procedures Referred By Contac t Referred To Contact Cardiology Diagnoses Coronary artery disease involving pass[place] coronary artery of pass[place] heart without angina pectoris Procedures Follow Up In Cardiology Denis Hoang DO [address] [facility] [address] [place] [address] Denis Hoang DO [address] [facility] [address] [place] [address] Referral ID Status Reason Start Date Expiration Date V isits Requested Visits Authorized [id number] Authorized 08/08/2023 08/07/2024 1 1 [facility] Work Phone: Reason for referral (narrative)No reason for referral information [facility] Work Phone: Chief Complaint and Reason for Visit Chief Complaint Non Stemi Reason for Visit Hypertension NSTEMI (non-ST elevated myocardial infarction) Chief Complaint smoking cessation Chief Complaint smoking cessation r91.1 Chief Complaint r91.1 smoking cessation n28.89 Chief Complaint 6 Month Follow Up Chief Complaint Poss [facility] Smoking F/U Nicotine Abuse R91.1 Chief Complaint Poss [facility] Smoking F/U Nicotine Abuse R91.1 n28.1 [...] History of nephrolithiasis Renal cyst, acquired, left Chief Complaint Admit Date WELLNESS September 03, 2024 3:24p m Reason for Visit Admit Date ASHD (arteriosclerotic heart disease) Ma y 2024 3:24pm LEONID (generalized anxiety disorder) August 212024 3:24pm Hypercholesterolemia September 03, 2024 3:24 pm Hypertension September 03, 2024 3:24p m Nicotine addiction September 03, 2024 3:24p m Renal cyst, acquired, left September 03 3:24pm Screening PSA (prostate specific antigen ) September 03, 2024 3:24pm Wellness examination September 03, 2024 3:24 pm Chief Complaint Admit Date WELLNESS September 03, 2024 3:24p m rectal bleeding October 08, 2024 9:37 am rectal bleeding November 06, 2024 9:36 am Reason for Visit Admit Date ASHD (arteriosclerotic heart disease) Ma y 2024 3:24pm LEONID (generalized anxiety disorder) August 212024 3:24pm Hypercholesterolemia September 03, 2024 3:24 pm Hypertension September 03, 2024 3:24p m Nicotine addiction September 03, 2024 3:24p m Renal cyst, acquired, left September 03 3:24pm Screening PSA (prostate specific antigen ) September 03, 2024 3:24pm Wellness examination September 03, 2024 3:24 pm ASHD (arteriosclerotic heart disease) Ju ne 2024 9:37am History of heart artery stent October 08, 2024 9:37am Rectal bleeding October 08, 2024 9:37 am Chief Complaint Admit Date Amb Documentation November 15, 2024 12:0 1pm follow up 3-4 months February 06, 2025 8:49am Family History Relationship Condition Age at Onset [...] mental disorder Unknown mother Heart disease Unknown Hypertension Unknown sister Chronic mental illness Unknown father Hypertension Unknown mother Malignant neoplasm Unknown Relationship Condition Age at Onset Recorded Date/T bianca mother Heart disease Unknown Malignant neoplasm Unknown Hypertension Unknown Malignant neoplasm of uterus Unknown sister Schizophrenia Unknown Family history of mental disorder Unknown father Hypertension Unknown mother Malignant neoplasm Unknown Advance Directives Advance Directive Response Recorded Date/ Time Advance Directives No December 9:48am Advance Directive Response Recorded Date/ Time Advance Directives No December 8:48am Reason for Referral Specialty Diagnoses / Procedures Referred By Deborah fairbanks Referred To Contact Radiology Diagnoses Gross hematuria Complex renal cyst Procedures CT UROGRAM Ramya Acevedo, OIL RIG ROUGHNECK - INTEGRITY ANALYST [address] [place] [address] Referral ID Status Reason Start Date Expiration Date Visits Re quested Visits Authorized [id number] Closed 10/24/2023 11/24/2023 1 1 Specialty Diagnoses / Procedures Referred By Deborah fairbanks Referred To Contact Radiology Diagnoses Gross hematuria Procedures CT UROGRAM Gary East MD [address] [place] [id number] Referral ID Status Reason Start Date Expiration Date Visits Re quested Visits Authorized [id number] Closed 05/01/2024 05/01/2025 1 1 Specialty Diagnoses / Procedures Referred By Deborah fairbanks Referred To Contact Radiology Diagnoses Renal cyst Complex renal cyst Procedures MRI ABDOMEN W WO CONTRAST Gary East MD [address] [place] [id number] Referral ID Status Reason Start Date Expiration Date Visits Re quested Visits Authorized [id number] Closed 03/10/2024 04/04/2025 1 1 Reason 07/03/22 Patient b maday referred for a left renal mass Diagnosis 1 Left kidney mass (N2 8.89) Referral Organization [facility] kim Referring Provider First Name Yaya Referring Provider Last Name Torey Referring Provider Specialty Internal Me manishaine Referred Organization Unknown Facility Referred Provider Josesito [...] back that pt is scheduled with Dr. Jaurez office Amy Parra 07/05/2022 02:46:05 PM >FAXED [...] Team Status: Active Member Role Status Adonay Lema , Primary Care Provider Active Team Status: Inactive Member Role Status Adonay Lema DO Primary Care Provider Active Start: September 03, 2024 End: September 03, 2024 Yaya Lema , Attending Provider Active Sta rt: September 03, 2024 End: September 03, 2024 Team Status: Active Member Role Status Adonay Lema DO Primary Care Provider Active Start: September 04, 2024 Yaya Lema DO Attending Provider Active Sta rt: September 04, 2024 Team Status: Inactive Member Role Status Adonay Lema DO Primary Care Provider Active Start: October 08, 2024 End: October 08, 2024 Yaya Lema , DO Attending Provider Active Sta rt: October 08, 2024 End: October 08, 2024 Team Status: Active Member Role Status Adonay Lema DO Primary Care Provider Active Start: November 06, 2024 Elaine L Ly , DO Attending Provider Active St art: November 06, 2024 Elaine L Ly , DO Other Provider Active Start: November 06, 2024 Team Status: Active Member Role Status Adonay Lema DO Primary Care Provide r, Attending Provider Active Start: July 22, 2024 Team Status: Inactive Member Role Status Adonay Lema , DO Primary Care Provide r, Attending Provider Active Start: September 03, 2024 End: September 03, 2024 Team Status: Inactive Member Role Status Adonay Lema DO Primary Care Provider Active Doretha Valentino APRN Attending Provider Active Team Status: Inactive Member Role Status Adonay Lema DO Primary Care Provider Active Josesito Timmons MD Attending Provider Active Team Status: Active Member Role Status Adonay Lema DO Primary Care Provider Active Doretha Valentino APRN Attending Provider Active Team Status: Inactive Member Role Status Adonay Lema DO Primary Care Provider Active Kobe Sanchez MD Admit Provider Active Emma Allen MD Attending Provider Active Denis Jung MD Other Provider Active Team Status: Inactive Member Role Status Dates RONI MillerC Attending Provider Active Team Status: Inactive Member [...] Team Status: Inactive Member Role Status Adonay Lema DO Primary Care Provider Active Start: [...] June 04, 2023 End: June 04, 2023 Filter Changing Technician Relationship Specialty Start Date End Date Yaya Lema DO [address] [place] [address] [address] [facility] [place] [address] PCP - General Internal Medicine 08/08/23 Denis Hoang DO [address] [place] [address] 2, [facility] [address] [place] [address] Consulting Physician Cardiology 08/08/23 Team Status: Inactive [...] Active Start: 2023 End: November 01, 2023 Filter Changing Technician Relationship Specialty Start Date End Date Yaya Lema DO [address] [place] [address] PCP - General Internal Medicine 07/26/22 Filter Changing Technician Relationship Specialty Start Date End Date Yaya Lema DO [address] [place] [address] PCP - General Internal Medicine 07/26/22 Filter Changing Technician Relationship Specialty Start Date End Date Yaya Lema DO [address] [place] [address] PCP - General Internal Medicine 07/26/22 Filter Changing Technician Relationship Specialty Start Date End Date Yaya Lema DO [address] [place] [address] PCP - General Internal Medicine 07/26/22 Filter Changing Technician Relationship Specialty Start Date End Date Yaya Lema DO [address] [place] [address] PCP - General Internal Medicine 07/26/22 Filter Changing Technician Relationship Specialty Start Date End Date Yaya Lema DO [address] [place] [id number] PCP - General Internal Medicine 07/26/22 Filter Changing Technician Relationship Specialty Start Date End Date Yaya Lema DO [address] [place] [address] PCP - General Internal Medicine 07/26/22 Filter Changing Technician Relationship Specialty Start Date End Date Yaya Lema DO [address] [place] [address] PCP - General Internal Medicine 07/26/22 Filter Changing Technician Relationship Specialty Start Date End Date Yaya Lema DO [address] [place] [address] PCP - General Internal Medicine 07/26/22 Filter Changing Technician Relationship Specialty Start Date End Date Yaya Lema DO [address] [place] [address] PCP - General Internal Medicine 07/26/22 Filter Changing Technician Relationship Specialty Start Date End Date Yaya Lema DO PCP - General Internal Medicine 08/08/23 Denis Hoang DO [address] [facility] 2, [facility] [address] [place] [address] Consulting Physician Cardiology 08/08/23 Team Status: Active Member Role/Relationship Status Dates Yaya Lema DO Primary Care Provider Active Team Status: Active Member Role/Relationship Status Dates Yaya Lema DO Primary Care Provider Active Start: November 15, 2024 MAVIS Christiansen Attending Provider Active S tart: November 15, 2024 Team Status: Inactive Member Role/Relationship Status Dates Yaya Lema DO Primary Care Provider Active Start: February 06, 2025 End: February 06, 2025 Elaine Smith DO Attending Provider Active St art: February 06, 2025 End: February 06, 2025 REASON FOR VISIT (unrecogniz ed section and content) Reason Comments Follow-up 8 month Specialty Diagnoses / Procedures Referred By Deborah t Referred To Contact Radiology Diagnoses Renal cyst Complex renal cyst Procedures MRI ABDOMEN W WO CONTRAST Gary East MD [address] [place] [address] Referral ID Status Reason Start Date Expiration Date Visits Re quested Visits Authorized [id number] Closed 03/10/2024 04/04/2025 1 1 Specialty Diagnoses / Procedures Referred By Contac t Referred To Contact Radiology Diagnoses Gross hematuria Procedures CT UROGRAM Gary aEst MD [address] [place] [id number] Referral ID Status Reason Start Date Expiration Date Visits Re quested Visits Authorized [id number] Closed 05/01/2024 05/01/2025 1 1 Specialty Diagnoses / Procedures Referred By Contac t Referred To Contact Radiology Diagnoses Gross hematuria Complex renal cyst Procedures CT UROGRAM Ramya Acevedo, OIL RIG ROUGHNECK - INTEGRITY ANALYST [address] [place] [address] Referral ID Status Reason Start Date Expiration Date Visits Re quested Visits Authorized [id number] Closed 10/24/2023 11/24/2023 1 1 Specialty Diagnoses / Procedures Referred By Contac t Referred To Contact Diagnoses Right kidney stone Right kidney stone [N20.0] Procedures CT CYSTO FRAGMENTATION URETERAL STONE CYSTOSCOPY RIGHT URETEROSCOPY HOLMIUM LASER RIGHT STENT PLACEMENT Gary East MD [address] [place] [id number] [facility] [address] [place] [address] Referral ID Status Reason Start Date Expiration Date Visits Re quested Visits Authorized [id number] 1 1 Reason Comments Annual Exam 1 year, coronary art steve disease Specialty Diagnoses / Procedures Referred By Deborah fairbanks Referred To Contact Cardiology Diagnoses Coronary artery disease involving [place] coronary artery of [place] heart without angina pectoris Procedures Follow Up In Cardiology Denis Hoang, DO [address] [facility], [address] [address] Phone: tel: fax: Denis Hoang, DO [facility], [address] [id number] Phone: tel: fax: Referral ID Status Reason Start Date Expiration Date V isits Requested Visits Authorized [id number] Authorized 08/08/2023 08/07/2024 1 1 Goals (unrecognized section and content) Goals may be documented in a n alternate section (unrecognized sect ion and content) No Status Records FoundNo Status Records FoundNo Status Records FoundNo Status Records FoundNo Status Records FoundNo Status Records FoundNo Status Records FoundNo Status Records FoundNo Status Records Found INFORMATION SOURCE (unrecogn ized section and content) DATE CREATED AUTHOR 08/07/2022 [facility] DATE CREATED AUTHOR AUTHOR'S ORGANIZ ATION 09/04/2022 [facility] DATE CREATED AUTHOR AUTHOR'S ORGANIZ ATION 11/23/2022 [facility] DATE CREATED AUTHOR AUTHOR'S ORGANIZ ATION 11/24/2022 [employer] DATE CREATED AUTHOR AUTHOR'S ORGANIZ ATION 11/15/2023 [facility] DATE CREATED AUTHOR AUTHOR'S ORGANIZ ATION 08/07/2024 [facility] DATE CREATED AUTHOR AUTHOR'S ORGANIZ ATION 08/07/2024 [facility] DATE CREATED AUTHOR AUTHOR'S ORGANIZ ATION 08/20/2024 [facility] DATE CREATED AUTHOR AUTHOR'S ORGANIZ ATION 11/14/2024 [facility] Ordered Prescriptions (unrec ognized section and content) [...] ider: Kelly Brown RN)1102 (Paused - Provider: CATHERINE Bowman CRNA - Comment: Switch to gravity)1103 (Restarted - [...] of surgery) 0951 (Given - Provid er: Klely Brown RN) meperidine (DEMEROL) injection 12.5 mg [...] BE BASED ON THE PRIMARY CLINICAL RECORDS. [email or web address] provides no warranty or guarantee of the accuracy or completeness of information in this document.
[2025-02-09 12:46] LABS: Alanine Aminotransferase 47 U/L (16-63); Albumin Globulin Ratio 1.1; Albumin Level 3.6 g/dL (3.4-5.0); Alkaline Phosphatase 111 U/L (46-116); Anion Gap 11.6; Aspartate Amino Transferase 21 U/L (15-37); Blood Urea Nitrogen 13.0 mg/dL (7.0-18.0); Calcium 8.8 mg/dL (8.5-10.1); Carbon Dioxide 28.0 mmol/L (21.0-32.0); Chloride 107 mmol/L (98-107); Estimated GFR (African America >60 (>=60 mL/min/1.73m^2); Estimated GFR (Non-African Ame >60 (>=60 mL/min/1.73m^2); Globulin 3.3 g/dL; Glucose 100 mg/dL (74-106); Potassium 4.6 mmol/L (3.5-5.1); Sodium 142 mmol/L (136-145); Total Protein 6.9 g/dL (6.4-8.2)
== END 2025-02-09 12:08 | disposition home or self-care (01) ==
PROVIDERS: PCP Internal Medicine; Visit Provider Internal Medicine Gastroenterology
DX: K51.90 Ulcerative colitis, unspecified, without complications (principal)
CPT/HCPCS: 36415; 80053; 86140